=== PATIENT | male | born 1950 | race Caucasian/White ===

== ENCOUNTER → 2017-05-10 | Outpatient (CLI) | payer MEDICARE, SELFPAY | PROVIDERS: Visit Provider Internal Medicine Adolescent Medicine | DX: E11.9 Type 2 diabetes mellitus without complications (principal) | CPT/HCPCS: 36415; 83036 ==

== ENCOUNTER → 2017-08-14 12:18 | Outpatient (CLI) | payer MEDICARE, SELFPAY | PROVIDERS: Visit Provider Internal Medicine Adolescent Medicine ==

== ENCOUNTER → 2018-01-17 09:49 | Outpatient (CLI) | payer MEDICARE, SELFPAY ==
--- NOTE | 2018-01-17 09:56 | NVE_ITS ---
Venous Exam Indications: 782.3 Edema. Half of right foot amputated in 2010. Pt has 2 stents in right leg and is on Plavix bower. IMPRESSIONS 1. There is no evidence of significant Reflux. 2. No evidence of deep or superficial vein thrombosis involving the right lower extremity Right lower extremity venous duplex evaluation. Doppler flow study including spectral analysis, color and palacios scale imaging. Location: Vascular laboratory. Patient status: Outpatient. Tables: Venous flow and imaging: + + + + + Location Overall Flow properties Comments + + + + + Right common femoral Patent Normal phasicity; spontaneous; normal augmentation; compressible + + + + + Right saphenofemoral Patent Compressible junction + + + + + Right profunda Patent Compressible femoral + + + + + Right femoral Patent Normal phasicity; spontaneous; normal augmentation; compressible + + + + + Right greater Likely absent Pt states was saphenous harvested for grafting. + + + + + Right popliteal Patent Normal phasicity; spontaneous ; normal augmentation; compressible + + + + + Right posterior Difficult Compressible Difficult to tibial study visualize. + + + + + Right peroneal Difficult Compressible Difficult to study visualize + + + + + Right gastrocnemius Patent Compressible + + + + + Right soleal Patent Compressible + + + + + Right lesser Patent Compressible saphenous
== END ==
PROVIDERS: Family Provider Internal Medicine Adolescent Medicine; PCP Internal Medicine Adolescent Medicine; Visit Provider Podiatrist
DX: I82.411 Acute embolism and thrombosis of right femoral vein (principal)
CPT/HCPCS: 93971

== ENCOUNTER → 2018-06-08 11:18 | Outpatient (CLI) | payer MEDICARE, SELFPAY ==
[2018-06-08 13:55] LABS: Hemoglobin A1C 9.1 % (0.0-7.0)
[2018-06-08 14:26] LABS: Alanine Aminotransferase 28 U/L (12-78); Albumin Level 3.8 gm/dL (3.4-5.0); Alkaline Phosphatase 71 U/L (46-116); Anion Gap 13.7 mEq/L (5-15); Aspartate Amino Transferase 13 U/L (15-37); Bilirubin,Total 0.3 mg/dL (0.2-1.0); Blood Urea Nitrogen 14 mg/dL (7-18); Calcium 9.1 mg/dL (8.5-10.1); Carbon Dioxide 30 mmol/L (21.0-32.0); Chloride 99 mmol/L (98-107); Chol/HDL Ratio 3.6 (1-3.5); Cholesterol 98 mg/dL (140-200); Creatinine,Serum 1.15 mg/dL (0.70-1.30); Estimated Glomerular Filt Rate 64 ml/min (>60); GFR (African American) 77 ML/MIN (>60); Globulin 3.7 gm/dl (1.3-3.2); Glucose 214 mg/dL (74-106); HDL Cholesterol 27 mg/dL (27-67); LDL Cholesterol 23 mg/dL (0-130); Potassium 4.7 mmoL/L (3.5-5.1); Sodium 138 mmol/L (136-145); Total Protein,Serum 7.5 gm/dL (6.4-8.2); Triglycerides 239 mg/dL (30-200); VLDL Cholesterol 48 mg/dL (0-40)
== END ==
PROVIDERS: Visit Provider Internal Medicine Adolescent Medicine
DX: E11.9 Type 2 diabetes mellitus without complications (principal)
CPT/HCPCS: 36415; 80053; 80061; 83036

== ENCOUNTER → 2018-10-08 12:26 | Outpatient (CLI) | payer MEDICARE, SELFPAY ==
[2018-10-08 12:52] LABS: Basophils # 0.1 K/mm3 (0-0.2); Basophils % 0.7 % (0.1-2.0); Eosinophils # 0.2 K/mm3 (0.0-0.4); Eosinophils % 2.5 % (0.1-12.0); Hematocrit 40.1 % (42.0-52.0); Hemoglobin 13.4 g/dL (14.1-18.0); Lymphocytes # 2.3 K/mm3 (0.7-4.5); Lymphocytes % 34.6 % (10-50); Mean Corpuscular HGB Conc 33.5 g/dL (31.8-35.4); Mean Corpuscular Hemoglobin 27.9 pg (27.0-31.2); Mean Corpuscular Volume 83.4 fl (80-94); Mean Platelet Volume 7.2 fl (7.4-10.4); Monocytes # 0.4 K/mm3 (0.1-1.0); Monocytes % 5.6 % (1.7-9.3); Neutrophils # 3.8 K/mm3 (1.8-7.8); Neutrophils % 56.7 % (37.0-80.0); Platelet Count 220 K/mm3 (142-424); Red Blood Count 4.81 M/mm3 (4.60-6.20); Red Cell Distribution Width 13.6 % (11.5-17.5); White Blood Count 6.8 K/mm3 (4.8-10.8)
[2018-10-08 13:34] LABS: Hemoglobin A1C 7.6 % (0.0-7.0)
[2018-10-08 13:42] LABS: Alanine Aminotransferase 23 U/L (12-78); Albumin Level 3.6 gm/dL (3.4-5.0); Alkaline Phosphatase 65 U/L (46-116); Anion Gap 13.2 mEq/L (5-15); Aspartate Amino Transferase 7 U/L (15-37); Bilirubin,Total 0.3 mg/dL (0.2-1.0); Blood Urea Nitrogen 14 mg/dL (7-18); Calcium 8.8 mg/dL (8.5-10.1); Carbon Dioxide 28 mmol/L (21.0-32.0); Chloride 100 mmol/L (98-107); Chol/HDL Ratio 3.4 (1-3.5); Cholesterol 82 mg/dL (140-200); Creatinine,Serum 1.16 mg/dL (0.70-1.30); Estimated Glomerular Filt Rate 63 ml/min (>60); GFR (African American) 76 ML/MIN (>60); Globulin 3.5 gm/dl (1.3-3.2); Glucose 118 mg/dL (74-106); HDL Cholesterol 24 mg/dL (27-67); LDL Cholesterol 12 mg/dL (0-130); Potassium 4.2 mmoL/L (3.5-5.1); Sodium 137 mmol/L (136-145); Total Protein,Serum 7.1 gm/dL (6.4-8.2); Triglycerides 230 mg/dL (30-200); VLDL Cholesterol 46 mg/dL (0-40)
== END ==
PROVIDERS: Visit Provider Internal Medicine Adolescent Medicine
DX: E11.9 Type 2 diabetes mellitus without complications (principal)
CPT/HCPCS: 36415; 80053; 80061; 83036; 85025

== ENCOUNTER → 2019-01-28 14:37 | Outpatient (CLI) | payer MEDICARE, SELFPAY ==
--- NOTE | 2019-01-28 14:39 | CT_ITS ---
PROCEDURE: CT LUNG SCREENING CLINICAL INDICATION: CURRENT TOBACCO USE Sixty pack-year smoking history, asymptomatic for lung cancer COMPARISON: LDCTLCAS LDCT FOR LUNG CA SCREEN from 11/09/2016 TECHNIQUE: The exam was performed on a GE [employer] Speed [address] scanner using 2.90 mGy CTDI. A low dose helical CT CHEST was performed on a multi-detector scanner. All CT scans at the facility use one or more dose reduction, viz: automated exposure control, ma/kV adjustment per patient size (including targeted exams where dose is matched to indication, i.e. head), or iterative reconstruction technique. The LDCT was performed in a facility that meets the criteria for the screening program. Data regarding this exam was submitted to ACR which is an approved registry. The order for this exam indicates that it came as a result of a lung cancer screening counseling shard decision-making visit that included all the elements required of such a visit including smoking cessation. The radiologist interpreting this exam meets the CMS criteria for the LDCT lung cancer screening program. The exam is reported using the Lung-RADS classification scale and reported to the ACR registry. NOTE: This study was performed for the specific purposes of lung cancer screening and is not an alternative to diagnostic chest CT. RADIATION DOSE: CTDI vol(CT dose Index-volume) = 2.90mG DLP (Dose Length Product) = 101.72 mGcm FINDINGS: COPD. Scattered areas of scarring. Old granulomatous disease. Coronary artery and aortic valve calcification. Gynecomastia. No suspicious pulmonary nodules. Calcified granuloma right apex OTHER FINDINGS: Degenerative changes thoracic spine IMPRESSION: Lung rads category 2 benign Coronary artery and aortic valve calcification with COPD Recommend 12 month LDCT follow-up Dictated by: Christiano Sheriff MD 02/03/2019 07:33 Electronically signed by Christiano Sheriff MD in [place] 02/03/2019 07:33
== END ==
PROVIDERS: PCP Internal Medicine Adolescent Medicine; Visit Provider Internal Medicine Adolescent Medicine
DX: Z12.2 Encounter for screening for malignant neoplasm of respiratory organs (principal); Z87.891 Personal history of nicotine dependence

== ENCOUNTER → 2021-03-17 12:34 | Outpatient (CLI) | payer MEDICARE, SELFPAY ==
[2021-03-17 12:53] LABS: Basophils # 0.1 K/mm3 (0-0.2); Basophils % 0.6 % (0.1-2.0); Eosinophils # 0.2 K/mm3 (0.0-0.4); Eosinophils % 2.3 % (0.1-12.0); Hematocrit 44.2 % (42.0-52.0); Hemoglobin 14.4 g/dL (14.1-18.0); Lymphocytes # 2.3 K/mm3 (0.7-4.5); Lymphocytes % 22.6 % (10-50); Mean Corpuscular HGB Conc 32.6 g/dL (31.8-35.4); Mean Corpuscular Hemoglobin 28.9 pg (27.0-31.2); Mean Corpuscular Volume 88.6 fl (80-94); Mean Platelet Volume 6.8 fl (7.4-10.4); Monocytes # 0.5 K/mm3 (0.1-1.0); Monocytes % 5.3 % (1.7-9.3); Neutrophils # 6.9 K/mm3 (1.8-7.8); Neutrophils % 69.2 % (37.0-80.0); Platelet Count 235 K/mm3 (142-424); Red Blood Count 4.98 M/mm3 (4.60-6.20); Red Cell Distribution Width 13.6 % (11.5-17.5)
[2021-03-17 13:30] LABS: Alanine Aminotransferase 23 U/L (12-78); Albumin Level 4.3 g/dl (3.5-5.0); Albumin/Globulin Ratio 1.3 (1.1-1.8); Alkaline Phosphatase 63 U/L (38-126); Anion Gap 14.1 mEq/L (5-15); Aspartate Amino Transferase 22 U/L (17-59); Bilirubin,Total 0.6 mg/dl (0.2-1.3); Blood Urea Nitrogen 15 mg/dl (9-20); Calcium 9.5 mg/dl (8.4-10.2); Carbon Dioxide 28 mmol/L (22.0-30.0); Chloride 103 mmol/L (98-107); Chol/HDL Ratio 4.3 (1-3.5); Cholesterol 152 mg/dl (140-200); Estimated Glomerular Filt Rate 74 ml/min (>60); GFR (African American) 90 ML/MIN (>60); Globulin 3.2 g/dL (1.3-3.2); Glucose 132 mg/dl (74-100); HDL Cholesterol 35 mg/dl (40-60); Potassium 5.1 mmoL/L (3.5-5.1); Sodium 140 mmol/L (136-145); Total Protein,Serum 7.5 g/dl (6.3-8.2); Triglycerides 251 mg/dl (30-150); VLDL Cholesterol 50 mg/dL (0-40)
[2021-03-17 13:42] LABS: Direct LDL Cholesterol < 30.00 mg/dL (100-129)
[2021-03-17 14:57] LABS: Hemoglobin A1C 7.9 % (4.0-6.0)
== END ==
PROVIDERS: Visit Provider Internal Medicine Adolescent Medicine
DX: E11.9 Type 2 diabetes mellitus without complications (principal)
CPT/HCPCS: 36415; 80053; 80061; 83036; 85025

== ENCOUNTER → 2021-06-22 08:36 | Outpatient (CLI) | payer MEDICARE, SELFPAY ==
--- NOTE | 2021-06-22 08:42 | CT_ITS ---
FINAL REPORT CLINICAL HISTORY: H/O NICOTINE DEPENDENCE smoker- 1.5 ppd x 60 years copd, emphysema family hx of cancer COMPARISON: January 28, 2019 and November 09, 2016 FINDINGS: Low-Dose Chest CT CTDI vol (mGy): 2.90 DLP (mGy-cm): 99.25 Axial images were obtained from the lung apex to the mid abdomen by computed tomography. Low-dose protocol was utilized. FINDINGS: CHEST: There is no axillary adenopathy. There is no hilar or mediastinal adenopathy. The heart is proper size. Coronary artery calcification are again noted. There is no pericardial or pleural effusion. There is mild gynecomastia. Limited images of the upper abdomen are unremarkable. Lung window images demonstrate mild emphysema. There is mild scarring. There is a calcified granuloma in the right upper lobe. There is a 4 mm nodule in the right upper lobe on image 31, stable. There is a 3 mm nodule in the right middle lobe on image 49 which is stable. There are new, small, bilateral ground-glass opacities. IMPRESSION: Lung RADS category 2. Recommend 12 month follow-up low-dose chest CT. Reviewed, Interpreted and Dictated by Marin Pelaez III, MD Transcribed by Etelvina Hong Authenticated by Marin Pelaez III, MD on 06/22/2021 11:40:42 AM [facility]
--- NOTE | 2021-06-22 08:43 | US_ITS ---
FINAL REPORT CLINICAL HISTORY: H/O NICOTINE DEPENDENCE--aaa screening FINDINGS: Sonographic images of the abdominal aorta were obtained. There is no evidence of abdominal aortic aneurysm. The abdominal aorta measures up to 2.7 cm with moderate plaque versus mural thrombus. The iliac arteries are normal measuring less than 1 cm. IMPRESSION: No evidence of abdominal aortic aneurysm. Reviewed, Interpreted and Dictated by Marin Pelaez III, MD Transcribed by Herlinda Scherer Authenticated by Marin Pelaez III, MD on 06/22/2021 10:18:[address] [facility]
== END ==
PROVIDERS: PCP Internal Medicine Adolescent Medicine; Visit Provider Internal Medicine Adolescent Medicine
DX: Z87.891 Personal history of nicotine dependence (principal); Z12.2 Encounter for screening for malignant neoplasm of respiratory organs; Z13.6 Encounter for screening for cardiovascular disorders
CPT/HCPCS: 71271; 76705

== ENCOUNTER 2022-03-07 21:56 | Emergency (ER) | payer MEDICARE, SELFPAY ==
[2022-03-07 22:07] VITALS: BP 159/63; PULSE 76; RESP 18; TEMP 36.7; O2SAT 99; BMI 30.3
--- NOTE | 2022-03-07 22:11 | XR_ITS ---
PROCEDURE INFORMATION: Exam: XR Right Knee Exam date and time: 03/07/2022 10:16 PM Age: 71 years old Clinical indication: Injury or trauma; Blunt trauma; Right; Patient HX: Fall to knees after tripping TECHNIQUE: Imaging protocol: Radiologic exam of the Right knee. Views: 3 views. COMPARISON: No relevant prior studies available. FINDINGS: Bones/joints: Nondisplaced fracture proximal tibial metaphysis. No dislocation. No significant joint effusion. Soft tissues: Mild soft tissue swelling. Vascular calcifications. Vasculature: Vascular stent. Surgical clips. IMPRESSION: RIGHT proximal tibial fracture.
--- NOTE | 2022-03-07 22:11 | XR_ITS ---
PROCEDURE INFORMATION: Exam: XR Right Tibia and Fibula Exam date and time: 03/07/2022 10:17 PM Age: 71 years old Clinical indication: Injury or trauma; Blunt trauma; Lower leg; Right; Patient HX: Fall to knees after tripping; Additional info: Fall w/ swelling and pain TECHNIQUE: Imaging protocol: Radiologic exam of the Right tibia and fibula. Views: 2 views. COMPARISON: CR XR KNEE RT 3V 03/07/2022 10:16 PM FINDINGS: Bones/joints: Nondisplaced fracture proximal tibial metaphysis. No dislocation. Plantar calcaneal enthesophyte. Soft tissues: Mild soft tissue swelling. Vascular calcifications. Vasculature: Vascular stent. Surgical clip. IMPRESSION: RIGHT proximal tibial fracture.
--- NOTE | 2022-03-07 22:11 | XR_ITS ---
PROCEDURE INFORMATION: Exam: XR Pelvis Exam date and time: 03/07/2022 10:13 PM Age: 71 years old Clinical indication: Injury or trauma; Fall; Blunt trauma (contusions or hematomas); Does not apply; Pelvic region TECHNIQUE: Imaging protocol: Radiologic exam of the pelvis. Views: 1 or 2 view. COMPARISON: No relevant prior studies available. FINDINGS: Tubes, catheters and devices: Surgical clips. Bones/joints: No acute fracture. No dislocation. Soft tissues: Vascular calcifications. IMPRESSION: No fracture. If pain persists, consider MRI to exclude occult fracture/internal derangement.
--- NOTE | 2022-03-07 22:11 | XR_ITS ---
PROCEDURE INFORMATION: Exam: XR Left Knee Exam date and time: 03/07/2022 10:21 PM Age: 71 years old Clinical indication: Injury or trauma; Blunt trauma; Left; Patient HX: Fall to knees after tripping TECHNIQUE: Imaging protocol: Radiologic exam of the Left knee. Views: 3 views. COMPARISON: No relevant prior studies available. FINDINGS: Bones/joints: No acute fracture. No dislocation. No significant joint effusion. Soft tissues: Vascular calcifications. IMPRESSION: No fracture. If pain persists, suggest MRI to evaluate for occult fracture/internal derangement.
--- NOTE | 2022-03-07 22:41 | HMH.EDFALL ---
Discharge Plan Disposition Patient Disposition: Home, Self-Care Referrals Follow up/Referrals: Jame Vallecillo DO [Staff Physician] - See instructions Daniel Marte MD [Primary Care Provider] - See instructions Activity Restrictions/Add. Instructions Additional Instructions/Restrictions: no wt bearing and see ortho next week Clinical Impressions Clinical Impression: Closed tibia fracture Instructions Patient Instructions: DI for Tibial Plateau Fracture Discharge ED Provider: Marco A Walsh Fall HPI General Chief Complaint: Fall Stated Complaint: AO 03/07/22 2100 fell injured both legs Time Seen by Provider: 03/07/22 22:00 Mode of Arrival: Wheelchair Source of Information: Patient and Medical Record Limitations: No Limitations Description of Symptoms (Recalled from ER Triage Doc. by RN): Pt reports mechanical call. Pt triped over a dog bowel when trying to turning sander tender the lights causing him to fall to his knees. History of Present Illness HPI Narrative: trip injury with pain to rt lower leg and dec wt bearing complaint: fall Onset (ago): hour(s) Fall from: standing Fall witnessed: yes, by family Place fall occurred: home Loss of consciousness: none Prolonged down time: no Symptoms prior to fall: none Context: tripped/slipped Location of injury - extremities: Right: lower leg and Bilateral: knee Severity: moderate Associated symptoms (after fall): denies Related Data Allergies Allergy/AdvReac Type Severity Reaction Status Date / Time erythromycin base Allergy Severe S-SWELLS-OR Unverified 05/09/17 14:36 AL/THROAT PFSH PFSH Social History Smoking Status: Current every day smoker alcohol intake: never current occupational status: retired Travel in the last 8 weeks: None ROS Obtained: Yes All systems reviewed & no additional complaints except as documented Physical Exam General General appearance: alert Head Head exam: normocephalic Eye Eye exam: Present PERRL and EOMI ENT ENT exam: Present mucous membranes moist Neck Neck exam: Present trachea midline Respiratory Respiratory exam: Absent respiratory distress Cardiovascular Cardiovascular exam: Present regular rate Abdominal Exam Abdominal exam: Present soft Expanded Lower Extremity Exam Right: Hip/Pelvis exam: Absent pain on hip/pelvis palpation Knee exam: Present tenderness, swelling and knee extension intact; Absent full ROM or effusion Neurovascular/Tendon exam: Absent sensory deficit or foot drop Comment: no evid of compartment syndrome Neurological Exam Neurological exam: Present alert and CN II-XII intact Skin Skin exam: Absent rash Medical Decision Making Medical Records Medical records reviewed: Yes I reviewed the patient's medical records. Prabhakar Inquiry Pt receiving controlled substance: No Vital Signs: 03/07/22 22:07 Temperature 98.1 F Temperature Source Oral Pulse Rate [Right Radial] 76 Respiratory Rate 18 Blood Pressure [Right Arm] 159/63 H Blood Pressure Mean [Right Arm] 95 Blood Pressure Source [Right Arm] Automatic Cuff Blood Pressure Position [Right Arm] Sitting 02 Sat by Pulse Oximetry 99 Oxygen Delivery Method Room Air Lab Data Lab results reviewed: Yes I reviewed the patient's lab results. Orders (Tests/Meds): ORDERS Category Date Time Status Knee XR right 3 views [XR knee RT 3V] Stat Exams 03/07/22 22:11 Completed XR knee LT 3V Stat Exams 03/07/22 22:11 Completed XR pelvis 1-2V Stat Exams 03/07/22 22:11 Completed XR tibia fibula RT 2V Stat Exams 03/07/22 22:11 Completed Radiology Data #1: Image(s): Pelvis, Knee and Tib/Fib Image Reviewed: Yes I have reviewed radiologist's interpretation Preliminary Findings: Abnormal fx seen Physician Consults Physician Consulted: elisha Reason -: Pt condition Medical Decision Narrative: pt with acute fx rt prox tibia and will need to see dr vallecillo and nonwt bearing Cri
[2022-03-07 23:00] VITALS: BP 126/72; PULSE 79; O2SAT 96
--- NOTE | 2022-03-07 23:09 | PC.NURSE ---
DR RAYA FONTENOT
[2022-03-07 23:45] VITALS: BP 148/81; PULSE 81; RESP 16; TEMP 36.6; O2SAT 97
== END 2022-03-08 00:01 | disposition home or self-care (01) ==
PROVIDERS: Emergency Provider Emergency Medicine; PCP Internal Medicine Adolescent Medicine
DX: W01.0XXA Fall on same level from slipping, tripping and stumbling without subsequent striking against object, initial encounter (principal); Y92.009 Unspecified place in unspecified non-institutional (private) residence as the place of occurrence of the external cause; Z88.1 Allergy status to other antibiotic agents; S82.191A Other fracture of upper end of right tibia, initial encounter for closed fracture
CPT/HCPCS: 72170; 73562; 73590; 99284

== ENCOUNTER → 2022-03-11 11:36 | Outpatient (CLI) | payer MEDICARE, SELFPAY ==
--- NOTE | 2022-03-11 11:54 | XR_ITS ---
FINAL REPORT CLINICAL HISTORY: fracture COMPARISON: 03/07/2022 FINDINGS: Two views of the right knee were obtained. Again seen is a fracture of the proximal tibia extending to the lateral tibial metaphysis and tibial spines with up to 8 mm of distraction. There is stable bony alignment. A small joint effusion is seen. There are mild vascular calcifications. IMPRESSION: Stable fracture as above. Reviewed, Interpreted and Dictated by Marin Pelaez III, MD Transcribed by Em Dove Authenticated and [facility]
== END ==
PROVIDERS: PCP Internal Medicine Adolescent Medicine; Visit Provider Orthopaedic Surgery
DX: S82.201A Unspecified fracture of shaft of right tibia, initial encounter for closed fracture (principal)
CPT/HCPCS: 73560

== ENCOUNTER → 2022-03-23 09:48 | Outpatient (CLI) | payer MEDICARE, SELFPAY ==
--- NOTE | 2022-03-23 09:53 | XR_ITS ---
FINAL REPORT CLINICAL HISTORY: rt knee pain, broke leg on Mar 07 COMPARISON: 03/11/2022 FINDINGS: RIGHT KNEE 3 views of the right knee were obtained. Again noted is a fracture of the proximal tibial metaphysis anteriorly. The fracture line extends to the tibial tubercle. Bony alignment is stable. There is a small joint effusion. There are postoperative changes and vascular calcifications posteriorly. IMPRESSION: No significant change. Reviewed, Interpreted and Dictated by Marin Pelaez III, MD Transcribed by Etelvina Hong Authenticated and [facility]
== END ==
PROVIDERS: PCP Internal Medicine Adolescent Medicine; Visit Provider Orthopaedic Surgery
DX: S82.121A Displaced fracture of lateral condyle of right tibia, initial encounter for closed fracture (principal)
CPT/HCPCS: 73562

== ENCOUNTER → 2022-04-08 13:05 | Outpatient (CLI) | payer MEDICARE, SELFPAY ==
--- NOTE | 2022-04-08 13:08 | XR_ITS ---
FINAL REPORT CLINICAL HISTORY: knee pain COMPARISON: March 23, 2022 FINDINGS: 3 views of the right knee were obtained. Again seen is a fracture of the tibial tubercle, similar to prior. The joint spaces are intact. There is no soft tissue abnormality. IMPRESSION: Fracture of the tibial tubercle, stable bony alignment. Reviewed, Interpreted and Dictated by Blayne Delgadillo MD Transcribed by Ernesto Cutler Authenticated and [facility]
== END ==
PROVIDERS: PCP Internal Medicine Adolescent Medicine; Visit Provider Orthopaedic Surgery
DX: M25.561 Pain in right knee (principal)
CPT/HCPCS: 73562

== ENCOUNTER → 2023-04-25 07:09 | Outpatient (CLI) | payer MEDICARE, SELFPAY ==
[2023-04-25 16:46] LABS: Basophils # 0.1 K/mm3 (0-0.2); Basophils % 0.6 % (0.1-2.0); Eosinophils # 0.3 K/mm3 (0.0-0.4); Hematocrit 44.2 % (42.0-52.0); Hemoglobin 14.8 g/dL (14.1-18.0); Lymphocytes # 2.7 K/mm3 (0.7-4.5); Lymphocytes % 30.6 % (10-50); Mean Corpuscular HGB Conc 33.5 g/dL (31.8-35.4); Mean Corpuscular Hemoglobin 28.5 pg (27.0-31.2); Mean Corpuscular Volume 85.2 fl (80-94); Mean Platelet Volume 7.6 fl (7.4-10.4); Monocytes # 0.5 K/mm3 (0.1-1.0); Monocytes % 5.5 % (1.7-9.3); Neutrophils # 5.3 K/mm3 (1.8-7.8); Neutrophils % 60.3 % (37.0-80.0); Platelet Count 236 K/mm3 (142-424); Red Blood Count 5.18 M/mm3 (4.60-6.20); Red Cell Distribution Width 14.1 % (11.5-17.5); White Blood Count 8.7 K/mm3 (4.8-10.8)
[2023-04-25 18:07] LABS: Alanine Aminotransferase 21 U/L (12-78); Albumin Level 4.2 g/dl (3.5-5.0); Albumin/Globulin Ratio 1.4 (1.1-1.8); Alkaline Phosphatase 78 U/L (38-126); Anion Gap 13.2 mEq/L (5-15); Aspartate Amino Transferase 23 U/L (17-59); Bilirubin,Total 0.5 mg/dl (0.2-1.3); Blood Urea Nitrogen 23 mg/dl (9-20); Calcium 8.9 mg/dl (8.4-10.2); Carbon Dioxide 27 mmol/L (22.0-30.0); Chloride 95 mmol/L (98-107); Chol/HDL Ratio 5.4 (1-3.5); Cholesterol 113 mg/dl (140-200); Estimated Glomerular Filt Rate 54 ml/min (>60); GFR (African American) 66 ML/MIN (>60); Globulin 2.9 g/dL (1.3-3.2); HDL Cholesterol 21 mg/dl (40-60); Potassium 5.2 mmoL/L (3.5-5.1); Sodium 130 mmol/L (136-145); Total Protein,Serum 7.1 g/dl (6.3-8.2)
[2023-04-25 18:14] LABS: Hemoglobin A1C 11.3 % (4.0-6.0)
[2023-04-25 18:18] LABS: Direct LDL Cholesterol 33.26 mg/dL (100-129)
[2023-04-25 18:32] LABS: Triglycerides 410 mg/dl (30-150)
[2023-04-25 18:33] LABS: Glucose 404 mg/dl (74-100)
[2023-04-25 18:37] LABS: Prostate Specific Ag Screen 1.6 ng/ml (0.0-4.0)
== END ==
PROVIDERS: PCP Nurse Practitioner Family; Visit Provider Nurse Practitioner Family
DX: Z12.5 Encounter for screening for malignant neoplasm of prostate (principal); E11.9 Type 2 diabetes mellitus without complications; E78.5 Hyperlipidemia, unspecified; H54.8 Legal blindness, as defined in USA; I10 Essential (primary) hypertension; I73.9 Peripheral vascular disease, unspecified; L98.9 Disorder of the skin and subcutaneous tissue, unspecified; Z79.4 Long term (current) use of insulin
CPT/HCPCS: 80053; 80061; 83036; 85025; G0103

== ENCOUNTER 2023-06-20 15:24 | Outpatient (POV) | payer MEDICARE, SELFPAY | END 2023-06-20 23:59 | disposition home or self-care (01) | LOC: SC 15:24 | PROVIDERS: PCP Nurse Practitioner Family; Visit Provider Dermatology | DX: Z00.00 Encounter for general adult medical examination without abnormal findings (principal) ==

== ENCOUNTER 2023-08-15 16:49 | Outpatient (POV) | payer MEDICARE, SELFPAY | END 2023-08-15 23:59 | disposition home or self-care (01) | LOC: SC 16:49 | PROVIDERS: PCP Nurse Practitioner Family; Visit Provider Dermatology | DX: Z00.00 Encounter for general adult medical examination without abnormal findings (principal) ==

== ENCOUNTER 2023-09-06 11:06 | Outpatient (CLI) | payer MEDICARE, SELFPAY ==
[2023-09-06 12:16] LABS: Creatinine,Urine Random 76 mg/dL (Not Estab.)
[2023-09-06 12:17] LABS: Microalbumin < 6.000 mg/L (0-16.7)
== END 2023-09-06 23:59 ==
LOC: LAB.DROPOF 11:07
PROVIDERS: PCP Nurse Practitioner Family; Visit Provider Nurse Practitioner Family
DX: E11.9 Type 2 diabetes mellitus without complications (principal); I10 Essential (primary) hypertension; Z79.4 Long term (current) use of insulin
CPT/HCPCS: 82043; 82570

== ENCOUNTER 2023-09-20 13:30 | Outpatient (CLI) | payer MEDICARE, SELFPAY ==
--- NOTE | 2023-09-20 13:33 | CT_ITS ---
FINAL REPORT CLINICAL HISTORY: lung cancer screening COMPARISON: 06/22/2021 FINDINGS: CT CHEST LOW DOSE SCREENING HISTORY: Screening exam for lung cancer. Current smoker, 60 pack year smoking history DOSE: CTDIvol: 2.9 mGy, DLP: 107.07 mGy*cm COMPARISON: 06/22/2021. TECHNIQUE: Axial CT without IV contrast administration using low dose protocol FINDINGS: No acute lung disease is present . The ground glass infiltrates noted in the right lower lobe on the prior exam of 2021 have resolved. There is a stable subpleural nodule in the right middle lobe best seen on image #60. 4 mm nodule in the right upper lobe now measures 3 mm in size. No pleural or pericardial effusion is seen . No adenopathy or mass lesion is present . Moderate coronary artery calcifications remain present. IMPRESSION: Resolved right lower lobe opacity since prior exam consistent with resolved pneumonia. Stable subpleural nodule right middle lobe, slightly smaller right upper lobe nodule when compared to the prior exam. LUNG RADS CATEGORY 2 RECOMMENDATION: 12 month LDCT follow up Reviewed, Interpreted and Dictated by Layla Hearn MD Transcribed by Radha Saba Authenticated and [facility]
== END 2023-09-20 23:59 | disposition home or self-care (01) ==
LOC: RAD 13:31
PROVIDERS: PCP Nurse Practitioner Family; Visit Provider Nurse Practitioner Family
DX: Z87.891 Personal history of nicotine dependence (principal); Z12.2 Encounter for screening for malignant neoplasm of respiratory organs
CPT/HCPCS: 71271

== ENCOUNTER 2023-09-27 15:29 | Outpatient (CLI) | payer MEDICARE, SELFPAY ==
[2023-09-27 16:34] LABS: Alanine Aminotransferase 21 U/L (12-78); Albumin Level 4.1 g/dl (3.5-5.0); Albumin/Globulin Ratio 1.5 (1.1-1.8); Alkaline Phosphatase 73 U/L (38-126); Aspartate Amino Transferase 19 U/L (17-59); Bilirubin,Total 0.7 mg/dl (0.2-1.3); Blood Urea Nitrogen 21 mg/dl (9-20); Calcium 9.4 mg/dl (8.4-10.2); Carbon Dioxide 25 mmol/L (22.0-30.0); Chloride 96 mmol/L (98-107); Chol/HDL Ratio 3.5 (1-3.5); Cholesterol 87 mg/dl (140-200); Estimated Glomerular Filt Rate 60 ml/min (>60); GFR (African American) 72 ML/MIN (>60); Globulin 2.7 g/dL (1.3-3.2); Glucose 320 mg/dl (74-100); HDL Cholesterol 25 mg/dl (40-60); Sodium 133 mmol/L (136-145); Total Protein,Serum 6.8 g/dl (6.3-8.2); Triglycerides 233 mg/dl (30-150); VLDL Cholesterol 47 mg/dL (0-40)
[2023-09-27 16:43] LABS: Microalbumin < 6.000 mg/L (0-16.7)
[2023-09-27 16:49] LABS: Direct LDL Cholesterol < 30.00 mg/dL (100-129)
== END 2023-09-27 23:59 | disposition home or self-care (01) ==
LOC: LAB.DROPOF 15:29
PROVIDERS: PCP Nurse Practitioner Family; Visit Provider Nurse Practitioner Family
DX: E11.9 Type 2 diabetes mellitus without complications (principal); Z79.4 Long term (current) use of insulin; Z79.84 Long term (current) use of oral hypoglycemic drugs
CPT/HCPCS: 80053; 80061; 82043; 83036

== ENCOUNTER 2023-11-06 15:01 | Outpatient (CLI) | payer MEDICARE, SELFPAY ==
[2023-11-06 15:07] LABS: Alanine Aminotransferase 13 U/L (12-78); Albumin Level 3.9 g/dl (3.5-5.0); Albumin/Globulin Ratio 1.3 (1.1-1.8); Alkaline Phosphatase 84 U/L (38-126); Anion Gap 13.3 mEq/L (5-15); Aspartate Amino Transferase 18 U/L (17-59); Bilirubin,Total 0.5 mg/dl (0.2-1.3); Blood Urea Nitrogen 21 mg/dl (9-20); Calcium 9.1 mg/dl (8.4-10.2); Carbon Dioxide 30 mmol/L (22.0-30.0); Chloride 94 mmol/L (98-107); Estimated Glomerular Filt Rate 66 ml/min (>60); GFR (African American) 80 ML/MIN (>60); Globulin 2.9 g/dL (1.3-3.2); Glucose 382 mg/dl (74-100); Potassium 5.3 mmoL/L (3.5-5.1); Sodium 132 mmol/L (136-145); Total Protein,Serum 6.8 g/dl (6.3-8.2)
== END 2023-11-06 23:59 | disposition home or self-care (01) ==
LOC: LAB.DROPOF 15:02
PROVIDERS: PCP Nurse Practitioner Family; Visit Provider Nurse Practitioner Family
DX: E11.9 Type 2 diabetes mellitus without complications (principal); Z79.4 Long term (current) use of insulin; Z79.84 Long term (current) use of oral hypoglycemic drugs
CPT/HCPCS: 80053

== ENCOUNTER 2023-11-24 02:16 | Inpatient (IN) | payer MEDICARE, SELFPAY ==
[2023-11-24] VITALS (16 sets, daily range): BP systolic 102–153; BP diastolic 50–91; PULSE 55–113; RESP 13–24; TEMP 36.7–40.2; O2SAT 93–100; BMI 30.3; BMI 29.9; BMI 29.7
--- NOTE | 2023-11-24 02:20 | ED_ITS ---
Discharge Plan Disposition Chief Complaint: Abdominal Pain Prescriptions Prescriptions: No Action albuterol sulfate 90 mcg/actuation HFA aerosol inhaler 2 puff inhalation Q4-6H PRN (Reason: shortness of breath or wheezing) Qty: 3 1RF carvedilol 25 mg tablet 25 mg PO BID 90 Days Qty: 180 1RF clopidogrel 75 mg tablet 75 mg PO DAILY 90 Days Qty: 90 1RF lisinopril 20 mg tablet 20 mg PO DAILY 90 Days Qty: 90 1RF trazodone 50 mg tablet 50 mg PO DAILY Qty: 90 2RF Trelegy Ellipta 200-62.5-25 mcg blister with device 1 inh inhalation DAILY 90 Days Qty: 3 2RF atorvastatin 20 mg tablet 20 mg PO DAILY 90 Days Qty: 90 1RF insulin degludec [Tresiba FlexTouch U-100] 100 unit/mL (3 mL) insulin pen 37 unit SQ DAILY Qty: 15 4RF dapagliflozin propanediol [Farxiga] 10 mg tablet 10 mg PO DAILY Qty: 30 2RF Discharge ED Provider: Evens Marquez General Adult HPI General Chief complaint: Abdominal Pain Stated complaint: fever, redness R foot Time Seen by Provider: 11/24/23 02:20 History of Present Illness HPI narrative: 73-year-old male with history of COPD, insulin-dependent diabetes, status post partial amputation of the right foot presents for multiple complaints. He has had abdominal pain and vomiting/diarrhea and feeling ill for the last 2 days. Tonight he lost his balance and had a fall, striking his head in the bathroom. He denies loss of consciousness. He reports no pain as result of the fall. When his family came into the bathroom, they noticed that his right leg was red extending up to the mid calf and he has a wound on the plantar surface of the partially amputated right foot. Patient is uncomfortable appearing. History largely obtained from family at bedside. Related Data Previous Rx's Medication Instructions Recorded albuterol sulfate 90 mcg/actuation 2 puff inhalation Q4-6H PRN 04/25/23 aerosol inhaler shortness of breath or wheezing #3 ea carvedilol 25 mg tablet 25 mg PO BID 90 days #180 tabs 04/25/23 clopidogrel 75 mg tablet 75 mg PO DAILY 90 days #90 tabs 12/05/23 lisinopril 20 mg tablet 20 mg PO DAILY 90 days #90 tabs 04/25/23 atorvastatin 20 mg tablet 20 mg PO DAILY 90 days #90 tabs 09/29/23 fluticasone fur. 200 mcg-umeclid 1 inh inhalation DAILY 90 days #3 11/06/23 62.5 mcg-vilant 25 mcg ea inhalat.powder (Trelegy Ellipta) trazodone 50 mg tablet 50 mg PO DAILY #90 tabs 11/06/23 dapagliflozin propanediol 10 mg 10 mg PO DAILY #30 tabs 11/08/23 tablet (Farxiga) insulin degludec 100 unit/mL (3 37 unit (0.37 mL) SQ DAILY #15 mL 11/08/23 mL) subcutaneous pen (Tresiba FlexTouch U-100 insulin) Allergies Allergy/AdvReac Type Severity Reaction Status Date / Time anamycin Allergy Intermediate Swelling Uncoded 11/06/23 10:31 of Lip/Tongue/Throat [facility] Disclaimer: The information contained in this section may have been updated after the patient was seen, as this information can be updated by other users. 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 Skin cancer Surgical History Hx of toe surgery toes removed from right foot H/O repair of right rotator cuff Social History Smoking Status: Current every day smoker alcohol intake: never current occupational status: retired Travel in the last 8 weeks: None ROS Obtained: Yes All systems reviewed & no additional complaints except as documented Physical Exam General General appearance: alert Comment: Ill-appearing Head Head exam: atraumatic and normocephalic Eye Eye exam: Present normal appearance, PERRL and EOMI ENT ENT exam: Present normal oropharynx and normal external ear exam Neck Neck exam: Present normal inspection and full ROM Chest Chest inspection: Present normal inspection and symmetric chest wall rise; Absent tenderness Respiratory Respiratory exam: Present normal lung sounds bilaterally; Absent respiratory distress Cardiovascular Cardiovascular exam: Present normal rhythm and tachycardia Abdominal Exam Abdominal exam: Present soft and tenderness (Diffusely tender); Absent distention or guarding Extremities Exam Extremities exam: Present other (No deformity or musculoskeletal tenderness secondary to trauma. Right lower extremity: Transmetatarsal amputation noted, wound on the lateral dorsal surface, erythema and warmth extending to the proximal calf.) Back Exam Back exam: Present normal inspection; Absent tenderness Neurological Exam Neurological exam: Present alert and other (Somewhat slow to answer questions) Psychiatric Psychiatric exam: Present normal mood Skin Skin exam: Present diaphoresis Lymphatic Lymphatic Findings: no adenopathy Medical Decision Making Medical Records Medical records reviewed: Yes I reviewed the patient's medical records. Prabhakar Inquiry Pt receiving controlled substance: No Prabhakar was queried for this patient: No Vital Signs: 11/24/23 02:19 11/24/23 02:30 11/24/23 03:40 Temperature 98.6 F 104.4 F H 102.8 F H Temperature Source Oral Rectal Rectal Pulse Rate 96 H Pulse Rate [Right Radial] 113 H Respiratory Rate 20 20 Blood Pressure 108/60 L Blood Pressure [Right Arm] 141/71 H Blood Pressure Mean [Right Arm] 94 Blood Pressure Source Automatic Cuff Blood Pressure Source [Right Arm] Automatic Cuff Blood Pressure Position Supine Blood Pressure Position [Right Arm] Supine 02 Sat by Pulse Oximetry 98 96 Oxygen Delivery Method Room Air Room Air Lab Data Lab results reviewed: Yes I reviewed the patient's lab results. Lab Results 11/24/23 02:30: WBC 13.0 H, RBC 5.54, Hgb 15.2, Hct 45.2, MCV 81.6, MCH 27.4, MCHC 33.5, RDW 14.7, Plt Count 225, MPV 7.6, Neut % (Auto) 91.4 H, Lymph % (Auto) 2.6 L, [place] % (Auto) 5.5, Eos % (Auto) 0.2, Baso % (Auto) 0.2, Neut # (Auto) 11.9 H, Lymph # (Auto) 0.4 L, [place] # (Auto) 0.7, Eos # (Auto) 0.0, Baso # (Auto) 0.0, Total Counted 100, Neutrophils % (Manual) 89 H, Lymphocytes % (Manual) 4 L, Monocytes % (Manual) 7, Platelet Estimate Normal, RBC Morphology Normal, Sodium 125 L, Potassium 4.3, Chloride 93 L, Carbon Dioxide 22, Anion Gap 14.3, BUN 26 H, Creatinine 1.40 H, Estimated Creat Clear 70, Estimated GFR 50 L, Est GFR ( Amer) 60, Glucose 202 H, Calcium 8.9, Magnesium 1.6, Total Bilirubin 1.3, AST 31, ALT 24, Alkaline Phosphatase 93, Total Protein 8.2, Albumin 4.2, Globulin 4.0 H, Albumin/Globulin Ratio 1.1, Lipase 46, Acetone Level None detected 11/24/23 02:34: VBG pH 7.41, VBG pCO2 35.4, VBG pO2 32.7, VBG HCO3 21.9 L, VBG Total CO2 23.0, VBG O2 Saturation 67.8, VBG Base Excess -2.7 L, VBG Lactic Acid 2.4 H 11/24/23 02:51: Urine Color Yellow, Urine Appearance Clear, Urine pH 6.0, Ur Specific [place] 1.015, Urine Protein Trace, Urine Glucose (UA) 3+, Urine Ketones 1+, Urine Blood 1+, Urine Nitrate Negative, Urine Bilirubin Negative, Urine Urobilinogen 0.2, Ur Leukocyte Esterase Negative, Urine RBC 3-5, Urine WBC None, Ur Squamous Epith Cells Occasional, Urine Bacteria None, Urine Mucus Trace 11/24/23 02:30 11/24/23 02:30 Orders (Tests/Meds): ED MEDICATIONS Generic Name Dose Route Start Last Admin Trade Name Freq PRN Reason Stop Dose Admin Lactated Ringer's 1,000 mls @ 999 mls/hr 11/24/23 02:30 11/24/23 02:43 Lactated Ringer's 1000 Ml Bag IV 11/24/23 04:30 999 mls/hr .Q1H1M WILL Administration Vancomycin HCl 2,000 mg/ 250 mls @ 125 mls/hr 11/24/23 02:45 11/24/23 02:48 Sodium Chloride IV 11/24/23 04:44 125 mls/hr ONCE ONE Administration Miscellaneous 1 each 11/24/23 02:45 11/24/23 02:36 Vancomycin Consult Request NOTAPPLIC 12/24/23 02:44 1 each CONSULT [facility] Administration Discontinued Medications Generic Name Dose Route Start Last Admin Trade Name Freq PRN Reason Stop Dose Admin Acetaminophen 1,000 mg 11/24/23 02:50 11/24/23 02:53 Acetaminophen 1,000mg/100ml Vial IV 11/24/23 02:51 1,000 mg ONCE ONE Administration Piperacillin Sod/Tazobactam 100 mls @ 200 mls/hr 11/24/23 02:31 11/24/23 02:47 Sod 4.5 gm/ Sodium Chloride IV 11/24/23 03:00 Not Given ONCE ONE Piperacillin Sod/Tazobactam 100 mls @ 200 mls/hr 11/24/23 02:45 11/24/23 02:47 Sod 4.5 gm/ Sodium Chloride IV 11/24/23 03:14 200 mls/hr ONCE ONE Administration Iopamidol 70 ml 11/24/23 03:35 11/24/23 03:36 Iopamidol-370 (76%);100ml Bottle IV 11/24/23 03:36 70 ml ONCE ONE Administration Ondansetron HCl 4 mg 11/24/23 02:43 11/24/23 02:49 Ondansetron 4mg/2ml Vial IV 11/24/23 02:44 4 mg ONCE ONE Administration Sodium Chloride 10 ml 11/24/23 03:35 11/24/23 03:36 Sodium Chloride 0.9% 10ml Syr (Rad Only) IV 11/24/23 03:36 10 ml ONCE ONE Administration Sodium Chloride 50 ml 11/24/23 03:35 11/24/23 03:36 0.9 % Sodium Chloride 50 Ml Vial IV 11/24/23 03:36 50 ml ONCE ONE Administration ORDERS Category Date Time Status CT abdomen pelvis w con Stat Cat Scan 11/24/23 02:[address] angio chest PE protocol Stat Cat Scan 11/24/23 02:[address] cervical spine wo con Stat Cat Scan 11/24/23 02:[address] head/brain wo con Stat Cat Scan 11/24/23 02:[address] lumbar spine wo con Stat Cat Scan 11/24/23 02:[address] thoracic spine wo con Stat Cat Scan 11/24/23 02:27 Completed Foot XR right minimum 3 views [XR foot RT min 3V] Stat Exams 11/24/23 02:50 Taken Acetone, Serum (Rapid) Stat Lab 11/24/23 02:30 Completed CBC w/Auto Diff [Complete Blood Count Auto Diff] Stat Lab 11/24/23 02:30 Completed CMP [Comprehensive Metabolic Panel] Stat Lab 11/24/23 02:30 Completed Lactate Venous Stat Lab 11/24/23 02:31 Ordered Lipase Stat Lab 11/24/23 02:30 Completed Magnesium Stat Lab 11/24/23 02:30 Completed UA [Urinalysis and Microscopic] Stat Lab 11/24/23 02:51 Completed Blood Culture Stat Micro 11/24/23 02:40 Received VBG [Venous Blood Gas] Stat RT 11/24/23 02:34 Completed Tissue Perfus/Sepsis Re-Eval Sepsis Re-Evaluation Performed: Yes Date Performed: 11/24/23 Time Performed: 04:30 Medical Decision Narrative: 73-year-old male with history of COPD, insulin-dependent diabetes, prior transmetatarsal amputation of the right foot presents for several days of abdominal pain nausea vomiting and diarrhea, fall tonight, struck his head, then noted to have right foot wound with erythema extending up to the mid calf. History was obtained via interactive discussion with patient, family at bedside, chart review. On arrival, patient is febrile to 104, tachycardic to 113, satting appropriately on room air, moving all extremities spontaneously. Full physical exam performed and significant for mildly ill-appearing male without focal traumatic findings from the fall, right lower extremity exam is consistent with diabetic foot wound and cellulitis tracking up the calf, mildly altered. Differential includes but is not limited to intracranial trauma intrathoracic trauma intra-abdominal trauma spine trauma extremity trauma gastroenteritis, cholecystitis, pancreatitis, diabetic foot wound, abscess, cellulitis, bacteremia. Patient was given 2 L IV fluid bolus (patient was not given full 30 ml per kilo bolus as I was concerned for possible volume overload), 4.5 g Zosyn, vancomycin, Zofran, Tylenol for symptomatic management and correction of underlying abnormalities. Workup initiated including CBC CMP VBG mag lipase blood cultures x 2 urinalysis, full trauma scans, radiographs of the right foot On re-evaluation, patient remains febrile, heart rate normalized after fluid bolus. Laboratory workup independently interpreted by me and significant for leukocytosis with white count 13, mildly elevated lactate at 2.4, hyponatremia noted at 125, mildly elevated creatinine 1.4. No evidence of DKA. Imaging independently interpreted by me and significant for no evidence of intracranial bleeding, spinal fracture, intrathoracic or intra-abdominal trauma. No evidence of acute abdominal pathology as underlying cause of nausea vomiting diarrhea. See radiology read for full review of final results. Given patient history, exam and workup, patient's presentation most likely represents severe sepsis secondary to diabetic foot wound and cellulitis. Given this, patient requires admission, interactive discussion was had with hospitalist on-call who accepted the patient. Procedures Risk/Benefits of Procedure(s) Were Explained: Yes Critical Care Critical Care Time Critical Care Time: Yes Attestation: On 11/24/23, the high probability of a clinically significant, sudden or life threatening deterioration of the following system(s) required my full and direct attention, intervention and personal management. The time I documented below is in addition to time spent performing reported procedures but includes the following listed in this critical care notation. Total Time Total Critical Care Time: 40
--- NOTE | 2023-11-24 02:27 | CT_ITS ---
PROCEDURE INFORMATION: Exam: CT Thoracic Spine Without Contrast Exam date and time: 11/24/2023 3:11 AM Age: 73 years old Clinical indication: Injury or trauma; Additional info: Fall TECHNIQUE: Imaging protocol: Computed tomography of the thoracic spine without contrast. Radiation optimization: All CT scans at this facility use at least one of these dose optimization techniques: automated exposure control; mA and/or kV adjustment per patient size (includes targeted exams where dose is matched to clinical indication); or iterative reconstruction. COMPARISON: CT CERVICAL SPINE WO CON 09/26/2023 03:08 FINDINGS: Bones/joints: No acute fracture. Normal alignment. No significant disc bulge or herniation. No severe spinal canal stenosis. No significant neural foraminal narrowing. Soft tissues: Unremarkable. Other findings: Please see separate report for CT chest. IMPRESSION: No acute fracture or malalignment of the thoracic spine.
--- NOTE | 2023-11-24 02:27 | CT_ITS ---
PROCEDURE INFORMATION: Exam: CT Abdomen And Pelvis With Contrast Exam date and time: 11/24/2023 3:16 AM Age: 73 years old Clinical indication: Injury or trauma; Fall; Additional info: 3 days abd pain, vomiting, fall today TECHNIQUE: Imaging protocol: Computed tomography of the abdomen and pelvis with contrast. Radiation optimization: All CT scans at this facility use at least one of these dose optimization techniques: automated exposure control; mA and/or kV adjustment per patient size (includes targeted exams where dose is matched to clinical indication); or iterative reconstruction. Contrast material: ISOVUE; Contrast volume: 70 ml; Contrast route: IV; COMPARISON: CR XR PELVIS 1-2V 07/03/2022 22:13 FINDINGS: Liver: Normal. No mass. Gallbladder and biliary ducts: Normal. No calcified stones. No ductal dilation. Pancreas: Normal. No ductal dilation. Spleen: Normal. No splenomegaly. Adrenal glands: Normal. No mass. Kidneys and ureters: Low attenuation renal lesions measuring up to 6.4 cm in diameter are incompletely characterized, but are likely cysts. No followup imaging is warranted. Stomach and bowel: Unremarkable. No obstruction. No mucosal thickening. Appendix: Unremarkable appendix. Intraperitoneal space: Unremarkable. No free air. No significant fluid collection. Vasculature: The arteries demonstrate severe atherosclerotic disease. Lymph nodes: Unremarkable. No enlarged lymph nodes. Urinary bladder: Urinary bladder diverticulum. Reproductive: Unremarkable as visualized. Bones/joints: Unremarkable. No acute fracture. Soft tissues: Unremarkable. Other findings: Please see separate report for CT chest. Stigmata of old granulomatous disease. IMPRESSION: No acute intra-abdominal or intrapelvic organ injury. COMMENTS: Consistent with the [employer]'s Incidental Findings Committee white paper (J Am Jose Luis Radiol 2018): Any incidental renal lesion less than 1 cm or classified as too small to characterize, or any incidental cystic renal lesion characterized as simple-appearing, is likely benign. No follow-up imaging is recommended for these lesions per consensus recommendations based on imaging criteria.
--- NOTE | 2023-11-24 02:27 | CT_ITS ---
PROCEDURE INFORMATION: Exam: CTA Chest With Contrast Exam date and time: 11/24/2023 3:16 AM Age: 73 years old Clinical indication: Injury or trauma; Additional info: Fall, tachy, leg swelling TECHNIQUE: Imaging protocol: Computed tomographic angiography of the chest with contrast. Exam focused on the arteries. 3D rendering (Not supervised by radiologist): MIP and/or 3D reconstructed images were created by the technologist. Radiation optimization: All CT scans at this facility use at least one of these dose optimization techniques: automated exposure control; mA and/or kV adjustment per patient size (includes targeted exams where dose is matched to clinical indication); or iterative reconstruction. Contrast material: ISOVUE 370; Contrast volume: 70 ml; Contrast route: INTRAVENOUS (IV); COMPARISON: CT LUNG SCREENING 05/26/2023 13:42 FINDINGS: Pulmonary arteries: Normal. No pulmonary emboli. Aorta: The aorta demonstrates moderate atherosclerotic disease. Lungs: Bilateral apical scarring. Mild paraseptal emphysema. Mild scarring and atelectasis in the lower lungs. Pleural spaces: Unremarkable. No pneumothorax. No pleural effusion. Heart: Mitral and aortic valve calcifications. Coronary arteries: Coronary artery calcifications. Lymph nodes: Unremarkable. No enlarged lymph nodes. Bones/joints: Unremarkable. No acute fracture. Soft tissues: Unremarkable. Other findings: Please see separate report for abdomen/pelvis. IMPRESSION: No acute intrathoracic organ injury. COMMENTS: The presence of pulmonary emphysema on CT is an independent risk factor for lung cancer. In the absence of a history or active diagnosis of lung cancer, it is recommended that this patient with emphysema be evaluated for enrollment in a low dose CT lung cancer screening program.
--- NOTE | 2023-11-24 02:27 | CT_ITS ---
PROCEDURE INFORMATION: Exam: CT Lumbar Spine Without Contrast Exam date and time: 11/24/2023 3:14 AM Age: 73 years old Clinical indication: Injury or trauma; Additional info: Fall TECHNIQUE: Imaging protocol: Computed tomography of the lumbar spine without contrast. Radiation optimization: All CT scans at this facility use at least one of these dose optimization techniques: automated exposure control; mA and/or kV adjustment per patient size (includes targeted exams where dose is matched to clinical indication); or iterative reconstruction. COMPARISON: CT THORACIC SPINE WO CON 09/26/2023 03:11 FINDINGS: Bones/joints: Degenerative changes from L2-L4 produce moderate spinal stenosis. Soft tissues: Unremarkable. Other findings: Please see separate report for abdomen/pelvis. IMPRESSION: No acute fracture or malalignment of the lumbar spine.
--- NOTE | 2023-11-24 02:29 | CT_ITS ---
PROCEDURE INFORMATION: Exam: CT Head Without Contrast Exam date and time: 11/24/2023 3:06 AM Age: 73 years old Clinical indication: Injury or trauma; Additional info: Fall TECHNIQUE: Imaging protocol: Computed tomography of the head without contrast. Total images: 213 Radiation optimization: All CT scans at this facility use at least one of these dose optimization techniques: automated exposure control; mA and/or kV adjustment per patient size (includes targeted exams where dose is matched to clinical indication); or iterative reconstruction. COMPARISON: No relevant prior studies available. FINDINGS: Brain: No acute intracranial hemorrhage, midline shift, or mass. Mild cortical and cerebellar atrophy. Mild white matter heterogeneity compatible with remote small vessel ischemic change. Remote lacunar infarct left caudate body. Punctate remote lacunar infarct left thalamus. Attenuation artifact versus remote white matter ischemic change in the central kimberli. Nugent-white interface and basilar cisterns are preserved. Cerebral ventricles: Mild ventricular prominence compatible degree of central involution. Paranasal sinuses: Mild mucosal thickening base of the bilateral maxillary sinuses. Mastoid air cells: Visualized mastoid air cells are well aerated. Bones: Unremarkable. No acute fracture. Soft tissues: Unremarkable. Vasculature: Severe calcifications bilateral intracranial internal carotid arteries. IMPRESSION: 1. No acute intracranial process. 2. Chronic findings as described.
--- NOTE | 2023-11-24 02:29 | CT_ITS ---
PROCEDURE INFORMATION: Exam: CT Cervical Spine Without Contrast Exam date and time: 11/24/2023 3:08 AM Age: 73 years old Clinical indication: Injury or trauma; Additional info: Fall TECHNIQUE: Imaging protocol: Computed tomography of the cervical spine without contrast. Total images: 247 Radiation optimization: All CT scans at this facility use at least one of these dose optimization techniques: automated exposure control; mA and/or kV adjustment per patient size (includes targeted exams where dose is matched to clinical indication); or iterative reconstruction. COMPARISON: CT HEAD/BRAIN WO CON 11/24/2023 3:06 AM FINDINGS: Bones: Cervical vertebral body height and alignment is maintained. The base of the dens and the C1 and C2 articulations are preserved with mild degenerative arthropathy. The cervicooccipital junction is intact. The facet joints are appropriately aligned with moderate degenerative spondylosis bilaterally at C2 through C5. Posterior elements are intact. Generalized mild degenerative disc disease throughout the cervical spine. No large disc herniation or critical spinal canal stenosis. No concerning bone lesions. Mastoid air cells: Partially opacified inferior right mastoid air cells. Prevertebral and retropharyngeal spaces: No prevertebral soft tissue swelling. Lungs: Biapical fibrosis. Calcified right apical granuloma. Pleural spaces: Biapical pleural thickening. Vasculature: Mild calcifications bilateral carotid artery bifurcations. Soft tissues: Unremarkable soft tissues of the neck. IMPRESSION: 1. No acute cervical fracture or traumatic subluxation. 2. Mild multilevel degenerative disc disease. 3. Moderate degenerate facet joint spondylosis. 4. Additional chronic findings.
[2023-11-24] MEDS: VANCOMYCIN CONSULT REQUEST 1 EACH NOTAPPLIC (02:36)
--- NOTE | 2023-11-24 02:37 | PC.NURSE ---
Per sepsis bolus of 2L of LR instead of 3Ls
[2023-11-24 02:40] LABS: VBG Base Excess -2.7 mmol/L (-2.4-2.3); VBG HCO3 21.9 mmol/L (23-30); VBG Oxygen Saturation 67.8 % (50-70); VBG PCO2 35.4 mmol/L (35-51); VBG PH 7.41 mmol/L (7.31-7.41); VBG PO2 32.7 mmol/L (28-40)
[2023-11-24 02:41] LABS: Lactate Venous 2.4 mmol/L (0.4-2.0)
[2023-11-24] MEDS: LACTATED RINGERS 1000ML 1,000 ML 999 ML IV (02:43)
[2023-11-24 02:46] LABS: Acetone, Serum (Rapid) None Detected (None Detect)
[2023-11-24] MEDS: PIPERACILLIN/TAZO 4.5 GM in 0.9 % SODIUM CHLORIDE 100 ML IV ×3 (02:47→18:14)
[2023-11-24 02:48] LABS: Basophils % 0.2 % (0.1-2.0); Eosinophils % 0.2 % (0.1-12.0); Hematocrit 45.2 % (42.0-52.0); Hemoglobin 15.2 g/dL (14.1-18.0); Lymphocytes # 0.4 K/mm3 (0.7-4.5); Lymphocytes % 2.6 % (10-50); Mean Corpuscular HGB Conc 33.5 g/dL (31.8-35.4); Mean Corpuscular Hemoglobin 27.4 pg (27.0-31.2); Mean Corpuscular Volume 81.6 fl (80-94); Mean Platelet Volume 7.6 fl (7.4-10.4); Monocytes # 0.7 K/mm3 (0.1-1.0); Monocytes % 5.5 % (1.7-9.3); Neutrophils # 11.9 K/mm3 (1.8-7.8); Neutrophils % 91.4 % (37.0-80.0); Platelet Count 225 K/mm3 (142-424); Red Blood Count 5.54 M/mm3 (4.60-6.20); Red Cell Distribution Width 14.7 % (11.5-17.5)
[2023-11-24] MEDS: VANCOMYCIN HCL 2,000 MG in 0.9 % SODIUM CHLORIDE 250 ML 125 MG IV (02:48)
[2023-11-24] MEDS: ONDANSETRON 4MG/2ML VIAL 4 MG IV (02:49)
[2023-11-24 02:50] LABS: MANUAL DIFFERENTIAL MANUAL DIFFERENTIAL (MANUAL DIFF)
--- NOTE | 2023-11-24 02:50 | XR_ITS ---
PROCEDURE INFORMATION: Exam: XR Right Foot Exam date and time: 11/24/2023 3:36 AM Age: 73 years old Clinical indication: Other: Infected wound TECHNIQUE: Imaging protocol: Radiologic exam of the right foot. Views: 3 or more views. COMPARISON: CR XR TIBIA FIBULA RT 2V 03/07/2022 10:17 PM FINDINGS: Bones/joints: Prior amputation at the base of the metatarsals. The patient is mildly osteopenic. Soft tissues: No air is seen in the soft tissues. IMPRESSION: Prior amputation at the base of the metatarsals. No air is seen in the soft tissues. The patient is mildly osteopenic.
[2023-11-24 02:51] LABS: Alanine Aminotransferase 24 U/L (12-78); Albumin Level 4.2 g/dl (3.5-5.0); Albumin/Globulin Ratio 1.1 (1.1-1.8); Alkaline Phosphatase 93 U/L (38-126); Anion Gap 14.3 mEq/L (5-15); Aspartate Amino Transferase 31 U/L (17-59); Bilirubin,Total 1.3 mg/dl (0.2-1.3); Blood Urea Nitrogen 26 mg/dl (9-20); Calcium 8.9 mg/dl (8.4-10.2); Carbon Dioxide 22 mmol/L (22.0-30.0); Chloride 93 mmol/L (98-107); Creatinine Clearance Estimated 70 mL/min (50-200); Estimated Glomerular Filt Rate 50 ml/min (>60); GFR (African American) 60 ML/MIN (>60); Glucose 202 mg/dl (74-100); Lipase 46 U/L (23-300); Magnesium 1.6 mg/dl (1.6-2.3); Potassium 4.3 mmoL/L (3.5-5.1); Sodium 125 mmol/L (136-145); Total Protein,Serum 8.2 g/dl (6.3-8.2)
[2023-11-24] MEDS: ACETAMINOPHEN 1,000MG/100ML VIAL 1000 MG IV (02:53)
[2023-11-24 02:54] LABS: Microscopic, Urine URINE MICROSCOPIC (MICROSCOPIC)
[2023-11-24 02:55] LABS: Appearance,Urine CLEAR (Clear); Bilirubin,Urine Negative (Negative); Blood, Urine 1+ (Negative); Color,Urine YELLOW (Yellow); Glucose,Urine (UA) 3+ (Negative); Ketones,Urine 1+ (Negative); Leukocyte Esterase,Urine Negative (Negative); Nitrate,Urine Negative (Negative); Protein,Urine TRACE (Negative); Specific Gravity, Urine 1.015 (1.005-1.030); Urobilinogen,Urine 0.2 EU/dl (0.2)
[2023-11-24 03:04] LABS: Lymphocytes % 4 % (10-50); Monocytes % 7 % (2-9); Neutrophils % 89 % (42-76); Platelet Estimate Normal; RBC Morphology Normal; Total Cells Counted 100
[2023-11-24 03:06] LABS: Squamous Epithelial Cell,Urine Occasional #/hpf (0-5)
[2023-11-24 03:07] LABS: Mucus,Urine Trace /lpf
[2023-11-24] MEDS: 0.9 % SODIUM CHLORIDE 50 ML VIAL IV (03:36)
[2023-11-24] MEDS: IOPAMIDOL-370 (76%);100ML BOTTLE 70 ML IV (03:36)
[2023-11-24] MEDS: SODIUM CHLORIDE 0.9% 10ML SYR (RAD ONLY) 10 ML IV (03:36)
--- NOTE | 2023-11-24 04:19 | PC.NURSE ---
on phone with hospitalist
--- NOTE | 2023-11-24 04:23 | PC.NURSE ---
notified medical housekeeper of admission
--- NOTE | 2023-11-24 04:44 | PC.NURSE ---
Report called to Derek MCGHEE on the floor. Pt. to be admitted to room 205.
[2023-11-24] MEDS: TET/DIPHTH/PERT-ADULT 0.5ML SYRINGE 0.5 ML IM (04:57)
--- NOTE | 2023-11-24 05:07 | PC.NURSE ---
Patient arrived to floor via stretcher from ED at 5:05.
--- NOTE | 2023-11-24 05:19 | EXP.HP ---
History of Present Illness *Admission Date: 11/24/23 *Reason for visit:: fever *History of present illness: This is a 73-year-old male with history of COPD, insulin-dependent diabetes, status post partial amputation of the right foot presented to ED c/o fever, abdominal pain and vomiting/diarrhea and feeling ill for the last 2 days. Tonight he lost his balance and had a fall, striking his head in the bathroom. He denies loss of consciousness. He reports no pain as result of the fall. When his family came into the bathroom, they noticed that his right leg was red extending up to the mid calf and he has a wound on the plantar surface of the partially amputated right foot. patient alert and oriented but is uncomfortable appearing. poor historian unable to cooperate more with interview. History largely obtained from family at bedside. Admitted for management [facility] Disclaimer: The information contained in this section may have been updated after the patient was seen, as this information can be updated by other users. 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 Skin cancer Surgical History (Updated 11/24/23 @ 06:27 by Joe Mejia APRN) Hx of toe surgery H/O repair of right rotator cuff Social History (Updated 11/24/23 @ 05:36 by Araceli Vergara RN) Smoking Status: Current every day smoker alcohol intake: never current occupational status: retired Travel in the last 8 weeks: None Review of Systems Review of Systems Review of systems:: unable to obtain Meds Home Medications and Allergies Home Medications Medication Instructions Recorded Confirmed Type albuterol sulfate 90 mcg/actuation 2 puff inhalation Q4-6H PRN 04/25/23 11/24/23 Rx aerosol inhaler shortness of breath or wheezing #3 ea carvedilol 25 mg tablet 25 mg PO BID 90 days #180 tabs 04/25/23 11/24/23 Rx atorvastatin 20 mg tablet 20 mg PO DAILY 90 days #90 tabs 09/29/23 11/24/23 Rx fluticasone fur. 200 mcg-umeclid 1 inh inhalation DAILY 90 days #3 11/06/23 11/24/23 Rx 62.5 mcg-vilant 25 mcg ea inhalat.powder (Trelegy Ellipta) insulin degludec 100 unit/mL (3 37 unit (0.37 mL) SQ DAILY #15 mL 11/08/23 11/24/23 Rx mL) subcutaneous pen (Tresiba FlexTouch U-100 insulin) clopidogrel 75 mg tablet 75 mg PO DAILY Heart Disease 11/24/23 11/24/23 History lisinopril 20 mg tablet 20 mg PO DAILY BP 11/24/23 11/24/23 History sitagliptin phosphate 100 mg 100 mg PO DAILY 11/24/23 11/24/23 History tablet (Januvia) trazodone 50 mg tablet 50 mg PO HS 11/24/23 11/24/23 History New Prescriptions to Start Prescriptions: Allergies Allergy/AdvReac Type Severity Reaction Status Date / Time Aminoglycosides Allergy Severe Swelling Verified 11/24/23 07:58 of Lip/Tongue/Throat Exam Data for Last 24 hours Vital signs and Labs for Last 24 Hours: Temp Pulse Resp BP Pulse Ox O2 Del Method 101.5 F H 98 H 20 122/61 98 Room Air 11/24/23 05:04 11/24/23 05:04 11/24/23 05:04 11/24/23 05:04 11/24/23 04:32 11/24/23 05:04 Laboratory Results - last 24 hr 11/24/23 02:30: WBC 13.0 H, RBC 5.54, Hgb 15.2, Hct 45.2, MCV 81.6, MCH 27.4, MCHC 33.5, RDW 14.7, Plt Count 225, MPV 7.6, Neut % (Auto) 91.4 H, Lymph % (Auto) 2.6 L, [place] % (Auto) 5.5, Eos % (Auto) 0.2, Baso % (Auto) 0.2, Neut # (Auto) 11.9 H, Lymph # (Auto) 0.4 L, [place] # (Auto) 0.7, Eos # (Auto) 0.0, Baso # (Auto) 0.0, Total Counted 100, Neutrophils % (Manual) 89 H, Lymphocytes % (Manual) 4 L, Monocytes % (Manual) 7, Platelet Estimate Normal, RBC Morphology Normal, Sodium 125 L, Potassium 4.3, Chloride 93 L, Carbon Dioxide 22, Anion Gap 14.3, BUN 26 H, Creatinine 1.40 H, Estimated Creat Clear 70, Estimated GFR 50 L, Est GFR ( Amer) 60, Glucose 202 H, Calcium 8.9, Magnesium 1.6, Total Bilirubin 1.3, AST 31, ALT 24, Alkaline Phosphatase 93, Total Protein 8.2, Albumin 4.2, Globulin 4.0 H, Albumin/Globulin Ratio 1.1, Lipase 46, Acetone Level None detected 11/24/23 02:34: VBG pH 7.41, VBG pCO2 35.4, VBG pO2 32.7, VBG HCO3 21.9 L, VBG Total CO2 23.0, VBG O2 Saturation 67.8, VBG Base Excess -2.7 L, VBG Lactic Acid 2.4 H 11/24/23 02:51: Urine Color Yellow, Urine Appearance Clear, Urine pH 6.0, Ur Specific [place] 1.015, Urine Protein Trace, Urine Glucose (UA) 3+, Urine Ketones 1+, Urine Blood 1+, Urine Nitrate Negative, Urine Bilirubin Negative, Urine Urobilinogen 0.2, Ur Leukocyte Esterase Negative, Urine RBC 3-5, Urine WBC None, Ur Squamous Epith Cells Occasional, Urine Bacteria None, Urine Mucus Trace I & O for Last 24 hours: Intake & Output 11/21/23 11/22/23 11/23/23 11/24/23 23:59 23:59 23:59 23:59 Weight 104.326 kg Constitutional Constitutional: obtunded *Routine HEENT Exam Head: Present normocephalic and atraumatic Eye: Present EOMI and PERRL ENT: Present mucous membranes moist *Routine Neck Exam Neck: Present supple; Absent lymphadenopathy *Routine Respiratory Exam Respiratory: Present CTA bilaterally, respiratory distress, diminished air movement, normal respiratory effort and symmetric chest movement *Routine Cardiovascular Exam Cardiovascular: Present RRR, Normal S1, Normal S2 and tachycardia *Routine Abdominal Exam Abdominal: Present soft and normoactive bowel sounds; Absent tenderness *Routine Rectal Exam Rectal:: deferred *Routine Genitalia Exam Genitalia:: deferred *Routine Extremities Exam Extremities: Absent cyanosis, clubbing or edema Comments: wound to lateral aspect of right foot. s/p transmetatarsal amputation *Routine Skin Exam Skin: Present erythema, warm, wounds and rash *Routine Neurological Exam Neurological: Present alert, oriented X3, normal reflexes and moving all extremities Routine Psychiatric Exam Psychiatric: Present unable to assess H&P: Result Imaging and Cardiology EKG: Status: Preliminary report and final report FOOT Xray: Status: image reviewed by me, Preliminary report and final report Assessment and Plan *Assessment and plan (1) Severe sepsis: Status: Acute Category: Medical Code(s): A41.9 - Sepsis, unspecified organism; R65.20 - Severe sepsis without septic shock (2) Gram-positive bacteremia: Status: Acute Category: Medical Code(s): R78.81 - Bacteremia (3) Cellulitis of leg, right: Status: Acute Category: Medical Code(s): L03.115 - Cellulitis of right lower limb (4) Hx of toe surgery: Problem Comment: toes removed from right foot Status: Acute Category: Surgical Code(s): Z98.890 - Other specified postprocedural states (5) DM type 2 (diabetes mellitus, type 2): Status: Acute Qualifiers: Diabetes mellitus complication status: with other specified complication 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 use Qualified Code(s): E11.69 - Type 2 diabetes mellitus with other specified complication; Z79.4 - MCFP (current) use of insulin Category: Medical Code(s): E11.9 - Type 2 diabetes mellitus without complications (6) Hypertension: Status: Acute Qualifiers: Hypertension type: unspecified Qualified Code(s): I10 - Essential (primary) hypertension Category: Medical Code(s): I10 - Essential (primary) hypertension (7) Hyperlipidemia: Status: Acute Qualifiers: Hyperlipidemia type: unspecified Qualified Code(s): E78.5 - Hyperlipidemia, unspecified Category: Medical Code(s): E78.5 - Hyperlipidemia, unspecified (8) PAD (peripheral artery disease): Status: Acute Category: Medical Code(s): I73.9 - Peripheral vascular disease, unspecified (9) Legally blind: Status: Acute Category: Medical Code(s): H54.8 - Legal blindness, as defined in [place] Plan 73-year-old male with history of COPD, insulin-dependent diabetes, status post partial amputation of the right foot presented to ED c/o fever, abdominal pain and vomiting/diarrhea and feeling ill for the last 2 days. Patient on arrival had fever. Meet sepsis criteria. Started on sepsis protocol. Initial interventions include crystalloid boluses vancomycin and Zosyn. Blood culture pending. ED requested admission. Findings discussed. Patient hemodynamically stable normotensive after IV resuscitation. Continue febrile. Agreed for admission. Plan -Severe sepsis without organ dysfunction secondary to cellulitis of the right foot Hx transmetatarsal amputation of the right toes Admit patient for continuous monitoring. Dispo MedSurg Continue IV resuscitation. Started on vancomycin and Zosyn. Pharmacy to dose Blood culture pending Wound culture Podiatric consult Pain management Tylenol for fever greater than 101F X-ray reviewed. No signs of osteomyelitis -Insulin-dependent diabetes: Suspect uncontrolled. Last A1c 10.0 Patient on home insulin regimen Reconcile and resume Hypertension: On lisinopril hold if becomes hypotensive History of hyperlipidemia and PAD. Condition review complicated care. Resume statin and Plavix Legally blind: Supportive care Fall precaution protocol in place On Plavix Protonix IV Advance diet as tolerated. Rounded on patient after nurse practitioner. Personally examined and interviewed patient. Agree with exam findings and care plan as documented. Patient's blood cultures returned positive for gram-positive cocci. Has severe sepsis. Escalated care to stepdown level. Close monitoring given his persistent fevers and bacteremia. Continuing broad-spectrum antibiotics. Repeat labs with CBC, CMP, magnesium ordered for the morning. Will repeat blood cultures in 24 to 48 hours.
[2023-11-24 06:22] LABS: Eosinophils % 0.1 % (0.1-12.0); Hematocrit 37.8 % (42.0-52.0); Lymphocytes # 0.3 K/mm3 (0.7-4.5); Lymphocytes % 2.5 % (10-50); Mean Corpuscular HGB Conc 33.3 g/dL (31.8-35.4); Mean Corpuscular Hemoglobin 27.6 pg (27.0-31.2); Mean Corpuscular Volume 82.7 fl (80-94); Mean Platelet Volume 7.3 fl (7.4-10.4); Monocytes # 0.6 K/mm3 (0.1-1.0); Monocytes % 4.2 % (1.7-9.3); Neutrophils # 12.4 K/mm3 (1.8-7.8); Neutrophils % 93.1 % (37.0-80.0); Platelet Count 196 K/mm3 (142-424); Red Blood Count 4.57 M/mm3 (4.60-6.20); Red Cell Distribution Width 14.5 % (11.5-17.5); White Blood Count 13.3 K/mm3 (4.8-10.8)
[2023-11-24 06:27] LABS: Chloride 97 mmol/L (98-107)
[2023-11-24 06:28] LABS: Sodium 125 mmol/L (136-145)
[2023-11-24 06:30] LABS: Alanine Aminotransferase 16 U/L (12-78); Alkaline Phosphatase 77 U/L (38-126); Aspartate Amino Transferase 25 U/L (17-59); Bilirubin,Total 1.2 mg/dl (0.2-1.3); Blood Urea Nitrogen 23 mg/dl (9-20); Carbon Dioxide 22 mmol/L (22.0-30.0); Creatinine Clearance Estimated 64 mL/min (50-200); Estimated Glomerular Filt Rate 46 ml/min (>60); GFR (African American) 56 ML/MIN (>60); Hemoglobin 12.6 g/dL (14.1-18.0)
[2023-11-24 06:31] LABS: Albumin Level 3.1 g/dl (3.5-5.0); Calcium 7.9 mg/dl (8.4-10.2); Globulin 3.2 g/dL (1.3-3.2); Glucose 176 mg/dl (74-100); Magnesium 1.5 mg/dl (1.6-2.3); Total Protein,Serum 6.3 g/dl (6.3-8.2)
[2023-11-24 06:32] LABS: POC Glucose,Bedside 172 (70-110)
[2023-11-24] MEDS: 0.9 % SODIUM CHLORIDE 1000ML 1,000 ML 100 ML IV ×2 (06:41→17:49)
[2023-11-24 06:42] LABS: Reflex Lactic Add Lactic Reflex
[2023-11-24 07:12] LABS: Lactic Acid Follow Up (RFLX 1) 1.5 mmol/L (0.7-2.1)
--- OUTSIDE RECORDS SUMMARY | 2023-11-24 07:43 | XMS_ITS ---
Author Name Carlos Eduardo Moreno Address [address] [place] [address] Organization Unknown Address [address] [place] [address] ALLERGIES AND ADVERSE REACTIONS No information ASSESSMENT No information CHIEF COMPLAINT No information MEDICATIONS No information OBJECTIVE DATA No information PHYSICAL EXAMINATION No information TREATMENT PLAN Planned Care Start Date Provider Encounter for Check-up [id number] [facility] PROBLEMS No information RESULTS No information REVIEW OF SYSTEMS No information SUBJECTIVE DATA No information VITAL SIGNS No information
--- OUTSIDE RECORDS SUMMARY | 2023-11-24 07:43 | XMS_ITS | Clinical Summary ---
Author Name Unknown Address [address] [place] [address] Phone Organization [facility] Address [address] [place] [address] Phone Care Team Providers Care Family [employer] Teacher Name Role Phone Catrachito MASON, Marco A Trivedi [ ] Conditions or Problems Problem Name Problem Code Onset Date Status Entry Date Provider Comment Standard Description Annotate Infection of amputation stump, RLE 308722884 (SNOMED CT) 09/22 Active 09/22 Elvia Oreilly Infection of amputation stump Cellulitis of RLE 742272562 (SNOMED CT) 09/22 Active 09/22 Elvia Oreilly Cellulitis of lower limb Gram-neg kris infection B96.89 (ICD-10-CM ) 09/22 Active 09/22 Elvia Oreilly Other specified bacterial agents as the cause of diseases classified elsewhere MSSA infection 208985602 (SNOMED CT) 09/22 Active 09/22 Elvia Oreilly Infection by methicillin sensitive Staphylococcus aureus COPD 18689222 (SNOMED CT) 09/22 Active 09/22 Elvia Oreilly Chronic obstructive pulmonary disease DM II with diabetic peripheral neuropathy 59492945 (SNOMED CT) 09/22 Active 09/22 Elvia Oreilly Type 2 diabetes mellitus Gangrene with DM II PVD 27246641 (SNOMED CT) 06/06 Resolved 06/06 Elvia Oreilly Type 2 diabetes mellitus Necrosis of amputation stump, right lower extremity/TMA site 088282140 (SNOMED CT) 06/06 Resolved 06/06 Elvia Oreilly Necrosis of amputation stump Cellulitis, foot, right 552973464 (SNOMED CT) 06/06 Resolved 06/06 Elvia Oreilly Cellulitis of foot Acquired absence of right great toe Z89.411 (ICD-10-CM ) 06/06 Active 06/06 Elvia Oreilly Acquired absence of right great toe Acquired absence of right lesser toe(s) Z89.421 (ICD-10-CM ) 06/06 Active 06/06 Elvia Oreilly Acquired absence of other right toe(s) Cellulitis, foot, right 671961102 (SNOMED CT) 06/06 Removed 06/06 Elvia Oreilly Cellulitis of foot Necrosis of amputation stump, right lower extremity/TMA site 118809039 (SNOMED CT) 06/06 Removed 06/06 Elvia Oreilly Necrosis of amputation stump Gangrene with DM II PVD 17280305 (SNOMED CT) 06/06 Removed 06/06 Elvia Oreilly Type 2 diabetes mellitus Nicotine dependence, cigarettes 355625119 (SNOMED CT) 06/06 Active 06/06 Elvia Oreilly Tobacco user DM II with diabetic PVD 868901154 (SNOMED CT) 06/06 Active 06/06 Elvia Oreilly Peripheral vascular disease Benign Essential Hypertension 7775535 (SNOMED CT) 06/06 Active 06/06 Elvia Oreilly Benign essential hypertension Medications Medication Instructions Start Date Stop Date Generic Name [facility] Provider CEFTRIAXONE SODIUM SOLR 2G IV Q 24 Biosmichela /Gal CEFTRIAXONE SODIUM SOLR 88087844836 Maryanne Isaac RN FLAGYL 500 MG ORAL TABLET Take one (1) tablet by mouth three times a day METRONIDAZOLE 36894915030 Marco A Winston MD CEFDINIR 300 MG CAPS 1 by mouth every 12 hours CEFDINIR 81220991718 Marco A Winston MD OXYCODONE HCL 5 MG CAPS 1 tab po every 4 to 6 hours prn for pain OXYCODONE HCL 74435974111 Evelyne Florance FAMOTIDINE TABS 1 tab po q12hrs FAMOTIDINE TABS 36507671561 Evelyne Florance ENOXAPARIN SODIUM 40 MG/0.4ML SUBCUTANEOUS SOLUTION 40 mgs subcutaneous every day ENOXAPARIN SODIUM 79720251240 Evelyne Florance COLACE CAPS 1 cap 2 times daily DOCUSATE SODIUM CAPS 40281986175 Evelyne Florance IPRATROPIUM-ALBU TEROL 0.5-2.5 (3) MG/3ML SOLN Take one tablet by mouth every 6 hours as needed IPRATROPIUM-ALBU TEROL 44512838899 Evelyne Florance COLACE 100 MG CAPS DOCUSATE SODIUM 47771962964 Evelyne Florance CEFTRIAXONE SODIUM SOLR 2G IV Q 24 [facility] [facility] CEFTRIAXONE SODIUM SOLR 05307893170 Madeleine Hassan PLAVIX 75 MG TABS CLOPIDOGREL BISULFATE 95194007144 Leo Ben Wheeler [facility] NICOTINE 21 MG/24HR PT24 NICOTINE 30156929962 Leo Ben Wheeler LISINOPRIL 20 MG TABS LISINOPRIL 69836566960 Leo Ben Wheeler HUMALOG 100 UNIT/ML SUBCUTANEOUS SOLUTION INSULIN LISPRO 15837731631 Leo Ben Wheeler COREG 25 MG TABS CARVEDILOL 03983985446 Leo Ben Wheeler ATORVASTATIN CALCIUM 40 MG TABS ATORVASTATIN CALCIUM 43477008807 Leo Ben Wheeler Medications Administered No information available. Allergies, Adverse Reactions, Alerts Allergy Name Reaction Description Start Date Severity Statu s Provider AMPICILLIN Moderate Active Leo Do bson Results Date Name Value Unit Range Flag Description Chart Maintenance: CBC w/dif f, CMP, ESR, CRP, Vanc Trough VANCOMY CHAL 20.2 ug/mL vancomyc in level, serum, trough Chart Maintenance CRP <0.2 mg/dL C reactive pr otein [Mass/volume] in Serum or Plasma ESR 25 mm/h Erythrocyte sedimentation rate by Westergren method Chart Maintenance: lab BASOPHIL % 0 % Basophils/ 100 leukocytes in Blood by Manual count % EOS AUTO 3 % Eosinophil s/100 leukocytes in Blood by Automated count MONOCYTE BF 8 % monocytes as percent of body fluid leukocytes LYMPHS % 25 % Lymphocytes/ 100 leukocytes in Blood by Automated count NEUTROP BF 64 % Neutrophil s/100 leukocytes in Body fluid PLATELETS 193 10*3/mm3 Platelets [#/volume] in Blood by Automated count HCT 38.4 % Hematocrit [V olume Fraction] of Blood by Automated count HGB 12.5 g/dL Hemoglobin [Mass/volume] in Blood RBC 4.57 10*6/mm3 Erythrocytes [#/volume] in Blood by Automated count WBC 6.7 10*3/mm3 Leukocytes [ #/volume] in Blood by Automated count BILI TOTAL 0.4 mg/dL Bilirubin. total [Mass/volume] in Serum or Plasma SGOT (AST) 20 U/L Aspartate aminotransferase [Enzymatic activity/volume] in Serum or Plasma SGPT (ALT) 31 U/L Alanine aminotransferase [Enzymatic activity/volume] in Serum or Plasma ALK PHOS 60 U/L Alkaline tomy sphatase [Enzymatic activity/volume] in Blood CREATININE 1.03 mg/dL Creatinine [Mass/volume] in Serum or Plasma BUN 14 mg/dL Urea nitrogen [Mass/volume] in Serum or Plasma CALCIUM 8.4 mg/dL Calcium [Moles/volume] in Serum or Plasma POTASSIUM 4.6 mmol/L Potassium [Moles/volume] in Serum or Plasma SODIUM 141 mmol/L Sodium [Moles /volume] in Serum or Plasma GLUCOSE SER 163 mg/dL Glucose [ Mass/volume] in Serum or Plasma Office Visit: room 13 MEDS REVIEW Done Documenta tion of current medications (procedure) 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 Yes - Overweight Dietary manageme nt education, guidance, and counseling (procedure) SMOK STATUS Current every day smoker Tobacco smoking status Plan of Care Type Date Detail Pending order Continue oral an tibiotics Pending order New Oral Antibio tic Pending order Discontinue IV a ntibiotics Pending order PICC Removal Pending order Continue IV anti biotics Pending order Continue oral an tibiotics Pending order Weekly PICC Line Care Pending order Weekly Labs (Con tinue) Pending order Continue IV anti biotics Pending order Weekly Labs (Con tinue) Pending order Weekly PICC Line Care Pending order Continue IV anti biotics Pending order Weekly Labs (Con tinue) Pending order Weekly PICC Line Care Pending order Continue IV anti biotics Pending order Weekly Labs (Con tinue) Pending order Weekly PICC Line Care Pending order Continue IV anti biotics Pending order Weekly PICC Line Care Pending order Weekly Labs (Con tinue) Patient education Medications Patient education HOW%20TO%20STO P%20SMOKING Procedures Code Procedure Name Date Entry Date CPT-ca Continue IV antibiotics 2020 CPT-Cooral Continue oral antibiotics 09/10/24 CPT-wpc Weekly PICC Line Care 10/13 CPT-cwl Weekly Labs (Continue) 10/13 CPT-ca Continue IV antibiotics 2020 CPT-cwl Weekly Labs (Continue) 10/06 CPT-wpc Weekly PICC Line Care 10/06 CPT-ca Continue IV antibiotics 2020 CPT-cwl Weekly Labs (Continue) 10/01 CPT-wpc Weekly PICC Line Care 10/01 CPT-ca Continue IV antibiotics 2020 CPT-cwl Weekly Labs (Continue) 09/23 CPT-wpc Weekly PICC Line Care 09/23 CPT-ca Continue IV antibiotics 2019 CPT-wpc Weekly PICC Line Care 06/10 CPT-cwl Weekly Labs (Continue) 06/10 Vital Signs Date Name Value Unit Description BMI (Body Mass Index) 30.85 kg/m2 Bod y Mass Index (Ratio) Body Temperature 96.0 [degF] temperat ure E&M BP Diastolic 60 mm[Hg] blood pressu re, diastolic BP Systolic 130 mm[Hg] blood pressur e, systolic Heart Rate 64 /min pulse rate Respiratory Rate 16 /min respirat ory rate E&M Weight Measured 215 [lb_av] weight E& M Height 70 [in_us] height E&M Immunizations No information available. Advance Directives Directive Description Start Date NO ADVANCED DIRECTIVES ESTABLISHED AT IS TIME
[2023-11-24] MEDS: MAGNESIUM SULFATE IN WATER 2 GM/50 ML PIGGYBACK IV (08:43)
--- NOTE | 2023-11-24 11:04 | P.CONPHA_ITS ---
Pharmacy Consult Date: 11/24/23 Time: 11:04 Referring provider: DR. CLEMENTE Reason for Consult:: VANCOMYCIN DOSING Allergies Allergy/AdvReac Type Severity Reaction Status Date / Time Aminoglycosides Allergy Severe Swelling Verified 11/24/23 07:58 of Lip/Tongue/Throat Home Medications Medication Instructions Recorded Confirmed Type albuterol sulfate 90 mcg/actuation 2 puff inhalation Q4-6H PRN 04/25/23 11/24/23 Rx aerosol inhaler shortness of breath or wheezing #3 ea carvedilol 25 mg tablet 25 mg PO BID 90 days #180 tabs 04/25/23 11/06/23 Rx clopidogrel 75 mg tablet 75 mg PO DAILY 90 days #90 tabs 04/25/23 11/06/23 Rx lisinopril 20 mg tablet 20 mg PO DAILY 90 days #90 tabs 04/25/23 11/06/23 Rx atorvastatin 20 mg tablet 20 mg PO DAILY 90 days #90 tabs 09/29/23 11/24/23 Rx fluticasone fur. 200 mcg-umeclid 1 inh inhalation DAILY 90 days #3 11/06/23 11/24/23 Rx 62.5 mcg-vilant 25 mcg ea inhalat.powder (Trelegy Ellipta) insulin degludec 100 unit/mL (3 37 unit (0.37 mL) SQ DAILY #15 mL 11/08/23 Rx mL) subcutaneous pen (Tresiba FlexTouch U-100 insulin) sitagliptin phosphate 100 mg 100 mg PO DAILY 11/24/23 11/24/23 History tablet (Januvia) trazodone 50 mg tablet 50 mg PO HS 11/24/23 11/24/23 History New Prescriptions to Start Prescriptions: Height: 1.85 m Weight: 102.33 kg Laboratory Results:: Laboratory Results - last 24 hr 11/24/23 02:30: WBC 13.0 H, RBC 5.54, Hgb 15.2, Hct 45.2, MCV 81.6, MCH 27.4, MCHC 33.5, RDW 14.7, Plt Count 225, MPV 7.6, Neut % (Auto) 91.4 H, Lymph % (Auto) 2.6 L, [place] % (Auto) 5.5, Eos % (Auto) 0.2, Baso % (Auto) 0.2, Neut # (Auto) 11.9 H, Lymph # (Auto) 0.4 L, [place] # (Auto) 0.7, Eos # (Auto) 0.0, Baso # (Auto) 0.0, Total Counted 100, Neutrophils % (Manual) 89 H, Lymphocytes % (Manual) 4 L, Monocytes % (Manual) 7, Platelet Estimate Normal, RBC Morphology Normal, Sodium 125 L, Potassium 4.3, Chloride 93 L, Carbon Dioxide 22, Anion Gap 14.3, BUN 26 H, Creatinine 1.40 H, Estimated Creat Clear 70, Estimated GFR 50 L, Est GFR ( Amer) 60, Glucose 202 H, Calcium 8.9, Magnesium 1.6, Total Bilirubin 1.3, AST 31, ALT 24, Alkaline Phosphatase 93, Total Protein 8.2, Albumin 4.2, Globulin 4.0 H, Albumin/Globulin Ratio 1.1, Lipase 46, Acetone Level None detected 11/24/23 02:34: VBG pH 7.41, VBG pCO2 35.4, VBG pO2 32.7, VBG HCO3 21.9 L, VBG Total CO2 23.0, VBG O2 Saturation 67.8, VBG Base Excess -2.7 L, VBG Lactic Acid 2.4 H 11/24/23 02:51: Urine Color Yellow, Urine Appearance Clear, Urine pH 6.0, Ur Specific [place] 1.015, Urine Protein Trace, Urine Glucose (UA) 3+, Urine Ketones 1+, Urine Blood 1+, Urine Nitrate Negative, Urine Bilirubin Negative, Urine Urobilinogen 0.2, Ur Leukocyte Esterase Negative, Urine RBC 3-5, Urine WBC None, Ur Squamous Epith Cells Occasional, Urine Bacteria None, Urine Mucus Trace, Urine Sodium 39.0 11/24/23 05:55: WBC 13.3 H, RBC 4.57 L, Hgb 12.6 L D, Hct 37.8 L, MCV 82.7, MCH 27.6, MCHC 33.3, RDW 14.5, Plt Count 196, MPV 7.3 L, Neut % (Auto) 93.1 H, Lymph % (Auto) 2.5 L, [place] % (Auto) 4.2, Eos % (Auto) 0.1, Baso % (Auto) 0.0 L, Neut # (Auto) 12.4 H, Lymph # (Auto) 0.3 L, [place] # (Auto) 0.6, Eos # (Auto) 0.0, Baso # (Auto) 0.0, Sodium 125 L, Potassium 4.0, Chloride 97 L, Carbon Dioxide 22, Anion Gap 10.0, BUN 23 H, Creatinine 1.50 H, Estimated Creat Clear 64, Estimated GFR 46 L, Est GFR ( Amer) 56 L, Glucose 176 H, Calcium 7.9 L, Magnesium 1.5 L , Total Bilirubin 1.2, AST 25, ALT 16 D, Alkaline Phosphatase 77, Total Protein 6.3, Albumin 3.1 L D, Globulin 3.2, Albumin/Globulin Ratio 1.0 L 11/24/23 06:25: POC Glucose 172 H 11/24/23 06:50: Lactate 1.5 Medical History: Medical History (Updated 11/24/23 @ 06:27 by Joe Mejia APRN) 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 Drug selected: Vancomycin Loading dose (mg): Vd (liters): 81.8 (factor used: 0.8 L/kg) [place] (hr-1): 0.046 Half life (hrs): 15.07 CLvanco=?? 3.763 L/hr Recommended dose: 2000 mg Interval: 24 hrs Infusion time (hrs): 2.0 Predicted peak (mcg/mL): 34.9 Predicted trough (mcg/mL): 12.69 Total body weight is being used for vancomycin dosing. Recommendations: Give Vancomycin 2000 mg q 24 hrs with an expected Cpeak of 34.9 mcg/ml and an expected Ctrough of 12.69 mcg/ml AUC 0-24 /MAHOGANY Data: MAHOGANY 0.5 mcg/mL:?? AUC/MAHOGANY:? 1063.0 MAHOGANY 1.0 mcg/mL:?? AUC/MAHOGANY:? 531.5 --------- MAHOGANY 1.5 mcg/mL:?? AUC/MAHOGANY:? 354.3 MAHOGANY 2.0 mcg/mL:?? AUC/MAHOGANY:? 265.7 Thank you for the consult, will continue to follow. -OMEGA CURRY, KELLED
--- NOTE | 2023-11-24 11:19 | PC.NURSE ---
notified nurse about fever
[2023-11-24] MEDS: ACETAMINOPHEN 325MG TAB 650 MG PO (11:29)
[2023-11-24 11:39] LABS: POC Glucose,Bedside 220 (70-110)
[2023-11-24] MEDS: humaLOG 100 UNITS/ML 10ML VIAL (SSI) SQ (11:48)
--- NOTE | 2023-11-24 11:57 | HMH.PTWOUND ---
Rehab Inpt Wound Evaluation Rehab IP Wound Evaluation Start: 11/24/23 06:52 Freq: ONCE Status: Active Protocol: Document 11/24/23 11:46 JANIYASURYA (Rec: 11/24/23 11:57 PHOMAGDA [id number]) Rehab PT Wound Assessment Subjective Subjective 73 yoam adm to [facility] with sepsis and R LE cellulitis. PMH: COPD, insulin-dependent diabetes, status post partial amputation of the right foot in the past. He presents with R lateral foot wound upon admission. He does report, I need a drink, I feel really dry. Wound Right Lateral Foot Wound Type Diabetic Foot Ulcer Is This a Chronic Wound Yes Wound Length (cm) 4.2 Wound Width (cm) 5.1 Wound Depth (cm) 0.1 Wound Bed Appearance Beefy Red,Eschar Percentage Granulated (%) 50 Percentage of Eschar (Brown) (%) 50 Wound Margins Description Well Defined Surrounding Tissue Appearance Bright Red Edema Type Pitting Edema Degree 2+ Query Text:1+ Trace, Barely Detectable, Rebound 15-30 seconds 2+ Moderate, Slight Indentation, Rebound 10-20 seconds 3+ Deep, Deeper Indentation, Rebound > 30 seconds 4+ Very Deep, Rebound > 60 seconds Surrounding Tissue Temperature Warm Drainage Amount None Primary Dressing Composite Wound Secondary Dressing Type Gauze Roll/Wrap Wound Debridement Method Sharps,Gauze,Mechanical Wound Debridement Amount of Tissue Minimal Removed Dressing Change Patient Tolerance Tolerated Well Plan/Recommendation Comment Pt wound may require further debridement as he heals. Currently Dressing can remain in place for 1-2 days depending on amount of drainage. Will follow and continue wound care as needed. Nsg can change bordered foam dressing as needed also. Eval Complexity Eval Charge Codes 53803 - High Complexity PHYSICIAN CERTIFICATION: I certify the specified therapy services for Francois Blair are required, authorized, and reviewed every 30 days.
--- NOTE | 2023-11-24 12:34 | PC.NURSE ---
tech notified RN of fever of 102.2 discovered during vital check at 11:15. Pt administered tylenol per JUL AT 11:29. temp checked at 12:30 and it had dropped to 99.5.
[2023-11-24 12:57] LABS: Hemoglobin A1C 12.4 % (4.0-6.0)
[2023-11-24] MEDS: FLUTICASONE/UMECLIDIN/VILANTER 200/62.5/25MCG INHALER 1 PUFF IH (12:59)
[2023-11-24] MEDS: IPRATROPIUM/ALBUTEROL 3 ML NEB IH ×3 (12:59→23:09)
[2023-11-24 17:13] LABS: POC Glucose,Bedside 115 (70-110)
--- NOTE | 2023-11-24 18:47 | PC.NURSE ---
THIS AFTERNOON LAB CALL WITH POSITIVE BLOOD CULTURE RESULTS. PT WAS NOTED TO BE MORE LETHARGIC. NOTIFIED AND HE ORDERED PT TO BE MOVED TO STEP DOWN FOR CLOSER MONITORING. VISITORS ARRIVED TO THE ROOM AND PT BECAME MORE AWAKE AND VERBALIZED THAT HE WANTED TO BE A DNR AND IF HE WAS UNABLE TO MAKE MEDICAL DECISIONS HE HAS CHOSEN MAME DURAN TO MAKE THOSE DECISIONS FOR HIM. PT ALSO VOICED THAT HE DOES NOT WANT ANYMORE OF HIS FOOT AMPUTATED. PT STATED HE WAS OKAY WITH HIS DAUGHTER PIO POPE CALLING FOR UPDATES. PT HAS BEEN VOIDING PER URINAL. DRESSING TO RLE C/D/I. REDNESS/SWELLING NOTED TO RLE. WILL CONTINUE TO MONITOR.
[2023-11-24 20:45] LABS: POC Glucose,Bedside 103 (70-110)
[2023-11-24] MEDS: PANTOPRAZOLE 40MG VIAL 40 MG IV (21:19)
[2023-11-24] MEDS: TRAZODONE 50MG TABLET 50 MG PO (21:19)
[2023-11-24] MEDS: INSULIN GLARGINE 100 UNITS/ML 3ML FLEXPEN 20 UNIT SQ (21:19)
[2023-11-25] VITALS (14 sets, daily range): BP systolic 108–144; BP diastolic 56–70; PULSE 70–95; RESP 12–24; TEMP 36.5–37.1; O2SAT 95–98; BMI 30.7
[2023-11-25] MEDS: PIPERACILLIN/TAZO 4.5 GM in 0.9 % SODIUM CHLORIDE 100 ML IV ×3 (01:54→17:46)
[2023-11-25] MEDS: VANCOMYCIN HCL 2,000 MG in 0.9 % SODIUM CHLORIDE 250 ML 125 MG IV (02:30)
[2023-11-25] MEDS: 0.9 % SODIUM CHLORIDE 1000ML 1,000 ML 100 ML IV (06:11)
[2023-11-25] MEDS: FLUTICASONE/UMECLIDIN/VILANTER 200/62.5/25MCG INHALER 1 PUFF IH (06:29)
[2023-11-25] MEDS: IPRATROPIUM/ALBUTEROL 3 ML NEB IH ×4 (06:29→22:53)
[2023-11-25 06:35] LABS: POC Glucose,Bedside 84 (70-110)
[2023-11-25 07:22] LABS: Basophils % 0.2 % (0.1-2.0); Eosinophils % 0.4 % (0.1-12.0); Hematocrit 34.8 % (42.0-52.0); Hemoglobin 11.7 g/dL (14.1-18.0); Lymphocytes # 0.6 K/mm3 (0.7-4.5); Mean Corpuscular HGB Conc 33.5 g/dL (31.8-35.4); Mean Corpuscular Hemoglobin 27.9 pg (27.0-31.2); Mean Corpuscular Volume 83.1 fl (80-94); Mean Platelet Volume 7.9 fl (7.4-10.4); Monocytes # 0.4 K/mm3 (0.1-1.0); Monocytes % 6.4 % (1.7-9.3); Neutrophils # 4.9 K/mm3 (1.8-7.8); Neutrophils % 83.1 % (37.0-80.0); Platelet Count 166 K/mm3 (142-424); Red Blood Count 4.18 M/mm3 (4.60-6.20); Red Cell Distribution Width 14.4 % (11.5-17.5); White Blood Count 5.9 K/mm3 (4.8-10.8)
[2023-11-25 07:32] LABS: Alanine Aminotransferase 21 U/L (12-78); Albumin Level 2.8 g/dl (3.5-5.0); Albumin/Globulin Ratio 0.9 (1.1-1.8); Alkaline Phosphatase 69 U/L (38-126); Anion Gap 6.6 mEq/L (5-15); Aspartate Amino Transferase 44 U/L (17-59); Bilirubin,Total 0.8 mg/dl (0.2-1.3); Blood Urea Nitrogen 23 mg/dl (9-20); Calcium 7.9 mg/dl (8.4-10.2); Carbon Dioxide 22 mmol/L (22.0-30.0); Chloride 103 mmol/L (98-107); Creatinine Clearance Estimated 83 mL/min (50-200); Estimated Glomerular Filt Rate 60 ml/min (>60); GFR (African American) 72 ML/MIN (>60); Globulin 3.1 g/dL (1.3-3.2); Glucose 84 mg/dl (74-100); Magnesium 2.2 mg/dl (1.6-2.3); Potassium 3.6 mmoL/L (3.5-5.1); Sodium 128 mmol/L (136-145); Total Protein,Serum 5.9 g/dl (6.3-8.2)
--- NOTE | 2023-11-25 08:08 | EXP.ACUTE.PN ---
Subjective *Date: 11/25/23 *Time: 15:53 Interval history: Patient appears more comfortable this morning. States he is feeling little better. Denies any chest pain or shortness of breath. No nausea or vomiting. Has not pooped since admission. Afebrile overnight. Vital showing improvement. Medical Exam Vital signs and Labs for Last 24 Hours: Vital Signs Temp Pulse Pulse Resp BP Pulse Ox O2 Del Method 11/25/23 06:30 79 11/25/23 06:30 75 11/25/23 06:00 79 14 117/61 96 Room Air 11/25/23 04:00 96 Room Air 11/25/23 04:00 80 11/25/23 04:00 78 14 126/65 96 Room Air 11/25/23 02:00 76 12 114/65 96 Room Air 11/25/23 00:00 90 11/25/23 00:00 80 12 122/60 96 Room Air 11/24/23 23:09 84 11/24/23 23:09 87 11/24/23 22:00 83 14 121/58 L 98 Room Air 11/24/23 20:00 80 11/24/23 20:00 99 Room Air 11/24/23 20:00 83 13 128/69 100 Room Air 11/24/23 18:50 73 11/24/23 18:50 77 11/24/23 18:41 Room Air 11/24/23 18:32 Room Air 11/24/23 18:00 75 20 102/50 L 100 Room Air 11/24/23 17:00 Room Air 11/24/23 16:00 75 11/24/23 16:00 98.0 F 74 20 110/67 99 Room Air 11/24/23 15:00 Room Air 11/24/23 12:36 Room Air 11/24/23 11:15 102.2 F H 55 L 21 109/74 L 93 L Room Air 11/24/23 11:00 Room Air Intake and Output 11/24/23 11/25/23 11/25/23 23:59 07:59 15:59 Intake Total 1052 / 1052 Output Total 550 / 1700 200 / 200 Balance 502 / -648 -200 / -200 Intake: Intake, Total IV Amount 1052 / 1052 0.9 % Sodium Chloride 1000ML 1, 1052 / 1052 000 ml @ 100 mls/hr IV .Q10H [facility] Rx#:[id number] Output: Output, Urine Amount 550 / 1700 200 / 200 Other: Number of Unmeasured Voids 0 Weight 105.279 kg Patient Weight 11/25/23 23:59 Weight 105.279 kg Laboratory Results - last 24 hr 11/24/23 05:55: Hemoglobin A1c 12.4 H D 11/24/23 11:28: POC Glucose 220 H 11/24/23 17:05: POC Glucose 115 H 11/24/23 20:32: POC Glucose 103 11/25/23 06:18: POC Glucose 84 11/25/23 06:30: WBC 5.9 D, RBC 4.18 L, Hgb 11.7 L, Hct 34.8 L, MCV 83.1, MCH 27.9, MCHC 33.5, RDW 14.4, Plt Count 166, MPV 7.9, Neut % (Auto) 83.1 H, Lymph % (Auto) 10.0, [place]linger % (Auto) 6.4, Eos % (Auto) 0.4, Baso % (Auto) 0.2, Neut # (Auto) 4.9, Lymph # (Auto) 0.6 L, [place]linger # (Auto) 0.4, Eos # (Auto) 0.0, Baso # (Auto) 0.0, Sodium 128 L, Potassium 3.6, Chloride 103, Carbon Dioxide 22, Anion Gap 6.6, BUN 23 H, Creatinine 1.20, Estimated Creat Clear 83, Estimated GFR 60, Est GFR ( Amer) 72 D, Glucose 84, Calcium 7.9 L, Magnesium 2.2 D, Total Bilirubin 0.8, AST 44 D, ALT 21 D, Alkaline Phosphatase 69, Total Protein 5.9 L, Albumin 2.8 L, Globulin 3.1, Albumin/Globulin Ratio 0.9 L I & O for Labs for Last 24 Hours: Intake & Output 11/22/23 11/23/23 11/24/23 11/25/23 23:59 23:59 23:59 23:59 Intake Total 1052 / 1052 Output Total 1700 / 1700 200 / 200 Balance -648 / -648 -200 / -200 Weight 102 kg 105.279 kg Microbiology Reports for the Last 24 Hours: Microbiology 07/05/24 02:40 Blood Blood Culture - Preliminary 11/24/23 02:30 Blood Blood Culture - Preliminary 11/24/23 06:50 Foot,Right Gram Stain - Final Constitutional: Present no acute distress, obese, chronically ill appearing, disheveled and cooperative Head: Present atraumatic and normocephalic ENT: Present normal exam Neck: Present normal inspection Respiratory: Present normal respiratory effort; Absent rhonchi, wheezes or crackles Cardiac: Present Reg Rate and Rhythm GI: Present soft and normal bowel sounds; Absent distention or tenderness Extremities: Present normal inspection and full ROM Comment:: Right lower extremity warm, right distal foot status post amputation. Bandage on right foot. Skin: Present intact and erythema (Over distal right leg) Neuro: Present Grossly Intact, alert, awake, oriented x 3 and moves all extremities; Absent Sensory Function Intact Comment:: Decree sensation in feet Assessment and Plan *Assessment and plan (1) Severe sepsis: Status: Acute Category: Medical Code(s): A41.9 - Sepsis, unspecified organism; R65.20 - Severe sepsis without septic shock (2) Gram-positive bacteremia: Status: Acute Category: Medical Code(s): R78.81 - Bacteremia (3) Cellulitis of leg, right: Status: Acute Category: Medical Code(s): L03.115 - Cellulitis of right lower limb (4) Hx of toe surgery: Problem Comment: toes removed from right foot Status: Acute Category: Surgical Code(s): Z98.890 - Other specified postprocedural states (5) DM type 2 (diabetes mellitus, type 2): Status: Acute Qualifiers: Diabetes mellitus complication status: with other specified complication 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 use Qualified Code(s): E11.69 - Type 2 diabetes mellitus with other specified complication; Z79.4 - retirement (current) use of insulin Category: Medical Code(s): E11.9 - Type 2 diabetes mellitus without complications (6) Hypertension: Status: Acute Qualifiers: Hypertension type: unspecified Qualified Code(s): I10 - Essential (primary) hypertension Category: Medical Code(s): I10 - Essential (primary) hypertension (7) Hyperlipidemia: Status: Acute Qualifiers: Hyperlipidemia type: unspecified Qualified Code(s): E78.5 - Hyperlipidemia, unspecified Category: Medical Code(s): E78.5 - Hyperlipidemia, unspecified (8) PAD (peripheral artery disease): Status: Acute Category: Medical Code(s): I73.9 - Peripheral vascular disease, unspecified (9) Legally blind: Status: Acute Category: Medical Code(s): H54.8 - Legal blindness, as defined in [place] Plan 73-year-old male with history of COPD, insulin-dependent diabetes, status post partial amputation of the right foot presented to ED c/o fever, abdominal pain and vomiting/diarrhea and feeling ill for the last 2 days. Patient on arrival had fever. Meet sepsis criteria. Started on sepsis protocol. Initial interventions include crystalloid boluses vancomycin and Zosyn. Blood culture pending. ED requested admission. Findings discussed. Patient hemodynamically stable normotensive after IV resuscitation. Medicine agreed to admit for further management. Wound care assisting with dressing right foot. Podiatry to see patient Monday. Continuing IV antibiotics. Showing some defervescent's and symptoms. Continues to necessitate inpatient management. Problems addressed as follows Severe sepsis without organ dysfunction secondary to cellulitis of the right foot Gram-positive cocci bacteremia Hx transmetatarsal amputation of the right toes Continuing IV antibiotics with vancomycin and Zosyn 4.5 g IV every 8 hours. Monitor renal function for toxicity Initial blood cultures positive for gram-positive cocci in all 4 bottles. Repeat cultures obtained today. Wound care team assisting with management of foot. Podiatry to see patient Monday. tylenol for fever greater than 101F X-ray reviewed. No signs of osteomyelitis Continue morphine 2 mg IV every 4 hours as needed for pain. Tylenol 650 every 4 hours as needed for pain and fever. White cell count improved from 13-5.9. Kidney function normal with BUN 23, creatinine 1.2. Hyponatremia: Sodium 128. Chloride 103. Replacing with diet. Holding on IV fluids. Repeat labs in the morning. Does not appear symptomatic at this time from hyponatremia -Insulin-dependent diabetes: A1c 12. Continue basal insulin with Lantus 20 units nightly. Continue sliding scale insulin with fingersticks ACHS. Continue Lipitor 20 mg daily for hyperlipidemia Continue Trelegy 100 inhaler daily Holding lisinopril given soft blood pressures. Continue Sitagliptin 100 mg daily for diabetes Continue trazodone 50 mg nightly for sleep disorder Legally blind: Supportive care Fall precaution protocol in place On Plavix Protonix IV Diabetic diet
[2023-11-25 09:24] LABS: Barbiturates Screen,Urine Negative ng/ml (<200)
[2023-11-25 09:25] LABS: Amphetamine/Metha Screen,Urine Negative ng/ml (<1000); Benzodiazepines Screen,Urine Negative ng/ml (<200)
[2023-11-25 09:26] LABS: Cannabinoid Screen,Urine Negative ng/ml (<50); Cocaine Screen,Urine Negative ng/ml (<300)
[2023-11-25 09:27] LABS: Methadone Screen,Urine Negative ng/ml (<300)
[2023-11-25 09:28] LABS: Opiate Screen,Urine Negative ng/ml (<300); Phencyclidine Screen,Urine Negative ng/ml (<25)
[2023-11-25] MEDS: ATORVASTATIN 20MG TABLET 20 MG PO (09:46)
[2023-11-25 11:54] LABS: POC Glucose,Bedside 103 (70-110)
--- NOTE | 2023-11-25 16:34 | PC.NURSE ---
pt has been up to chair since 1144. pt was able to ambulate with walker, is non weight bearing on r leg r/t wound on foot. pt had pt/ot consult this afternoon as well. pt lung sounds are clear with diminished bases. bowel sounds are active in all quads. nad noted. pt states that he has not had a bm since approx . pt was offered medication to help with constipation during md rounds, pt refused. pt was again offered to get meds ordered or attempt to provide other solutions to constipation. pt again refused, stating that it will come when it comes . pt is a/o x 4.
[2023-11-25 16:38] LABS: POC Glucose,Bedside 132 (70-110)
--- NOTE | 2023-11-25 16:41 | HMH.PTEV ---
Physical Therapy Evaluation Rehab PT IP Evaluation Start: 11/25/23 08:08 Freq: ONCE Status: Active Protocol: Document 11/25/23 16:22 HWBELIA (Rec: 11/25/23 16:41 HWADE [id number]) Subjective/History History History Pt is a 73 year old male that presented to [facility] ED on 11/24/23 with reports of fever, abdominal pain, vomiting/ diarrhea and feeling ill for ~ 2 days. Prior to admission, pt had a fall at home and hit his head in the bathroom. Of note, pt has a transmetatarsal amputation on the RLE and a wound on the plantar surface of that foot. Pt was started on sepsis protocol and admitted for further IP management. PMH significant for COPD, insulin-dependent diabetes, amputation of R foot . Subjective Subjective Pt presents seated in bedside chair upon arrival, pt pleasant and agreeable to PT evaluation. Pt denies reports of pain at rest, AOx4. Pt reports at baseline, he lives at home with a friend in a H with 0 BETH. Pt reports he is normally (I) with all activities including ambulation without AD. Pt reports he sometimes uses a SPC for outdoor ambulation. Pt reports he also has a w/c, RW , BSC, showerchair at home if needed. Pt reports he has no sensation throughout his feet and is unable to feel any wounds. During evaluation, pt was kept NWB on RLE pending podiatry consult and further mobility recommendations for RLE. Pt performed STS transfer with min A and use of a RW, pt was able to maintain NWB on RLE during transfer with minimal cueing. Pt demonstrated grossly 4/5 BLE MMT during assessment. New diagnosis of cancer in past 12 No months? Rehab PT IP Eval Objective Appearance Patient Behavior Appropriate,Cooperative Patient Orientation Person,Place,Time,Situation Difficulty following instructions none Speech Pattern Clear,Appropriate Ambulation Patient Able to Ambulate No Balance Ability to Arise Able, uses arms to help Sitting Balance Steady, safe Standing Balance Unsteady Dynamic Sitting Balance Ability Good Dynamic Standing Balance Ability Fair Transfers Sit to Stand Bed Transfer Ability Minimal x 1 (25% assist) ROM RLE PT ROM Status WFL LLE PT ROM Status WFL MMT RLE PT MMT ABN Abnormal MMT Grade Grossly 4/5 LLE PT MMT ABN Abnormal MMT Grade Grossly 4/5 Rehab PT IP prob,goals,plan Problems Date of Evaluation: 11/25/23 PT IP Problems Bed Mobility,Transfers,Gait, Balance,Self care,Safety Rehab Potential Rehab Potential Good Plan PT Intervention Plan Bed Mobility,Transfers,Gait, Balance,Self care,Safety, Therapeutic Exercise PT Plan Frequency Daily Duration LOS Discharge Goals Bed Transfer Ability Independent Sit to Stand Chair Transfer Ability Supervision/Stand by Discharge Plan PT Discharge Plan Pt participated in PT initial evaluation this date. Recommend skilled PT intervention during IP admission to address the identified impairments, reduce risk of falls and prevent functional decline. Once medically stable, recommend pt to d/c home with HHPT versus STR pending clarification of RLE WBing status and progress with PT during IP admission. Eval Complexity Eval Charge Codes 56843 - Moderate Complexity PHYSICIAN CERTIFICATION: I certify the specified therapy services for Francois Blair are required, authorized, and reviewed every 30 days.
[2023-11-25] MEDS: humaLOG 100 UNITS/ML 10ML VIAL (SSI) SQ (21:19)
[2023-11-25] MEDS: INSULIN GLARGINE 100 UNITS/ML 3ML FLEXPEN 20 UNIT SQ (21:31)
[2023-11-25] MEDS: PANTOPRAZOLE 40MG VIAL 40 MG IV (21:31)
[2023-11-25] MEDS: TRAZODONE 50MG TABLET 50 MG PO (21:32)
[2023-11-25 21:34] LABS: POC Glucose,Bedside 175 (70-110)
[2023-11-26] VITALS (11 sets, daily range): BP systolic 108–128; BP diastolic 57–65; PULSE 68–82; RESP 16–18; TEMP 36.4–36.8; O2SAT 94–98; BMI 30.7
[2023-11-26] MEDS: MELATONIN 5MG TABLET 5 MG PO (00:24)
[2023-11-26] MEDS: PIPERACILLIN/TAZO 4.5 GM in 0.9 % SODIUM CHLORIDE 100 ML IV ×3 (02:41→18:07)
[2023-11-26] MEDS: VANCOMYCIN HCL 2,000 MG in 0.9 % SODIUM CHLORIDE 250 ML 125 MG IV (03:07)
--- NOTE | 2023-11-26 05:24 | PC.NURSE ---
FSBS at 9pm 175 requiring 2 units insulin per sliding scale. Pt had some difficulty sleeping despite Trazadone. He states I can't stop worrying about my leg . Order for Melatonin 5 mg. After administering, pt slept well. No complaints of pain or discomfort this shift
[2023-11-26] MEDS: SITAGLIPTIN 50MG TABLET 100 MG PO (06:35)
[2023-11-26 06:40] LABS: Basophils % 0.2 % (0.1-2.0); Eosinophils # 0.1 K/mm3 (0.0-0.4); Eosinophils % 0.9 % (0.1-12.0); Hematocrit 33.9 % (42.0-52.0); Hemoglobin 11.4 g/dL (14.1-18.0); Lymphocytes # 0.7 K/mm3 (0.7-4.5); Mean Corpuscular HGB Conc 33.6 g/dL (31.8-35.4); Mean Corpuscular Hemoglobin 27.6 pg (27.0-31.2); Mean Corpuscular Volume 82.1 fl (80-94); Mean Platelet Volume 8.1 fl (7.4-10.4); Monocytes # 0.3 K/mm3 (0.1-1.0); Monocytes % 6.7 % (1.7-9.3); Neutrophils % 79.1 % (37.0-80.0); Platelet Count 136 K/mm3 (142-424); Red Blood Count 4.13 M/mm3 (4.60-6.20); Red Cell Distribution Width 14.7 % (11.5-17.5); White Blood Count 5.1 K/mm3 (4.8-10.8)
[2023-11-26] MEDS: FLUTICASONE/UMECLIDIN/VILANTER 200/62.5/25MCG INHALER 1 PUFF IH (06:44)
[2023-11-26] MEDS: IPRATROPIUM/ALBUTEROL 3 ML NEB IH ×3 (06:44→18:17)
[2023-11-26 06:48] LABS: POC Glucose,Bedside 112 (70-110)
[2023-11-26 06:52] LABS: Alanine Aminotransferase 36 U/L (12-78); Albumin Level 2.8 g/dl (3.5-5.0); Albumin/Globulin Ratio 0.9 (1.1-1.8); Alkaline Phosphatase 133 U/L (38-126); Anion Gap 5.6 mEq/L (5-15); Aspartate Amino Transferase 67 U/L (17-59); Bilirubin,Total 0.6 mg/dl (0.2-1.3); Blood Urea Nitrogen 20 mg/dl (9-20); Carbon Dioxide 23 mmol/L (22.0-30.0); Chloride 105 mmol/L (98-107); Creatinine Clearance Estimated 99 mL/min (50-200); Estimated Glomerular Filt Rate 73 ml/min (>60); GFR (African American) 89 ML/MIN (>60); Globulin 3.2 g/dL (1.3-3.2); Glucose 118 mg/dl (74-100); Potassium 3.6 mmoL/L (3.5-5.1); Sodium 130 mmol/L (136-145)
[2023-11-26] MEDS: ATORVASTATIN 20MG TABLET 20 MG PO (08:58)
[2023-11-26] MEDS: humaLOG 100 UNITS/ML 10ML VIAL (SSI) SQ ×3 (11:03→20:16)
[2023-11-26 11:06] LABS: POC Glucose,Bedside 154 (70-110)
--- NOTE | 2023-11-26 14:45 | PC.NURSE ---
Addendum entered by Lexa Bauman RN 11/26/23 14:52: pt family was notified of room change. Original Note: pt moved out of 219 and into 209, resting comfortably in new room.
--- NOTE | 2023-11-26 14:53 | PC.NURSE ---
Pt has been resting for the majority of the day, he sat up on the side of the bed for breakfast and lunch and is eating 80-100% of his meals. Family was updated per patient request. He has been using a urinal independently, pt is A&Ox4, VSS. No c/o pain, shortness of breath, or chest pain. Bed is in the lowest position and call light is within reach.
--- NOTE | 2023-11-26 15:56 | P.PN_ITS ---
Subjective *Date: 11/26/23 *Time: 15:56 Interval history: The patient is seen and evaluated at bedside today. I am accompanied by his nurse Lexa. Nursing staff report that he remains afebrile with stable vital signs and saturating appropriately on room air. He is tolerating his antibiotic therapy with no adverse events. His morning CBC identifies a normal white blood cell count 5.1 with hemoglobin 11.4 and platelet count 136. His potassium is normal. BUN is 20 and creatinine is 1.0. His repeat blood cultures are no growth to date. The patient reports adequate pain control. Exam Data for Last 24 hours Vital signs and Labs for Last 24 Hours: Temp Pulse Resp BP Pulse Ox O2 Del Method 98 F 80 18 128/58 L 97 Room Air 11/26/23 11:46 11/26/23 12:00 11/26/23 11:46 11/26/23 11:46 11/26/23 11:46 11/26/23 15:00 Laboratory Results - last 24 hr 11/25/23 16:31: POC Glucose 132 H 11/25/23 21:17: POC Glucose 175 H 11/26/23 06:09: WBC 5.1, RBC 4.13 L, Hgb 11.4 L, Hct 33.9 L, MCV 82.1, MCH 27.6, MCHC 33.6, RDW 14.7, Plt Count 136 L, MPV 8.1, Neut % (Auto) 79.1, Lymph % (Auto) 13.0, [place]isco[place] % (Auto) 6.7, Eos % (Auto) 0.9, Baso % (Auto) 0.2, Neut # (Auto) 4.0, Lymph # (Auto) 0.7, [place] # (Auto) 0.3, Eos # (Auto) 0.1, Baso # (Auto) 0.0, Sodium 130 L, Potassium 3.6, Chloride 105, Carbon Dioxide 23, Anion Gap 5.6, BUN 20, Creatinine 1.00, Estimated Creat Clear 99, Estimated GFR 73, Est GFR ( Amer) 89 D, Glucose 118 H D, Calcium 8.0 L, Magnesium 2.0, Total Bilirubin 0.6, AST 67 H D, ALT 36 D, Alkaline Phosphatase 133 H, Total Protein 6.0 L, Albumin 2.8 L, Globulin 3.2, Albumin/Globulin Ratio 0.9 L 11/26/23 06:39: POC Glucose 112 H 11/26/23 10:57: POC Glucose 154 H I & O for Last 24 hours: Intake & Output 11/23/23 11/24/23 11/25/23 11/26/23 23:59 23:59 23:59 23:59 Intake Total 1052 / 1052 2506 / 2606 980 / 980 Output Total 1700 / 1700 1100 / 1600 1969 / 1969 Balance -648 / -648 1406 / 1006 -990 / -990 Weight 102 kg 105.279 kg 105.279 kg Microbiology Reports for the Last 24 Hours: Microbiology 11/24/23 02:30 Blood Blood Culture - Final Staphylococcus aureus 11/24/23 02:40 Blood Blood Culture - Final Staphylococcus aureus 11/24/23 06:50 Foot,Right Gram Stain - Final 11/24/23 06:50 Foot,Right Wound Culture - Final Staphylococcus aureus 11/25/23 08:45 Blood Blood Culture - Preliminary NO GROWTH AFTER 24 HOURS 11/25/23 08:35 Blood Blood Culture - Preliminary NO GROWTH AFTER 24 HOURS Constitutional Constitutional: no acute distress, obese, chronically ill appearing and cooperative *Routine HEENT Exam Head: Present normocephalic ENT: Present mucous membranes moist *Routine Neck Exam Neck: Present supple; Absent lymphadenopathy *Routine Respiratory Exam Respiratory: Present rhonchi, normal respiratory effort and symmetric chest movement *Routine Cardiovascular Exam Cardiovascular: Present RRR *Routine Abdominal Exam Abdominal: Present soft; Absent tenderness *Routine Extremities Exam Extremities: Present amputation; Absent edema *Routine Skin Exam Skin: Present warm and wounds; Absent rash *Routine Neurological Exam Neurological: Present alert and moving all extremities Routine Psychiatric Exam Psychiatric: Present cooperative Assessment and Plan *Assessment and plan (1) Severe sepsis: Status: Acute Category: Medical Code(s): A41.9 - Sepsis, unspecified organism; R65.20 - Severe sepsis without septic shock (2) Gram-positive bacteremia: Status: Acute Category: Medical Code(s): R78.81 - Bacteremia (3) Cellulitis of leg, right: Status: Acute Category: Medical Code(s): L03.115 - Cellulitis of right lower limb (4) PAD (peripheral artery disease): Status: Acute Category: Medical Code(s): I73.9 - Peripheral vascular disease, unspecified (5) Hx of toe surgery: Problem Comment: toes removed from right foot Status: Acute Category: Surgical Code(s): Z98.890 - Other specified postprocedural states (6) DM type 2 (diabetes mellitus, type 2): Status: Acute Qualifiers: Diabetes mellitus senior living 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 Diabetes mellitus complication status: with other specified complication Qualified Code(s): E11.69 - Type 2 diabetes mellitus with other specified complication; Z79.4 - skilled nursing (current) use of insulin Category: Medical Code(s): E11.9 - Type 2 diabetes mellitus without complications (7) Hypertension: Status: Acute Qualifiers: Hypertension type: unspecified Qualified Code(s): I10 - Essential (primary) hypertension Category: Medical Code(s): I10 - Essential (primary) hypertension (8) Hyperlipidemia: Status: Acute Qualifiers: Hyperlipidemia type: unspecified Qualified Code(s): E78.5 - Hyperlipidemia, unspecified Category: Medical Code(s): E78.5 - Hyperlipidemia, unspecified (9) Legally blind: Status: Acute Category: Medical Code(s): H54.8 - Legal blindness, as defined in [place] Plan 73-year-old male with history of COPD, uncontrolled insulin-dependent diabetes, status post partial amputation of the right foot presented to ED c/o fever, abdominal pain and vomiting/diarrhea and feeling ill for the last 2 days. Patient on arrival had fever. Meet sepsis criteria. Started on sepsis protocol. Initial interventions include crystalloid boluses vancomycin and Zosyn. Wound care assisting with dressing right foot. Podiatry to see patient Monday. Continuing IV antibiotics. Problems addressed as follows: Severe sepsis without organ dysfunction secondary to cellulitis of the right foot MSSA Bacteremia Hx transmetatarsal amputation of the right toes Completed IV fluid resuscitation Trending labs and inflammatory markers Repeat blood cultures no growth to date Right foot x-rays with osteopenia no evidence of bony cortex disruption Continuing IV antibiotics with vancomycin and Zosyn 4.5 g IV every 8 hours Drug therapy requiring intensive monitoring for toxicity Routine peak and trough Monitor renal function for toxicity Wound care team assisting with management of foot. Podiatry to see patient Monday. Antipyretic therapy Pain control Fall precautions PT OT evaluations Case management consult for next site of care Uncontrolled diabetes Routine blood sugar monitoring Hemoglobin A1c 12.4% Basal insulin therapy Sliding scale insulin therapy Carbohydrate controlled diet Peripheral vascular disease Previous CVA Carotid artery calcifications (bilateral ICA) CT brain with no acute disease and chronic findings Antiplatelet therapy P2Y12 inhibitor therapy Statin therapy Tobacco cessation education COPD not in exacerbation Tobacco dependence Pulse oximetry monitoring Oxygen therapy to maintain appropriate oxygen saturations Currently oxygenating appropriately on room air CTA chest with paraseptal emphysema and no acute infiltrates Tobacco cessation education Nicotine replacement therapy as needed Legally blind Improve glycemic control Supportive care Routine outpatient ophthalmology evaluations Fall precaution protocol in place VTE prophylaxis: Heparin CODE STATUS: DNR POA: Myrtle Toussaint-daughter The patient is hospitalized day 2 with above diagnoses. We appreciate outside solar sales consultant evaluation and recommendations. Case management is assisting with discharge planning. Barriers to discharge currently include outside solar sales consultant recommendations, IV antibiotic therapy and ongoing wound care evaluations. Expect the day of discharge over the next day or 2.
--- NOTE | 2023-11-26 16:42 | PC.NURSE ---
per Dr. Lim, ok to leave patient off telemetry monitoring
[2023-11-26 16:52] LABS: POC Glucose,Bedside 172 (70-110)
[2023-11-26 20:15] LABS: POC Glucose,Bedside 165 (70-110)
[2023-11-26] MEDS: INSULIN GLARGINE 100 UNITS/ML 3ML FLEXPEN 20 UNIT SQ (20:16)
[2023-11-26] MEDS: HEPARIN SODIUM 5,000 UNIT/ML VIAL 5000 UNIT SQ (20:16)
[2023-11-26] MEDS: PANTOPRAZOLE 40MG TABLET 40 MG PO (20:17)
[2023-11-26] MEDS: TRAZODONE 50MG TABLET 50 MG PO (20:17)
[2023-11-27] VITALS (11 sets, daily range): BP systolic 106–146; BP diastolic 53–77; PULSE 64–75; RESP 16–18; TEMP 36.4–36.9; O2SAT 96–99; BMI 30.7
[2023-11-27 02:19] LABS: Vancomycin,Trough 9.2 ug/mL (5.0-10.0)
[2023-11-27] MEDS: PIPERACILLIN/TAZO 4.5 GM in 0.9 % SODIUM CHLORIDE 100 ML IV ×3 (02:27→20:35)
[2023-11-27] MEDS: VANCOMYCIN HCL 2,000 MG in 0.9 % SODIUM CHLORIDE 250 ML 125 MG IV (03:01)
--- NOTE | 2023-11-27 05:30 | PC.NURSE ---
Patient alert and oriented x4 throughout shift. Tolerating room air well. Patient has rested most of shift. No complaints or needs expressed. Bowel sounds active. Using urinal independently. No acute changes overnight. Call light within reach.
[2023-11-27] MEDS: humaLOG 100 UNITS/ML 10ML VIAL (SSI) SQ ×2 (05:57→17:15)
[2023-11-27] MEDS: SITAGLIPTIN 50MG TABLET 100 MG PO (05:59)
[2023-11-27 06:01] LABS: POC Glucose,Bedside 154 (70-110)
--- NOTE | 2023-11-27 06:50 | P.CONS_ITS ---
History of Present Illness *Admission Date: 11/24/23 *History of present illness: This is a 73-year-old male with history of COPD, insulin-dependent diabetes, status post partial amputation of the right foot presented to ED c/o fever, abdominal pain and vomiting/diarrhea and feeling ill for the last 2 days. Tonight he lost his balance and had a fall, striking his head in the bathroom. He denies loss of consciousness. He reports no pain as result of the fall. When his family came into the bathroom, they noticed that his right leg was red extending up to the mid calf and he has a wound on the plantar surface of the partially amputated right foot. patient alert and oriented but is uncomfortable appearing. poor historian unable to cooperate more with interview. History largely obtained from family at bedside. Admitted for management 11/27/23 Podiatry consulted, patient resting in bed upon entering the room this morning. He denies any acute pain with his Right TMA site, cellulitis is improving. [facility] Disclaimer: The information contained in this section may have been updated after the patient was seen, as this information can be updated by other users. 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 Skin cancer Surgical History (Updated 11/24/23 @ 06:27 by Joe Mejia APRN) Hx of toe surgery H/O repair of right rotator cuff Social History (Updated 11/24/23 @ 05:36 by Araceli Vergara RN) Smoking Status: Current every day smoker alcohol intake: never current occupational status: retired Travel in the last 8 weeks: None Meds Home Medications and Allergies Home Medications Medication Instructions Recorded Confirmed Type albuterol sulfate 90 mcg/actuation 2 puff inhalation Q4-6H PRN 04/25/23 11/24/23 Rx aerosol inhaler shortness of breath or wheezing #3 ea carvedilol 25 mg tablet 25 mg PO BID 90 days #180 tabs 04/25/23 11/24/23 Rx atorvastatin 20 mg tablet 20 mg PO DAILY 90 days #90 tabs 09/29/23 11/24/23 Rx fluticasone fur. 200 mcg-umeclid 1 inh inhalation DAILY 90 days #3 11/06/23 11/24/23 Rx 62.5 mcg-vilant 25 mcg ea inhalat.powder (Trelegy Ellipta) insulin degludec 100 unit/mL (3 37 unit (0.37 mL) SQ DAILY #15 mL 11/08/23 11/24/23 Rx mL) subcutaneous pen (Tresiba FlexTouch U-100 insulin) clopidogrel 75 mg tablet 75 mg PO DAILY 11/24/23 11/24/23 History lisinopril 20 mg tablet 20 mg PO DAILY 11/24/23 11/24/23 History sitagliptin phosphate 100 mg 100 mg PO DAILY 11/24/23 11/24/23 History tablet (Januvia) trazodone 50 mg tablet 50 mg PO HS 11/24/23 11/24/23 History New Prescriptions to Start Prescriptions: Allergies Allergy/AdvReac Type Severity Reaction Status Date / Time Aminoglycosides Allergy Severe Swelling Verified 11/24/23 07:58 of Lip/Tongue/Throat Exam (Inpt) Vital signs and Labs for Last 24 Hours: Temp Pulse Resp BP Pulse Ox O2 Del Method 98.2 F 71 16 137/61 97 Room Air 11/27/23 04:00 11/27/23 04:00 11/27/23 04:00 11/27/23 04:00 11/27/23 04:00 11/27/23 05:00 Laboratory Results - last 24 hr 11/26/23 06:09: WBC 5.1, RBC 4.13 L, Hgb 11.4 L, Hct 33.9 L, MCV 82.1, MCH 27.6, MCHC 33.6, RDW 14.7, Plt Count 136 L, MPV 8.1, Neut % (Auto) 79.1, Lymph % (Auto) 13.0, Mccreary % (Auto) 6.7, Eos % (Auto) 0.9, Baso % (Auto) 0.2, Neut # (Auto) 4.0, Lymph # (Auto) 0.7, Mccreary # (Auto) 0.3, Eos # (Auto) 0.1, Baso # (Auto) 0.0, Sodium 130 L, Potassium 3.6, Chloride 105, Carbon Dioxide 23, Anion Gap 5.6, BUN 20, Creatinine 1.00, Estimated Creat Clear 99, Estimated GFR 73, E st GFR ( Amer) 89 D, Glucose 118 H D, Calcium 8.0 L, Magnesium 2.0, Total Bilirubin 0.6, AST 67 H D, ALT 36 D, Alkaline Phosphatase 133 H, Total Protein 6.0 L, Albumin 2.8 L, Globulin 3.2, Albumin/Globulin Ratio 0.9 L 11/26/23 10:57: POC Glucose 154 H 11/26/23 16:43: POC Glucose 172 H 11/26/23 20:09: POC Glucose 165 H 11/27/23 01:45: Vancomycin Trough 9.2 11/27/23 05:52: POC Glucose 154 H I & O for Labs for Last 24 Hours: Intake & Output 11/24/23 11/25/23 11/26/23 11/27/23 23:59 23:59 23:59 23:59 Intake Total 1052 / 1052 2506 / 2506 1700 / 1700 100 / 100 Output Total 1700 / 1700 1100 / 1100 2620 / 2620 450 / 450 Balance -648 / -648 1406 / 1406 -920 / -920 -350 / -350 Weight 224 lb 13.944 oz 232 lb 1.6 oz 232 lb 1.607 oz 232 lb 1.607 oz Microbiology Reports for the Last 24 Hours: Microbiology 11/24/23 02:30 Blood Blood Culture - Final Staphylococcus aureus 11/24/23 02:40 Blood Blood Culture - Final Staphylococcus aureus 11/24/23 06:50 Foot,Right Gram Stain - Final 11/24/23 06:50 Foot,Right Wound Culture - Final Staphylococcus aureus 11/25/23 08:45 Blood Blood Culture - Preliminary NO GROWTH AFTER 24 HOURS 11/25/23 08:35 Blood Blood Culture - Preliminary NO GROWTH AFTER 24 HOURS Constitutional: Present no acute distress and cooperative Head: Present normocephalic Eye: Present as per HPI Neck: Present trachea midline Respiratory: Present normal respiratory effort and able to speak in complete sentences Cardiac: Present posterior tibial pulses present and pedal pulses present Comments:: deferred Rectal (male): Present deferred (male): Present deferred Extremities: Present edema (trace edema to his right foot and lower leg ); Absent calf tenderness Comment:: cellulitis to his right foot TMA site. Skin: Present erythema and wounds (Right plantar to lateral foot DFU 5.0x 3.5 0.1 cm, no drainage, dark eschar centrally, yellow to pink fibrotic wound bed.) Neuro: Present awake, oriented x 3, tone normal and moves all extremities; Absent Sensory Function Intact (Neuropathy, denies sensation to foot and lower legs ) Ankle: bilateral: normal inspection Feet/Toes: right: erythema, right: swelling and right: wound (Right TMA site done in 2020 and DFU to plantar and lateral foot ) Feet Bottom: 2 1. Right TMA 5.0 x 3.5 x 0.1 cm Inspection: Present foot deformity deformity: Present other (Right TMA with DFU and cellulitis ), infection and ulceration (R DFU ) Pulses: L dorsalis pedis pulse: normal, R dorsalis pedis pulse: normal, L posterior tibial pulse: diminished and R posterior tibial pulse: diminished CFT: normal: CFT Results Labs 11/26/23 06:09 11/27/23 06:06 Labs: Abnormal lab results 11/26/23 11/26/23 11/26/23 Range/Units 06:09 10:57 16:43 RBC 4.13 L (4.60-6.20) M/mm3 Hgb 11.4 L (14.1-18.0) g/dL Hct 33.9 L (42.0-52.0) % Plt Count 136 L (142-424) K/mm3 Sodium 130 L (136-145) mmol/L Glucose 118 H D (74-100) mg/dl POC Glucose 154 H 172 H (70-110) Calcium 8.0 L (8.4-10.2) mg/dl AST 67 H D (17-59) U/L Alkaline Phosphatase 133 H (38-126) U/L Total Protein 6.0 L (6.3-8.2) g/dl Albumin 2.8 L (3.5-5.0) g/dl Albumin/Globulin Ratio 0.9 L (1.1-1.8) 11/26/23 11/27/23 Range/Units 20:09 05:52 RBC (4.60-6.20) M/mm3 Hgb (14.1-18.0) g/dL Hct (42.0-52.0) % Plt Count (142-424) K/mm3 Sodium (136-145) mmol/L Glucose (74-100) mg/dl POC Glucose 165 H 154 H (70-110) Calcium (8.4-10.2) mg/dl AST (17-59) U/L Alkaline Phosphatase (38-126) U/L Total Protein (6.3-8.2) g/dl Albumin (3.5-5.0) g/dl Albumin/Globulin Ratio (1.1-1.8) H & H 11/24/23 11/24/23 11/25/23 Range/Units 02:30 05:55 06:30 Hgb 15.2 12.6 L D 11.7 L (14.1-18.0) g/dL Hct 45.2 37.8 L 34.8 L (42.0-52.0) % 11/26/23 Range/Units 06:09 Hgb 11.4 L (14.1-18.0) g/dL Hct 33.9 L (42.0-52.0) % All other labs normal. Assessment and Plan *Assessment and plan (1) Severe sepsis: Status: Acute Category: Medical Code(s): A41.9 - Sepsis, unspecified organism; R65.20 - Severe sepsis without septic shock (2) Gram-positive bacteremia: Status: Acute Category: Medical Code(s): R78.81 - Bacteremia (3) Cellulitis of leg, right: Status: Acute Category: Medical Code(s): L03.115 - Cellulitis of right lower limb (4) PAD (peripheral artery disease): Status: Acute Category: Medical Code(s): I73.9 - Peripheral vascular disease, unspecified (5) Hx of toe surgery: Problem Comment: toes removed from right foot Status: Acute Category: Surgical Code(s): Z98.890 - Other specified postprocedural states (6) DM type 2 (diabetes mellitus, type 2): Status: Acute Qualifiers: Diabetes mellitus complication status: with other specified complication Diabetes mellitus terminal makeup operator insulin use: with terminal makeup operator use Qualified Code(s): E11.69 - Type 2 diabetes mellitus with other specified complication; Z79.4 - termination clerk (current) use of insulin Category: Medical Code(s): E11.9 - Type 2 diabetes mellitus without complications (7) Hypertension: Status: Acute Qualifiers: Hypertension type: unspecified Qualified Code(s): I10 - Essential (primary) hypertension Category: Medical Code(s): I10 - Essential (primary) hypertension (8) Hyperlipidemia: Status: Acute Qualifiers: Hyperlipidemia type: unspecified Qualified Code(s): E78.5 - Hyperlipidemia, unspecified Category: Medical Code(s): E78.5 - Hyperlipidemia, unspecified (9) Legally blind: Status: Acute Category: Medical Code(s): H54.8 - Legal blindness, as defined in [facility] Plan Podiatry plan -see Dr. Vasquez's addendum
[2023-11-27] MEDS: IPRATROPIUM/ALBUTEROL 3 ML NEB IH ×4 (06:52→23:01)
[2023-11-27 07:03] LABS: Alanine Aminotransferase 53 U/L (12-78); Albumin Level 2.9 g/dl (3.5-5.0); Albumin/Globulin Ratio 0.9 (1.1-1.8); Alkaline Phosphatase 213 U/L (38-126); Anion Gap 7.3 mEq/L (5-15); Aspartate Amino Transferase 80 U/L (17-59); Bilirubin,Total 0.6 mg/dl (0.2-1.3); Blood Urea Nitrogen 14 mg/dl (9-20); Calcium 7.9 mg/dl (8.4-10.2); Carbon Dioxide 22 mmol/L (22.0-30.0); Chloride 105 mmol/L (98-107); Creatinine Clearance Estimated 99 mL/min (50-200); Estimated Glomerular Filt Rate 83 ml/min (>60); GFR (African American) 100 ML/MIN (>60); Globulin 3.1 g/dL (1.3-3.2); Glucose 147 mg/dl (74-100); Potassium 3.3 mmoL/L (3.5-5.1); Sodium 131 mmol/L (136-145)
[2023-11-27 07:37] LABS: Vancomycin,Peak 23.5 ug/ml (11-39)
--- NOTE | 2023-11-27 07:46 | CT_ITS ---
FINAL REPORT CLINICAL HISTORY: DFU, infection FINDINGS: CT RIGHT FOOT WITHOUT CONTRAST TECHNIQUE: Axial and reformatted sagittal and coronal images were obtained of the . This study was performed with techniques to keep radiation doses as low as reasonably achievable, (ALARA). Individualized dose reduction techniques using automated exposure control or adjustment of mA and/or kV according to the patient's size were employed. FINDINGS: There are postoperative changes from transmetatarsal amputation. No definite acute bony erosion is seen. There are mild degenerative changes. Osteopenia is noted. There is soft tissue edema or cellulitis involving the distal foot. IMPRESSION: Postoperative changes from transfer metatarsal amputation. No convincing osteomyelitis. Consider MRI as a more sensitive exam. Reviewed, Interpreted and Dictated by Marin Pelaez III, MD Transcribed by Linda Giron Authenticated and [facility]
--- NOTE | 2023-11-27 07:46 | EXP.PHA.PN ---
Subjective *Date: 11/27/23 *Time: 07:46 Medical Exam Vital signs and Labs for Last 24 Hours: Vital Signs Temp Pulse Pulse Resp BP Pulse Ox O2 Del Method 11/27/23 06:52 68 11/27/23 06:52 72 11/27/23 06:51 Room Air 11/27/23 05:00 Room Air 11/27/23 04:00 98.2 F 71 16 137/61 97 Room Air 11/27/23 03:00 Room Air 11/27/23 01:06 Room Air 11/27/23 00:00 98.3 F 72 16 106/53 L 97 Room Air 11/26/23 23:00 Room Air 11/26/23 21:00 Room Air 11/26/23 20:16 98 Room Air 11/26/23 20:00 98.0 F 74 16 116/59 L 98 Room Air 11/26/23 18:35 75 11/26/23 18:35 75 11/26/23 18:25 Room Air 11/26/23 16:57 Room Air 11/26/23 16:00 98 F 68 18 114/65 98 11/26/23 15:00 Room Air 11/26/23 13:00 Room Air 11/26/23 12:00 80 11/26/23 11:46 98 F 77 18 128/58 L 97 Room Air 11/26/23 11:16 73 11/26/23 11:16 77 11/26/23 11:00 Room Air 11/26/23 08:33 Room Air 11/26/23 08:00 80 11/26/23 08:00 98 F 78 18 108/60 L 94 L Room Air 11/26/23 08:00 Room Air Intake and Output 11/26/23 11/26/23 11/27/23 15:59 23:59 07:59 Intake Total 840 / 1700 360 / 1700 100 / 100 Output Total 270 / 2920 650 / 2920 450 / 450 Balance 570 / -1220 -290 / -1220 -350 / -350 Intake: Intake, Oral Amount 840 / 1400 360 / 1400 Intake, Total IV Amount 100 / 100 Piperacillin/Tazo 4.5 gm In 0.9 100 / 100 % Sodium Chloride 100 ml @ 200 mls/hr IV Q8H [facility] Rx#:[id number] Output: Output, Urine Amount 270 / 2920 650 / 2920 450 / 450 Other: Number of Unmeasured Voids 0 0 Number of Bowel Movements 1 Weight 105.279 kg Patient Weight 11/27/23 23:59 Weight 105.279 kg Laboratory Results - last 24 hr 11/26/23 10:57: POC Glucose 154 H 11/26/23 16:43: POC Glucose 172 H 11/26/23 20:09: POC Glucose 165 H 11/27/23 01:45: Vancomycin Trough 9.2 11/27/23 05:52: POC Glucose 154 H 11/27/23 06:06: Sodium 131 L, Potassium 3.3 L, Chloride 105, Carbon Dioxide 22, Anion Gap 7.3, BUN 14 D, Creatinine 0.90, Estimated Creat Clear 99, Estimated GFR 83, Est GFR ( Amer) 100, Glucose 147 H D, Calcium 7.9 L, Total Bilirubin 0.6, AST 80 H, ALT 53 D, Alkaline Phosphatase 213 H, Total Protein 6.0 L, Albumin 2.9 L, Globulin 3.1, Albumin/Globulin Ratio 0.9 L I & O for Labs for Last 24 Hours: Intake & Output 11/24/23 11/25/23 11/26/23 11/27/23 23:59 23:59 23:59 23:59 Intake Total 1052 / 1052 2506 / 2606 1700 / 1700 100 / 100 Output Total 1700 / 1700 1100 / 1600 2620 / 2920 450 / 450 Balance -648 / -648 1406 / 1006 -920 / -1220 -350 / -350 Weight 102 kg 105.279 kg 105.279 kg 105.279 kg Microbiology Reports for the Last 24 Hours: Microbiology 11/24/23 02:30 Blood Blood Culture - Final Staphylococcus aureus 11/24/23 02:40 Blood Blood Culture - Final Staphylococcus aureus 11/24/23 06:50 Foot,Right Gram Stain - Final 11/24/23 06:50 Foot,Right Wound Culture - Final Staphylococcus aureus 11/25/23 08:45 Blood Blood Culture - Preliminary NO GROWTH AFTER 24 HOURS 11/25/23 08:35 Blood Blood Culture - Preliminary NO GROWTH AFTER 24 HOURS The patient's infection will respond to the chosen ABx?: Yes Is the patient receiving the right drug, dose, and route?: Yes Could a more targeted ABx be ordered?: No (STAPH AUREUS GROWING IN BLOOD AND WOUND CX)
--- NOTE | 2023-11-27 08:05 | US_ITS ---
FINAL REPORT CLINICAL HISTORY: DM, PAD, hx LE stents, current smoker, HTN, hyperlipidemia, history of 5 digit amputation right foot, recent fall with trauma to rt foot, PVD, legally blind, sepsis. COMPARISON: None FINDINGS: ANKLE-BRACHIAL PRESSURE INDICES Pressure indices are as follows: RIGHT LOWER EXTREMITY: Ankle-brachial pressure index: 0.88 Comments: Mild peripheral vascular disease LEFT LOWER EXTREMITY: Ankle-brachial pressure index: 0.84 Comments: Mild peripheral vascular disease CONCLUSION: Findings consistent with bilateral mild peripheral vascular disease. Reviewed, Interpreted and Dictated by Marin Pelaez III, MD Transcribed by Radha Saba Authenticated and [facility]
--- NOTE | 2023-11-27 08:28 | P.PN_ITS ---
Subjective *Date: 11/27/23 *Time: 14:11 Interval history: The patient is seen and examined at bedside today. I am accompanied by his nurse Ashlee. The patient reports adequate pain control. He describes no acute events overnight. Nursing staff report that he remains afebrile with stab le vital signs and saturating appropriately on room air. He is tolerating his IV antibiotic therapy with no adverse events. Podiatry is due to evaluate the patient. Exam Data for Last 24 hours Vital signs and Labs for Last 24 Hours: Temp Pulse Resp BP Pulse Ox O2 Del Method 98.2 F 68 16 137/61 97 Room Air 11/27/23 04:00 11/27/23 06:52 11/27/23 04:00 11/27/23 04:00 11/27/23 04:00 11/27/23 06:51 Laboratory Results - last 24 hr 11/26/23 10:57: POC Glucose 154 H 11/26/23 16:43: POC Glucose 172 H 11/26/23 20:09: POC Glucose 165 H 11/27/23 01:45: Vancomycin Trough 9.2 11/27/23 05:52: POC Glucose 154 H 11/27/23 06:06: Sodium 131 L, Potassium 3.3 L, Chloride 105, Carbon Dioxide 22, Anion Gap 7.3, BUN 14 D, Creatinine 0.90, Estimated Creat Clear 99, Estimated GFR 83, Est GFR ( Amer) 100, Glucose 147 H D, Calcium 7.9 L, Total Bilirubin 0.6, AST 80 H, ALT 53 D, Alkaline Phosphatase 213 H, Total Protein 6.0 L, Albumin 2.9 L, Globulin 3.1, Albumin/Globulin Ratio 0.9 L 11/27/23 06:30: Vancomycin Peak 23.5 I & O for Last 24 hours: Intake & Output 11/24/23 11/25/23 11/26/23 11/27/23 23:59 23:59 23:59 23:59 Intake Total 1052 / 1052 2506 / 2606 1700 / 1700 100 / 100 Output Total 1700 / 1700 1100 / 1600 2620 / 2920 450 / 450 Balance -648 / -648 1406 / 1006 -920 / -1220 -350 / -350 Weight 102 kg 105.279 kg 105.279 kg 105.279 kg Microbiology Reports for the Last 24 Hours: Microbiology 11/24/23 02:30 Blood Blood Culture - Final Staphylococcus aureus 11/24/23 02:40 Blood Blood Culture - Final Staphylococcus aureus 11/24/23 06:50 Foot,Right Gram Stain - Final 11/24/23 06:50 Foot,Right Wound Culture - Final Staphylococcus aureus 11/25/23 08:45 Blood Blood Culture - Preliminary NO GROWTH AFTER 24 HOURS 11/25/23 08:35 Blood Blood Culture - Preliminary NO GROWTH AFTER 24 HOURS Constitutional Constitutional: no acute distress, obese, chronically ill appearing and cooperative *Routine HEENT Exam Head: Present normocephalic ENT: Present mucous membranes moist *Routine Neck Exam Neck: Present supple; Absent lymphadenopathy *Routine Respiratory Exam Respiratory: Present rhonchi, normal respiratory effort and symmetric chest movement *Routine Cardiovascular Exam Cardiovascular: Present RRR *Routine Abdominal Exam Abdominal: Present soft; Absent tenderness *Routine Extremities Exam Extremities: Present amputation; Absent edema *Routine Skin Exam Skin: Present warm and wounds; Absent rash *Routine Neurological Exam Neurological: Present alert and moving all extremities Routine Psychiatric Exam Psychiatric: Present cooperative Assessment and Plan *Assessment and plan (1) Severe sepsis: Status: Acute Category: Medical Code(s): A41.9 - Sepsis, unspecified organism; R65.20 - Severe sepsis without septic shock (2) Gram-positive bacteremia: Status: Acute Category: Medical Code(s): R78.81 - Bacteremia (3) Cellulitis of leg, right: Status: Acute Category: Medical Code(s): L03.115 - Cellulitis of right lower limb (4) PAD (peripheral artery disease): Status: Acute Category: Medical Code(s): I73.9 - Peripheral vascular disease, unspecified (5) Hx of toe surgery: Problem Comment: toes removed from right foot Status: Acute Category: Surgical Code(s): Z98.890 - Other specified postprocedural states (6) DM type 2 (diabetes mellitus, type 2): Status: Acute Qualifiers: Diabetes mellitus complication status: with other specified complication Diabetes mellitus halfway insulin use: with medical office assistant use Qualified Code(s): E11.69 - Type 2 diabetes mellitus with other specified complication; Z79.4 - bottle and glass inspector (current) use of insulin Category: Medical Code(s): E11.9 - Type 2 diabetes mellitus without complications (7) Hypertension: Status: Acute Qualifiers: Hypertension type: unspecified Qualified Code(s): I10 - Essential (primary) hypertension Category: Medical Code(s): I10 - Essential (primary) hypertension (8) Hyperlipidemia: Status: Acute Qualifiers: Hyperlipidemia type: unspecified Qualified Code(s): E78.5 - Hyperlipidemia, unspecified Category: Medical Code(s): E78.5 - Hyperlipidemia, unspecified (9) Legally blind: Status: Acute Category: Medical Code(s): H54.8 - Legal blindness, as defined in [place] Plan 73-year-old male with history of COPD, uncontrolled insulin-dependent diabetes, status post partial amputation of the right foot presented to ED c/o fever, abdominal pain and vomiting/diarrhea and feeling ill for the last 2 days. Patient on arrival had fever. Meet sepsis criteria. Started on sepsis prot ocol. Initial interventions include crystalloid boluses vancomycin and Zosyn. Wound care assisting with dressing right foot. Podiatry to see patient Monday. Continuing IV antibiotics. Problems addressed as follows: Severe sepsis without organ dysfunction secondary to cellulitis of the right foot MSSA Bacteremia Hx transmetatarsal amputation of the right toes Completed IV fluid resuscitation Trending labs and inflammatory markers Initial blood cultures MSSA (pansensitive) Repeat blood cultures no growth to date Right foot x-rays with osteopenia no evidence of bony cortex disruption CT scan right foot with no osteomyelitis Continuing IV antibiotics with vancomycin and Zosyn 4.5 g IV every 8 hours Drug therapy requiring intensive monitoring for toxicity Routine peak and trough Transition to Oral bioequivalent antibiotic on discharge for 10 to 14 days Wound care team assisting with management of foot. Podiatry evaluation noted ABIs with PVD identified Antipyretic therapy Pain control Fall precautions PT OT evaluations Case management consult for next site of care Uncontrolled diabetes Routine blood sugar monitoring Hemoglobin A1c 12.4% Basal insulin therapy Sliding scale insulin therapy Carbohydrate controlled diet Peripheral vascular disease Previous CVA Carotid artery calcifications (bilateral ICA) CT brain with no acute disease and chronic findings ABIs with mild PVD Antiplatelet therapy P2Y12 inhibitor therapy Statin therapy Tobacco cessation education COPD not in exacerbation Tobacco dependence Pulse oximetry monitoring Oxygen therapy to maintain appropriate oxygen saturations Currently oxygenating appropriately on room air CTA chest with paraseptal emphysema and no acute infiltrates Tobacco cessation education Nicotine replacement therapy as needed Legally blind Improve glycemic control Supportive care Routine outpatient ophthalmology evaluations Fall precaution protocol in place VTE prophylaxis: Heparin CODE STATUS: DNR POA: Myrtle Toussaint-daughter The patient is hospitalized day 3 with above diagnoses. We appreciate cost consultant evaluation and recommendations. Case management is assisting with discharge planning to [facility] nursing [facility] re[facility]. Barriers to discharge currently include insurance certification process. Expect the day of discharge November 28, 2023.
[2023-11-27 08:38] LABS: C-Reactive Protein 100.9 mg/L (0-4)
[2023-11-27 08:44] LABS: Erythrocyte Sedimentation Rate 118 mm/hr (0-20)
[2023-11-27] MEDS: ASPIRIN 81MG CHEWABLE TABLET 162 MG PO (09:12)
[2023-11-27] MEDS: CLOPIDOGREL 75MG TAB 75 MG PO (09:13)
[2023-11-27] MEDS: CALCIUM CARBONATE 500MG CHEWTAB 500 MG PO ×3 (09:14→20:50)
[2023-11-27] MEDS: POTASSIUM CHLORIDE 20MEQ TAB 40 MEQ PO (09:14)
[2023-11-27] MEDS: HEPARIN SODIUM 5,000 UNIT/ML VIAL 5000 UNIT SQ ×2 (09:15→20:50)
--- NOTE | 2023-11-27 10:11 | SW/DCPLANNER ---
Addendum entered by Suzie Shen 11/28/23 11:44: I have [facility] will discharge today SNF level of care. Addendum entered by Suzie Shen 11/27/23 12:37: Patient is approved SNF level of care for tomorrow per Jessica. I have updated Dr Lim. Addendum entered by Suzie Shen 11/27/23 12:02: Jessica w/ [employer] stated that auth will be started today. Original Note: I spoke w/ this patient regarding plans once medically stable for discharge. Patient currently lives at home w/ roommates. PT/OT evaluated patient and recommended SNF level of care. Patient stated that at this time he is agreeable to placement and is interested in [facility] [place] or [facility]. I will fax patient information to both facilities this AM. I will continue to follow up w/ MD, patient and facilities. Discharge date is unknown at this time.
--- NOTE | 2023-11-27 10:58 | HMH.OTEV ---
OT Inpatient Evaluation Rehab OT IP Evaluation Start: 11/25/23 08:08 Freq: ONCE Status: Active Protocol: Document 11/27/23 10:15 HUSAM (Rec: 11/27/23 10:58 HUSAM [id number]) Rehab OT IP Assessment Subjective History This is a 73-year-old male with history of COPD, insulin- dependent diabetes, status post partial amputation of the right foot presented to ED c/ o fever, abdominal pain and vomiting/diarrhea and feeling ill for the last 2 days. Tonight he lost his balance and had a fall, striking his head in the bathroom. He denies loss of consciousness. He reports no pain as result of the fall. When his family came into the bathroom, they noticed that his right leg was red extending up to the mid calf and he has a wound on the plantar surface of the partially amputated right foot . patient alert and oriented but is uncomfortable appearing . poor historian unable to cooperate more with interview. History largely obtained from family at bedside. Admitted for management. Patient stated to live in 1 story home with no BETH. Patient stated to ambulate independently and completed all ADLs independently prior to hospitalization. Subjective I can try to stand. Patient sitting upright in recliner at arrival of tx. Instructed Patient on proper hand and foot placement to complete sit->stand with usage of RW. Patient unable to complete standing positiong this date. Patient will required assistance of 2 to complete transfer. Patient stated, I'm not familiar with this place. That is why I can 't stand. Will attempt later this date with standing. NWB to R LE at this time. Objective Patient Orientation Person,Place,Name,Age,Birthday ,Year Right Upper Extremity Gross ROM WFL Left Upper Extremity Gross ROM WFL Transfer Training Sit/Stand Transfer Assist Level Total/Dependent (100%) Rehab OT IP prob,goals,plan Problems Date of Evaluation: 11/27/23 OT IP Problems Bed Mobility,Transfers,Balance ,Self care,Safety Rehab Potential Rehab Potential Good Equipment Needs Assistive Devices Rolling / Wheeled Walker Plan OT intervention Plan Bed Mobility,Transfers,Balance ,Self care,Safety,Therapeutic Exercise OT Plan Frequency Daily Duration LOS Discharge Goals Sit to Stand Chair Transfer Ability Maximum x 2 (75% assist) Discharge Plan OT Discharge Plan Recommend placement at this time. Patient has a hx of falling and NWB to R LE. Patient will require assistance of 2 for proper transfers and safety for ADLs. Will continue to see patient at [facility] while in IP setting. Eval Complexity Eval Charge Codes 76645 - Low Complexity PHYSICIAN CERTIFICATION: I certify the specified therapy services for Francois Blair are required, authorized, and reviewed every 30 days.
--- NOTE | 2023-11-27 11:34 | EXP.PHA.CONS ---
Pharmacy Consult Date: 11/27/23 Time: 11:34 Referring provider: DR. MEJÍA Reason for Consult:: VANCOMYCIN LEVELS AND DOSE CHANGE Allergies Allergy/AdvReac Type Severity Reaction Status Date / Time Aminoglycosides Allergy Severe Swelling Verified 11/24/23 07:58 of Lip/Tongue/Throat Home Medications Medication Instructions Recorded Confirmed Type albuterol sulfate 90 mcg/actuation 2 puff inhalation Q4-6H PRN 04/25/23 11/24/23 Rx aerosol inhaler shortness of breath or wheezing #3 ea carvedilol 25 mg tablet 25 mg PO BID 90 days #180 tabs 04/25/23 11/24/23 Rx atorvastatin 20 mg tablet 20 mg PO DAILY 90 days #90 tabs 09/29/23 11/24/23 Rx fluticasone fur. 200 mcg-umeclid 1 inh inhalation DAILY 90 days #3 11/06/23 11/24/23 Rx 62.5 mcg-vilant 25 mcg ea inhalat.powder (Trelegy Ellipta) insulin degludec 100 unit/mL (3 37 unit (0.37 mL) SQ DAILY #15 mL 11/08/23 11/24/23 Rx mL) subcutaneous pen (Tresiba FlexTouch U-100 insulin) clopidogrel 75 mg tablet 75 mg PO DAILY 11/24/23 11/24/23 History lisinopril 20 mg tablet 20 mg PO DAILY 11/24/23 11/24/23 History sitagliptin phosphate 100 mg 100 mg PO DAILY 11/24/23 11/24/23 History tablet (Januvia) trazodone 50 mg tablet 50 mg PO HS 11/24/23 11/24/23 History collagenase clostridium histo. 250 1 applic topical DAILY PRN wound 11/27/23 Rx unit/gram topical ointment (Santyl) care 30 days #90 grams New Prescriptions to Start Prescriptions: Height: 1.85 m Weight: 105.279 kg Laboratory Results:: Laboratory Results - last 24 hr 11/26/23 16:43: POC Glucose 172 H 11/26/23 20:09: POC Glucose 165 H 11/27/23 01:45: Vancomycin Trough 9.2 11/27/23 05:52: POC Glucose 154 H 11/27/23 06:06: ESR 118 H, Sodium 131 L, Potassium 3.3 L, Chloride 105, Carbon Dioxide 22, Anion Gap 7.3, BUN 14 D, Creatinine 0.90, Estimated Creat Clear 99, Estimated GFR 83, Est GFR ( Amer) 100, Glucose 147 H D, Calcium 7.9 L, Total Bilirubin 0.6, AST 80 H, ALT 53 D, Alkaline Phosphatase 213 H, C-Reactive Protein 100.9 H, Total Protein 6.0 L, Albumin 2.9 L, Globulin 3.1, Albumin/Globulin Ratio 0.9 L 11/27/23 06:30: Vancomycin Peak 23.5 Medical History: 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 PHARMACY WILL CONTINUE TO MONITOR AND WILL ADJUST DOSE APPROPRIATE. -OMEGA CURRY, KELLED
[2023-11-27 12:01] LABS: POC Glucose,Bedside 103 (70-110)
[2023-11-27] MEDS: VANCOMYCIN/WATER FOR INJ (PEG) 1.75 GM/350 ML PIGGYBACK IV (16:55)
[2023-11-27 17:18] LABS: POC Glucose,Bedside 174 (70-110)
[2023-11-27] MEDS: ACETAMINOPHEN 325MG TAB 650 MG PO (20:49)
[2023-11-27 20:50] LABS: POC Glucose,Bedside 137 (70-110)
[2023-11-27] MEDS: INSULIN GLARGINE 100 UNITS/ML 3ML FLEXPEN 20 UNIT SQ (20:50)
[2023-11-27] MEDS: ATORVASTATIN 20MG TABLET 40 MG PO (20:50)
[2023-11-27] MEDS: PANTOPRAZOLE 40MG TABLET 40 MG PO (20:51)
[2023-11-27] MEDS: TRAZODONE 50MG TABLET 50 MG PO (20:51)
[2023-11-28] VITALS: BP 141/72; PULSE 68; RESP 16; TEMP 36.7; O2SAT 96
[2023-11-28] MEDS: PIPERACILLIN/TAZO 4.5 GM in 0.9 % SODIUM CHLORIDE 100 ML IV ×2 (02:25→09:51)
[2023-11-28] MEDS: VANCOMYCIN/WATER FOR INJ (PEG) 1.75 GM/350 ML PIGGYBACK IV (02:57)
[2023-11-28 04:00] VITALS: BP 129/57; PULSE 65; RESP 18; TEMP 36.4; O2SAT 95; BMI 30.3
--- NOTE | 2023-11-28 04:14 | PC.NURSE ---
Patient alert and oriented x4 throughout shift. Tolerating room air well. Independently using urinal and is able to ambulate using walker to/from restroom. Upon arrival to shift this evening, IV antibiotics were being finished and patient was found to have infiltration from Vancomycin in LFA. IV stopped and removed in LFA. I inserted a new 20g IV to RAC. Cool compresses applied to left arm and acetaminophen administered per MAR. Tightness/swelling has decreased and patient states his hand and arm is feeling better. Patient remains afebrile. VSS. Call light within reach.
[2023-11-28 06:00] LABS: POC Glucose,Bedside 121 (70-110)
[2023-11-28 06:03] LABS: Basophils % 0.3 % (0.1-2.0); Eosinophils # 0.1 K/mm3 (0.0-0.4); Eosinophils % 1.2 % (0.1-12.0); Hematocrit 34.7 % (42.0-52.0); Hemoglobin 11.4 g/dL (14.1-18.0); Lymphocytes # 0.8 K/mm3 (0.7-4.5); Lymphocytes % 20.3 % (10-50); Mean Corpuscular HGB Conc 32.8 g/dL (31.8-35.4); Mean Corpuscular Hemoglobin 27.4 pg (27.0-31.2); Mean Corpuscular Volume 83.6 fl (80-94); Monocytes # 0.3 K/mm3 (0.1-1.0); Neutrophils # 2.6 K/mm3 (1.8-7.8); Neutrophils % 70.1 % (37.0-80.0); Platelet Count 156 K/mm3 (142-424); Red Blood Count 4.15 M/mm3 (4.60-6.20); White Blood Count 3.7 K/mm3 (4.8-10.8)
[2023-11-28 06:09] LABS: Anion Gap 9.6 mEq/L (5-15); Blood Urea Nitrogen 10 mg/dl (9-20); Calcium 8.3 mg/dl (8.4-10.2); Carbon Dioxide 22 mmol/L (22.0-30.0); Chloride 107 mmol/L (98-107); Creatinine Clearance Estimated 99 mL/min (50-200); Estimated Glomerular Filt Rate 95 ml/min (>60); GFR (African American) 115 ML/MIN (>60); Glucose 134 mg/dl (74-100); Potassium 3.6 mmoL/L (3.5-5.1); Sodium 135 mmol/L (136-145)
[2023-11-28 06:15] LABS: C-Reactive Protein 79.1 mg/L (0-4)
[2023-11-28] MEDS: SITAGLIPTIN 50MG TABLET 100 MG PO (06:16)
[2023-11-28] MEDS: IPRATROPIUM/ALBUTEROL 3 ML NEB IH ×2 (06:17→11:26)
[2023-11-28] MEDS: FLUTICASONE/UMECLIDIN/VILANTER 200/62.5/25MCG INHALER 1 PUFF IH (06:18)
[2023-11-28 06:19] VITALS: PULSE 64; PULSE 67
[2023-11-28 06:32] LABS: Procalcitonin 2.36 ng/mL (0.0-2.0)
--- NOTE | 2023-11-28 06:51 | EXP.POD.CONS ---
History of Present Illness *Admission Date: 11/24/23 *History of present illness: This is a 73-year-old male with history of COPD, insulin-dependent diabetes, status post partial amputation of the right foot presented to ED c/o fever, abdominal pain and vomiting/diarrhea and feeling ill for the last 2 days. Tonight he lost his balance and had a fall, striking his head in the bathroom. He denies loss of consciousness. He reports no pain as result of the fall. When his family came into the bathroom, they noticed that his right leg was red extending up to the mid calf and he has a wound on the plantar surface of the partially amputated right foot. patient alert and oriented but is uncomfortable appearing. poor historian unable to cooperate more with interview. History largely obtained from family at bedside. Admitted for management 11/28/23 Podiatry consulted, patient sleeping in bed upon entering the room this morning. He reports having a good night, and the nurse stated he was able to get out of bed and ambulate to bathroom. Right TMA site cellulitis and ulcer is improving. [facility] Disclaimer: The information contained in this section may have been updated after the patient was seen, as this information can be updated by other users. 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 Skin cancer Surgical History (Updated 11/24/23 @ 06:27 by Joe Mejia APRN) Hx of toe surgery H/O repair of right rotator cuff Social History (Updated 11/24/23 @ 05:36 by Araceli Vergara RN) Smoking Status: Current every day smoker alcohol intake: never current occupational status: retired Travel in the last 8 weeks: None Meds Home Medications and Allergies Home Medications Medication Instructions Recorded Confirmed Type albuterol sulfate 90 mcg/actuation 2 puff inhalation Q4-6H PRN 04/25/23 11/24/23 Rx aerosol inhaler shortness of breath or wheezing #3 ea carvedilol 25 mg tablet 25 mg PO BID 90 days #180 tabs 04/25/23 11/24/23 Rx atorvastatin 20 mg tablet 20 mg PO DAILY 90 days #90 tabs 09/29/23 11/24/23 Rx fluticasone fur. 200 mcg-umeclid 1 inh inhalation DAILY 90 days #3 11/06/23 11/24/23 Rx 62.5 mcg-vilant 25 mcg ea inhalat.powder (Trelegy Ellipta) insulin degludec 100 unit/mL (3 37 unit (0.37 mL) SQ DAILY #15 mL 11/08/23 11/24/23 Rx mL) subcutaneous pen (Tresiba FlexTouch U-100 insulin) clopidogrel 75 mg tablet 75 mg PO DAILY 11/24/23 11/24/23 History lisinopril 20 mg tablet 20 mg PO DAILY 11/24/23 11/24/23 History sitagliptin phosphate 100 mg 100 mg PO DAILY 11/24/23 11/24/23 History tablet (Januvia) trazodone 50 mg tablet 50 mg PO HS 11/24/23 11/24/23 History collagenase clostridium histo. 250 1 applic topical DAILY PRN wound 11/27/23 Rx unit/gram topical ointment (Santyl) care 30 days #90 grams New Prescriptions to Start Prescriptions: Allergies Allergy/AdvReac Type Severity Reaction Status Date / Time Aminoglycosides Allergy Severe Swelling Verified 11/24/23 07:58 of Lip/Tongue/Throat Exam (Inpt) Vital signs and Labs for Last 24 Hours: Temp Pulse Resp BP Pulse Ox O2 Del Method 97.6 F 64 18 129/57 L 95 Room Air 11/28/23 04:00 11/28/23 06:19 11/28/23 04:00 11/28/23 04:00 11/28/23 04:00 11/28/23 06:46 Laboratory Results - last 24 hr 11/27/23 06:06: ESR 118 H, Sodium 131 L, Potassium 3.3 L, Chloride 105, Carbon Dioxide 22, Anion Gap 7.3, BUN 14 D, Creatinine 0.90, Estimated Creat Clear 99, Estimated GFR 83, Est GFR ( Amer) 100, Glucose 147 H D, Calcium 7.9 L, Total Bilirubin 0.6, AST 80 H, ALT 53 D, Alkaline Phosphatase 213 H, C-Reactive Protein 100.9 H, Total Protein 6.0 L, Albumin 2.9 L, Globulin 3.1, Albumin/Globulin Ratio 0.9 L 11/27/23 06:30: Vancomycin Peak 23.5 11/27/23 11:49: POC Glucose 103 11/27/23 17:01: POC Glucose 174 H 11/27/23 20:44: POC Glucose 137 H 11/28/23 05:47: WBC 3.7 L D, RBC 4.15 L, Hgb 11.4 L, Hct 34.7 L, MCV 83.6, MCH 27.4, MCHC 32.8, RDW 15.0, Plt Count 156, MPV 8.0, Neut % (Auto) 70.1, Lymph % (Auto) 20.3, [place] % (Auto) 8.0, Eos % (Auto) 1.2, Baso % (Auto) 0.3, Neut # (Auto) 2.6, Lymph # (Auto) 0.8, [place] # (Auto) 0.3, Eos # (Auto) 0.1, Baso # (Auto) 0.0, Sodium 135 L, Potassium 3.6, Chloride 107, Carbon Dioxide 22, Anion Gap 9.6, BUN 10 D, Creatinine 0.80, Estimated Creat Clear 99, Estimated GFR 95, Est GFR ( Amer) 115, Glucose 134 H, Calcium 8.3 L, C-Reactive Protein 79.1 H 11/28/23 05:53: POC Glucose 121 H I & O for Labs for Last 24 Hours: Intake & Output 11/25/23 11/26/23 11/27/23 11/28/23 23:59 23:59 23:59 23:59 Intake Total 2506 / 2506 1700 / 1700 850 / 850 100 / 100 Output Total 1100 / 1100 2620 / 2620 800 / 800 250 / 250 Balance 1406 / 1406 -920 / -920 50 / 50 -150 / -150 Weight 232 lb 1.6 oz 232 lb 1.607 oz 232 lb 1.607 oz 228 lb 12.8 oz Microbiology Reports for the Last 24 Hours: Microbiology 11/25/23 08:35 Blood Blood Culture - Preliminary NO GROWTH AFTER 48 HOURS 11/25/23 08:45 Blood Blood Culture - Preliminary NO GROWTH AFTER 48 HOURS Constitutional: Present no acute distress and cooperative Head: Present normocephalic Eye: Present as per HPI Neck: Present trachea midline Respiratory: Present normal respiratory effort and able to speak in complete sentences Cardiac: Present posterior tibial pulses present and pedal pulses present Comments:: deferred Rectal (male): Present deferred (male): Present deferred Extremities: Present edema (trace edema to his right foot and lower leg ); Absent calf tenderness Comment:: cellulitis is improving it is more localized to the to his TMA site. Skin: Present erythema and wounds (Right plantar to lateral foot DFU 4.9x 3.3 0.1 cm, no drainage, dark eschar improving.) Neuro: Present awake, oriented x 3, tone normal and moves all extremities; Absent Sensory Function Intact (Neuropathy, denies sensation to foot and lower legs ) Ankle: bilateral: normal inspection Feet/Toes: right: erythema, right: swelling and right: wound (Right TMA site done in 2020 and DFU to plantar and lateral foot ) Feet Bottom: 1. Right TMA 4.9 x 3.3 x 0.1 cm Inspection: Present foot deformity deformity: Present other (Right TMA with DFU and cellulitis ), infection and ulceration (R DFU ) Pulses: L dorsalis pedis pulse: normal, R dorsalis pedis pulse: normal, L posterior tibial pulse: diminished and R posterior tibial pulse: diminished CFT: normal: CFT Results Labs 11/28/23 05:47 11/28/23 05:47 Labs: Abnormal lab results 11/27/23 11/27/23 11/27/23 Range/Units 06:06 17:01 20:44 WBC (4.8-10.8) K/mm3 RBC (4.60-6.20) M/mm3 Hgb (14.1-18.0) g/dL Hct (42.0-52.0) % ESR 118 H (0-20) mm/hr Sodium 131 L (136-145) mmol/L Potassium 3.3 L (3.5-5.1) mmoL/L Glucose 147 H D (74-100) mg/dl POC Glucose 174 H 137 H (70-110) Calcium 7.9 L (8.4-10.2) mg/dl AST 80 H (17-59) U/L Alkaline Phosphatase 213 H (38-126) U/L C-Reactive Protein 100.9 H (0-4) mg/L Total Protein 6.0 L (6.3-8.2) g/dl Albumin 2.9 L (3.5-5.0) g/dl Albumin/Globulin Ratio 0.9 L (1.1-1.8) 11/28/23 11/28/23 Range/Units 05:47 05:53 WBC 3.7 L D (4.8-10.8) K/mm3 RBC 4.15 L (4.60-6.20) M/mm3 Hgb 11.4 L (14.1-18.0) g/dL Hct 34.7 L (42.0-52.0) % ESR (0-20) mm/hr Sodium 135 L (136-145) mmol/L Potassium (3.5-5.1) mmoL/L Glucose 134 H (74-100) mg/dl POC Glucose 121 H (70-110) Calcium 8.3 L (8.4-10.2) mg/dl AST (17-59) U/L Alkaline Phosphatase (38-126) U/L C-Reactive Protein 79.1 H (0-4) mg/L Total Protein (6.3-8.2) g/dl Albumin (3.5-5.0) g/dl Albumin/Globulin Ratio (1.1-1.8) H & H 11/24/23 11/24/23 11/25/23 Range/Units 02:30 05:55 06:30 Hgb 15.2 12.6 L D 11.7 L (14.1-18.0) g/dL Hct 45.2 37.8 L 34.8 L (42.0-52.0) % 11/26/23 11/28/23 Range/Units 06:09 05:47 Hgb 11.4 L 11.4 L (14.1-18.0) g/dL Hct 33.9 L 34.7 L (42.0-52.0) % All other labs normal. Assessment and Plan *Assessment and plan (1) Severe sepsis: Status: Acute Category: Medical Code(s): A41.9 - Sepsis, unspecified organism; R65.20 - Severe sepsis without septic shock (2) Gram-positive bacteremia: Status: Acute Category: Medical Code(s): R78.81 - Bacteremia (3) Cellulitis of leg, right: Status: Acute Category: Medical Code(s): L03.115 - Cellulitis of right lower limb (4) PAD (peripheral artery disease): Status: Acute Category: Medical Code(s): I73.9 - Peripheral vascular disease, unspecified (5) Hx of toe surgery: Problem Comment: toes removed from right foot Status: Acute Category: Surgical Code(s): Z98.890 - Other specified postprocedural states (6) DM type 2 (diabetes mellitus, type 2): Status: Acute Qualifiers: Diabetes mellitus skilled nursing insulin use: with station manager use Diabetes mellitus complication status: with other specified complication Qualified Code(s): E11.69 - Type 2 diabetes mellitus with other specified complication; 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 Category: Medical Code(s): E11.9 - Type 2 diabetes mellitus without complications (7) Hypertension: Status: Acute Qualifiers: Hypertension type: unspecified Qualified Code(s): I10 - Essential (primary) hypertension Category: Medical Code(s): I10 - Essential (primary) hypertension (8) Hyperlipidemia: Status: Acute Qualifiers: Hyperlipidemia type: unspecified Qualified Code(s): E78.5 - Hyperlipidemia, unspecified Category: Medical Code(s): E78.5 - Hyperlipidemia, unspecified (9) Legally blind: Status: Acute Category: Medical Code(s): H54.8 - Legal blindness, as defined in [place] Plan 11/28/23: 11/27/23, CT right foot wo reviewed: no obvious signs of osteomyelitis or abscess. 11/27/23, ALFIE FINDINGS: ANKLE-BRACHIAL PRESSURE INDICES Pressure indices are as follows: RIGHT LOWER EXTREMITY: Ankle-brachial pressure index: 0.88.Comments: Mild peripheral vascular disease. LEFT LOWER EXTREMITY: Ankle-brachial pressure index: 0.84. Comments: Mild peripheral vascular disease. CONCLUSION: Findings consistent with bilateral mild peripheral vascular disease. *I reviewed the ABIs. R ALFIE 0.88: PT 0.88, DP 0.57, TBI n/a L ALFIE 0.84: PT 0.84, DP 0.75, TBI 0.39 Due to low DP b/l, low LLE TBIs, hx PAD, hx stents. Will refer to cardiology for further evaluation and testing. This can be done inpatient or outpatient. Infected right DFU -Hx multiple foot surgeries, TMA, debridement -Last surgery in 2020, Dr Stark? -Hx PAD with LE stents per patient 11/24/23, BCx x2: MSSA 11/24/23, WCx right foot: MSSA 11/24/23, labs: wbc 13.3, cr 1.5, gfr 46, glucose 176, Ha1c 12.4%, albumin 3.1, protein 6.0 11/27/23, labs: wbc 5.1, esr , crp , cr 0.9, gfr 83, glucose 147, albumin 2.9, protein 6.0 11/28/23, labs: wbc 3.7, esr, crp. 79.1 -No plans for Podiatry right foot surgery based on CT. -ESR, CRP are elevated. But could be from right foot infection, UTI or recent MSSA sepsis. Will monitor. -Recommend 10d of oral abx for MSSA (Clinda 300mg TID or Doxy 100mg BID). -WBaT in post op shoe or short fracture boot to RLE. -Will need DME, walker. -Today dressing was cleaned with betadine and debrided with curette, see skin section for measurements -I used Betadine soaked 4x4, dry 4x4, gauze roll, and aidan wrap due to him not having the Santyl available at the bedside. 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 -Plan for daily dressing changes: santyl to right foot wound, secure with gauze, aidan wrap -Patient will need to be also scheduled for outpatient [facility] for wound care/debridement/dressing changes. -Patient will need f/u outpatient with Podiatry in 1 week when discharged. Thank you for allowing us to participate in the care of this patient. A total of 30 minutes has been spent so far on new patient encounter including chart review, provider note review, x-ray review, lab review, wound culture review, bedside sharp excisional full-thickness wound debridement, discussion of plan of care with another provider, patient education/counseling and documentation.
[2023-11-28 08:00] VITALS: BP 123/50; PULSE 63; RESP 18; TEMP 36.5; O2SAT 98
[2023-11-28] MEDS: ASPIRIN 81MG CHEWABLE TABLET 162 MG PO (08:36)
[2023-11-28] MEDS: CLOPIDOGREL 75MG TAB 75 MG PO (08:36)
[2023-11-28] MEDS: CALCIUM CARBONATE 500MG CHEWTAB 500 MG PO (08:36)
[2023-11-28] MEDS: HEPARIN SODIUM 5,000 UNIT/ML VIAL 5000 UNIT SQ (08:39)
[2023-11-28 10:03] LABS: POC Glucose,Bedside 147 (70-110)
[2023-11-28 11:27] VITALS: PULSE 58
[2023-11-28 12:00] VITALS: BP 144/67; PULSE 67; RESP 19; TEMP 36.4; O2SAT 97
--- NOTE | 2023-11-28 12:11 | P.DS_ITS ---
General Admission date:: 11/24/23 Discharge date: 11/28/23 HPI HPI HPI: This is a 73-year-old male with history of COPD, insulin-dependent diabetes, status post partial amputation of the right foot presented to ED c/o fever, abdominal pain and vomiting/diarrhea and feeling ill for the last 2 days. Tonight he lost his balance and had a fall, striking his head in the bathroom. He denies loss of consciousness. He reports no pain as result of the fall. When his family came into the bathroom, they noticed that his right leg was red extending up to the mid calf and he has a wound on the plantar surface of the partially amputated right foot. patient alert and oriented but is uncomfortable appearing. poor historian unable to cooperate more with interview. History largely obtained from family at bedside. Admitted for management 11/28/23 Podiatry consulted, patient sleeping in bed upon entering the room this morning. He reports having a good night, and the nurse stated he was able to get out of bed and ambulate to bathroom. Right TMA site cellulitis and ulcer is improving. Hospital Course Hospital Course Hospital Course: Patient admitted to hospital for malaise, nausea, vomiting, and diagnosed with diabetic foot ulcer. Patient received broad-spectrum antibiotics, and podiatry evaluation during hospitalization. Patient's foot debrided during hospitalization. Patient has history of multiple MRSA infections, so podiatry recommended patient be discharged on 10 days clinda/doxycycline therapy. Patient also discharged to [facility] since patient deconditioned. Patient will follow-up with both primary care physician, podiatry in outpatient basis. Exam Data for Last 24 hours Vital signs and Labs for Last 24 Hours: Temp Pulse Resp BP Pulse Ox O2 Del Method 97.7 F 58 L 18 123/50 L 98 Room Air 11/28/23 08:00 11/28/23 11:27 11/28/23 08:00 11/28/23 08:00 11/28/23 08:00 11/28/23 09:45 Laboratory Results - last 24 hr 11/27/23 17:01: POC Glucose 174 H 11/27/23 20:44: POC Glucose 137 H 11/28/23 05:47: WBC 3.7 L D, RBC 4.15 L, Hgb 11.4 L, Hct 34.7 L, MCV 83.6, MCH 27.4, MCHC 32.8, RDW 15.0, Plt Count 156, MPV 8.0, Neut % (Auto) 70.1, Lymph % (Auto) 20.3, [place] % (Auto) 8.0, Eos % (Auto) 1.2, Baso % (Auto) 0.3, Neut # (Auto) 2.6, Lymph # (Auto) 0.8, [place] # (Auto) 0.3, Eos # (Auto) 0.1, Baso # (Auto) 0.0, Sodium 135 L, Potassium 3.6, Chloride 107, Carbon Dioxide 22, Anion Gap 9.6, BUN 10 D, Creatinine 0.80, Estimated Creat Clear 99, Estimated GFR 95, Est GFR ( Amer) 115, Glucose 134 H, Calcium 8.3 L, C-Reactive Protein 79.1 H, Procalcitonin 2.36 H 11/28/23 05:53: POC Glucose 121 H 11/28/23 09:50: POC Glucose 147 H I & O for Last 24 hours: Intake & Output 11/25/23 11/26/23 11/27/23 11/28/23 23:59 23:59 23:59 23:59 Intake Total 2506 / 2606 1700 / 1700 850 / 850 680 / 680 Output Total 1100 / 1600 2620 / 2920 800 / 800 600 / 600 Balance 1406 / 1006 -920 / -1220 50 / 50 80 / 80 Weight 105.279 kg 105.279 kg 105.279 kg 103.782 kg Microbiology Reports for the Last 24 Hours: Microbiology 11/25/23 08:35 Blood Blood Culture - Preliminary NO GROWTH AFTER 48 HOURS 11/25/23 08:45 Blood Blood Culture - Preliminary NO GROWTH AFTER 48 HOURS Constitutional Constitutional: no acute distress *Routine HEENT Exam Head: Present normocephalic Eye: Present EOMI ENT: Present mucous membranes moist *Routine Neck Exam Neck: Present supple and full ROM *Routine Respiratory Exam Respiratory: Present normal respiratory effort *Routine Cardiovascular Exam Cardiovascular: Present RRR, Normal S1 and Normal S2 *Routine Abdominal Exam Abdominal: Present soft and normoactive bowel sounds *Routine Skin Exam Skin: Present intact and warm Results Data Completed and Pending Labs on day of discharge: Labs from last 24 hours 11/28/23 11/28/2324 09:50 05:53 05:47 WBC 3.7 L D RBC 4.15 L Hgb 11.4 L Hct 34.7 L MCV 83.6 MCH 27.4 MCHC 32.8 RDW 15.0 Plt Count 156 MPV 8.0 Neut % (Auto) 70.1 Lymph % (Auto) 20.3 [place] % (Auto) 8.0 Eos % (Auto) 1.2 Baso % (Auto) 0.3 Neut # (Auto) 2.6 Lymph # (Auto) 0.8 [place] # (Auto) 0.3 Eos # (Auto) 0.1 Baso # (Auto) 0.0 Sodium 135 L Potassium 3.6 Chloride 107 Carbon Dioxide 22 Anion Gap 9.6 BUN 10 D Creatinine 0.80 Estimated Creat Clear 99 Estimated GFR 95 Est GFR ( Amer) 115 Glucose 134 H POC Glucose 147 H 121 H Calcium 8.3 L C-Reactive Protein 79.1 H Procalcitonin 2.36 H 11/27/23 11/27/23 20:44 17:01 WBC RBC Hgb Hct MCV MCH MCHC RDW Plt Count MPV Neut % (Auto) Lymph % (Auto) [place] % (Auto) Eos % (Auto) Baso % (Auto) Neut # (Auto) Lymph # (Auto) [place] # (Auto) Eos # (Auto) Baso # (Auto) Sodium Potassium Chloride Carbon Dioxide Anion Gap BUN Creatinine Estimated Creat Clear Estimated GFR Est GFR ( Amer) Glucose POC Glucose 137 H 174 H Calcium C-Reactive Protein Procalcitonin Preliminary micro results at discharge 11/25/23 08:35 Blood Culture - Preliminary Blood NO GROWTH AFTER 48 HOURS 11/25/23 08:45 Blood Culture - Preliminary Blood NO GROWTH AFTER 48 HOURS Imaging and Cardiology TESTING: Status: image reviewed by me Additional comments: 11/27/2023 arterial Doppler study CLINICAL HISTORY: DM, PAD, hx LE stents, current smoker, HTN, hyperlipidemia, history of 5 digit amputation right foot, recent fall with trauma to rt foot, PVD, legally blind, sepsis. COMPARISON: None FINDINGS: ANKLE-BRACHIAL PRESSURE INDICES Pressure indices are as follows: RIGHT LOWER EXTREMITY: Ankle-brachial pressure index: 0.88 Comments: Mild peripheral vascular disease LEFT LOWER EXTREMITY: Ankle-brachial pressure index: 0.84 Comments: Mild peripheral vascular disease CONCLUSION: Findings consistent with bilateral mild peripheral vascular disease. Ordering Physician: Diane Vasquez DPM Date of Service: 11/27/23 Procedure(s): CT foot RT wo con Accession Number(s): [id number] cc: Anna Morales APRN; Marin Pelaez MD; Diane Vasquez DPM~ FINAL REPORT CLINICAL HISTORY: DFU, infection FINDINGS: CT RIGHT FOOT WITHOUT CONTRAST TECHNIQUE: Axial and reformatted sagittal and coronal images were obtained of the . This study was performed with techniques to keep radiation doses as low as reasonably achievable, (ALARA). Individualized dose reduction techniques using automated exposure control or adjustment of mA and/or kV according to the patient's size were employed. FINDINGS: There are postoperative changes from transmetatarsal amputation. No definite acute bony erosion is seen. There are mild degenerative changes. Osteopenia is noted. There is soft tissue edema or cellulitis involving the distal foot. IMPRESSION: Postoperative changes from transfer metatarsal amputation. No convincing osteomyelitis. Consider MRI as a more sensitive exam. Reviewed, Interpreted and Dictated by Marin Pelaez III, MD Transcribed by Linda Giron Authenticated and O Ordering Physician: Evens Marquez MD Date of Service: 11/24/23 Procedure(s): XR foot RT min 3V Accession Number(s): [id number] cc: Babak Valadez MD; Anna Morales APRN~ PROCEDURE INFORMATION: Exam: XR Right Foot Exam date and time: 11/24/2023 3:36 AM Age: 73 years old Clinical indication: Other: Infected wound TECHNIQUE: Imaging protocol: Radiologic exam of the right foot. Views: 3 or more views. COMPARISON: CR XR TIBIA FIBULA RT 2V 03/07/2022 10:17 PM FINDINGS: Bones/joints: Prior amputation at the base of the metatarsals. The patient is mildly osteopenic. Soft tissues: No air is seen in the soft tissues. IMPRESSION: Prior amputation at the base of the metatarsals. No air is seen in the soft tissues. The patient is mildly osteopenic. Ordering Physician: Evens Marquez MD Date of Service: 11/24/23 Procedure(s): CT head/brain wo con Accession Number(s): [id number] cc: Evens Marquez MD; Anna Morales APRN; Fernando Medrano MD~ PROCEDURE INFORMATION: Exam: CT Head Without Contrast Exam date and time: 11/24/2023 3:06 AM Age: 73 years old Clinical indication: Injury or trauma; Additional info: Fall TECHNIQUE: Imaging protocol: Computed tomography of the head without contrast. Total images: 213 Radiation optimization: All CT scans at this facility use at least one of these dose optimization techniques: automated exposure control; mA and/or kV adjustment per patient size (includes targeted exams where dose is matched to clinical indication); or iterative reconstruction. COMPARISON: No relevant prior studies available. FINDINGS: Brain: No acute intracranial hemorrhage, midline shift, or mass. Mild cortical and cerebellar atrophy. Mild white matter heterogeneity compatible with remote small vessel ischemic change. Remote lacunar infarct left caudate body. Punctate remote lacunar infarct left thalamus. Attenuation artifact versus remote white matter ischemic change in the central kimberli. Nugent-white interface and basilar cisterns are preserved. Cerebral ventricles: Mild ventricular prominence compatible degree of central involution. Paranasal sinuses: Mild mucosal thickening base of the bilateral maxillary sinuses. Mastoid air cells: Visualized mastoid air cells are well aerated. Bones: Unremarkable. No acute fracture. Soft tissues: Unremarkable. Vasculature: Severe calcifications bilateral intracranial internal carotid arteries. IMPRESSION: 1. No acute intracranial process. 2. Chronic findings as described. Ordering Physician: Evens Marquez MD Date of Service: 11/24/23 Procedure(s): CT cervical spine con Accession Number(s): [id number] cc: Evens Marquez MD; Anna Morales APRN; Fernando Medrano MD~ PROCEDURE INFORMATION: Exam: CT Cervical Spine Without Contrast Exam date and time: 11/24/2023 3:08 AM Age: 73 years old Clinical indication: Injury or trauma; Additional info: Fall TECHNIQUE: Imaging protocol: Computed tomography of the cervical spine without contrast. Total images: 247 Radiation optimization: All CT scans at this facility use at least one of these dose optimization techniques: automated exposure control; mA and/or kV adjustment per patient size (includes targeted exams where dose is matched to clinical indication); or iterative reconstruction. COMPARISON: CT HEAD/BRAIN [facility] 11/24/2023 3:06 AM FINDINGS: Bones: Cervical vertebral body height and alignment is maintained. The base of the dens and the C1 and C2 articulations are preserved with mild degenerative arthropathy. The cervicooccipital junction is intact. The facet joints are appropriately aligned with moderate degenerative spondylosis bilaterally at C2 through C5. Posterior elements are intact. Generalized mild degenerative disc disease throughout the cervical spine. No large disc herniation or critical spinal canal stenosis. No concerning bone lesions. Mastoid air cells: Partially opacified inferior right mastoid air cells. Prevertebral and retropharyngeal spaces: No prevertebral soft tissue swelling. Lungs: Biapical fibrosis. Calcified right apical granuloma. Pleural spaces: Biapical pleural thickening. Vasculature: Mild calcifications bilateral carotid artery bifurcations. Soft tissues: Unremarkable soft tissues of the neck. IMPRESSION: 1. No acute cervical fracture or traumatic subluxation. 2. Mild multilevel degenerative disc disease. 3. Moderate degenerate facet joint spondylosis. 4. Additional chronic findings. Ordering Physician: Evens Marquez MD Date of Service: 11/24/23 Procedure(s): CT thoracic spine wo con Accession Number(s): [id number] cc: Evens Marquez MD; Anna Morales APRN; Garry Gee MD~ PROCEDURE INFORMATION: Exam: CT Thoracic Spine Without Contrast Exam date and time: 11/24/2023 3:11 AM Age: 73 years old Clinical indication: Injury or trauma; Additional info: Fall TECHNIQUE: Imaging protocol: Computed tomography of the thoracic spine without contrast. Radiation optimization: All CT scans at this facility use at least one of these dose optimization techniques: automated exposure control; mA and/or kV adjustment per patient size (includes targeted exams where dose is matched to clinical indication); or iterative reconstruction. COMPARISON: CT CERVICAL SPINE WO CON 09/26/2023 03:08 FINDINGS: Bones/joints: No acute fracture. Normal alignment. No significant disc bulge or herniation. No severe spinal canal stenosis. No significant neural foraminal narrowing. Soft tissues: Unremarkable. Other findings: Please see separate report for CT chest. IMPRESSION: No acute fracture or malalignment of the thoracic spine. Ordering Physician: Evens Marquez MD Date of Service: 11/24/23 Procedure(s): CT lumbar spine wo con Accession Number(s): [id number] cc: Evens Marquez MD; Anna Morales APRN; Garry Gee MD~ PROCEDURE INFORMATION: Exam: CT Lumbar Spine Without Contrast Exam date and time: 11/24/2023 3:14 AM Age: 73 years old Clinical indication: Injury or trauma; Additional info: Fall TECHNIQUE: Imaging protocol: Computed tomography of the lumbar spine without contrast. Radiation optimization: All CT scans at this facility use at least one of these dose optimization techniques: automated exposure control; mA and/or kV adjustment per patient size (includes targeted exams where dose is matched to clinical indication); or iterative reconstruction. COMPARISON: CT THORACIC SPINE WO CON 09/26/2023 03:11 FINDINGS: Bones/joints: Degenerative changes from L2-L4 produce moderate spinal stenosis. Soft tissues: Unremarkable. Other findings: Please see separate report for abdomen/pelvis. IMPRESSION: No acute fracture or malalignment of the lumbar spine. Ordering Physician: Evens Marquez MD Date of Service: 11/24/23 Procedure(s): CT angio chest PE protocol Accession Number(s): [id number] cc: Evens Marquez MD; Anna Morales APRN; Garry Gee MD~ PROCEDURE INFORMATION: Exam: CTA Chest With Contrast Exam date and time: 11/24/2023 3:16 AM Age: 73 years old Clinical indication: Injury or trauma; Additional info: Fall, tachy, leg swelling TECHNIQUE: Imaging protocol: Computed tomographic angiography of the chest with contrast. Exam focused on the arteries. 3D rendering (Not supervised by radiologist): MIP and/or 3D reconstructed images were created by the technologist. Radiation optimization: All CT scans at this facility use at least one of these dose optimization techniques: automated exposure control; mA and/or kV adjustment per patient size (includes targeted exams where dose is matched to clinical indication); or iterative reconstruction. Contrast material: ISOVUE 370; Contrast volume: 70 ml; Contrast route: INTRAVENOUS (IV); COMPARISON: CT LUNG SCREENING 05/26/2023 13:42 FINDINGS: Pulmonary arteries: Normal. No pulmonary emboli. Aorta: The aorta demonstrates moderate atherosclerotic disease. Lungs: Bilateral apical scarring. Mild paraseptal emphysema. Mild scarring and atelectasis in the lower lungs. Pleural spaces: Unremarkable. No pneumothorax. No pleural effusion. Heart: Mitral and aortic valve calcifications. Coronary arteries: Coronary artery calcifications. Lymph nodes: Unremarkable. No enlarged lymph nodes. Bones/joints: Unremarkable. No acute fracture. Soft tissues: Unremarkable. Other findings: Please see separate report for abdomen/pelvis. IMPRESSION: No acute intrathoracic organ injury. COMMENTS: The presence of pulmonary emphysema on CT is an independent risk factor for lung cancer. In the absence of a history or active diagnosis of lung cancer, it is recommended that this patient with emphysema be evaluated for enrollment in a low dose CT lung cancer screening program. Ordering Physician: Evens Marquez MD Date of Service: 11/24/23 Procedure(s): CT abdomen pelvis w con Accession Number(s): [id number] cc: Evens Marquez MD; Anna Morales APRN; Garry Gee MD~ PROCEDURE INFORMATION: Exam: CT Abdomen And Pelvis With Contrast Exam date and time: 11/24/2023 3:16 AM Age: 73 years old Clinical indication: Injury or trauma; Fall; Additional info: 3 days abd pain, vomiting, fall today TECHNIQUE: Imaging protocol: Computed tomography of the abdomen and pelvis with contrast. Radiation optimization: All CT scans at this facility use at least one of these dose optimization techniques: automated exposure control; mA and/or kV adjustment per patient size (includes targeted exams where dose is matched to clinical indication); or iterative reconstruction. Contrast material: ISOVUE; Contrast volume: 70 ml; Contrast route: IV; COMPARISON: CR XR PELVIS 1-2V 07/03/2022 22:13 FINDINGS: Liver: Normal. No mass. Gallbladder and biliary ducts: Normal. No calcified stones. No ductal dilation. Pancreas: Normal. No ductal dilation. Spleen: Normal. No splenomegaly. Adrenal glands: Normal. No mass. Kidneys and ureters: Low attenuation renal lesions measuring up to 6.4 cm in diameter are incompletely characterized, but are likely cysts. No followup imaging is warranted. Stomach and bowel: Unremarkable. No obstruction. No mucosal thickening. Appendix: Unremarkable appendix. Intraperitoneal space: Unremarkable. No free air. No significant fluid collection. Vasculature: The arteries demonstrate severe atherosclerotic disease. Lymph nodes: Unremarkable. No enlarged lymph nodes. Urinary bladder: Urinary bladder diverticulum. Reproductive: Unremarkable as visualized. Bones/joints: Unremarkable. No acute fracture. Soft tissues: Unremarkable. Other findings: Please see separate report for CT chest. Stigmata of old granulomatous disease. IMPRESSION: No acute intra-abdominal or intrapelvic organ injury. COMMENTS: Consistent with the [employer]'s Incidental Findings Committee white paper (J Am Jose Luis Radiol 2018): Any incidental renal lesion less than 1 cm or classified as too small to characterize, or any incidental cystic renal lesion characterized as simple-appearing, is likely benign. No follow-up imaging is recommended for these lesions per consensus recommendations based on imaging criteria. DS: Diagnosis Discharge Diagnosis (1) Severe sepsis: Status: Acute Code(s): A41.9 - Sepsis, unspecified organism; R65.20 - Severe sepsis without septic shock (2) Gram-positive bacteremia: Status: Acute Code(s): R78.81 - Bacteremia (3) Cellulitis of leg, right: Status: Acute Code(s): L03.115 - Cellulitis of right lower limb (4) PAD (peripheral artery disease): Status: Acute Code(s): I73.9 - Peripheral vascular disease, unspecified (5) Hx of toe surgery: Status: Acute Code(s): Z98.890 - Other specified postprocedural states Problem details: toes removed from right foot (6) DM type 2 (diabetes mellitus, type 2): Status: Acute Code(s): E11.9 - Type 2 diabetes mellitus without complications Qualifiers: Diabetes mellitus complication status: with other specified complication Diabetes mellitus nursing home insulin use: with meterman use Qualified Code(s): E11.69 - Type 2 diabetes mellitus with other specified complication; Z79.4 - alf (current) use of insulin (7) Hypertension: Status: Acute Code(s): I10 - Essential (primary) hypertension Qualifiers: Hypertension type: unspecified Qualified Code(s): I10 - Essential (primary) hypertension (8) Hyperlipidemia: Status: Acute Code(s): E78.5 - Hyperlipidemia, unspecified Qualifiers: Hyperlipidemia type: unspecified Qualified Code(s): E78.5 - Hyperlipidemia, unspecified (9) Legally blind: Status: Acute Code(s): H54.8 - Legal blindness, as defined in [place] Meds Home Medications and Allergies Home Medications Medication Instructions Recorded Confirmed Type albuterol sulfate 90 mcg/actuation 2 puff inhalation Q4-6H PRN 04/25/23 11/24/23 Rx aerosol inhaler shortness of breath or wheezing #3 ea carvedilol 25 mg tablet 25 mg PO BID 90 days #180 tabs 04/25/23 11/24/23 Rx atorvastatin 20 mg tablet 20 mg PO DAILY 90 days #90 tabs 09/29/23 11/24/23 Rx fluticasone fur. 200 mcg-umeclid 1 inh inhalation DAILY 90 days #3 11/06/23 11/24/23 Rx 62.5 mcg-vilant 25 mcg ea inhalat.powder (Trelegy Ellipta) insulin degludec 100 unit/mL (3 37 unit (0.37 mL) SQ DAILY #15 mL 11/08/23 11/24/23 Rx mL) subcutaneous pen (Tresiba FlexTouch U-100 insulin) clopidogrel 75 mg tablet 75 mg PO DAILY 11/24/23 11/24/23 History lisinopril 20 mg tablet 20 mg PO DAILY 11/24/23 11/24/23 History sitagliptin phosphate 100 mg 100 mg PO DAILY 11/24/23 11/24/23 History tablet (Januvia) trazodone 50 mg tablet 50 mg PO HS 11/24/23 11/24/23 History collagenase clostridium histo. 250 1 applic topical DAILY PRN wound 11/27/23 Rx unit/gram topical ointment (Santyl) care 30 days #90 grams clindamycin HCl 300 mg capsule 300 mg PO TID #30 caps 11/28/23 Rx doxycycline hyclate 100 mg capsule 100 mg PO BID #20 caps 11/28/23 Rx oxycodone 5 mg tablet 5 mg PO Q8H PRN pain #7 tabs 11/28/23 Rx New Prescriptions to Start Prescriptions: clindamycin HCl Nugent,[place] doxycycline hyclate Nugent,[place] oxycodone Nugent,Jacky Allergies Allergy/AdvReac Type Severity Reaction Status Date / Time Aminoglycosides Allergy Severe Swelling Verified 11/24/23 07:58 of Lip/Tongue/Throat Discharge Plan Disposition Patient Disposition: er SNF Condition: Fair Discharge Order Discharge Orders: Discharge Order (Routine); Ordered 11/28/23 Ordered By: Jacky Nugent Follow up Plan Follow up with: Anna Morales APRN [Primary Care Provider] - 1 week (After hospital admission for diabetic foot ulcer status postdebridement and antibiotics) Diane Vasquez DPM [Staff Physician] - 2 weeks (Diabetic foot ulcer issues status post debridement and discharged on po antibiotics to [facility]) Prescriptions/Medication Reconciliation: New doxycycline hyclate 100 mg capsule 100 mg PO BID Qty: 20 0RF oxycodone 5 mg tablet 5 mg PO Q8H PRN (Reason: pain) Qty: 7 0RF clindamycin HCl 300 mg capsule 300 mg PO TID Qty: 30 0RF Continued albuterol sulfate 90 mcg/actuation HFA aerosol inhaler 2 puff inhalation Q4-6H PRN (Reason: shortness of breath or wheezing) Qty: 3 1RF carvedilol 25 mg tablet 25 mg PO BID 90 Days Qty: 180 1RF Trelegy Ellipta 200-62.5-25 mcg blister with device 1 inh inhalation DAILY 90 Days Qty: 3 2RF atorvastatin 20 mg tablet 20 mg PO DAILY 90 Days Qty: 90 1RF insulin degludec [Tresiba FlexTouch U-100] 100 unit/mL (3 mL) insulin pen 37 unit SQ DAILY Qty: 15 4RF Santyl 250 unit/gram ointment 1 applic topical DAILY PRN (Reason: wound care) 30 Days Qty: 90 2RF Rx Instructions: Right DFU- 5.0 x3.5 x 0.1cm= 90 grams 1 tube (apply 5.3cm per application) Apply to wound as directed once daily for 30 days or until wound healed. Januvia 100 mg tablet 100 mg PO DAILY trazodone 50 mg tablet 50 mg PO HS lisinopril 20 mg tablet 20 mg PO DAILY clopidogrel 75 mg tablet 75 mg PO DAILY Problem Reconciliation Problems Reviewed?: Yes Patient Discharge Instructions ACTIVITY: Up with assistance DIET: diabetic diet Additional Instructions: -WBaT in post op shoe or short fracture boot to RLE. -Will need DME, walker. -Plan for daily dressing changes: santyl to right foot wound, secure with gauze, aidan wrap -Patient will need f/u outpatient [facility] for wound care/debridement/dressing changes. -Patient will need f/u outpatient with Podiatry in 1 week when discharged. *Stable from Podiatry stand point for d/c to [facility] today. Patient Instructions: DI for Cellulitis -- Adult, Exercises to Help Prevent Falls, DI for Sepsis -- Adult, DI for Bacteremia-Adult Print Language: Moldovan Providers Primary Care Provider: Anna Morales Admjulee Provider: Babak Ibrahim Attending Provider: Babak Ibrahim
--- NOTE | 2023-11-28 13:58 | PC.NURSE ---
report called to ildefonso patino.
== END 2023-11-28 16:19 | DRG 463 ==
LOC: ER 02:32 → 2ND 04:31
PROVIDERS: Family Medicine; Nurse Practitioner Family; Podiatrist; Admitting Provider Internal Medicine Adolescent Medicine; Emergency Provider Emergency Medicine; PCP Nurse Practitioner Family; Visit Provider Internal Medicine Adolescent Medicine
DX: T87.43 Infection of amputation stump, right lower extremity (principal); A41.9 Sepsis, unspecified organism; R65.20 Severe sepsis without septic shock; L03.115 Cellulitis of right lower limb; N17.8 Other acute kidney failure; E11.621 Type 2 diabetes mellitus with foot ulcer; J44.9 Chronic obstructive pulmonary disease, unspecified; I10 Essential (primary) hypertension; E78.5 Hyperlipidemia, unspecified; H54.8 Legal blindness, as defined in USA; F17.210 Nicotine dependence, cigarettes, uncomplicated; I73.9 Peripheral vascular disease, unspecified; E11.65 Type 2 diabetes mellitus with hyperglycemia; E11.51 Type 2 diabetes mellitus with diabetic peripheral angiopathy without gangrene; B95.61 Methicillin susceptible Staphylococcus aureus infection as the cause of diseases classified elsewhere; L97.512 Non-pressure chronic ulcer of other part of right foot with fat layer exposed; W01.198A Fall on same level from slipping, tripping and stumbling with subsequent striking against other object, initial encounter; Z79.899 Other long term (current) drug therapy; Y92.012 Bathroom of single-family (private) house as the place of occurrence of the external cause; Z89.431 Acquired absence of right foot; Z79.4 Long term (current) use of insulin; Z86.73 Personal history of transient ischemic attack (TIA), and cerebral infarction without residual deficits; Z85.828 Personal history of other malignant neoplasm of skin; Z79.84 Long term (current) use of oral hypoglycemic drugs; Z79.02 Long term (current) use of antithrombotics/antiplatelets; Z79.51 Long term (current) use of inhaled steroids; Z88.1 Allergy status to other antibiotic agents
CPT/HCPCS: 36415; 70450; 71275; 72125; 72128; 72131; 73630; 73700; 74177; 80048; 80053; 80202; 80307; 81001; 82009; 82803; 82962; 83036; 83605; 83690; 83735; 84145; 84540; 85007; 85025; 85027; 85651; 86140; 87040; 87070; 87077; 87186; 87205; 90715; 93923; 94640; 97110; 97162; 97165; 97530; 99291; J0131; J1644; J2405; J2543; J3370; J3475; J7120; J7620; Q9967

== ENCOUNTER 2023-12-20 01:01 | Inpatient (IN) | payer MEDICARE, SELFPAY ==
[2023-12-20] VITALS (37 sets, daily range): BP systolic 105–149; BP diastolic 46–89; PULSE 80–124; RESP 12–28; TEMP 35.9–36.9; O2SAT 91–100; BMI 29.8; BMI 27.1; BMI 29.9
--- NOTE | 2023-12-20 | IR_ITS ---
APPROVED REPORT Patient Location: [facility] Operator: CRISTIAN Romeo RT (R) PROCEDURES Left heart catheterization Left ventriculogram Selective coronary angiogram Drug-eluting stent deployment to the proximal mid and distal dominant right coronary Drug-eluting stent deployment to the proximal LAD Drug-eluting stent deployment to the proximal ramus intermedius INDICATION Acute non-ST elevation myocardial infarction, Coronary artery disease, Systolic congestive heart failure, Refusal to consider bypass surgery SCAI INDICATION Clinical history: Patient presented to the [facility] with acute non-ST elevation myocardial infarction. Patient was previously DNR/DNI however rescinded the DNR and DNI in order to proceed with angiography. Patient was on BiPAP upon arrival. Because of the high risk nature of the procedure it was decided to only proceed with percutaneous revascularization knowing surgical revascularization was nonoptional Informed consent was obtained prior to the procedure. TECHNIQUE One percent lidocaine used to anesthetize the right anterior aspect of the wrist. The right radial artery was accessed via the Seldinger technique. A 6 Scottish sheath was placed in the right radial artery. 2.5 mg of Verapamil, 800 mcg of nitroglycerin, 1mg Lidocaine and 5000 U Heparin were given through the arterial sheath. The papa catheter was also used to perform left heart catheterization, left ventriculogram and selective coronary angiogram. At the end the diagnostic angiogram therapeutic heparin is administered giving a therapeutic ACT and the guide catheter was placed in the right coronary followed by Choice PT extra-support wire. Predilatation was made using a 2.5 mm balloon. A 3 mm x 38 mm [place] frontier stent was placed distally at 20 сергей. An additional 3.5 x 38 mm Jose frontier stent was placed in the proximal segment at 20 сергей. An additional 3.5 x 18 mm Jose frontier stent was placed between the 2 stents connecting the stents. This balloon was then dilated to 24 сергей throughout the proximal and mid right coronary artery to post dilate. AL-3 flow was present before and after the procedure. After achieving excellent angiograph results the apparatus was removed and the guide catheter was placed in the left main artery followed by Choice PT extra-support wire placed down the ramus intermedius. Predilatation was made with both a 2 mm and 1.5 mm balloon. A 2.25 x 38 mm Jose frontier stent was deployed at 16 сергей in the proximal to mid ramus intermedius reducing the critical stenosis to 0%. LA-3 flow was present before and after the procedure. An additional wire was placed in the LAD where a 3 mm x 18 mm [place] frontier stent was deployed in the ostial proximal segment at 20 сергей reducing the stenosis to 0%. LA-3 flow was present before and after the procedure. At the end of the procedure the apparatus was removed the sheath was removed and hemostasis was achieved using TR banding patient was transferred to the postop putting in stable condition ANGIOGRAPHIC RESULTS The left main artery Has distal 40% stenosis The left anterior descending artery Has proximal concentric calcified 70% stenosis with additional mid vessel 50% stenoses. A large first diagonal artery has proximal 60% stenosis followed by concentric 80 to 90% stenosis in the midportion both proximal and distal to a small bifurcation. The circumflex artery Gives rise to a large ramus intermedius which has proximal tandem calcified 90% stenoses. The circumflex artery itself is small nondominant and patent The right coronary artery Is dominant and has proximal 80% mid vessel AD and distal 90 and 80% calcified stenoses The SOFIA ventriculogram reveals Dilated ejection fraction globally hypokinetic at 15 to 20% The left ventricular end-diastolic pressure 25 to 30 mmHg IMPRESSION Coronary disease as described above Successful reconstruction of the proximal mid and distal dominant right coronary severe disease reduced to 0% with 3 contiguous drug-eluting stents Successful stenting of a critically diseased ramus intermedius severe disease reduced to 0% with 1 drug-eluting stent Moderate to severe disease in the proximal LAD with successful stenting reducing the lesion to 0% with 1 drug-eluting stent Severe left ventricular dysfunction with elevated LVEDP PLAN 1. Continue Plavix 75 mg daily plus aspirin 81 mg daily 2. Avoidance of tobacco products 3. LifeVest prior to discharge home 4. LDL less than 55 to achieve that high intensity statin 5. Standard therapy for systolic heart failure Electronically signed by : Justice Zuniga MD 12/20/2023 14:18:24
--- NOTE | 2023-12-20 00:55 | ECG_ITS ---
APPROVED REPORT Exam: Resting ECG HR:123 bpm ECG Measurements Heart Rate 123 AXES MA 131 P 75 QRSd 102 QRS 81 QT 343 T 140 QTc [address] DEVIATION AND MODERATE T-WAVE ABNORMALITY, CONSIDER ANTEROLATERAL ISCHEMIA [-0.1+ mV T-WAVE IN V3-V6] ABNORMAL ECG UNCONFIRMED REPORT Electronically signed by : MCKENNA SCHMITT, 12/22/2023 06:46:31
--- NOTE | 2023-12-20 01:05 | XR_ITS ---
PROCEDURE INFORMATION: Exam: XR Chest Exam date and time: 12/20/2023 1:02 AM Age: 73 years old Clinical indication: Shortness of breath; Additional info: SOA TECHNIQUE: Imaging protocol: Radiologic exam of the chest. Views: 1 view. COMPARISON: CT ANGIO CHEST PE PROTOCOL 11/24/2023 3:16 AM FINDINGS: Lungs: Mild bibasilar airspace disease.. No consolidation. Pleural spaces: Unremarkable. No pleural effusion. No pneumothorax. Heart/Mediastinum: Unremarkable. No cardiomegaly. Bones/joints: Unremarkable. IMPRESSION: Basilar airspace disease, atelectasis versus early infiltrate.
[2023-12-20] MEDS: FUROSEMIDE 40MG/4ML VIAL 80 MG IV (01:06)
--- NOTE | 2023-12-20 01:06 | CT_ITS ---
PROCEDURE INFORMATION: Exam: CTA Chest With Contrast Exam date and time: 12/20/2023 1:23 AM Age: 73 years old Clinical indication: Shortness of breath; Additional info: SOA, tachycardia, cp TECHNIQUE: Imaging protocol: Computed tomographic angiography of the chest with contrast. Exam focused on the arteries. 3D rendering (Not supervised by radiologist): MIP and/or 3D reconstructed images were created by the technologist. Radiation optimization: All CT scans at this facility use at least one of these dose optimization techniques: automated exposure control; mA and/or kV adjustment per patient size (includes targeted exams where dose is matched to clinical indication); or iterative reconstruction. Contrast material: ISOVUE; Contrast volume: 75 ml; Contrast route: INTRAVENOUS (IV); COMPARISON: CT ANGIO CHEST PE PROTOCOL 11/24/2023 3:16 AM FINDINGS: Pulmonary arteries: Normal. No pulmonary emboli. Aorta: Unremarkable. No aortic aneurysm. No aortic dissection. Lungs: Basilar atelectasis. Pleural spaces: Moderate right and small left-sided pleural effusions. Heart: Left ventricular dilatation. Calcifications of the aortic valve. Coronary arteries: Coronary atherosclerosis. Lymph nodes: Unremarkable. No enlarged lymph nodes. Bones/joints: Unremarkable. No acute fracture. Soft tissues: Unremarkable. IMPRESSION: 1. No evidence of pulmonary embolus. 2. Moderate right and small left-sided pleural effusions, coronary atherosclerosis, moderate cardiomegaly with left ventricular dilatation, findings suggestive of congestive failure. 3. Basilar atelectasis no definite infiltrates noted.
--- NOTE | 2023-12-20 01:07 | ED_ITS ---
Discharge Plan Disposition Patient Disposition: Admitted Condition: Fair Clinical Impressions Clinical Impression: Acute non-ST elevation myocardial infarction (NSTEMI), Flash pulmonary edema, RAY (acute kidney injury) Respiratory failure with hypoxia Qualifiers: Chronicity: acute Qualified Code(s): J96.01 - Acute respiratory failure with hypoxia Discharge ED Provider: Evens Marquez General Adult HPI General Chief complaint: Shortness of Breath/Dyspnea Stated complaint: chest pain, acute dyspnea,diaphoretic Time Seen by Provider: 12/20/23 01:05 History of Present Illness HPI narrative: 73-year-old male with history of recent admission for sepsis related to infected diabetic foot ulcer, history of hypertension, COPD presents for severe shortness of breath. Patient was in his relatively normal state of health when he started having shortness of breath. He complained of chest pain and was tachypneic. On EMS arrival he was normotensive, satting mid to high 80s on room air. On arrival to the ER patient is tachypneic, uncomfortable appearing, moaning, able/unwilling to engage in conversation. Satting low 90s on nonrebreather. Tachycardic to 120. No reported history of blood clot, no reported cardiac history. Related Data Home Medications ?Medication ?Instructions ?Recorded ?Confirmed clopidogrel 75 mg tablet 75 mg PO DAILY 11/24/23 12/20/23 lisinopril 20 mg tablet 20 mg PO DAILY 11/24/23 12/20/23 sitagliptin phosphate 100 mg 100 mg PO DAILY 11/24/23 12/20/23 tablet (Januvia) trazodone 50 mg tablet 50 mg PO HS 11/24/23 12/20/23 atorvastatin 20 mg tablet 20 mg PO HS 12/20/23 12/20/23 Previous Rx's ?Medication ?Instructions ?Recorded albuterol sulfate 90 mcg/actuation 2 puff inhalation Q4-6H PRN 04/25/23 aerosol inhaler shortness of breath or wheezing #3 ea carvedilol 25 mg tablet 25 mg PO BID 90 days #180 tabs 04/25/23 fluticasone fur. 200 mcg-umeclid 1 inh inhalation DAILY 90 days #3 11/06/23 62.5 mcg-vilant 25 mcg ea inhalat.powder (Trelegy Ellipta) insulin degludec 100 unit/mL (3 37 unit (0.37 mL) SQ DAILY #15 mL 11/08/23 mL) subcutaneous pen (Tresiba FlexTouch U-100 insulin) collagenase clostridium histo. 250 1 applic topical DAILY PRN wound 11/27/23 unit/gram topical ointment (Santyl) care 30 days #90 grams Allergies Allergy/AdvReac Type Severity Reaction Status Date / Time Aminoglycosides Allergy Severe Swelling Verified 12/14/23 10:48 of Lip/Tongue/Throat [facility] Disclaimer: The information contained in this section may have been updated after the patient was seen, as this information can be updated by other users. 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 Skin cancer Surgical History Hx of toe surgery toes removed from right foot H/O repair of right rotator cuff Social History (Updated 12/20/23 @ 05:21 by Gilda Duran RN) Smoking Status: Current every day smoker alcohol intake: never current occupational status: retired Travel in the last 8 weeks: None ROS Obtained: Yes All systems reviewed & no additional complaints except as documented Physical Exam General General appearance: in distress Head Head exam: atraumatic and normocephalic Eye Eye exam: Present normal appearance, PERRL and EOMI ENT ENT exam: Present normal oropharynx and normal external ear exam Neck Neck exam: Present normal inspection and full ROM Chest Chest inspection: Present normal inspection and symmetric chest wall rise; Absent tenderness Respiratory Respiratory exam: Present respiratory distress (Tachypneic,); Absent normal lung sounds bilaterally (Crackles and decreased lung sounds in the bases) Cardiovascular Cardiovascular exam: Present normal rhythm and tachycardia Abdominal Exam Abdominal exam: Present soft; Absent distention, tenderness or guarding Extremities Exam Extremities exam: Present edema and other (Status post partial amputation of the right foot, not appear acutely infected); Absent joint swelling Back Exam Back exam: Present normal inspection; Absent tenderness Neurological Exam Neurological exam: Present other (GCS 11) Skin Skin exam: Present pallor Lymphatic Lymphatic Findings: no adenopathy Medical Decision Making Medical Records Medical records reviewed: Yes I reviewed the patient's medical records. Prabhakar Inquiry Pt receiving controlled substance: No Prabhakar was queried for this patient: No Vital Signs: 12/20/23 01:01 12/20/23 01:30 12/20/23 01:33 Temperature 96.6 F L Temperature Source Axillary Pulse Rate 109 H Pulse Rate [Left Radial] 124 H Respiratory Rate 25 H 21 Blood Pressure 105/67 L Blood Pressure [Right Arm] 131/79 Blood Pressure Mean Blood Pressure Mean [Right Arm] 96 Blood Pressure Source [Right Arm] Automatic Cuff Blood Pressure Position [Right Arm] Sitting 02 Sat by Pulse Oximetry 93 L 100 98 Oxygen Delivery Method Non-Rebreather BiPAP BiPAP Oxygen Flow Rate (LPM) 12/20/23 02:00 12/20/23 02:30 12/20/23 03:00 Temperature Temperature Source Pulse Rate 106 H 100 H 98 H Pulse Rate [Left Radial] Respiratory Rate 20 18 14 Blood Pressure 107/68 L 116/70 133/85 Blood Pressure [Right Arm] Blood Pressure Mean 76 Blood Pressure Mean [Right Arm] Blood Pressure Source [Right Arm] Blood Pressure Position [Right Arm] 02 Sat by Pulse Oximetry 96 99 100 Oxygen Delivery Method BiPAP BiPAP BiPAP Oxygen Flow Rate (LPM) 12/20/23 03:30 12/20/23 04:00 12/20/23 04:30 Temperature Temperature Source Pulse Rate 98 H 92 H 93 H Pulse Rate [Left Radial] Respiratory Rate 14 12 13 Blood Pressure 140/87 132/81 134/89 Blood Pressure [Right Arm] Blood Pressure Mean 105 98 104 Blood Pressure Mean [Right Arm] Blood Pressure Source [Right Arm] Blood Pressure Position [Right Arm] 02 Sat by Pulse Oximetry 100 99 100 Oxygen Delivery Method BiPAP BiPAP BiPAP Oxygen Flow Rate (LPM) 12/20/23 04:42 Temperature 98.0 F Temperature Source Axillary Pulse Rate 93 H Pulse Rate [Left Radial] Respiratory Rate 14 Blood Pressure 134/89 Blood Pressure [Right Arm] Blood Pressure Mean Blood Pressure Mean [Right Arm] Blood Pressure Source [Right Arm] Blood Pressure Position [Right Arm] 02 Sat by Pulse Oximetry Oxygen Delivery Method Oxygen Flow Rate (LPM) Lab Data Lab results reviewed: Yes I reviewed the patient's lab results. Lab Results 12/20/23 00:57: WBC 10.6, RBC 4.60, Hgb 12.7 L, Hct 39.0 L, MCV 84.8, MCH 27.5, MCHC 32.4, RDW 15.5, Plt Count 410, MPV 7.5, Neut % (Auto) 83.6 H, Lymph % (Auto) 11.2, [place] % (Auto) 3.4, Eos % (Auto) 1.4, Baso % (Auto) 0.4, Neut # (Auto) 8.9 H, Lymph # (Auto) 1.2, [place] # (Auto) 0.4, Eos # (Auto) 0.1, Baso # (Auto) 0.1, Sodium 137, Potassium 4.3, Chloride 108 H, Carbon Dioxide 24, Anion Gap 9.3, BUN 15, Creatinine 1.40 H, Estimated Creat Clear 61, Estimated GFR 50 L , Est GFR ( Amer) 60, Glucose 177 H, Calcium 8.6, Magnesium 2.0, Total Bilirubin 0.6, AST 27, ALT 20, Alkaline Phosphatase 99, Troponin I 0.52 H, N T-Pro-B Natriuret Pep 60512 H, Total Protein 7.3, Albumin 3.7, Globulin 3.6 H, A lbumin/Globulin Ratio 1.0 L 12/20/23 01:07: VBG pH 7.25 L, VBG pCO2 45.5, VBG pO2 106.3 H, VBG HCO3 19.6 L, VBG Total CO2 20.9 L, VBG O2 Saturation 97.1 H, VBG Base Excess -7.7 L, VBG Lactic Acid 2.1 H 12/20/23 04:41: WBC 11.6 H, RBC 4.37 L, Hgb 11.9 L, Hct 37.4 L, MCV 85.6, MCH 27.2, MCHC 31.7 L, RDW 15.5, Plt Count 318, MPV 8.0, Neut % (Auto) 86.9 H, Lymph % (Auto) 8.5 L, [place] % (Auto) 4.2, Eos % (Auto) 0.2, Baso % (Auto) 0.3, Neut # (Auto) 10.1 H, Lymph # (Auto) 1.0, [place] # (Auto) 0.5, Eos # (Auto) 0.0, Baso # (Auto) 0.0, Total Counted 100, Neutrophils % (Manual) 86 H, Lymphocytes % (Manual) 13, Monocytes % (Manual) 1 L, Platelet Estimate Normal, RBC Morphology Normal, Sodium 137, Potassium 4.2, Chloride 106, Carbon Dioxide 24, Anion Gap 11.2, BUN 17, Creatinine 1.50 H, Estimated Creat Clear 57, Estimated GFR 46 L, E st GFR ( Amer) 56 L, Glucose 152 H, Calcium 8.4, Magnesium 2.2, Total Bilirubin 0.5, AST 30, ALT 17, Alkaline Phosphatase 92, Troponin I 1.05 H, Total Protein 6.9, Albumin 3.5, Globulin 3.4 H, Albumin/Globulin Ratio 1.0 L 12/20/23 04:41 12/20/23 04:41 Orders (Tests/Meds): ED MEDICATIONS Generic Name Dose Route Start Last Admin Trade Name Freq PRN Reason Stop Dose Admin Acetaminophen 650 mg 12/20/23 03:41 Acetaminophen 325mg Tab PO 01/19/24 03:40 Q4HP PRN Fever or Mild Pain (1-3) Morphine Sulfate 2 mg 12/20/23 03:41 Morphine 2mg/Ml Syringe IV 01/19/24 03:40 Q2HP PRN Severe Pain (7-10) Nicotine 21 mg 12/20/23 03:41 Nicotine 21mg/24hr Patch TD 01/19/24 03:40 DAILYP PRN Nicotine Cravings Nitroglycerin 0.4 mg 12/20/23 05:15 Nitroglycerin 0.4mg Sl Tablet SL 01/19/24 05:14 Q5MINP PRN Chest Pain Ondansetron HCl 4 mg 12/20/23 03:41 Ondansetron 4mg/2ml Vial IV 01/19/24 03:40 Q8HP PRN Nausea Pantoprazole Sodium 40 mg 12/20/23 21:00 Pantoprazole 40mg Vial IV 01/19/24 20:59 HS WILL Sodium Chloride 10 ml 12/20/23 01:29 12/20/23 01:29 Sodium Chloride 0.9% 10ml Syr (Rad Only) IV 01/19/24 01:28 10 ml NEEDED PRN Administration Maintain IV Site Sodium Chloride 10 ml 12/20/23 03:41 Sodium Chloride 0.9% 10ml Vial IV 01/19/24 03:40 NEEDED PRN dilute protonix Discontinued Medications Generic Name Dose Route Start Last Admin Trade Name Freq PRN Reason Stop Dose Admin Furosemide 80 mg 12/20/23 01:30 12/20/23 01:06 Furosemide 40mg/4ml Vial IV 12/20/23 01:31 80 mg ONCE ONE Administration Iopamidol 75 ml 12/20/23 01:29 12/20/23 01:29 Iopamidol-370 (76%);100ml Bottle IV 12/20/23 01:30 75 ml ONCE ONE Administration Sodium Chloride 50 ml 12/20/23 01:29 12/20/23 01:29 0.9 % Sodium Chloride 50 Ml Vial IV 12/20/23 01:30 50 ml ONCE ONE Administration ORDERS Category Date Time Status CT angio chest PE protocol Stat Cat Scan 12/20/23 01:06 Completed Cardiology Consult [Consult to Cardiology] [CONS] Cons 12/20/23 03:48 Active Routine CXR --portable [XR chest portable] Stat Exams 12/20/23 01:05 Completed POCUS Point of Care (ER Only) Stat Exams 12/20/23 01:23 Taken BNP [NT Pro Brain Natriuretic Pep.] Stat Lab 12/20/23 00:57 Completed CBC w/Auto Diff [Complete Blood Count Auto Diff] Stat Lab 12/20/23 00:57 Completed CMP [Comprehensive Metabolic Panel] Stat Lab 12/20/23 00:57 Completed Complete Blood Count Auto Diff AMLAB Lab 12/20/23 04:41 Completed Comprehensive Metabolic Panel AMLAB Lab 12/20/23 04:41 Completed Lactate Venous Stat Lab 12/20/23 01:06 Ordered Magnesium AMLAB Lab 12/20/23 04:41 Completed Magnesium Stat Lab 12/20/23 00:57 Completed Troponin I Q3H Lab 12/20/23 00:57 Completed Troponin I Q3H Lab 12/20/23 04:41 Completed Urinalysis and Microscopic Stat Lab 12/20/23 05:55 Completed VBG [Venous Blood Gas] Stat RT 12/20/23 01:07 Completed CA echo doppler complete Routine Y 12/20/23 03:43 Ordered ECG Data Tracing #1: I reviewed this ECG and interpreted as documented below: Sinus tachycardia with rate of 123, wandering baseline limits interpretation, no ST elevation or depression noted however. T wave inversions noted in the lateral leads. ECG initial impression date: 12/20/23 ECG initial impression time: 00:58 Tracing #2: I reviewed this ECG and interpreted as documented below: Sinus tachycardia with rate of 106, no ST elevation, normal intervals, T wave inversions in the precordial and lateral leads. ECG initial impression date: 12/20/23 ECG initial impression time: 01:40 Tissue Perfus/Sepsis Re-Eval Sepsis Re-Evaluation Performed: Yes Date Performed: 12/20/23 Time Performed: 04:26 HEART Score History (anamnesis): Highly suspicious ECG: Non-specific disturbance Age: >65 years Risk factors: 3 or more risk factors Troponin: > 3x normal limit HEART Score: 9 Medical Decision Narrative: 73-year-old male with history of COPD, hypertension, insulin-dependent diabetes, recent admission for sepsis related to diabetic foot ulcer, presents with relatively sudden onset shortness of breath and chest pain. History was obtained via interactive discussion with EMS, family, patient. On arrival, patient is afebrile, tachycardic to the 130s, normotensive, satting high 80s low 90s on nonrebreather, tachypneic and ill-appearing with GCS 11. Patient received full dose aspirin and nitro x 3 prior to arrival by EMS. Differential includes but is not limited to ACS, PE, flash pulmonary edema, Takotsubo's, tension pneumothorax, pericardial tamponade pneumonia, airway obstruction. Bedside ultrasound was performed and significant for diffuse B-lines in all lung kelly with a small to moderate right-sided pleural effusion. No evidence of pericardial effusion or tamponade, no evidence of pneumothorax. No obvious right heart strain. LV apex appears dilated, but poor windows somewhat limited interpretation. Could be consistent with Takotsubo. EMS EKGs and our initial EKGs were reviewed and showed no evidence of acute ST changes. Does show T wave inversions in the precordial/lateral leads. Given this, presentation appears most consistent with flash pulmonary edema at this time. Patient was given 80 mg of IV Lasix and was placed on BiPAP with improvement in hypoxia and respiratory distress. Patient was sent emergently to CT scanner to assess for PE and other pathology. Though patient flags positive for sepsis, he is clearly volume overloaded and does not need volume resuscitation at this time. No evidence of infectious etiology at this time, we will hold on administering IV antibiotics. On re-evaluation, patient remains on the BiPAP, respiratory rate normalized. Patient denies chest pain currently. Patient had 800 mL out of urine after Lasix. Laboratory workup independently interpreted by me and significant for mildly elevated lactate with acidosis pH 7.25. BNP elevated at 1400, initial troponin elevated at 0.5. Creatinine elevated at 1.4, up from baseline of around 1.9. Repeat EKG remains unchanged. Imaging independently interpreted by me and significant for no evidence of PE, no evidence of focal consolidation, pleural effusions noted. See radiology read for full review of final results. Given patient history, exam and workup, patient's presentation most likely represents respiratory failure secondary to acute decompensated heart failure and NSTEMI. Interactive discussion had with hospitalist on-call for admission. We considered activating the Clutch Rebuilder, but no evidence of STEMI on multiple EKGs, patient currently denies chest pain. Of note, I spoke with the patient's POA. He reports that the patient is DNR/DNI except for procedure. Procedures Risk/Benefits of Procedure(s) Were Explained: Yes Limited Ultrasound Indication:: Limited cardiac ultrasound Indication: Chest pain shortness of breath Views Obtained: PLAX, PSAX, Apical 4-chamber, Subxiphoid Findings: Windows limit interpretation. However, there does appear to be apical ballooning of the LV, no obvious right ventricular strain. No pericardial effusion Impression: Windows limit interpretation. However, there does appear to be apical ballooning of the LV, no obvious right ventricular strain. No pericardial effusion Images were saved to permanent archive The study was technically adequate This study was performed by [facility], and I personally interpreted all images/videos. Limited lung ultrasound A focused ultrasound exam of the pleural spaces was performed to evaluate for pneumothorax, pulmonary edema, pleural effusion and/or consolidation. The ultrasound was performed with the following indications, as noted in the H&P: Shortness of breath Identified structures: Bilateral thoracic cavities were examined. Findings: Lung sliding: -Present bilaterally B-lines: Present in all lung kelly Pleural effusion: - small on the right Consolidation: -None noted Impression: -Diffuse B-lines in all lung kelly, small right pleural effusion Images were saved to permanent archive The study was technically adequate [place] [id number] This study was performed by [facility], and I personally interpreted all images/videos. Critical Care Critical Care Time Critical Care Time: Yes Attestation: On 12/20/23, the high probability of a clinically significant, sudden or life threatening deterioration of the following system(s) cardiac, respiratory required my full and direct attention, intervention and personal management. The time I documented below is in addition to time spent performing reported procedures but includes the following listed in this critical care notation. Total Time Total Critical Care Time: 65
--- NOTE | 2023-12-20 01:12 | PC.NURSE ---
Provider to bedside at time of triage.
[2023-12-20 01:14] LABS: VBG Base Excess -7.7 mmol/L (-2.4-2.3); VBG HCO3 19.6 mmol/L (23-30); VBG Oxygen Saturation 97.1 % (50-70); VBG PCO2 45.5 mmol/L (35-51); VBG PH 7.25 mmol/L (7.31-7.41); VBG PO2 106.3 mmol/L (28-40); VBG Total CO2 20.9 mmol/L (23-27)
[2023-12-20 01:16] LABS: Albumin Level 3.7 g/dl (3.5-5.0); Chloride 108 mmol/L (98-107); Potassium 4.3 mmoL/L (3.5-5.1); Sodium 137 mmol/L (136-145)
[2023-12-20 01:19] LABS: Alanine Aminotransferase 20 U/L (12-78); Alkaline Phosphatase 99 U/L (38-126); Anion Gap 9.3 mEq/L (5-15); Aspartate Amino Transferase 27 U/L (17-59); Bilirubin,Total 0.6 mg/dl (0.2-1.3); Blood Urea Nitrogen 15 mg/dl (9-20); Carbon Dioxide 24 mmol/L (22.0-30.0); Creatinine Clearance Estimated 61 mL/min (50-200); Estimated Glomerular Filt Rate 50 ml/min (>60); GFR (African American) 60 ML/MIN (>60); Globulin 3.6 g/dL (1.3-3.2); Total Protein,Serum 7.3 g/dl (6.3-8.2)
[2023-12-20 01:20] LABS: Calcium 8.6 mg/dl (8.4-10.2); Glucose 177 mg/dl (74-100)
[2023-12-20 01:27] LABS: Basophils # 0.1 K/mm3 (0-0.2); Basophils % 0.4 % (0.1-2.0); Eosinophils # 0.1 K/mm3 (0.0-0.4); Eosinophils % 1.4 % (0.1-12.0); Hemoglobin 12.7 g/dL (14.1-18.0); Lymphocytes # 1.2 K/mm3 (0.7-4.5); Lymphocytes % 11.2 % (10-50); Mean Corpuscular HGB Conc 32.4 g/dL (31.8-35.4); Mean Corpuscular Hemoglobin 27.5 pg (27.0-31.2); Mean Corpuscular Volume 84.8 fl (80-94); Mean Platelet Volume 7.5 fl (7.4-10.4); Monocytes # 0.4 K/mm3 (0.1-1.0); Monocytes % 3.4 % (1.7-9.3); Neutrophils # 8.9 K/mm3 (1.8-7.8); Neutrophils % 83.6 % (37.0-80.0); Platelet Count 410 K/mm3 (142-424); Red Cell Distribution Width 15.5 % (11.5-17.5); White Blood Count 10.6 K/mm3 (4.8-10.8)
[2023-12-20 01:29] LABS: NT Pro Brain Natriuretic Pep. 14400 pg/mL (0-125)
[2023-12-20] MEDS: IOPAMIDOL-370 (76%);100ML BOTTLE 75 ML IV (01:29)
[2023-12-20] MEDS: SODIUM CHLORIDE 0.9% 10ML SYR (RAD ONLY) 10 ML IV (01:29)
[2023-12-20] MEDS: 0.9 % SODIUM CHLORIDE 50 ML VIAL IV (01:29)
[2023-12-20 01:34] LABS: Troponin I 0.52 ng/ml (0.00-0.034)
--- NOTE | 2023-12-20 01:35 | PC.NURSE ---
Claudia called from the lab with a Critical lab value-Troponin 0.52. and RN advised. CR
--- NOTE | 2023-12-20 01:40 | ECG_ITS ---
APPROVED REPORT Exam: Resting ECG HR:106 bpm ECG Measurements Heart Rate 106 AXES OR 157 P 75 QRSd 92 QRS 81 QT 390 T 168 QTc [address] DEVIATION AND MODERATE T-WAVE ABNORMALITY, CONSIDER ANTEROLATERAL ISCHEMIA [-0.1+ mV T-WAVE IN V3-V6] ABNORMAL ECG UNCONFIRMED REPORT Electronically signed by : MCKENNA SCHMITT, 12/22/2023 06:46:41
[2023-12-20 01:47] LABS: Lactate Venous 2.1 mmol/L (0.4-2.0)
--- NOTE | 2023-12-20 03:04 | PC.NURSE ---
Pts daughter, Sari Blair, called asking for information on pt. This person is not listed on pts chart. Informed daughter that i could not give pt information over the phone without pts consent. (Pt is asleep and on Bipap at this time) She states to tell her son, Colton to call her. Colton was in [facility], and I informed him.
--- NOTE | 2023-12-20 03:37 | PC.NURSE ---
called house for bed assignment.
--- NOTE | 2023-12-20 03:43 | CA_ITS ---
APPROVED REPORT EXAM: Comprehensive 2D, Doppler, and color-flow Echocardiogram Engraver Wood: Amira Johns, ASIA, RVS Ht: 6 ft 0 in Wt: 200lbs BSA: 2.13 BP: 133/85 mmHg Indications: NSTEMI, Respiratory failure, CHF, RAY, DM, COPD, CP 2D Dimensions IVSd 1.21 cm LVEF (Visual) 18.40 % PWd 1.22 cm LA Volume 64.80 mL LVDd 5.07 cm LA Volume Index [id number] mL/m2 (M/F) 16-34 LVDs 4.40 cm EF AP4 26.30 % Aortic Root 3.26 cm GL Strain -4.6 % Left Atrium 3.30 cm LVOT 2.12 cm (M/F) 1.5-2.5 M-Mode Dimensions LVDd 5.07 cm (3.5-5.7) Ao Diam 3.15 cm (2.0-3.7) LVDs 4.95 cm (3.5-5.7) IVSd 1.21 cm (0.6-1.1) PWd 1.22 cm (0.6-1.1) EF (Teich) 12.40% EPSs 2.91 cm FS 6.43% EDV (Teich) 131.80 mL TAPSE 1.46 (<1.7) ESV (Teich) 115.50 mL LV Diastology E Decel Time 122 (160-240 msec) E/A Ratio 1.25 MED E' 6.5 (>= 7 cm/sec) MED A' 8.50 cm/s E'/MED E' Ratio 12.55 (<= 14) LAT E' 9.5 (>= 10 cm/sec) LAT A' 7.30 cm/s E/LAT E' Ratio 8.59 (<= 14) Aortic Valve LVOT Max 75.0 (70-110 cm/s) OBIE Index 0.75 cm2/m2 LVOT VTI 14.34 cm AoV Peak Samson. 171.0 (50-130 cm/s) AI PHT 267.00 ms AO Peak GR. 12.60 mmHg AO Mean GR. 6.20 (<5 mmHg) AO VTI 31.8 (18-25 cm) OBIE (VTI) 1.59 (2.5-4.5 cm2) Mitral Valve MV E Max Samson. 82.0 (40-130 cm/s) MV A Velocity 65.0 (40-130 cm/s) E/A Ratio 1.25 MV Decel. Time 122 (160-240 ms) Left Ventricle The left ventricle is normal size. The left ventricular systolic function is severely reduced. There is increased LV wall thickness. The LV septal, anteroseptal, and inferoseptal LV gao are nearly akinetic. The LV apex is akinetic. Grade 2 diastolic dysfunction is present. LVEF is 20%. Right Ventricle The right ventricle is normal size. The right ventricular systolic function is normal. Atria Left atrium is mildly dilated. The right atrium size is normal. The interatrial septum is not well-visualized. Aortic Valve The aortic valve is moderately thickened. Moderate aortic stenosis. OBIE by continuity equation is 1.2 cm???. OBIE by continue with the method is 1.3 cm???. Peak velocity 1.8 m/s. Mean AV gradient 7 mmHg. Max AV gradient 14 mmHg. DI 0.39. Mild aortic regurgitation. Mitral Valve The mitral valve leaflets are mildly thickened. Trace mitral regurgitation. No evidence of mitral valve stenosis. Tricuspid Valve The tricuspid valve leaflets are thin and pliable. Trace tricuspid regurgitation. There is insufficient TR jet to estimate RVSP. Pulmonic Valve The pulmonary valve is normal in structure. Trace pulmonic regurgitation. Great Vessels The aortic root is normal in size. The ascending aorta is not well-visualized. The IVC is not well-visualized. Pericardium There is no pericardial effusion. Other Information Study Quality: Fair Conclusion Severe reduction in LV systolic function (LVEF 20%). The LV septal, anteroseptal, and inferoseptal LV gao are nearly akinetic. The LV apex is akinetic. Mild LA dilation. Mild AI. Moderate (OBIE by continuity equation is 1.2 cm???. OBIE by continue with the method is 1.3 cm???. Peak velocity 1.8 m/s. Mean AV gradient 7 mmHg. Max AV gradient 14 mmHg. DI 0.39). Electronically signed by : Janina Ortiz MD 12/20/2023 11:42:10
--- NOTE | 2023-12-20 03:43 | EXP.HP ---
History of Present Illness *Admission Date: 12/20/23 *Reason for visit:: SOB/CP *History of present illness: This is a 73-year-old male with history of COPD, insulin-dependent diabetes, status post partial amputation of the right foot, recent admission for sepsis related to infected diabetic foot ulcer, hypertension, presents for severe shortness of breath. History obtained from ED documentation due to patient mental status. per ED: Patient was in his relatively normal state of health when he started having shortness of breath. He complained of chest pain and was tachypneic. On EMS arrival he was normotensive, satting mid to high 80s on room air. On arrival to the ER patient is tachypneic, uncomfortable appearing, moaning, able/unwilling to engage in conversation. Satting low 90s on nonrebreather. Tachycardic to 120. No reported history of blood clot, no reported cardiac history. On my assessment patient on continuous BIPAP. 16/8 FiO2 of 40%. hemodinamically stable. HR 90's. Admitted for further management. [facility] Disclaimer: The information contained in this section may have been updated after the patient was seen, as this information can be updated by other users. 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 Skin cancer Surgical History Hx of toe surgery H/O repair of right rotator cuff Social History (Updated 12/20/23 @ 05:21 by Gilda Duran RN) Smoking Status: Current every day smoker alcohol intake: never current occupational status: retired Travel in the last 8 weeks: None Review of Systems Review of Systems Review of systems:: unable to obtain Meds Home Medications and Allergies Home Medications ?Medication ?Instructions ?Recorded ?Confirmed ?Type albuterol sulfate 90 mcg/actuation 2 puff inhalation Q4-6H PRN 04/25/23 12/20/23 Rx aerosol inhaler shortness of breath or wheezing #3 ea carvedilol 25 mg tablet 25 mg PO BID 90 days #180 tabs 04/25/23 12/20/23 Rx fluticasone fur. 200 mcg-umeclid 1 inh inhalation DAILY 90 days #3 11/06/23 12/20/23 Rx 62.5 mcg-vilant 25 mcg ea inhalat.powder (Trelegy Ellipta) insulin degludec 100 unit/mL (3 37 unit (0.37 mL) SQ DAILY #15 mL 11/08/23 12/20/23 Rx mL) subcutaneous pen (Tresiba FlexTouch U-100 insulin) clopidogrel 75 mg tablet 75 mg PO DAILY 11/24/23 12/20/23 History lisinopril 20 mg tablet 20 mg PO DAILY 11/24/23 12/20/23 History sitagliptin phosphate 100 mg 100 mg PO DAILY 11/24/23 12/20/23 History tablet (Januvia) trazodone 50 mg tablet 50 mg PO HS 11/24/23 12/20/23 History collagenase clostridium histo. 250 1 applic topical DAILY PRN wound 11/27/23 12/20/23 Rx unit/gram topical ointment (Santyl) care 30 days #90 grams atorvastatin 20 mg tablet 20 mg PO HS 12/20/23 12/20/23 History New Prescriptions to Start Prescriptions: Allergies Allergy/AdvReac Type Severity Reaction Status Date / Time Aminoglycosides Allergy Severe Swelling Verified 12/14/23 10:48 of Lip/Tongue/Throat Exam Data for Last 24 hours Vital signs and Labs for Last 24 Hours: Temp Pulse Resp BP Pulse Ox O2 Del Method O2 Flow Rate 96.6 F L 98 H 14 133/85 100 BiPAP 10 12/20/23 01:01 12/20/23 03:00 12/20/23 03:00 12/20/23 03:00 12/20/23 03:00 12/20/23 03:00 12/20/23 01:01 FiO2 40 12/20/23 01:42 Laboratory Results - last 24 hr 12/20/23 00:57: WBC 10.6, RBC 4.60, Hgb 12.7 L, Hct 39.0 L, MCV 84.8, MCH 27.5, MCHC 32.4, RDW 15.5, Plt Count 410, MPV 7.5, Neut % (Auto) 83.6 H, Lymph % (Auto) 11.2, [place] % (Auto) 3.4, Eos % (Auto) 1.4, Baso % (Auto) 0.4, Neut # (Auto) 8.9 H, Lymph # (Auto) 1.2, [place] # (Auto) 0.4, Eos # (Auto) 0.1, Baso # (Auto) 0.1, Sodium 137, Potassium 4.3, Chloride 108 H, Carbon Dioxide 24, Anion Gap 9.3, BUN 15, Creatinine 1.40 H, Estimated Creat Clear 61, Estimated GFR 50 L, Est GFR ( Amer) 60, Glucose 177 H, Calcium 8.6, Magnesium 2.0, Total Bilirubin 0.6, AST 27, ALT 20, Alkaline Phosphatase 99, Troponin I 0.52 H, NT-Pro-B Natriuret Pep 55992 H, Total Protein 7.3, Albumin 3.7, Globulin 3.6 H, Albumin/Globulin Ratio 1.0 L 12/20/23 01:07: VBG pH 7.25 L, VBG pCO2 45.5, VBG pO2 106.3 H, VBG HCO3 19.6 L, VBG Total CO2 20.9 L, VBG O2 Saturation 97.1 H, VBG Base Excess -7.7 L, VBG Lactic Acid 2.1 H I & O for Last 24 hours: Intake & Output 12/17/23 12/18/23 12/19/23 12/20/23 23:59 23:59 23:59 23:59 Weight 90.718 kg Constitutional Constitutional: obtunded *Routine HEENT Exam Head: Present normocephalic and atraumatic Eye: Present EOMI and PERRL ENT: Present mucous membranes moist *Routine Neck Exam Neck: Present supple; Absent lymphadenopathy *Routine Respiratory Exam Respiratory: Present CTA bilaterally, respiratory distress, diminished air movement, normal respiratory effort and symmetric chest movement *Routine Cardiovascular Exam Cardiovascular: Present RRR, Normal S1, Normal S2 and tachycardia *Routine Abdominal Exam Abdominal: Present soft and normoactive bowel sounds; Absent tenderness *Routine Rectal Exam Rectal:: deferred *Routine Genitalia Exam Genitalia:: deferred *Routine Extremities Exam Extremities: Absent cyanosis, clubbing or edema Comments: wound to lateral aspect of right foot. s/p transmetatarsal amputation *Routine Skin Exam Skin: Present erythema, warm, wounds and rash *Routine Neurological Exam Neurological: Present altered mental status Routine Psychiatric Exam Psychiatric: Present unable to assess Assessment and Plan *Assessment and plan (1) Respiratory failure with hypoxia: Status: Acute Qualifiers: Chronicity: acute Qualified Code(s): J96.01 - Acute respiratory failure with hypoxia Category: Medical Code(s): J96.91 - Respiratory failure, unspecified with hypoxia (2) Flash pulmonary edema: Status: Acute Category: Medical Code(s): J81.0 - Acute pulmonary edema (3) Acute decompensated heart failure: Status: Acute Category: Medical Code(s): I50.9 - Heart failure, unspecified (4) Acute non-ST elevation myocardial infarction (NSTEMI): Status: Acute Category: Medical Code(s): I21.4 - Non-ST elevation (NSTEMI) myocardial infarction (5) RAY (acute kidney injury): Status: Acute Category: Medical Code(s): N17.9 - Acute kidney failure, unspecified (6) PAD (peripheral artery disease): Status: Acute Category: Medical Code(s): I73.9 - Peripheral vascular disease, unspecified (7) DM type 2 (diabetes mellitus, type 2): Status: Acute Qualifiers: Diabetes mellitus complication status: with other specified complication Diabetes mellitus termination clerk insulin use: with termination clerk use Qualified Code(s): E11.69 - Type 2 diabetes mellitus with other specified complication; Z79.4 - MCFP (current) use of insulin Category: Medical Code(s): E11.9 - Type 2 diabetes mellitus without complications (8) Diabetic ulcer of right foot associated with diabetes mellitus due to underlying condition, with fat layer exposed: Problem Comment: Recent admission 11/24/23 to [facility] for Sepsis, Right TMA DFU to lateral foot with cellulitis. Podiatry follow up visit #1 12/06/23 Status: Acute Qualifiers: Diabetic foot ulcer location: other Qualified Code(s): E08.621 - Diabetes mellitus due to underlying condition with foot ulcer; L97.512 - Non-pressure chronic ulcer of other part of right foot with fat layer exposed Category: Medical Code(s): E08.621 - Diabetes mellitus due to underlying condition with foot ulcer; L97.512 - Non-pressure chronic ulcer of other part of right foot with fat layer exposed Plan 3-year-old male with history of COPD, insulin-dependent diabetes, status post partial amputation of the right foot, recent admission for sepsis related to infected diabetic foot ulcer, hypertension, presents for severe shortness of breath. on arrival patient was placed on BIPAP, 80mg IV lasix given. 800ml urine output. Laboratory workup independently interpreted by me and significant for mildly elevated lactate with acidosis pH 7.25. BNP elevated at 1400, initial troponin elevated at 0.5. Creatinine elevated at 1.4, up from baseline of around 1.9. CT showed bilateral pleural effusion. bedside US suspected pulmonary edema. Findings discussed with ED after admission been requested. Agreed for inpatient management. Plan: -Acute respiratory failure with hypoxia, secondary to acute pulmonary edema Due to acute decompensated heart failure. new diagnosis Non-STEMI. Troponinemia: To rule out acute coronary syndrome RAY like hypoperfusion Admit patient for inpatient medical management. Dispo stepdown On continuous BiPAP. FiO2 40% Pulmonary consult Cardiology consult CT x-ray and EKG reviewed 80 mg of IV Lasix given ER. Fajardo inserted for accurate in and out. Monitor intake and output strict. 800 ml out so far Echocardiogram ordered Monitor for chest pain. hemodynamic cardiac decompensation. Vital signs per unit protocol Repeat labs in the morning Avoid nephrotoxic medications. Monitor creatinine and urinary function Repeat CBC CMP use and daily Trending troponin. Nitroglycerin sublingual for chest pain Continuous cardiac monitoring Monitor off antibiotic. N.p.o. while on continuous BiPAP. Aspiration precaution UA pending -History of peripheral artery disease. Hypertension Generalized onset of sclerosis Patient on Plavix atorvastatin and carvedilol and lisinopril Hold hypertension medications in the setting of hypotension normotension or shock Insulin-dependent type 2 diabetes. Uncontrolled Resume Lantus A1c 12.5 Sliding scale. Monitor Accu-Chek Diabetic ulcer of right foot status post TMA Wound care On Protonix for GI protection DNR/DNI Rounded on patient after nurse practitioner. Personally examined and interviewed patient. Agree with exam findings and care plan as documented. Echo showed severely depressed EF less than 20%. Global hypokinesis. Cardiology recommended left heart cath to evaluate. Patient taken for heart cath today with multivessel disease. Tenting performed to multiple vessels, see Immigration Consultant report for full details. Will aggressively diurese. Receiving Bumex IV. Goal -2 L today. Has weaned supplemental oxygen well, currently on 2 L nasal cannula oxygen. Goal sats greater 90%. Recommend CPAP overnight if in respiratory distress, avoid BiPAP unless patient has respiratory acidosis. Fajardo catheter in place for strict I's and O's. On dual antiplatelet therapy with aspirin 81 mg daily and Plavix 75 mg daily. Repeat labs with CBC, CMP, magnesium ordered for the morning.
--- NOTE | 2023-12-20 04:25 | PC.NURSE ---
Multiple attempts had been previously attempted to place a ross catheter for the patient without success. Approximately 1 inch into urethra significant resistance was met with 16, 12, 10, and 8 tanzanian ross catheters. Patient was placed on male pure wick but unable to urinate independently, a bladder scan was performed and revealed >780 ml of urine. Notified provider who requested another attempt to place ross catheter for patient. On this attempt, this RN and Paige Mejias RN, and Bayron Merritt RN started with a 5 tanzanian tube, which did pass and allowed urine flow. After several minutes this ross was removed and an 8 tanzanian ross was immediately placed at this time by the second nurse. Approximately 5 minutes later this ross was removed and a 10 t[place] ross catheter was immediately placed with minimal resistance. After an additional 5 minutes a 12 tanz[place] coude catheter was placed immediately following the 10 tanzanian catheter removal with some resistance, good urine flow was established with approximately 750 ml output into bedside container. Ross balloon was filled per instruction with 10ml. Added sterile ross bag at this time. Patient tolerated well, minimal trauma noted to penis and meatus during insertions. Sterile technique was maintained during all insertions utilizing multiple RNs. Dr. Marquez informed and requested to verify that bladder has been decompressed via ultrasound. Stat lock placed at this time.
--- NOTE | 2023-12-20 04:28 | PC.NURSE ---
hospitalist at bedside. advised of issues with obtaining ross placement for diuresis and accurate i&o, as well as urinary retention.
--- NOTE | 2023-12-20 04:42 | PC.NURSE ---
Nurse to nurse report to Gilda MCGHEE at this time.
[2023-12-20 04:47] LABS: Basophils % 0.3 % (0.1-2.0); Eosinophils % 0.2 % (0.1-12.0); Hematocrit 37.4 % (42.0-52.0); Hemoglobin 11.9 g/dL (14.1-18.0); Lymphocytes % 8.5 % (10-50); Mean Corpuscular HGB Conc 31.7 g/dL (31.8-35.4); Mean Corpuscular Hemoglobin 27.2 pg (27.0-31.2); Mean Corpuscular Volume 85.6 fl (80-94); Monocytes # 0.5 K/mm3 (0.1-1.0); Monocytes % 4.2 % (1.7-9.3); Neutrophils # 10.1 K/mm3 (1.8-7.8); Neutrophils % 86.9 % (37.0-80.0); Platelet Count 318 K/mm3 (142-424); Red Blood Count 4.37 M/mm3 (4.60-6.20); Red Cell Distribution Width 15.5 % (11.5-17.5); White Blood Count 11.6 K/mm3 (4.8-10.8)
[2023-12-20 04:51] LABS: MANUAL DIFFERENTIAL MANUAL DIFFERENTIAL (MANUAL DIFF)
[2023-12-20 04:52] LABS: Chloride 106 mmol/L (98-107)
--- NOTE | 2023-12-20 04:52 | PC.NURSE ---
patient arrived to floor via stretcher @04:50
[2023-12-20 04:53] LABS: Albumin Level 3.5 g/dl (3.5-5.0); Potassium 4.2 mmoL/L (3.5-5.1); Sodium 137 mmol/L (136-145)
[2023-12-20 04:56] LABS: Alanine Aminotransferase 17 U/L (12-78); Alkaline Phosphatase 92 U/L (38-126); Anion Gap 11.2 mEq/L (5-15); Aspartate Amino Transferase 30 U/L (17-59); Bilirubin,Total 0.5 mg/dl (0.2-1.3); Blood Urea Nitrogen 17 mg/dl (9-20); Calcium 8.4 mg/dl (8.4-10.2); Carbon Dioxide 24 mmol/L (22.0-30.0); Creatinine Clearance Estimated 57 mL/min (50-200); Estimated Glomerular Filt Rate 46 ml/min (>60); GFR (African American) 56 ML/MIN (>60); Globulin 3.4 g/dL (1.3-3.2); Glucose 152 mg/dl (74-100); Magnesium 2.2 mg/dl (1.6-2.3); Total Protein,Serum 6.9 g/dl (6.3-8.2)
[2023-12-20 05:03] LABS: Lymphocytes % 13 % (10-50); Monocytes % 1 % (2-9); Neutrophils % 86 % (42-76); Total Cells Counted 100
[2023-12-20 05:04] LABS: Platelet Estimate Normal; RBC Morphology Normal
--- NOTE | 2023-12-20 05:12 | PC.WOUNDNOTE ---
Bottom of right foot
[2023-12-20 05:14] LABS: Troponin I 1.05 ng/ml (0.00-0.034)
[2023-12-20 05:15] LABS: Reflex Lactic Add Lactic Reflex
[2023-12-20 05:39] LABS: Lactic Acid Follow Up (RFLX 1) 1.2 mmol/L (0.7-2.1)
[2023-12-20 05:48] LABS: POC Glucose,Bedside 160 (70-110)
[2023-12-20 05:57] LABS: Microscopic, Urine URINE MICROSCOPIC (MICROSCOPIC)
[2023-12-20 06:00] LABS: Appearance,Urine CLEAR (Clear); Bilirubin,Urine Negative (Negative); Blood, Urine 1+ (Negative); Color,Urine YELLOW (Yellow); Glucose,Urine (UA) Negative (Negative); Ketones,Urine Negative (Negative); Leukocyte Esterase,Urine Negative (Negative); Nitrate,Urine Negative (Negative); PH,Urine 5.5 (5.0-8.5); Protein,Urine Negative (Negative); Specific Gravity, Urine 1.015 (1.005-1.030); Urobilinogen,Urine 0.2 EU/dl (0.2)
[2023-12-20 06:09] LABS: Bacteria,Urine Trace /lpf; WBC,Urine Occasional #/hpf (0-3)
--- NOTE | 2023-12-20 06:31 | PC.NURSE ---
Pt A/O x4 this AM. Pt states he does not remember much of what happened last night. RT placed pt on 2 L nc, tolerating well with O2 upper 90s. Pt has course crackles throughout lung kelly, slightly worse on right side. Audible wheezing. Pt has not voiced any complaints to staff since arriving to floor. 12 F coude catheter in place draining clear yellow urine. Sample sent to lab. Pt has hx of partial amputation to right foot and currently has an open wound on sole of foot. See wound note. Bed alarm on for pt safety. Call light within reach.
--- NOTE | 2023-12-20 07:19 | HMH.PHAINT1 ---
Pharmacy Intervention Comments: MEDICATION RECONCILIATION COMPLETED ON PATIENT USING EXTERNAL FILL HISTORY FROM PHARMACY AND DISCHARGE SUMMARY FROM PREVIOUS ADMISSION. -OMEGA CURRY, KELLED
--- NOTE | 2023-12-20 08:49 | P.CONCA_ITS ---
History of Present Illness History of Present Illness Consult date: 12/20/23 Requesting physician: Babak Ibrahim Consult reason: chest pain and shortness of breath Chief complaint: soa History of present illness: This is a 73-year-old white male with past medical history of COPD, insulin- dependent diabetes mellitus, current tobacco use-smokes a half a pack per day, status post partial amputation of the right foot with recent admission for sepsis related to infected diabetic foot ulcer who presented to emergency department with complaints of sudden onset, severe shortness of breath. Patient reports he awoke in the middle the night and could not breathe and had a squeezing-like sensation in his chest. Patient reports he called his family who called EMS and brought him to the emergency department. Upon arrival to emergency department patient was tachypneic, normotensive with oxygen saturations in the 80s on room air. EKG showed sinus tachycardia rate of [address] elevation, T wave inversions noted in the lateral leads. A CT chest was obtained which was negative for PE but did show a moderate right-sided pleural effusion and small left-sided pleural effusion. Labs as follow: WBC 11.6, hemoglobin 11.9, sodium 137, potassium 4.2, BUN 17, creatinine 1.5, lactic 1.2, troponin 0.52 trending up to 1.05 and BNP 14,400. Patient was given Lasix 80 mg IV x 1 in the emergency department and has diuresed over 700 L. Patient was admitted for NSTEMI and acute heart failure. This morning patient is resting, reports shortness of air is improving. Denies chest pain. Is maintaining oxygen saturation greater than 95% on 2 L nasal cannula. Echocardiogram has been obtained and is pending. [facility] Disclaimer: The information contained in this section may have been updated after the patient was seen, as this information can be updated by other users. 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 Skin cancer Surgical History Hx of toe surgery toes removed from right foot H/O repair of right rotator cuff Social History (Updated 12/20/23 @ 05:21 by Gilda Duran RN) Smoking Status: Current every day smoker alcohol intake: never current occupational status: retired Travel in the last 8 weeks: None Review of Systems Review of Systems Review of systems:: pertinent systems reviewed and negative unless documented below *Cardiovascular Cardiovascular: Reports chest pain and Reports dyspnea *Respiratory Respiratory: Reports dyspnea Exam Data for Last 24 hours Vital signs and Labs for Last 24 Hours: Temp Pulse Resp BP Pulse Ox O2 Del Method O2 Flow Rate 98.0 F 92 H 26 H 126/77 99 Nasal Cannula 2 12/20/23 04:42 12/20/23 08:00 12/20/23 08:00 12/20/23 08:00 12/20/23 08:00 12/20/23 08:00 12/20/23 08:00 FiO2 40 12/20/23 01:42 Laboratory Results - last 24 hr 12/20/23 00:57: WBC 10.6, RBC 4.60, Hgb 12.7 L, Hct 39.0 L, MCV 84.8, MCH 27.5, MCHC 32.4, RDW 15.5, Plt Count 410, MPV 7.5, Neut % (Auto) 83.6 H, Lymph % (Auto) 11.2, [place] % (Auto) 3.4, Eos % (Auto) 1.4, Baso % (Auto) 0.4, Neut # (Auto) 8.9 H, Lymph # (Auto) 1.2, [place] # (Auto) 0.4, Eos # (Auto) 0.1, Baso # (Auto) 0.1, Sodium 137, Potassium 4.3, Chloride 108 H, Carbon Dioxide 24, Anion Gap 9.3, BUN 15, Creatinine 1.40 H, Estimated Creat Clear 61, Estimated GFR 50 L , Est GFR ( Amer) 60, Glucose 177 H, Calcium 8.6, Magnesium 2.0, Total Bilirubin 0.6, AST 27, ALT 20, Alkaline Phosphatase 99, Troponin I 0.52 H, NT-Pro-B Natriuret Pep 46304 H, Total Protein 7.3, Albumin 3.7, Globulin 3.6 H, Albumin/Globulin Ratio 1.0 L 12/20/23 01:07: VBG pH 7.25 L, VBG pCO2 45.5, VBG pO2 106.3 H, VBG HCO3 19.6 L, VBG Total CO2 20.9 L, VBG O2 Saturation 97.1 H, VBG Base Excess -7.7 L, VBG Lactic Acid 2.1 H 12/20/23 04:41: WBC 11.6 H, RBC 4.37 L, Hgb 11.9 L, Hct 37.4 L, MCV 85.6, MCH 27.2, MCHC 31.7 L, RDW 15.5, Plt Count 318, MPV 8.0, Neut % (Auto) 86.9 H, Lymph % (Auto) 8.5 L, [place] % (Auto) 4.2, Eos % (Auto) 0.2, Baso % (Auto) 0.3, Neut # (Auto) 10.1 H, Lymph # (Auto) 1.0, [place] # (Auto) 0.5, Eos # (Auto) 0.0, Baso # (Auto) 0.0, Total Counted 100, Neutrophils % (Manual) 86 H, Lymphocytes % (Manual) 13, Monocytes % (Manual) 1 L, Platelet Estimate Normal, RBC Morphology Normal, Sodium 137, Potassium 4.2, Chloride 106, Carbon Dioxide 24, Anion Gap 11.2, BUN 17, Creatinine 1.50 H, Estimated Creat Clear 57, Estimated GFR 46 L, Est GFR ( Amer) 56 L, Glucose 152 H, Calcium 8.4, Magnesium 2.2, Total Bilirubin 0.5, AST 30, ALT 17, Alkaline Phosphatase 92, Troponin I 1.05 H, Total Protein 6.9, Albumin 3.5, Globulin 3.4 H, Albumin/Globulin Ratio 1.0 L 12/20/23 05:22: Lactate 1.2 12/20/23 05:30: POC Glucose 160 H 12/20/23 05:55: Urine Color Yellow, Urine Appearance Clear, Urine pH 5.5, Ur Specific [place] 1.015, Urine Protein Negative, Urine Glucose (UA) Negative, Urine Ketones Negative, Urine Blood 1+, Urine Nitrate Negative, Urine Bilirubin Negative, Urine Urobilinogen 0.2, Ur Leukocyte Esterase Negative, Urine RBC 3-5, Urine WBC Occasional, Ur Squamous Epith Cells 5-10, Urine Bacteria Trace, Hyaline Casts 3-5 I & O for Last 24 hours: Intake & Output 12/17/23 12/18/23 12/19/23 12/20/23 23:59 23:59 23:59 23:59 Output Total 780 / 780 Balance -780 / -780 Weight 220 lb 12.8 oz Constitutional Constitutional: no acute distress *Routine Respiratory Exam Respiratory: Present wheezes, crackles, diminished air movement and symmetric chest movement *Routine Cardiovascular Exam Cardiovascular: Present RRR, Normal S1, Normal S2 and tachycardia *Routine Abdominal Exam Abdominal: Present soft and normoactive bowel sounds; Absent tenderness *Routine Extremities Exam Extremities: Present full ROM and normal capillary refill; Absent edema Comments: Recently partial amputated right foot noted, dressing in place. *Routine Skin Exam Skin: Present intact, dry and warm Detailed Neck Exam: Thyroids Thyroid: Absent bruit Meds Home Medications and Allergies Home Medications ?Medication ?Instructions ?Recorded ?Confirmed ?Type albuterol sulfate 90 mcg/actuation 2 puff inhalation Q4-6H PRN 04/25/23 12/20/23 Rx aerosol inhaler shortness of breath or wheezing #3 ea carvedilol 25 mg tablet 25 mg PO BID 90 days #180 tabs 04/25/23 12/20/23 Rx fluticasone fur. 200 mcg-umeclid 1 inh inhalation DAILY 90 days #3 11/06/23 12/20/23 Rx 62.5 mcg-vilant 25 mcg ea inhalat.powder (Trelegy Ellipta) insulin degludec 100 unit/mL (3 37 unit (0.37 mL) SQ DAILY #15 mL 11/08/23 12/20/23 Rx mL) subcutaneous pen (Tresiba FlexTouch U-100 insulin) clopidogrel 75 mg tablet 75 mg PO DAILY 11/24/23 12/20/23 History lisinopril 20 mg tablet 20 mg PO DAILY 11/24/23 12/20/23 History sitagliptin phosphate 100 mg 100 mg PO DAILY 11/24/23 12/20/23 History tablet (Januvia) trazodone 50 mg tablet 50 mg PO HS 11/24/23 12/20/23 History collagenase clostridium histo. 250 1 applic topical DAILY PRN wound 11/27/23 12/20/23 Rx unit/gram topical ointment (Santyl) care 30 days #90 grams atorvastatin 20 mg tablet 20 mg PO HS 12/20/23 12/20/23 History New Prescriptions to Start Prescriptions: Allergies Allergy/AdvReac Type Severity Reaction Status Date / Time Aminoglycosides Allergy Severe Swelling Verified 12/14/23 10:48 of Lip/Tongue/Throat Assessment and Plan *Assessment and plan (1) Acute decompensated heart failure: Status: Acute Category: Medical Code(s): I50.9 - Heart failure, unspecified (2) Respiratory failure with hypoxia: Status: Acute Qualifiers: Chronicity: acute Qualified Code(s): J96.01 - Acute respiratory failure with hypoxia Category: Medical Code(s): J96.91 - Respiratory failure, unspecified with hypoxia (3) RAY (acute kidney injury): Status: Acute Category: Medical Code(s): N17.9 - Acute kidney failure, unspecified (4) Acute non-ST elevation myocardial infarction (NSTEMI): Status: Acute Category: Medical Code(s): I21.4 - Non-ST elevation (NSTEMI) myocardial infarction (5) Hyperlipidemia: Status: Acute Qualifiers: Hyperlipidemia type: unspecified Qualified Code(s): E78.5 - Hyperlipidemia, unspecified Category: Medical Code(s): E78.5 - Hyperlipidemia, unspecified (6) PAD (peripheral artery disease): Status: Acute Category: Medical Code(s): I73.9 - Peripheral vascular disease, unspecified (7) DM type 2 (diabetes mellitus, type 2): Status: Acute Qualifiers: Diabetes mellitus complication status: with other specified complication Diabetes mellitus fci insulin use: with manager long term care use Qualified Code(s): E11.69 - Type 2 diabetes mellitus with other specified complication; Z79.4 - longterm (current) use of insulin Category: Medical Code(s): E11.9 - Type 2 diabetes mellitus without complications (8) Tobacco use: Status: Acute Category: Social Hx Code(s): Z72.0 - Tobacco use Plan NSTEMI Troponin 0.52 trending up to 1.05 EKG sinus tachycardia rate of 106, no ST elevation noted, moderate T wave abnormalities present Load patient with 324 mg p.o. of aspirin x 1 then aspirin 81 mg p.o. daily. Continue Plavix 75 mg p.o. daily. Continue statin. No beta-blockers at this time due to acute decompensated heart failure. Start heparin drip Proceed with left heart catheterization today. Discussed risk versus benefits with patient he is agreeable to proceed Acute hypoxic respiratory failure Acute HFrEF Moderate aortic stenosis History of COPD CTA chest shows a moderate right-sided pleural effusion and a small left- sided pleural effusion. No PE. ProBNP 14,400 Patient was given Lasix 80 mg IV x 1 in the emergency department and has diu resed 780 mL Increase Bumex to 2 mg IV twice daily Echo: Severely reduced EF of 20%, LV septal, anteroseptal and inferoseptal LV gao are nearly akinetic, mild LA dilation, mild AI, moderate Will need lifeVest prior to dc RAY Creatinine 1.5, continue to monitor Peripheral artery disease Reports prior stenting to right lower extremity Recent partial amputation to right foot Diabetes mellitus Defer to primary service Tobacco use Smoking cessation advised CV summary 12/20/2023: NSTEMI plus volume overload. Patient loaded with aspirin and started on heparin drip. Continue Plavix. Plan for left heart catheterization today and to diurese. EF 20%. Cardiac meds Aspirin 81 mg p.o. daily Plavix 75 mg p.o. daily Bumex 2 mg IV twice daily Atorvastatin 40 mg p.o. daily
[2023-12-20] MEDS: BUMETANIDE 1MG/4ML VIAL 1 MG IV ×2 (08:53→11:42)
[2023-12-20] MEDS: CLOPIDOGREL 75MG TAB 75 MG PO (08:53)
--- NOTE | 2023-12-20 09:49 | P.CONS_ITS ---
History of Present Illness History of present illness: Mr. Blair is a 73-year-old male reported history of COPD, diabetes presented to the ER with worsening respiratory distress and pulmonary was called for further evaluation and management. [facility] Disclaimer: The information contained in this section may have been updated after the patient was seen, as this information can be updated by other users. 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 Skin cancer Surgical History Hx of toe surgery H/O repair of right rotator cuff Social History (Updated 12/20/23 @ 05:21 by Gilda Duran RN) Smoking Status: Current every day smoker alcohol intake: never current occupational status: retired Travel in the last 8 weeks: None Review of Systems Constitutional Constitutional: Reports anorexia, Reports body ache(s) and Reports fatigue Eyes Eyes: Denies eye discharge, Denies dry eyes, Denies irritation and Denies itchy eyes ENT Ears, Nose, Mouth, and Throat: Denies epistaxis, Denies facial pain, Denies lip swelling and Denies throat swelling *Cardiovascular Cardiovascular: Reports dyspnea, Reports dyspnea on exertion, Reports leg edema, Reports orthopnea and Reports pedal edema *Respiratory Respiratory: Reports chest congestion, Reports cough, Reports dyspnea, Reports dyspnea on exertion, Reports excessive phlegm production and Reports wheezing *Gastrointestinal Gastrointestinal: Denies abdominal pain, Denies belching and Denies cramping *Musculoskeletal Musculoskeletal: Reports back pain, Reports myalgias and Reports other (No small joint swelling or Pain) Psychiatric Psychiatric: Denies homicidal ideation and Denies suicidal ideation Endocrine Endocrine: Reports fatigue and Denies heat intolerance Hematologic/Lymphatic Hematologic/Lymphatic: Denies easy bleeding and Denies lymphadenopathy Allergic/Immunologic Allergic/Immunologic: Denies itchy eyes, Denies lip swelling, Denies throat swelling and Reports wheezing Pulmonology Exam Inpatient Vital signs and Labs for Last 24 Hours: Temp Pulse Resp BP Pulse Ox O2 Del Method O2 Flow Rate 98.0 F 92 H 26 H 126/77 99 Nasal Cannula 2 12/20/23 04:42 12/20/23 08:00 12/20/23 08:00 12/20/23 08:00 12/20/23 08:00 12/20/23 09:00 12/20/23 09:00 FiO2 40 12/20/23 01:42 Laboratory Results - last 24 hr 12/20/23 00:57: WBC 10.6, RBC 4.60, Hgb 12.7 L, Hct 39.0 L, MCV 84.8, MCH 27.5, MCHC 32.4, RDW 15.5, Plt Count 410, MPV 7.5, Neut % (Auto) 83.6 H, Lymph % (Auto) 11.2, [place] % (Auto) 3.4, Eos % (Auto) 1.4, Baso % (Auto) 0.4, Neut # (Auto) 8.9 H, Lymph # (Auto) 1.2, [place] # (Auto) 0.4, Eos # (Auto) 0.1, Baso # (Auto) 0.1, Sodium 137, Potassium 4.3, Chloride 108 H, Carbon Dioxide 24, Anion Gap 9.3, BUN 15, Creatinine 1.40 H, Estimated Creat Clear 61, Estimated GFR 50 L , Est GFR ( Amer) 60, Glucose 177 H, Calcium 8.6, Magnesium 2.0, Total Bilirubin 0.6, AST 27, ALT 20, Alkaline Phosphatase 99, Troponin I 0.52 H, N T-Pro-B Natriuret Pep 91977 H, Total Protein 7.3, Albumin 3.7, Globulin 3.6 H, A lbumin/Globulin Ratio 1.0 L 12/20/23 01:07: VBG pH 7.25 L, VBG pCO2 45.5, VBG pO2 106.3 H, VBG HCO3 19.6 L, VBG Total CO2 20.9 L, VBG O2 Saturation 97.1 H, VBG Base Excess -7.7 L, VBG Lactic Acid 2.1 H 12/20/23 04:41: WBC 11.6 H, RBC 4.37 L, Hgb 11.9 L, Hct 37.4 L, MCV 85.6, MCH 27.2, MCHC 31.7 L, RDW 15.5, Plt Count 318, MPV 8.0, Neut % (Auto) 86.9 H, Lymph % (Auto) 8.5 L, [place] % (Auto) 4.2, Eos % (Auto) 0.2, Baso % (Auto) 0.3, Neut # (Auto) 10.1 H, Lymph # (Auto) 1.0, [place] # (Auto) 0.5, Eos # (Auto) 0.0, Baso # (Auto) 0.0, Total Counted 100, Neutrophils % (Manual) 86 H, Lymphocytes % (Manual) 13, Monocytes % (Manual) 1 L, Platelet Estimate Normal, RBC Morphology Normal, Sodium 137, Potassium 4.2, Chloride 106, Carbon Dioxide 24, Anion Gap 11.2, BUN 17, Creatinine 1.50 H, Estimated Creat Clear 57, Estimated GFR 46 L, E st GFR ( Amer) 56 L, Glucose 152 H, Calcium 8.4, Magnesium 2.2, Total Bilirubin 0.5, AST 30, ALT 17, Alkaline Phosphatase 92, Troponin I 1.05 H, Total Protein 6.9, Albumin 3.5, Globulin 3.4 H, Albumin/Globulin Ratio 1.0 L 12/20/23 05:22: Lactate 1.2 12/20/23 05:30: POC Glucose 160 H 12/20/23 05:55: Urine Color Yellow, Urine Appearance Clear, Urine pH 5.5, Ur Specific [place] 1.015, Urine Protein Negative, Urine Glucose (UA) Negative, Urine Ketones Negative, Urine Blood 1+, Urine Nitrate Negative, Urine Bilirubin Negative, Urine Urobilinogen 0.2, Ur Leukocyte Esterase Negative, Urine RBC 3-5, Urine WBC Occasional, Ur Squamous Epith Cells 5-10, Urine Bacteria Trace, Hyaline Casts 3-5 I & O for Labs for Last 24 Hours: Intake & Output 12/17/23 12/18/23 12/19/23 12/20/23 23:59 23:59 23:59 23:59 Output Total 780 / 780 Balance -780 / -780 Weight 220 lb 12.8 oz Constitutional: Present moderate distress Head: Present normocephalic and atraumatic ENT: Present normal exam, normal oropharynx and mucous membranes moist Neck: Present normal inspection and full ROM Respiratory: Present respiratory distress, crackles, diminished air movement and able to speak in complete sentences; Absent wheezes Cardiac: Present S1/S2, Tachycardia and radial pulses present GI: Present soft and distention; Absent tenderness or guarding Skin: Present intact; Absent cyanosis or jaundice Neuro: Present alert, awake and oriented x 3 Extremities: Present normal inspection and edema; Absent clubbing or cyanosis Psychiatric: Present normal affect and cooperative Meds Home Medications and Allergies Home Medications ?Medication ?Instructions ?Recorded ?Confirmed ?Type albuterol sulfate 90 mcg/actuation 2 puff inhalation Q4-6H PRN 04/25/23 12/20/23 Rx aerosol inhaler shortness of breath or wheezing #3 ea carvedilol 25 mg tablet 25 mg PO BID 90 days #180 tabs 04/25/23 12/20/23 Rx fluticasone fur. 200 mcg-umeclid 1 inh inhalation DAILY 90 days #3 11/06/23 12/20/23 Rx 62.5 mcg-vilant 25 mcg ea inhalat.powder (Trelegy Ellipta) insulin degludec 100 unit/mL (3 37 unit (0.37 mL) SQ DAILY #15 mL 11/08/23 12/20/23 Rx mL) subcutaneous pen (Tresiba FlexTouch U-100 insulin) clopidogrel 75 mg tablet 75 mg PO DAILY 11/24/23 12/20/23 History lisinopril 20 mg tablet 20 mg PO DAILY 11/24/23 12/20/23 History sitagliptin phosphate 100 mg 100 mg PO DAILY 11/24/23 12/20/23 History tablet (Januvia) trazodone 50 mg tablet 50 mg PO HS 11/24/23 12/20/23 History collagenase clostridium histo. 250 1 applic topical DAILY PRN wound 11/27/23 12/20/23 Rx unit/gram topical ointment (Santyl) care 30 days #90 grams atorvastatin 20 mg tablet 20 mg PO HS 12/20/23 12/20/23 History New Prescriptions to Start Prescriptions: Allergies Allergy/AdvReac Type Severity Reaction Status Date / Time Aminoglycosides Allergy Severe Swelling Verified 12/14/23 10:48 of Lip/Tongue/Throat Results Laboratory Findings 12/20/23 09:38 12/20/23 09:38 Abnormal lab findings: Abnormal Labs 12/20/23 12/20/23 12/20/23 00:57 01:07 04:41 WBC 11.6 H RBC 4.37 L Hgb 12.7 L 11.9 L Hct 39.0 L 37.4 L MCHC 31.7 L Neut % (Auto) 83.6 H 86.9 H Lymph % (Auto) 8.5 L Neut # (Auto) 8.9 H 10.1 H Neutrophils % (Manual) 86 H Monocytes % (Manual) 1 L VBG pH 7.25 L VBG pO2 106.3 H VBG HCO3 19.6 L VBG Total CO2 20.9 L VBG O2 Saturation 97.1 H VBG Base Excess -7.7 L VBG Lactic Acid 2.1 H Chloride 108 H Creatinine 1.40 H 1.50 H Estimated GFR 50 L 46 L Est GFR ( Amer) 56 L Glucose 177 H 152 H POC Glucose Troponin I 0.52 H 1.05 H NT-Pro-B Natriuret Pep 53847 H Globulin 3.6 H 3.4 H Albumin/Globulin Ratio 1.0 L 1.0 L 12/20/23 05:30 WBC RBC Hgb Hct MCHC Neut % (Auto) Lymph % (Auto) Neut # (Auto) Neutrophils % (Manual) Monocytes % (Manual) VBG pH VBG pO2 VBG HCO3 VBG Total CO2 VBG O2 Saturation VBG Base Excess VBG Lactic Acid Chloride Creatinine Estimated GFR Est GFR ( Amer) Glucose POC Glucose 160 H Troponin I NT-Pro-B Natriuret Pep Globulin Albumin/Globulin Ratio Assessment and Plan *Assessment and plan (1) COPD mixed type: Status: Acute Category: Medical Code(s): J44.9 - Chronic obstructive pulmonary disease, unspecified (2) Pleural effusion, bilateral: Status: Acute Category: Medical Code(s): J90 - Pleural effusion, not elsewhere classified (3) Acute respiratory failure with hypoxia: Status: Acute Category: Medical Code(s): J96.01 - Acute respiratory failure with hypoxia Plan Mr. Blair is a 73-year-old male reported history of COPD, diabetes presented to the ER with worsening respiratory distress and pulmonary was called for further evaluation and management. Afebrile. Hemodynamically stable. Neutrophilic from leukocytosis upon admission. VBG upon admission did not show any significant evidence of hypercarbia. Concerning for metabolic acidosis. CTA upon admission moderate right pleural effusion and small left pleural effusion. Nodular opacity in the left major fissure, which can well be fluid accumulation. Not seen on his CT from September 2023. No other dense consolidative changes/evidence of pneumonia noted. On examination patient does appear to be in respiratory distress. Bibasilar crackles and 2+ lower extremity edema. On 2 L saturating 97%. Weaned to room air with saturations maintained at 92% on echo. Continue to be in respiratory distress. Plan: Will hold off on thoracentesis at this point of time pending response to diuretics. Will monitor closely No need for antibiotics at this point of time Discontinue BiPAP therapy at this point of time. If patient were to be hypoxic recommend initiating CPAP therapy as likely 2/2 heart failure exacerbation. Patient does have metabolic acidosis on his admission VBG
[2023-12-20] MEDS: ASPIRIN 81MG CHEWABLE TABLET 324 MG PO (09:55)
[2023-12-20 10:05] LABS: Basophils % 0.5 % (0.1-2.0); Eosinophils % 0.4 % (0.1-12.0); Hematocrit 37.6 % (42.0-52.0); Hemoglobin 11.9 g/dL (14.1-18.0); Lymphocytes # 1.2 K/mm3 (0.7-4.5); Lymphocytes % 15.9 % (10-50); Mean Corpuscular HGB Conc 31.8 g/dL (31.8-35.4); Mean Corpuscular Volume 84.8 fl (80-94); Mean Platelet Volume 7.6 fl (7.4-10.4); Monocytes # 0.4 K/mm3 (0.1-1.0); Monocytes % 5.1 % (1.7-9.3); Neutrophils # 5.7 K/mm3 (1.8-7.8); Neutrophils % 78.1 % (37.0-80.0); Platelet Count 305 K/mm3 (142-424); Red Blood Count 4.43 M/mm3 (4.60-6.20); Red Cell Distribution Width 15.4 % (11.5-17.5); White Blood Count 7.2 K/mm3 (4.8-10.8)
[2023-12-20 10:09] LABS: Anion Gap 15.7 mEq/L (5-15); Blood Urea Nitrogen 20 mg/dl (9-20); Calcium 8.1 mg/dl (8.4-10.2); Carbon Dioxide 17 mmol/L (22.0-30.0); Chloride 108 mmol/L (98-107); Creatinine Clearance Estimated 79 mL/min (50-200); Estimated Glomerular Filt Rate 60 ml/min (>60); GFR (African American) 72 ML/MIN (>60); Glucose 129 mg/dl (74-100); Potassium 4.7 mmoL/L (3.5-5.1); Sodium 136 mmol/L (136-145)
[2023-12-20 10:20] LABS: PTT Heparin (inpatient only) 31.6 Seconds (50-75)
[2023-12-20] MEDS: HEPARIN SODIUM 5,000 UNIT/ML VIAL 4000 UNIT IV (10:40)
[2023-12-20] MEDS: HEPARIN SODIUM,PORCINE/D5W 500 ML 20 UNIT IV (10:40)
[2023-12-20] MEDS: IPRATROPIUM/ALBUTEROL 3 ML NEB IH ×2 (11:36→18:04)
[2023-12-20] MEDS: diphenhydrAMINE 50MG/ML VIAL 50 MG IV (12:12)
[2023-12-20] MEDS: HEPARIN 1,000 UNITS/ML 10ML VIAL (CATH LAB) 10000 UNIT IV (12:16)
[2023-12-20] MEDS: VERAPAMIL 2.5MG/ML 2ML VIAL 2.5 MG IV (12:17)
[2023-12-20] MEDS: HEPARIN 1,000 UNITS/500ML NS (CATH LAB) 3000 UNIT IV (12:18)
[2023-12-20] MEDS: 0.9 % SODIUM CHLORIDE 500 ML 25 ML IV (12:18)
[2023-12-20] MEDS: FENTANYL 100MCG/2ML VIAL 50 MCG IV (12:19)
[2023-12-20] MEDS: MIDAZOLAM HCL 1MG/1ML 5ML VIAL 1 MG IV (12:20)
--- NOTE | 2023-12-20 12:57 | SUR.PHASEII ---
called report to hu patino
[2023-12-20] MEDS: BUMETANIDE 1MG/4ML VIAL 2 MG IV (15:57)
[2023-12-20] MEDS: IOPAMIDOL-370 (76%);100ML BOTTLE 150 ML IV (16:13)
[2023-12-20 16:16] LABS: CATHL Activated Clotting Time > 400 SEC (74-125)
--- NOTE | 2023-12-20 16:44 | PC.NURSE ---
VS stable, patient able to tolerate room air while awake but 2LNC while sleeping as sats drop to 88%. Heart cath site intact, tr band in place, pt tolerating air removal. Alert and oriented times 4 but fatigued from procedure.
[2023-12-20 19:32] LABS: Anion Gap 10.8 mEq/L (5-15); Blood Urea Nitrogen 21 mg/dl (9-20); Calcium 8.1 mg/dl (8.4-10.2); Carbon Dioxide 26 mmol/L (22.0-30.0); Chloride 104 mmol/L (98-107); Creatinine Clearance Estimated 59 mL/min (50-200); Estimated Glomerular Filt Rate 43 ml/min (>60); GFR (African American) 52 ML/MIN (>60); Glucose 90 mg/dl (74-100); Potassium 3.8 mmoL/L (3.5-5.1); Sodium 137 mmol/L (136-145)
[2023-12-20] MEDS: PANTOPRAZOLE 40MG VIAL 40 MG IV (20:20)
[2023-12-20] MEDS: ATORVASTATIN 40MG TABLET 40 MG PO (20:20)
[2023-12-20] MEDS: SODIUM CHLORIDE 0.9% 10ML VIAL 10 ML IV (20:21)
[2023-12-21] VITALS (17 sets, daily range): BP systolic 106–143; BP diastolic 56–79; PULSE 93–100; RESP 18–24; TEMP 36.5–36.9; O2SAT 84–99; BMI 29.2
[2023-12-21] MEDS: IPRATROPIUM/ALBUTEROL 3 ML NEB IH ×5 (00:20→23:46)
[2023-12-21 05:52] LABS: POC Glucose,Bedside 89 (70-110)
[2023-12-21 05:52] LABS: POC Glucose,Bedside 89 (70-110)
[2023-12-21 05:52] LABS: POC Glucose,Bedside 100 (70-110)
--- NOTE | 2023-12-21 05:54 | PC.NURSE ---
Shift summary: Mr. Blair rested well throughout this shift without any acute changes. His cath site dressing remains c/d/i. He is continuing to receive 2L/nc of o2. His heart rate is controlled in the 90s as Afib. He has adequate urinary output via a Fajardo catheter, with clear and yellow urine. Currently, the patient is sleeping.
[2023-12-21 06:57] LABS: Alanine Aminotransferase 18 U/L (12-78); Albumin Level 3.2 g/dl (3.5-5.0); Albumin/Globulin Ratio 0.9 (1.1-1.8); Alkaline Phosphatase 82 U/L (38-126); Anion Gap 8.6 mEq/L (5-15); Aspartate Amino Transferase 48 U/L (17-59); Bilirubin,Total 0.4 mg/dl (0.2-1.3); Blood Urea Nitrogen 21 mg/dl (9-20); Calcium 8.1 mg/dl (8.4-10.2); Carbon Dioxide 26 mmol/L (22.0-30.0); Chloride 106 mmol/L (98-107); Creatinine Clearance Estimated 62 mL/min (50-200); Estimated Glomerular Filt Rate 46 ml/min (>60); GFR (African American) 56 ML/MIN (>60); Globulin 3.4 g/dL (1.3-3.2); Glucose 78 mg/dl (74-100); Magnesium 2.1 mg/dl (1.6-2.3); Potassium 3.6 mmoL/L (3.5-5.1); Sodium 137 mmol/L (136-145); Total Protein,Serum 6.6 g/dl (6.3-8.2)
--- OUTSIDE RECORDS SUMMARY | 2023-12-21 07:03 | XMS_ITS | Clinical Summary ---
Author Organization [facility] Address [address] [place] [address] Phone Care Team Providers Care Fpga Engineer Name Role Phone Catrachito MASON, Marco A Trivedi [ ] Conditions or Problems Problem Name Problem Code Onset Date Status Entry Date Provider Comment Standard Description Annotate Infection of amputation stump, RLE 310363646 (SNOMED CT) 09/22 Active 09/22 Elvia Oreilly Infection of amputation stump Cellulitis of RLE 242528139 (SNOMED CT) 09/22 Active 09/22 Elvia Oreilly Cellulitis of lower limb Gram-neg kris infection B96.89 (ICD-10-CM ) 09/22 Active 09/22 Elvia Oreilly Other specified bacterial agents as the cause of diseases classified elsewhere MSSA infection 180013082 (SNOMED CT) 09/22 Active 09/22 Elvia Oreilly Infection by methicillin sensitive Staphylococcus aureus COPD 50903442 (SNOMED CT) 09/22 Active 09/22 Elvia Oreilly Chronic obstructive pulmonary disease DM II with diabetic peripheral neuropathy 81989845 (SNOMED CT) 09/22 Active 09/22 Elvia Oreilly Type 2 diabetes mellitus Gangrene with DM II PVD 75259654 (SNOMED CT) 06/06 Resolved 06/06 Elvia Oreilly Type 2 diabetes mellitus Necrosis of amputation stump, right lower extremity/TMA site 260508670 (SNOMED CT) 06/06 Resolved 06/06 Elvia Oreilly Necrosis of amputation stump Cellulitis, foot, right 118691571 (SNOMED CT) 06/06 Resolved 06/06 Elvia Oreilly Cellulitis of foot Acquired absence of right great toe Z89.411 (ICD-10-CM ) 06/06 Active 06/06 Elvia Oreilly Acquired absence of right great toe Acquired absence of right lesser toe(s) Z89.421 (ICD-10-CM ) 06/06 Active 06/06 Elvia Oreilly Acquired absence of other right toe(s) Cellulitis, foot, right 205763651 (SNOMED CT) 06/06 Removed 06/06 Elvia Oreilly Cellulitis of foot Necrosis of amputation stump, right lower extremity/TMA site 250893955 (SNOMED CT) 06/06 Removed 06/06 Elvia Oreilly Necrosis of amputation stump Gangrene with DM II PVD 65978330 (SNOMED CT) 06/06 Removed 06/06 Elvia Oreilly Type 2 diabetes mellitus Nicotine dependence, cigarettes 689835748 (SNOMED CT) 06/06 Active 06/06 Elvia Oreilly Tobacco user DM II with diabetic PVD 452770208 (SNOMED CT) 06/06 Active 06/06 Elvia Oreilly Peripheral vascular disease Benign Essential Hypertension 6073232 (SNOMED CT) 06/06 Active 06/06 Elvia Oreilly Benign essential hypertension Medications Medication Instructions Start Date Stop Date Generic Name [facility] Provider CEFTRIAXONE SODIUM SOLR 2G [facility] Q [facility] CEFTRIAXONE SODIUM SOLR [id number] Maryanne Isaac RN FLAGYL 500 MG ORAL TABLET Take one (1) tablet by mouth three times a day METRONIDAZOLE 47029610831 Marco A Winston MD CEFDINIR 300 MG CAPS 1 by mouth every 12 hours CEFDINIR 56231907002 Marco A Winston MD OXYCODONE HCL 5 MG CAPS 1 tab po every 4 to 6 hours prn for pain OXYCODONE HCL 73478123158 Evelyne Florance FAMOTIDINE TABS 1 tab po q12hrs FAMOTIDINE TABS 07582040214 Evelyne Florance ENOXAPARIN SODIUM 40 MG/0.4ML SUBCUTANEOUS SOLUTION 40 mgs subcutaneous every day ENOXAPARIN SODIUM 71123691638 Evelyne Florance COLACE CAPS 1 cap 2 times daily DOCUSATE SODIUM CAPS 10875958239 Evelyne Florance IPRATROPIUM-ALBU TEROL 0.5-2.5 (3) MG/3ML SOLN Take one tablet by mouth every 6 hours as needed IPRATROPIUM-ALBU TEROL 13877705836 Evelyne Florance COLACE 100 MG CAPS DOCUSATE SODIUM 18394705502 Evelyne Florance CEFTRIAXONE SODIUM SOLR 2G IV Q 24 [facility] CEFTRIAXONE SODIUM SOLR 07705699509 Madeleine Hassan PLAVIX 75 MG TABS CLOPIDOGREL BISULFATE 76057553030 [facility] [place] [facility] NICOTINE 21 MG/24HR PT24 NICOTINE 61318768876 [facility] [place] LISINOPRIL 20 MG TABS LISINOPRIL 88168195693 [facility] [place] HUMALOG 100 UNIT/ML SUBCUTANEOUS SOLUTION INSULIN LISPRO 54947787889 [facility] [place] COREG 25 MG TABS CARVEDILOL 83961883905 [facility] [place] ATORVASTATIN CALCIUM 40 MG TABS ATORVASTATIN CALCIUM 81377116553 [facility] [place] Medications Administered No information available. Allergies, Adverse [...] Documenta tion of current medications (procedure) DIET ADDICTION SPECIALIST Yes - Overweight Dietary manageme nt education, [...] IV antibiotics 2020 CPT-Cooral Continue oral antibiotics 20 09/10/24 CPT-wpc Weekly PICC Line Care 10/13 [...]
[2023-12-21 07:04] LABS: Basophils % 0.4 % (0.1-2.0); Eosinophils # 0.1 K/mm3 (0.0-0.4); Hematocrit 35.2 % (42.0-52.0); Hemoglobin 11.3 g/dL (14.1-18.0); Lymphocytes # 1.2 K/mm3 (0.7-4.5); Lymphocytes % 16.1 % (10-50); Mean Corpuscular Hemoglobin 26.6 pg (27.0-31.2); Mean Corpuscular Volume 83.2 fl (80-94); Mean Platelet Volume 7.9 fl (7.4-10.4); Monocytes # 0.4 K/mm3 (0.1-1.0); Monocytes % 5.6 % (1.7-9.3); Neutrophils # 5.9 K/mm3 (1.8-7.8); Neutrophils % 76.8 % (37.0-80.0); Platelet Count 282 K/mm3 (142-424); Red Blood Count 4.23 M/mm3 (4.60-6.20); Red Cell Distribution Width 15.6 % (11.5-17.5); White Blood Count 7.7 K/mm3 (4.8-10.8)
[2023-12-21] MEDS: CLOPIDOGREL 75MG TAB 75 MG PO (08:02)
[2023-12-21] MEDS: ASPIRIN EC 81MG TABLET 81 MG PO (08:03)
[2023-12-21] MEDS: BUMETANIDE 1MG/4ML VIAL 2 MG IV ×2 (08:04→16:17)
--- NOTE | 2023-12-21 09:05 | P.PN_ITS ---
Subjective Subjective Date: 12/21/23 Time: 08:30 Principal diagnosis: Nstemi, acute HFrEF Interval history: Patient is status post stenting yesterday. Denies chest pain, reports shortness of air has greatly improved. Vitals remain stable. Patient is diuresing well, has diuresed over 2 L since midnight. Morning labs reviewed. Exam Data for Last 24 hours Vital signs and Labs for Last 24 Hours: Temp Pulse Resp BP Pulse Ox O2 Del Method O2 Flow Rate 98.0 F 93 H 22 131/70 95 Nasal Cannula 2 12/21/23 07:57 12/21/23 08:00 12/21/23 08:00 12/21/23 08:00 12/21/23 08:00 12/21/23 08:00 12/21/23 08:00 FiO2 40 12/20/23 01:42 Laboratory Results - last 24 hr 12/20/23 09:38: WBC 7.2 D, RBC 4.43 L, Hgb 11.9 L, Hct 37.6 L, MCV 84.8, MCH 27.0, MCHC 31.8, RDW 15.4, Plt Count 305, MPV 7.6, Neut % (Auto) 78.1, Lymph % (Auto) 15.9, [place] % (Auto) 5.1, Eos % (Auto) 0.4, Baso % (Auto) 0.5, Neut # (Auto) 5.7, Lymph # (Auto) 1.2, [place] # (Auto) 0.4, Eos # (Auto) 0.0, Baso # (Auto) 0.0, APTT 31.6 L, Sodium 136, Potassium 4.7, Chloride 108 H, Carbon Dioxide 17 L, Anion Gap 15.7 H, BUN 20, Creatinine 1.20, Estimated Creat Clear 79, Estimated GFR 60, Est GFR ( Amer) 72 D, Glucose 129 H, Calcium 8.1 L 12/20/23 12:30: Activated Clotting Time > 400 H* 12/20/23 16:32: POC Glucose 89 12/20/23 19:05: Sodium 137, Potassium 3.8, Chloride 104, Carbon Dioxide 26, Anion Gap 10.8, BUN 21 H, Creatinine 1.60 H D, Estimated Creat Clear 59, Estimat ed GFR 43 L, Est GFR ( Amer) 52 L D, Glucose 90 D, Calcium 8.1 L, Magnesium 2.0 12/20/23 20:16: POC Glucose 100 12/21/23 05:21: WBC 7.7, RBC 4.23 L, Hgb 11.3 L, Hct 35.2 L, MCV 83.2, MCH 26.6 L, MCHC 32.0, RDW 15.6, Plt Count 282, MPV 7.9, Neut % (Auto) 76.8, Lymph % (Auto) 16.1, [place] % (Auto) 5.6, Eos % (Auto) 1.0, Baso % (Auto) 0.4, Neut # (Auto) 5.9, Lymph # (Auto) 1.2, [place] # (Auto) 0.4, Eos # (Auto) 0.1, Baso # (Auto) 0.0, Sodium 137, Potassium 3.6, Chloride 106, Carbon Dioxide 26, Anion Gap 8.6, BUN 21 H, Creatinine 1.50 H, Estimated Creat Clear 62, Estimated GFR 46 L, Est GFR ( Amer) 56 L, Glucose 78, Calcium 8.1 L, Magnesium 2.1, Total Bilirubin 0.4, AST 48 D, ALT 18, Alkaline Phosphatase 82, Total Protein 6.6, Albumin 3.2 L, Globulin 3.4 H, Albumin/Globulin Ratio 0.9 L 12/21/23 05:42: POC Glucose 89 I & O for Last 24 hours: Intake & Output 12/18/23 12/19/23 12/20/23 12/21/23 23:59 23:59 23:59 23:59 Intake Total 240 / 440 200 / 200 Output Total 1605 / 3105 1500 / 1500 Balance -1365 / -2665 -1300 / -1300 Weight 220 lb 12.8 oz 215 lb 12.8 oz Constitutional Constitutional: no acute distress *Routine Respiratory Exam Respiratory: Present CTA bilaterally and symmetric chest movement *Routine Cardiovascular Exam Cardiovascular: Present RRR, Normal S1 and Normal S2 *Routine Abdominal Exam Abdominal: Present soft and normoactive bowel sounds; Absent tenderness *Routine Extremities Exam Extremities: Present full ROM and normal capillary refill; Absent edema *Routine Skin Exam Skin: Present intact, dry and warm Detailed Neck Exam: Thyroids Thyroid: Absent bruit Progress Note: A&P Assessment and plan (1) Respiratory failure with hypoxia: Status: Acute (2) Flash pulmonary edema: Status: Acute (3) Acute decompensated heart failure: Status: Acute (4) Acute non-ST elevation myocardial infarction (NSTEMI): Status: Acute (5) RAY (acute kidney injury): Status: Acute (6) PAD (peripheral artery disease): Status: Acute (7) DM type 2 (diabetes mellitus, type 2): Status: Acute (8) Diabetic ulcer of right foot associated with diabetes mellitus due to underlying condition, with fat layer exposed: Problem details: Recent admission 11/24/23 to [facility] for Sepsis, Right TMA DFU to lateral foot with cellulitis. Podiatry follow up visit #1 12/06/23 Status: Acute Assessment and Plan Assessment and Plan for All Diagnoses:: CAD NSTEMI [facility] 12/20/2023: Successful reconstruction of the proximal mid and distal dominant RCA with 3 contiguous ARLETH, stenting of the critically diseased ramus intermedius with 1 ARLETH, moderate to severe disease in the proximal LAD with successful stenting with 1 ARLETH, severe left ventricular dysfunction with elevated LVEDP Continue aspirin 81 mg p.o. daily, Plavix 75 mg p.o. daily, atorvastatin 80 mg p.o. daily. Will hold on beta-karen at this time due to severely reduced ejection fraction and acute heart failure. Acute hypoxic respiratory failure Acute mixed ischemic and nonischemic HFrEF Moderate aortic stenosis History of COPD CTA chest shows a moderate right-sided pleural effusion and a small left- sided pleural effusion. No PE. Elevated BNP Echo: Severely reduced EF of 20%, LV septal, anteroseptal and inferoseptal LV gao are nearly akinetic, mild LA dilation, mild AI, moderate Continue Bumex 2 mg IV twice daily. Start Jardiance 10 mg p.o. daily and Entresto 24/26 mg p.o. twice daily. No beta-karen at this time will consider adding tomorrow. 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 Continues to diurese well. Will add Entresto and Jardiance today. Order for LifeVest placed. Cardiac meds Aspirin 81 mg p.o. daily Plavix 75 mg p.o. daily Bumex 2 mg IV twice daily Atorvastatin 40 mg p.o. daily Entresto 24/26 mg p.o. twice daily Jardiance 10 mg p.o. daily
[2023-12-21] MEDS: SACUBITRIL/VALSARTAN 24-26MG TABLET 1 EACH PO ×2 (09:37→20:27)
[2023-12-21] MEDS: EMPAGLIFLOZIN 10MG TABLET 10 MG PO (09:37)
--- NOTE | 2023-12-21 09:42 | SW/DCPLANNER ---
Addendum entered by Suzie Shen 12/22/23 13:52: Corey nolan/ [facility] stated that home health services will start the first of next week. Addendum entered by Suzie Shen 12/22/23 12:14: Patient information/order has been faxed to [facility] today. Patient will discharge home this afternoon. Original Note: I spoke w/ this patient regarding plans once medically stable for discharge. PT/OT evaluated patient and recommended home health services. Patient is agreeable to home health and stated that he has used [facility] in the past. Patient prefers to use [facility] at time of discharge. I will set up home health services once medically stable for discharge. Discharge date is unknown at this time. I will continue to follow up.
--- NOTE | 2023-12-21 09:53 | EXP.PULM.PN ---
Subjective *Date: 12/22/23 *Time: 12:34 Interval history: No acute respiratory events overnight. Patient admits continued improvement in his respiratory distress. Pulmonology Exam Inpatient Vital signs and Labs for Last 24 Hours: Temp Pulse Resp BP Pulse Ox O2 Del Method O2 Flow Rate 98.0 F 93 H 22 131/70 95 Nasal Cannula 2 12/21/23 07:57 12/21/23 08:00 12/21/23 08:00 12/21/23 08:00 12/21/23 08:00 12/21/23 09:19 12/21/23 09:19 FiO2 40 12/20/23 01:42 Laboratory Results - last 24 hr 12/20/23 09:38: WBC 7.2 D, RBC 4.43 L, Hgb 11.9 L, Hct 37.6 L, MCV 84.8, MCH 27.0, MCHC 31.8, RDW 15.4, Plt Count 305, MPV 7.6, Neut % (Auto) 78.1, Lymph % (Auto) 15.9, [place] % (Auto) 5.1, Eos % (Auto) 0.4, Baso % (Auto) 0.5, Neut # (Auto) 5.7, Lymph # (Auto) 1.2, [place] # (Auto) 0.4, Eos # (Auto) 0.0, Baso # (Auto) 0.0, APTT 31.6 L, Sodium 136, Potassium 4.7, Chloride 108 H, Carbon Dioxide 17 L, Anion Gap 15.7 H, BUN 20, Creatinine 1.20, Estimated Creat Clear 79, Estimated GFR 60, Est GFR ( Amer) 72 D, Glucose 129 H, Calcium 8.1 L 12/20/23 12:30: Activated Clotting Time > 400 H* 12/20/23 16:32: POC Glucose 89 12/20/23 19:05: Sodium 137, Potassium 3.8, Chloride 104, Carbon Dioxide 26, Anion Gap 10.8, BUN 21 H, Creatinine 1.60 H D, Estimated Creat Clear 59, Estimated GFR 43 L, Est GFR ( Amer) 52 L D, Glucose 90 D, Calcium 8.1 L, Magnesium 2.0 12/20/23 20:16: POC Glucose 100 12/21/23 05:21: WBC 7.7, RBC 4.23 L, Hgb 11.3 L, Hct 35.2 L, MCV 83.2, MCH 26.6 L, MCHC 32.0, RDW 15.6, Plt Count 282, MPV 7.9, Neut % (Auto) 76.8, Lymph % (Auto) 16.1, [place] % (Auto) 5.6, Eos % (Auto) 1.0, Baso % (Auto) 0.4, Neut # (Auto) 5.9, Lymph # (Auto) 1.2, [place] # (Auto) 0.4, Eos # (Auto) 0.1, Baso # (Auto) 0.0, Sodium 137, Potassium 3.6, Chloride 106, Carbon Dioxide 26, Anion Gap 8.6, BUN 21 H, Creatinine 1.50 H, Estimated Creat Clear 62, Estimated GFR 46 L, Est GFR ( Amer) 56 L, Glucose 78, Calcium 8.1 L, Magnesium 2.1, Total Bilirubin 0.4, AST 48 D, ALT 18, Alkaline Phosphatase 82, Total Protein 6.6, Albumin 3.2 L, Globulin 3.4 H, Albumin/Globulin Ratio 0.9 L 12/21/23 05:42: POC Glucose 89 Temp Pulse Resp BP Pulse Ox O2 Del Method O2 Flow Rate 98.0 F 92 H 26 H 126/77 99 Nasal Cannula 2 12/20/23 04:42 12/20/23 08:00 12/20/23 08:00 12/20/23 08:00 12/20/23 08:00 12/20/23 09:00 12/20/23 09:00 FiO2 40 12/20/23 01:42 Laboratory Results - last 24 hr 12/20/23 00:57: WBC 10.6, RBC 4.60, Hgb 12.7 L, Hct 39.0 L, MCV 84.8, MCH 27.5, MCHC 32.4, RDW 15.5, Plt Count 410, MPV 7.5, Neut % (Auto) 83.6 H, Lymph % (Auto) 11.2, [place] % (Auto) 3.4, Eos % (Auto) 1.4, Baso % (Auto) 0.4, Neut # (Auto) 8.9 H, Lymph # (Auto) 1.2, [place] # (Auto) 0.4, Eos # (Auto) 0.1, Baso # (Auto) 0.1, Sodium 137, Potassium 4.3, Chloride 108 H, Carbon Dioxide 24, Anion Gap 9.3, BUN 15, Creatinine 1.40 H, Estimated Creat Clear 61, Estimated GFR 50 L, Est GFR ( Amer) 60, Glucose 177 H, Calcium 8.6, Magnesium 2.0, Total Bilirubin 0.6, AST 27, ALT 20, Alkaline Phosphatase 99, Troponin I 0.52 H, NT-Pro-B Natriuret Pep 86844 H, Total Protein 7.3, Albumin 3.7, Globulin 3.6 H, Albumin/Globulin Ratio 1.0 L 12/20/23 01:07: VBG pH 7.25 L, VBG pCO2 45.5, VBG pO2 106.3 H, VBG HCO3 19.6 L, VBG Total CO2 20.9 L, VBG O2 Saturation 97.1 H, VBG Base Excess -7.7 L, VBG Lactic Acid 2.1 H 12/20/23 04:41: WBC 11.6 H, RBC 4.37 L, Hgb 11.9 L, Hct 37.4 L, MCV 85.6, MCH 27.2, MCHC 31.7 L, RDW 15.5, Plt Count 318, MPV 8.0, Neut % (Auto) 86.9 H, Lymph % (Auto) 8.5 L, [place] % (Auto) 4.2, Eos % (Auto) 0.2, Baso % (Auto) 0.3, Neut # (Auto) 10.1 H, Lymph # (Auto) 1.0, [place] # (Auto) 0.5, Eos # (Auto) 0.0, Baso # (Auto) 0.0, Total Counted 100, Neutrophils % (Manual) 86 H, Lymphocytes % (Manual) 13, Monocytes % (Manual) 1 L, Platelet Estimate Normal, RBC Morphology Normal, Sodium 137, Potassium 4.2, Chloride 106, Carbon Dioxide 24, Anion Gap 11.2, BUN 17, Creatinine 1.50 H, Estimated Creat Clear 57, Estimated GFR 46 L, Est GFR ( Amer) 56 L, Glucose 152 H, Calcium 8.4, Magnesium 2.2, Total Bilirubin 0.5, AST 30, ALT 17, Alkaline Phosphatase 92, Troponin I 1.05 H, Total Protein 6.9, Albumin 3.5, Globulin 3.4 H, Albumin/Globulin Ratio 1.0 L 12/20/23 05:22: Lactate 1.2 12/20/23 05:30: POC Glucose 160 H 12/20/23 05:55: Urine Color Yellow, Urine Appearance Clear, Urine pH 5.5, Ur Specific Benedict 1.015, Urine Protein Negative, Urine Glucose (UA) Negative, Urine Ketones Negative, Urine Blood 1+, Urine Nitrate Negative, Urine Bilirubin Negative, Urine Urobilinogen 0.2, Ur Leukocyte Esterase Negative, Urine RBC 3-5, Urine WBC Occasional, Ur Squamous Epith Cells 5-10, Urine Bacteria Trace, Hyaline Casts 3-5 I & O for Labs for Last 24 Hours: Intake & Output 12/18/23 12/19/23 12/20/23 12/21/23 23:59 23:59 23:59 23:59 Intake Total 240 / 440 200 / 200 Output Total 1605 / 3105 2350 / 2350 Balance -1365 / -2665 -2150 / -2150 Weight 220 lb 12.8 oz 215 lb 12.8 oz Intake & Output 12/17/23 12/18/23 12/19/23 12/20/23 23:59 23:59 23:59 23:59 Output Total 780 / 780 Balance -780 / -780 Weight 220 lb 12.8 oz Constitutional: Present moderate distress Head: Present normocephalic and atraumatic ENT: Present normal exam, normal oropharynx and mucous membranes moist Neck: Present normal inspection and full ROM Respiratory: Present diminished air movement and able to speak in complete sentences; Absent respiratory distress, wheezes or crackles Cardiac: Present S1/S2, Tachycardia and radial pulses present GI: Present soft and distention; Absent tenderness or guarding Skin: Present intact; Absent cyanosis or jaundice Neuro: Present alert, awake and oriented x 3 Extremities: Present normal inspection; Absent edema, clubbing or cyanosis Psychiatric: Present normal affect and cooperative Assessment and Plan *Assessment and plan (1) COPD mixed type: Status: Acute Category: Medical Code(s): J44.9 - Chronic obstructive pulmonary disease, unspecified (2) Pleural effusion, bilateral: Status: Acute Category: Medical Code(s): J90 - Pleural effusion, not elsewhere classified (3) Acute respiratory failure with hypoxia: Status: Acute Category: Medical Code(s): J96.01 - Acute respiratory failure with hypoxia Plan Mr. Blair is a 73-year-old male reported history of COPD, diabetes presented to the ER with worsening respiratory distress and pulmonary was called for further evaluation and management. Afebrile. Hemodynamically stable. Neutrophilic from leukocytosis upon admission. VBG upon admission did not show any significant evidence of hypercarbia. Concerning for metabolic acidosis. CTA upon admission moderate right pleural effusion and small left pleural effusion. Nodular opacity in the left major fissure, which can well be fluid accumulation. Not seen on his CT from September 2023. No other dense consolidative changes/evidence of pneumonia noted. On initial examination patient does appear to be in respiratory distress. Bibasilar crackles and 2+ lower extremity edema. On 2 L saturating 97%. Weaned to room air with saturations maintained at 92% on echo. Continue to be in respiratory distress. Echocardiogram reduced EF at 20%. RV size and function within normal limits. Septal motion abnormalities noted. Status post left heart cath stenting. Interval update: No acute respiratory vents overnight. Weaned to room air. Tolerating well. No need for thoracentesis. Plan: -COntinue Duo Nebs Q6 scheduled. Can be discharged home on Anoro inhaler from pulmonary standpoint. -No need for antibiotics at this point of time Follow in pulmonary clinic in 2 to 3 weeks post discharge.
--- NOTE | 2023-12-21 10:48 | HMH.PTEV ---
Physical Therapy Evaluation Rehab PT IP Evaluation Start: 12/20/23 17:31 Freq: ONCE Status: Active Protocol: Document 12/21/23 09:32 CARYN (Rec: 12/21/23 10:47 CARYN [id number]) Subjective/History History History Patient Francois Blair is a 73-year-old male with history of COPD, insulin- dependent diabetes, status post partial amputation of the right foot, recent admission for sepsis related to infected diabetic foot ulcer, hypertension. Patient was admitted on (12/20/23) for SOB and complaint's of chest pain and was tachypneic. Patient does not live alone and normally is able to complete ADL's on his own, his niece said he does this dishes and washes clothes on his own too. Patient has a boot that he wears to protect the heel due to a transmetatarsal amputation on the R foot. Patient doesn't not have any stairs within his home, and normally uses a walker to ambulate. He currently has no complaints of pain at this time and is ready to go home. Subjective Subjective Patient states he was not feeling well and did not get much sleep last night, he was willing to participate in the PT session and ambulate to the bedside chair. Patient was connected back to the correct lines and call renae was placed with in his reach. Patient normally has supplemental O2 through [place] that he wears at night (2L), this was removed by patient during session. New diagnosis of cancer in past 12 No months? Rehab PT IP Eval Objective Appearance Patient Behavior Appropriate,Cooperative Patient Orientation Person,Place,Name,Age,Birthday ,Day of Month,Situation Difficulty following instructions none Speech Pattern Clear,Appropriate,Coherent Ambulation Patient Able to Ambulate Yes Ambulation Observation IP General Gait Pattern Observation Decrease Weight Bear (R), Decrease Stride Lngth (R) Ambulation Distance (feet) 25 Ambulation Assistive Device Rolling Walker Ambulation Ability Supervision/Stand by Balance Ability to Arise Able, uses arms to help Sitting Balance Steady, safe Standing Balance Unsteady Dynamic Sitting Balance Ability Good Dynamic Standing Balance Ability Good Transfers Bed Transfer Ability Minimal x 1 (25% assist) Sit to Stand Bed Transfer Ability Minimal x 1 (25% assist) Rehab PT IP prob,goals,plan Problems Date of Evaluation: 12/21/23 PT IP Problems Transfers,Balance,Safety Rehab Potential Rehab Potential Good Plan PT Intervention Plan Transfers,Balance,Safety PT Plan Frequency Daily Duration LOS Discharge Goals Bed Transfer Ability Independent Sit to Stand Chair Transfer Ability Independent Ambulation Assistive Device Rolling Walker Ambulation Distance (feet) 50 Discharge Plan PT Discharge Plan Patient is appropriate at this time for skilled PT to address the concern of safety during transfers and ambulation. He will significantly benefit through LE strengthening and gait training to improve his QOL. It is recommended that when the patient is medically stable he obtain home health to further address these concerns. Eval Complexity Eval Charge Codes 49528 - High Complexity PHYSICIAN CERTIFICATION: I certify the specified therapy services for Francois Blair are required, authorized, and reviewed every 30 days.
--- NOTE | 2023-12-21 11:03 | HMH.OTEV ---
OT Inpatient Evaluation Rehab OT IP Evaluation Start: 12/20/23 17:31 Freq: ONCE Status: Active Protocol: Document 12/21/23 10:58 [facility] (Rec: 12/21/23 11:03 [facility] [id number]) Rehab OT IP Assessment Subjective History Patient Francois Blair is a 73-year-old male with history of COPD, insulin- dependent diabetes, status post partial amputation of the right foot, recent admission for sepsis related to infected diabetic foot ulcer, hypertension. Patient was admitted on (12/20/23) for SOB and complaint's of chest pain and was tachypneic. Patient does not live alone and normally is able to complete ADL's on his own, his niece said he does this dishes and washes clothes on his own too. Patient has a boot that he wears to protect the heel due to a transmetatarsal amputation on the R foot. Patient doesn't not have any stairs within his home, and normally uses a walker to ambulate. He currently has no complaints of pain at this time and is ready to go home. Subjective Patient states he was not feeling well and did not get much sleep last night, he was willing to participate in the OT evaluation and transfer to the bedside chair. Patient was connected back to the correct lines and call renae was placed with in his reach. Patient normally has supplemental O2 through [place] that he wears at night (2L), this was removed by patient during session. Objective Patient Orientation Person,Place,Birthday Right Upper Extremity Gross ROM WFL Left Upper Extremity Gross ROM WFL Bed Mobility bed mobility-scooting,bed mobility - supine/sit Assist Level Minimal x 1 (25% assist) Transfer Training Sit/Stand Transfer Assist Level Minimal x 1 (25% assist) Chair Transfer Ability Minimal x 1 (25% assist) Chair Transfer Technique Sit to/from Ambulatory Chair Transfer Assistive Devices Rolling Walker Rehab OT IP prob,goals,plan Problems Date of Evaluation: 12/21/23 OT IP Problems Bed Mobility,Transfers,Balance ,Self care,Safety Rehab Potential Rehab Potential Good Equipment Needs Assistive Devices Rolling / Wheeled Walker Plan OT intervention Plan Bed Mobility,Transfers,Balance ,Self care,Safety,Therapeutic Exercise OT Plan Frequency Daily Duration LOS Discharge Goals Bed Mobility Ability Standby Assistance Sit to Stand Chair Transfer Ability Contact Guard/Hand Hold Chair Transfer Ability Contact Guard/Hand Hold Chair Transfer Technique Sit to/from Ambulatory Chair Transfer Assistive Devices Rolling Walker Lower Body Dressing Ability Moderate Assistance Upper Body Dressing Ability Independent Bathing Ability Moderate Assistance Performing Toilet Hygiene Ability Standby Assistance Overall Commode/Toilet Transfer Ability Contact Guard Commode/Toilet Transfer Technique Sit to/from Ambulatory Commode/Toilet Transfer Assistive Grab Bars Devices Oral Care Assist Standby Assistance Decrease in Endurance No Discharge Plan OT Discharge Plan Patient is appropriate at this time for skilled OT to address the concern of safety during transfers and ADL independence. Pt can return home with family once he is medically stable per physician . Therapist recommends HH OT evaluation upon returning home for continued skilled therapy services. Pt agreeable to this plan. Eval Complexity Eval Charge Codes 62425 - Moderate Complexity PHYSICIAN CERTIFICATION: I certify the specified therapy services for Francois Blair are required, authorized, and reviewed every 30 days.
--- NOTE | 2023-12-21 15:18 | EXP.ACUTE.PN ---
Subjective *Date: 12/21/23 *Time: 17:14 Interval history: Patient bedside chair on exam this morning, eating breakfast. Feeling somewhat better. Diuresing well. Denies any giovani chest pain. On room air while upright, necessitating supplemental oxygen when laying flat. -4.7 L in the past 24 hours. No fever, nausea, vomiting, diarrhea. Medical Exam Vital signs and Labs for Last 24 Hours: Vital Signs Temp Pulse Pulse Pulse Resp BP BP 12/21/23 13:15 12/21/23 11:54 97.7 F 95 H 20 125/72 12/21/23 11:33 98 H 12/21/23 11:33 93 H 12/21/23 11:33 12/21/23 11:26 12/21/23 10:00 99 H 18 143/77 H 12/21/23 09:19 12/21/23 08:00 100 H 12/21/23 08:00 93 H 22 131/70 12/21/23 07:57 98.0 F 12/21/23 07:50 95 H 12/21/23 07:40 12/21/23 06:28 94 H 12/21/23 06:28 93 H 12/21/23 06:28 12/21/23 06:00 94 H 20 106/56 L 12/21/23 04:00 98 F 97 H 24 118/58 L 12/21/23 04:00 97 H 12/21/23 02:00 98 H 18 133/73 12/21/23 00:20 97 H 12/21/23 00:20 100 H 12/21/23 00:00 98 H 12/21/23 00:00 98.4 F 99 H 20 136/79 12/20/23 22:00 98 H 19 128/73 12/20/23 20:00 96 H 12/20/23 20:00 99 H 16 116/53 L 12/20/23 19:30 98.4 F 97 H 15 119/46 L 12/20/23 18:37 12/20/23 18:30 95 H 26 H 129/76 12/20/23 18:04 94 H 12/20/23 18:04 94 H 12/20/23 18:04 12/20/23 17:30 95 H 26 H 128/72 12/20/23 17:00 12/20/23 16:30 93 H 24 125/73 12/20/23 16:00 90 12/20/23 16:00 12/20/23 16:00 92 H 28 H 120/60 12/20/23 15:30 93 H 26 H 127/77 Pulse Ox O2 Del Method O2 Flow Rate 12/21/23 13:15 Nasal Cannula 2 12/21/23 11:54 98 Nasal Cannula 2 12/21/23 11:33 12/21/23 11:33 12/21/23 11:33 95 Nasal Cannula 2 12/21/23 11:26 Room Air 12/21/23 10:00 95 Room Air 12/21/23 09:19 Nasal Cannula 2 12/21/23 08:00 12/21/23 08:00 95 Nasal Cannula 2 12/21/23 07:57 12/21/23 07:50 97 Nasal Cannula 2 12/21/23 07:40 84 L Room Air 12/21/23 06:28 12/21/23 06:28 12/21/23 06:28 96 Nasal Cannula 2 12/21/23 06:00 97 Nasal Cannula 2 12/21/23 04:00 95 Nasal Cannula 2 12/21/23 04:00 12/21/23 02:00 95 Nasal Cannula 2 12/21/23 00:20 12/21/23 00:20 12/21/23 00:00 12/21/23 00:00 91 L Nasal Cannula 1 12/20/23 22:00 93 L Nasal Cannula 1 12/20/23 20:00 12/20/23 20:00 95 Nasal Cannula 1 12/20/23 19:30 92 L Nasal Cannula 1 12/20/23 18:37 Nasal Cannula 1 12/20/23 18:30 94 L Nasal Cannula 1 12/20/23 18:04 12/20/23 18:04 12/20/23 18:04 95 Nasal Cannula 2 12/20/23 17:30 93 L Nasal Cannula 1 12/20/23 17:00 Nasal Cannula 2 12/20/23 16:30 96 Nasal Cannula 2 12/20/23 16:00 12/20/23 16:00 Nasal Cannula 2 12/20/23 16:00 96 Nasal Cannula 2 12/20/23 15:30 96 Nasal Cannula 2 Intake and Output 12/20/23 12/21/2324 23:59 07:59 15:59 Intake Total 240 / 440 200 / 200 Output Total 1500 / 3550 2049 / 3549 Balance 240 / -2665 -1300 / -3350 -2049 / 3350 Intake: Intake, Oral Amount 240 / 440 200 / 200 Output: Output, Urine Amount 0 / 850 850 / 850 Output, Urine Amount (Catheter) 1500 / 2700 1200 / 2700 [place] 1500 / 1500 Fajardo 1200 / 1200 Other: Number of Unmeasured Voids 0 0 0 Weight 97.885 kg Patient Weight 12/21/23 23:59 Weight 97.885 kg Laboratory Results - last 24 hr 12/20/23 12:30: Activated Clotting Time > 400 H* 12/20/23 16:32: POC Glucose 89 12/20/23 19:05: Sodium 137, Potassium 3.8, Chloride 104, Carbon Dioxide 26, Anion Gap 10.8, BUN 21 H, Creatinine 1.60 H D, Estimated Creat Clear 59, Estimated GFR 43 L, Est GFR ( Amer) 52 L D, Glucose 90 D, Calcium 8.1 L, Magnesium 2.0 12/20/23 20:16: POC Glucose 100 12/21/23 05:21: WBC 7.7, RBC 4.23 L, Hgb 11.3 L, Hct 35.2 L, MCV 83.2, MCH 26.6 L, MCHC 32.0, RDW 15.6, Plt Count 282, MPV 7.9, Neut % (Auto) 76.8, Lymph % (Auto) 16.1, [place] % (Auto) 5.6, Eos % (Auto) 1.0, Baso % (Auto) 0.4, Neut # (Auto) 5.9, Lymph # (Auto) 1.2, [place] # (Auto) 0.4, Eos # (Auto) 0.1, Baso # (Auto) 0.0, Sodium 137, Potassium 3.6, Chloride 106, Carbon Dioxide 26, Anion Gap 8.6, BUN 21 H, Creatinine 1.50 H, Estimated Creat Clear 62, Estimated GFR 46 L, Est GFR ( Amer) 56 L, Glucose 78, Calcium 8.1 L, Magnesium 2.1, Total Bilirubin 0.4, AST 48 D, ALT 18, Alkaline Phosphatase 82, Total Protein 6.6, Albumin 3.2 L, Globulin 3.4 H, Albumin/Globulin Ratio 0.9 L 12/21/23 05:42: POC Glucose 89 I & O for Labs for Last 24 Hours: Intake & Output 12/18/23 12/19/23 12/20/23 12/21/23 23:59 23:59 23:59 23:59 Intake Total 240 / 440 200 / 200 Output Total 1605 / 3105 3550 / 3550 Balance -1365 / -2665 -3350 / -3350 Weight 100.153 kg 97.885 kg Constitutional: Present no acute distress, obese, chronically ill appearing, disheveled and cooperative Head: Present atraumatic and normocephalic ENT: Present normal exam Neck: Present normal inspection Respiratory: Present crackles (bilateral bases) and normal respiratory effort; Absent rhonchi or wheezes Cardiac: Present Reg Rate and Rhythm GI: Present soft and normal bowel sounds; Absent distention or tenderness Extremities: Present normal inspection and full ROM Comment:: Right lower extremity in postop bandage. Skin: Present intact; Absent erythema Neuro: Present Grossly Intact, alert, awake, oriented x 3 and moves all extremities; Absent Sensory Function Intact Comment:: Decree sensation in feet Assessment and Plan *Assessment and plan (1) Acute non-ST elevation myocardial infarction (NSTEMI): Status: Acute Category: Medical Code(s): I21.4 - Non-ST elevation (NSTEMI) myocardial infarction (2) Respiratory failure with hypoxia: Status: Acute Qualifiers: Chronicity: acute Qualified Code(s): J96.01 - Acute respiratory failure with hypoxia Category: Medical Code(s): J96.91 - Respiratory failure, unspecified with hypoxia (3) Flash pulmonary edema: Status: Acute Category: Medical Code(s): J81.0 - Acute pulmonary edema (4) Acute decompensated heart failure: Status: Acute Category: Medical Code(s): I50.9 - Heart failure, unspecified (5) RAY (acute kidney injury): Status: Acute Category: Medical Code(s): N17.9 - Acute kidney failure, unspecified (6) PAD (peripheral artery disease): Status: Acute Category: Medical Code(s): I73.9 - Peripheral vascular disease, unspecified (7) DM type 2 (diabetes mellitus, type 2): Status: Acute Qualifiers: Diabetes mellitus complication status: with other specified complication Diabetes mellitus mcc insulin use: with mcc use Qualified Code(s): E11.69 - Type 2 diabetes mellitus with other specified complication; Z79.4 - equipment [employer] (current) use of insulin Category: Medical Code(s): E11.9 - Type 2 diabetes mellitus without complications (8) Diabetic ulcer of right foot associated with diabetes mellitus due to underlying condition, with fat layer exposed: Problem Comment: Recent admission 11/24/23 to [facility] for Sepsis, Right TMA DFU to lateral foot with cellulitis. Podiatry follow up visit #1 12/06/23 Status: Acute Qualifiers: Diabetic foot ulcer location: other Qualified Code(s): E08.621 - Diabetes mellitus due to underlying condition with foot ulcer; L97.512 - Non-pressure chronic ulcer of other part of right foot with fat layer exposed Category: Medical Code(s): E08.621 - Diabetes mellitus due to underlying condition with foot ulcer; L97.512 - Non-pressure chronic ulcer of other part of right foot with fat layer exposed (9) COPD mixed type: Status: Acute Category: Medical Code(s): J44.9 - Chronic obstructive pulmonary disease, unspecified (10) Tobacco use: Status: Acute Category: Social Hx Code(s): Z72.0 - Tobacco use (11) Pleural effusion, bilateral: Status: Acute Category: Medical Code(s): J90 - Pleural effusion, not elsewhere classified (12) CAD (coronary artery disease): Status: Acute Category: Medical Code(s): I25.10 - Atherosclerotic heart disease of [place] coronary artery without angina pectoris Plan 3-year-old male with history of COPD, insulin-dependent diabetes, status post partial amputation of the right foot, recent admission for sepsis related to infected diabetic foot ulcer, hypertension, presents for severe shortness of breath. on arrival patient was placed on BIPAP, 80mg IV lasix given. 800ml urine output. Laboratory workup independently interpreted by me and significant for mildly elevated lactate with acidosis pH 7.25. BNP elevated at 1400, initial troponin elevated at 0.5. Creatinine elevated at 1.4, up from baseline of around 1.9. CT showed bilateral pleural effusion. bedside US suspected pulmonary edema. Findings discussed with ED after admission been requested. Agreed for inpatient management. Taken for heart cath. Showing some improvement with diuresis. Continues to require monitoring for at least 48 hours due to severity of heart failure and multivessel disease. Problems addressed as follows: Acute respiratory failure with hypoxia, secondary to acute pulmonary edema Due to acute decompensated heart failure with reduced ejection fraction Non-STEMI CAD RAY like hypoperfusion COPD, pleural effusion, acute respiratory failure. Discussed case with pulmonology, recommendations for continuation of supplemental oxygen as needed for goal sats greater than 90%. Currently on 2 L. No indication for thoracentesis. will hold on antibiotics at this time. Discontinue BiPAP. If patient hypoxic, recommend CPAP therapy due to heart failure unless patient has respiratory acidosis, would reevaluate at that time. Cardiology consulted, discussed case today. Status post left heart cath yesterday with multiple stents to three-vessel disease. Tolerated procedure well. Continue aggressive diuresis. Bumex 2 mg IV twice daily -Will initiate goal-directed therapy: Initiate Jardiance 10 mg daily, Entresto 24/26 mg twice daily. Holding beta-karen in the setting of acute heart failure. -To monitor platelet therapy with aspirin 81 mg daily and Plavix 75 mg daily. -Discontinue Fajardo catheter -Labs this morning with potassium 3.6, magnesium 2.1. Kidney function with BUN 21, creatinine 1.5. Continue to monitor every 12 hours with aggressive diuresis. Will replace electrolytes as needed -Continue on telemetry. Echo obtained showing EF less than 20%. Will need LifeVest prior to discharge. -BMP ordered for this afternoon, CBC, CMP, magnesium ordered for the morning. Insulin-dependent type 2 diabetes. Uncontrolled A1c 12.4 on 11/22. Continue sliding scale insulin with fingersticks ACHS. Continue insulin glargine 15 units nightly Diabetic ulcer of right foot status post TMA. Wound care daily. Appears stable. No signs of infection On Protonix for GI protection DNR/DNI Cardiac diet
--- NOTE | 2023-12-21 16:25 | PC.NURSE ---
Pt is a/o x4, pt is lying in bed conversing with family at bedside. pt has appeared to rest well most of the shift. pt has been offered assistance to get up to the chair for both lunch and supper. pt has declined stating that he just feels tired and wants to rest. nad noted. pt is currently voiding clear yellow urine via ross. per dr Ibrahim ross is to be dc at 1800. explained to pt that if he is unable to void by 10-12 hrs post removal, pt bladder will be scanned and depending on the amount of urine in bladder a ross will be reinserted. pt states understanding. pt lung sounds are clear throughout, bowel sounds are active in all quads. pt denies any pain or shortness of air.
[2023-12-21 16:31] LABS: Anion Gap 9.5 mEq/L (5-15); Blood Urea Nitrogen 21 mg/dl (9-20); Calcium 8.3 mg/dl (8.4-10.2); Carbon Dioxide 26 mmol/L (22.0-30.0); Chloride 104 mmol/L (98-107); Creatinine Clearance Estimated 66 mL/min (50-200); Estimated Glomerular Filt Rate 50 ml/min (>60); GFR (African American) 60 ML/MIN (>60); Glucose 108 mg/dl (74-100); Potassium 3.5 mmoL/L (3.5-5.1); Sodium 136 mmol/L (136-145)
--- NOTE | 2023-12-21 17:40 | PC.NURSE ---
old dressing on left foot removed. wound wiped with betadine. betadine soaked gauze applied to wound. then dry gauze applied. foot wrapped in kerlix and secured with coban. pt tolerated well. dressing to be completed daily .
[2023-12-21 20:15] LABS: POC Glucose,Bedside 102 (70-110)
[2023-12-21] MEDS: POTASSIUM CHLORIDE 20MEQ TAB 40 MEQ PO (20:27)
[2023-12-21] MEDS: PANTOPRAZOLE 40MG VIAL 40 MG IV (20:27)
[2023-12-21] MEDS: ATORVASTATIN 40MG TABLET 40 MG PO (20:27)
[2023-12-22] VITALS: BP 117/70; PULSE 100; PULSE 98; RESP 18; TEMP 36.7; O2SAT 94
[2023-12-22 04:00] VITALS: BP 110/52; PULSE 100; PULSE 98; RESP 18; TEMP 36.6; O2SAT 97; BMI 28.6
[2023-12-22 06:03] LABS: Basophils % 0.5 % (0.1-2.0); Eosinophils # 0.1 K/mm3 (0.0-0.4); Eosinophils % 1.7 % (0.1-12.0); Hemoglobin 11.4 g/dL (14.1-18.0); Lymphocytes # 1.4 K/mm3 (0.7-4.5); Lymphocytes % 17.8 % (10-50); Mean Corpuscular HGB Conc 32.6 g/dL (31.8-35.4); Mean Corpuscular Volume 82.9 fl (80-94); Mean Platelet Volume 7.3 fl (7.4-10.4); Monocytes # 0.5 K/mm3 (0.1-1.0); Monocytes % 6.2 % (1.7-9.3); Neutrophils # 5.9 K/mm3 (1.8-7.8); Neutrophils % 73.9 % (37.0-80.0); Platelet Count 292 K/mm3 (142-424); Red Blood Count 4.22 M/mm3 (4.60-6.20); Red Cell Distribution Width 15.8 % (11.5-17.5); White Blood Count 7.9 K/mm3 (4.8-10.8)
[2023-12-22 06:22] LABS: Alanine Aminotransferase 16 U/L (12-78); Albumin Level 3.2 g/dl (3.5-5.0); Albumin/Globulin Ratio 0.9 (1.1-1.8); Alkaline Phosphatase 80 U/L (38-126); Anion Gap 9.6 mEq/L (5-15); Aspartate Amino Transferase 38 U/L (17-59); Bilirubin,Total 0.7 mg/dl (0.2-1.3); Blood Urea Nitrogen 19 mg/dl (9-20); Calcium 8.4 mg/dl (8.4-10.2); Carbon Dioxide 25 mmol/L (22.0-30.0); Chloride 104 mmol/L (98-107); Creatinine Clearance Estimated 70 mL/min (50-200); Estimated Glomerular Filt Rate 54 ml/min (>60); GFR (African American) 66 ML/MIN (>60); Globulin 3.5 g/dL (1.3-3.2); Glucose 85 mg/dl (74-100); Potassium 3.6 mmoL/L (3.5-5.1); Sodium 135 mmol/L (136-145); Total Protein,Serum 6.7 g/dl (6.3-8.2)
[2023-12-22 06:23] LABS: POC Glucose,Bedside 88 (70-110)
--- NOTE | 2023-12-22 06:29 | PC.NURSE ---
Pt is A&OX4 and has been asleep the majority of the shift. He has remained on 2L O2 NC. Right radial cath site clean dry and intact. Lung sounds clear throughout. Bowel sounds active in all quadrants. He denies any pain and has no complaints at this time. Call light within reach.
[2023-12-22] MEDS: IPRATROPIUM/ALBUTEROL 3 ML NEB IH ×2 (06:58→11:24)
[2023-12-22 07:56] VITALS: BP 106/58; PULSE 94; RESP 22; TEMP 36.7; O2SAT 97
[2023-12-22 08:00] VITALS: PULSE 95
[2023-12-22] MEDS: CLOPIDOGREL 75MG TAB 75 MG PO (08:02)
[2023-12-22] MEDS: ASPIRIN EC 81MG TABLET 81 MG PO (08:02)
[2023-12-22] MEDS: EMPAGLIFLOZIN 10MG TABLET 10 MG PO (08:02)
[2023-12-22] MEDS: SACUBITRIL/VALSARTAN 24-26MG TABLET 1 EACH PO (08:02)
[2023-12-22] MEDS: POTASSIUM CHLORIDE 20MEQ TAB 40 MEQ PO (08:02)
[2023-12-22] MEDS: BUMETANIDE 1MG/4ML VIAL 2 MG IV (08:03)
--- NOTE | 2023-12-22 08:54 | P.PN_ITS ---
Subjective Subjective Date: 12/22/23 Time: 08:30 Principal diagnosis: Nstemi, acute HFrEF Interval history: Patient doing well this morning, denies chest pain or shortness of breath. Continues to diurese well. Morning labs reviewed. Exam Data for Last 24 hours Vital signs and Labs for Last 24 Hours: Temp Pulse Resp BP Pulse Ox O2 Del Method O2 Flow Rate 98.1 F 94 H 22 106/58 L 97 Nasal Cannula 2 12/22/23 07:56 12/22/23 07:56 12/22/23 07:56 12/22/23 07:56 12/22/23 07:56 12/22/23 08:00 12/22/23 08:00 FiO2 40 12/20/23 01:42 Laboratory Results - last 24 hr 12/21/23 16:14: Sodium 136, Potassium 3.5, Chloride 104, Carbon Dioxide 26, An ion Gap 9.5, BUN 21 H, Creatinine 1.40 H, Estimated Creat Clear 66, Estimated GFR 50 L, Est GFR ( Amer) 60, Glucose 108 H D, Calcium 8.3 L 12/21/23 20:04: POC Glucose 102 12/22/23 05:17: WBC 7.9, RBC 4.22 L, Hgb 11.4 L, Hct 35.0 L, MCV 82.9, MCH 27.0, MCHC 32.6, RDW 15.8, Plt Count 292, MPV 7.3 L, Neut % (Auto) 73.9, Lymph % (Auto) 17.8, [place] % (Auto) 6.2, Eos % (Auto) 1.7, Baso % (Auto) 0.5, Neut # (Auto) 5.9, Lymph # (Auto) 1.4, [place] # (Auto) 0.5, Eos # (Auto) 0.1, Baso # (Auto) 0.0, Sodium 135 L, Potassium 3.6, Chloride 104, Carbon Dioxide 25, Anion Gap 9.6, BUN 19, Creatinine 1.30 H, Estimated Creat Clear 70, Estimated GFR 54 L , Est GFR ( Amer) 66, Glucose 85 D, Calcium 8.4, Magnesium 2.0, Total Bilirubin 0.7, AST 38, ALT 16, Alkaline Phosphatase 80, Total Protein 6.7, Albumin 3.2 L, Globulin 3.5 H, Albumin/Globulin Ratio 0.9 L 12/22/23 06:16: POC Glucose 88 I & O for Last 24 hours: Intake & Output 12/19/23 12/20/23 12/21/23 12/22/23 23:59 23:59 23:59 23:59 Intake Total 240 / 440 200 / 350 420 / 420 Output Total 1605 / 3105 4600 / 5075 700 / 700 Balance -1365 / -2665 -4400 / -4725 -280 / -280 Weight 220 lb 12.8 oz 215 lb 12.8 oz 211 lb 6.4 oz Constitutional Constitutional: no acute distress *Routine Respiratory Exam Respiratory: Present CTA bilaterally and symmetric chest movement *Routine Cardiovascular Exam Cardiovascular: Present RRR, Normal S1 and Normal S2 *Routine Abdominal Exam Abdominal: Present soft and normoactive bowel sounds; Absent tenderness *Routine Extremities Exam Extremities: Present full ROM and normal capillary refill; Absent edema *Routine Skin Exam Skin: Present intact, dry and warm Detailed Neck Exam: Thyroids Thyroid: Absent bruit Progress Note: A&P Assessment and plan (1) Acute non-ST elevation myocardial infarction (NSTEMI): Status: Acute (2) Respiratory failure with hypoxia: Status: Acute (3) Flash pulmonary edema: Status: Acute (4) Acute decompensated heart failure: Status: Acute (5) RAY (acute kidney injury): Status: Acute (6) PAD (peripheral artery disease): Status: Acute (7) DM type 2 (diabetes mellitus, type 2): Status: Acute (8) Diabetic ulcer of right foot associated with diabetes mellitus due to underlying condition, with fat layer exposed: Problem details: Recent admission 11/24/23 to [facility] for Sepsis, Right TMA DFU to lateral foot with cellulitis. Podiatry follow up visit #1 12/06/23 Status: Acute (9) COPD mixed type: Status: Acute (10) Tobacco use: Status: Acute (11) Pleural effusion, bilateral: Status: Acute (12) CAD (coronary artery disease): Status: Acute Assessment and Plan Assessment and Plan for All Diagnoses:: CAD NSTEMI [facility] 12/20/2023: Successful reconstruction of the proximal mid and distal dominant RCA with 3 contiguous ARLETH, stenting of the critically diseased ramus intermedius with 1 ARLETH, moderate to severe disease in the proximal LAD with successful stenting with 1 ARLETH, severe left ventricular dysfunction with elevated LVEDP Continue aspirin 81 mg p.o. daily, Plavix 75 mg p.o. daily, atorvastatin 80 m g p.o. daily. Will hold on beta-karen at this time due to severely reduced ejection fraction and acute heart failure. Acute hypoxic respiratory failure Acute mixed ischemic and nonischemic HFrEF Moderate aortic stenosis History of COPD CTA chest on admission showed a moderate right-sided pleural effusion and a small left-sided pleural effusion. No PE. Elevated BNP on admission Echo: Severely reduced EF of 20%, LV septal, anteroseptal and inferoseptal LV gao are nearly akinetic, mild LA dilation, mild AI, moderate Has diuresed over 5 L Continue Entresto 24/26 mg p.o. daily and Jardiance 10 mg p.o. daily. Add Aldactone 12.5 mg p.o. daily. No beta-karen due to acute systolic heart failure. DC home on Lasix 40 mg p.o. daily LifeVest prior to dc-order placed RAY-improving Creatinine 1.3, continue to monitor Peripheral artery disease Reports prior stenting to right lower extremity Recent partial amputation to right foot On aspirin, statin, Plavix Diabetes mellitus Defer to primary service Tobacco use Smoking cessation advised CV summary 12/22/2023: Patient is CV stable for discharge home. Please continue below listed medications and have patient follow-up in cardiology clinic on Monday for reevaluation. Patient will be discharged home in LifeVest. Cardiac meds Aspirin 81 mg p.o. daily Plavix 75 mg p.o. daily Lasix 40 mg p.o. daily Atorvastatin 40 mg p.o. daily Entresto 24/26 mg p.o. twice daily Jardiance 10 mg p.o. daily Aldactone 12.5 mg p.o. daily No beta-karen at discharge due to recovering acute systolic heart failure
--- NOTE | 2023-12-22 09:05 | EXP.DC.SUM ---
General Admission date:: 12/20/23 Discharge date: 12/22/23 HPI HPI HPI: This is a 73-year-old male with history of COPD, insulin-dependent diabetes, status post partial amputation of the right foot, recent admission for sepsis related to infected diabetic foot ulcer, hypertension, presents for severe shortness of breath. History obtained from ED documentation due to patient mental status. per ED: Patient was in his relatively normal state of health when he started having shortness of breath. He complained of chest pain and was tachypneic. On EMS arrival he was normotensive, satting mid to high 80s on room air. On arrival to the ER patient is tachypneic, uncomfortable appearing, moaning, able/unwilling to engage in conversation. Satting low 90s on nonrebreather. Tachycardic to 120. No reported history of blood clot, no reported cardiac history. On my assessment patient on continuous BIPAP. 16/8 FiO2 of 40%. hemodinamically stable. HR 90's. Admitted for further management. Hospital Course Hospital Course Hospital Course: 73-year-old male with history of COPD, insulin-dependent diabetes, status post partial amputation of the right foot, recent admission for sepsis related to infected diabetic foot ulcer, hypertension, presents for severe shortness of breath. on arrival patient was placed on BIPAP, 80mg IV lasix given. 800ml urine output. Laboratory workup independently interpreted by me and significant for mildly elevated lactate with acidosis pH 7.25. BNP elevated at 1400, initial troponin elevated at 0.5. Creatinine elevated at 1.4, up from baseline of around 1.9. CT showed bilateral pleural effusion. bedside US suspected pulmonary edema. Findings discussed with ED after admission been requested. Agreed for inpatient management. Patient showed some improvement with diuresis. Cardiology was consulted. Given concern for severe heart failure and elevating troponin, taken for heart cath. Received stents in 3 different vessels. Had severe multivessel disease. Has improved with diuresis and heart cath. Weaned to room air. Stable to discharge home with LifeVest. Monitored for 48 hours with no events. Problems addressed as follows: Acute respiratory failure with hypoxia, secondary to acute pulmonary edema Due to acute decompensated heart failure with reduced ejection fraction Non-STEMI CAD RAY like hypoperfusion Patient admitted with respiratory failure and placed on BiPAP. Found to have NSTEMI. Aggressively diuresed. Cardiology evaluated and recommended heart cath due to severely reduced ejection fraction and akinesis of his left ventricle. Left heart cath performed 12/20/23 Successful reconstruction of the proximal mid and distal dominant RCA with 3 contiguous ARLETH, stenting of the critically diseased ramus intermedius with 1 ARLETH, moderate to severe disease in the proximal LAD with successful stenting with 1 ARLETH, severe left ventricular dysfunction with elevated LVEDP. Recommend continuing aspirin 81 mg p.o. daily, Plavix 75 mg p.o. daily, atorvastatin 80 mg p.o. daily. Will hold on beta-karen at this time due to severely reduced ejection fraction and acute heart failure. Patient overall doing well, had good response to diuresis. -5 L for his hospitalization. Initiated on goal-directed therapy for heart failure with Entresto 24/26 mg twice daily, Jardiance 10 mg daily, Aldactone 12.5 mg daily. Will also continue Lasix 40 mg daily to assist with fluid management. Echo obtained showing Severely reduced EF of 20%, LV septal, anteroseptal and inferoseptal LV gao are nearly akinetic, mild LA dilation, mild AI, moderate . Given severity of reduced ejection fraction below 35%, LifeVest placed prior to discharge home. RAY-improving: Improving. Creatinine 1.3, BUN 19 on day of discharge. Needs repeat labs at follow-up Peripheral artery disease Reports prior stenting to right lower extremity. Recent partial amputation to right foot. On aspirin, statin, Plavix Diabetes mellitus: A1c 12.4 on 11/22. Resume home diabetes regimen at chart. Sliding scale will and insulin glargine during houser. Will continue Januvia 100 mg daily at discharge, Tresiba 30 mg daily, Jardiance 10 mg daily. Needs repeat A1c in 8 weeks Tobacco use: Smoking cessation advised Diabetic ulcer of right foot status post TMA. Wound care daily. Appears stable. No signs of infection. Follow with podiatry as scheduled. Stable to discharge home. Will follow-up with cardiology in clinic on Monday. Total time spent on discharge 32 minutes in counseling, documentation, chart review, and direct care with patient. Exam Data for Last 24 hours Vital signs and Labs for Last 24 Hours: Temp Pulse Resp BP Pulse Ox O2 Del Method O2 Flow Rate 98.1 F 94 H 22 106/58 L 97 Nasal Cannula 2 12/22/23 07:56 12/22/23 07:56 12/22/23 07:56 12/22/23 07:56 12/22/23 07:56 12/22/23 08:00 12/22/23 08:00 FiO2 40 12/20/23 01:42 Laboratory Results - last 24 hr 12/21/23 16:14: Sodium 136, Potassium 3.5, Chloride 104, Carbon Dioxide 26, Anion Gap 9.5, BUN 21 H, Creatinine 1.40 H, Estimated Creat Clear 66, Estimated GFR 50 L, Est GFR ( Amer) 60, Glucose 108 H D, Calcium 8.3 L 12/21/23 20:04: POC Glucose 102 12/22/23 05:17: WBC 7.9, RBC 4.22 L, Hgb 11.4 L, Hct 35.0 L, MCV 82.9, MCH 27.0, MCHC 32.6, RDW 15.8, Plt Count 292, MPV 7.3 L, Neut % (Auto) 73.9, Lymph % (Auto) 17.8, [place] % (Auto) 6.2, Eos % (Auto) 1.7, Baso % (Auto) 0.5, Neut # (Auto) 5.9, Lymph # (Auto) 1.4, [place] # (Auto) 0.5, Eos # (Auto) 0.1, Baso # (Auto) 0.0, Sodium 135 L, Potassium 3.6, Chloride 104, Carbon Dioxide 25, Anion Gap 9.6, BUN 19, Creatinine 1.30 H, Estimated Creat Clear 70, Estimated GFR 54 L, Est GFR ( Amer) 66, Glucose 85 D, Calcium 8.4, Magnesium 2.0, Total Bilirubin 0.7, AST 38, ALT 16, Alkaline Phosphatase 80, Total Protein 6.7, Albumin 3.2 L, Globulin 3.5 H, Albumin/Globulin Ratio 0.9 L 12/22/23 06:16: POC Glucose 88 I & O for Last 24 hours: Intake & Output 12/19/23 12/20/23 12/21/23 12/22/23 23:59 23:59 23:59 23:59 Intake Total 240 / 440 200 / 350 420 / 420 Output Total 1605 / 3105 4600 / 5075 700 / 700 Balance -1365 / -2665 -4400 / -4725 -280 / -280 Weight 100.153 kg 97.885 kg 95.889 kg Constitutional Constitutional: no acute distress, average body habitus, chronically ill appearing and cooperative *Routine HEENT Exam Head: Present normocephalic Eye: Present EOMI ENT: Present mucous membranes moist Comments: Legally blind *Routine Neck Exam Neck: Present supple and full ROM *Routine Respiratory Exam Respiratory: Present normal respiratory effort; Absent rhonchi, wheezes or crackles *Routine Cardiovascular Exam Cardiovascular: Present RRR, Normal S1 and Normal S2 *Routine Abdominal Exam Abdominal: Present soft and normoactive bowel sounds *Routine Rectal Exam Patient deferred: visual exam *Routine Exam Patient deferred: penile exam *Routine Extremities Exam Extremities: Absent cyanosis, clubbing or edema *Routine Skin Exam Skin: Present intact and warm *Routine Neurological Exam Neurological: Present alert, oriented X3 and moving all extremities; Absent altered mental status Results Data Completed and Pending Labs on day of discharge: Labs from last 24 hours 12/22/23 12/22/23 12/21/23 06:16 05:17 20:04 WBC 7.9 RBC 4.22 L Hgb 11.4 L Hct 35.0 L MCV 82.9 MCH 27.0 MCHC 32.6 RDW 15.8 Plt Count 292 MPV 7.3 L Neut % (Auto) 73.9 Lymph % (Auto) 17.8 [place] % (Auto) 6.2 Eos % (Auto) 1.7 Baso % (Auto) 0.5 Neut # (Auto) 5.9 Lymph # (Auto) 1.4 [place] # (Auto) 0.5 Eos # (Auto) 0.1 Baso # (Auto) 0.0 Sodium 135 L Potassium 3.6 Chloride 104 Carbon Dioxide 25 Anion Gap 9.6 BUN 19 Creatinine 1.30 H Estimated Creat Clear 70 Estimated GFR 54 L Est GFR ( Amer) 66 Glucose 85 D POC Glucose 88 102 Calcium 8.4 Magnesium 2.0 Total Bilirubin 0.7 AST 38 ALT 16 Alkaline Phosphatase 80 Total Protein 6.7 Albumin 3.2 L Globulin 3.5 H Albumin/Globulin Ratio 0.9 L 12/21/23 16:14 WBC RBC Hgb Hct MCV MCH MCHC RDW Plt Count MPV Neut % (Auto) Lymph % (Auto) [place] % (Auto) Eos % (Auto) Baso % (Auto) Neut # (Auto) Lymph # (Auto) [place] # (Auto) Eos # (Auto) Baso # (Auto) Sodium 136 Potassium 3.5 Chloride 104 Carbon Dioxide 26 Anion Gap 9.5 BUN 21 H Creatinine 1.40 H Estimated Creat Clear 66 Estimated GFR 50 L Est GFR ( Amer) 60 Glucose 108 H D POC Glucose Calcium 8.3 L Magnesium Total Bilirubin AST ALT Alkaline Phosphatase Total Protein Albumin Globulin Albumin/Globulin Ratio DS: Diagnosis Discharge Diagnosis (1) Acute non-ST elevation myocardial infarction (NSTEMI): Status: Acute Code(s): I21.4 - Non-ST elevation (NSTEMI) myocardial infarction (2) Respiratory failure with hypoxia: Status: Acute Code(s): J96.91 - Respiratory failure, unspecified with hypoxia Qualifiers: Chronicity: acute Qualified Code(s): J96.01 - Acute respiratory failure with hypoxia (3) Flash pulmonary edema: Status: Acute Code(s): J81.0 - Acute pulmonary edema (4) Acute decompensated heart failure: Status: Acute Code(s): I50.9 - Heart failure, unspecified (5) RAY (acute kidney injury): Status: Acute Code(s): N17.9 - Acute kidney failure, unspecified (6) PAD (peripheral artery disease): Status: Acute Code(s): I73.9 - Peripheral vascular disease, unspecified (7) DM type 2 (diabetes mellitus, type 2): Status: Acute Code(s): E11.9 - Type 2 diabetes mellitus without complications Qualifiers: Diabetes mellitus complication status: with other specified complication Diabetes mellitus director public insulin use: with prison use Qualified Code(s): E11.69 - Type 2 diabetes mellitus with other specified complication; Z79.4 - order entry representative (current) use of insulin (8) Diabetic ulcer of right foot associated with diabetes mellitus due to underlying condition, with fat layer exposed: Status: Acute Code(s): E08.621 - Diabetes mellitus due to underlying condition with foot ulcer; L97.512 - Non-pressure chronic ulcer of other part of right foot with fat layer exposed Qualifiers: Diabetic foot ulcer location: other Qualified Code(s): E08.621 - Diabetes mellitus due to underlying condition with foot ulcer; L97.512 - Non-pressure chronic ulcer of other part of right foot with fat layer exposed Problem details: Recent admission 11/24/23 to [facility] for Sepsis, Right TMA DFU to lateral foot with cellulitis. Podiatry follow up visit #1 12/06/23 (9) COPD mixed type: Status: Acute Code(s): J44.9 - Chronic obstructive pulmonary disease, unspecified (10) Tobacco use: Status: Acute Code(s): Z72.0 - Tobacco use (11) Pleural effusion, bilateral: Status: Acute Code(s): J90 - Pleural effusion, not elsewhere classified (12) CAD (coronary artery disease): Status: Acute Code(s): I25.10 - Atherosclerotic heart disease of [place] coronary artery without angina pectoris Meds Home Medications and Allergies Home Medications ?Medication ?Instructions ?Recorded ?Confirmed ?Type albuterol sulfate 90 mcg/actuation 2 puff inhalation Q4-6H PRN 04/25/23 12/20/23 Rx aerosol inhaler shortness of breath or wheezing #3 ea fluticasone fur. 200 mcg-umeclid 1 inh inhalation DAILY 90 days #3 11/06/23 12/20/23 Rx 62.5 mcg-vilant 25 mcg ea inhalat.powder (Trelegy Ellipta) sitagliptin phosphate 100 mg 100 mg PO DAILY 11/24/23 12/20/23 History tablet (Januvia) trazodone 50 mg tablet 50 mg PO HS 11/24/23 12/20/23 History collagenase clostridium histo. 250 1 applic topical DAILY PRN wound 11/27/23 12/20/23 Rx unit/gram topical ointment (Santyl) care 30 days #90 grams aspirin 81 mg tablet,delayed 81 mg PO DAILY 30 days #30 tabs 12/22/23 Rx release atorvastatin 40 mg tablet 40 mg PO HS 30 days #30 tabs 12/22/23 Rx clopidogrel 75 mg tablet 75 mg PO DAILY 30 days #30 tabs 12/22/23 Rx empagliflozin 10 mg tablet 10 mg PO DAILY 30 days #30 tabs 12/22/23 Rx (Jardiance) insulin degludec 100 unit/mL (3 30 unit (0.3 mL) SQ DAILY #15 mL 12/22/23 12/20/23 Rx mL) subcutaneous pen (Tresiba FlexTouch U-100 insulin) nicotine 21 mg/24 hr daily 21 mg transdermal DAILYP PRN 12/22/23 Rx transdermal patch Nicotine Cravings #28 ea sacubitril 24 mg-valsartan 26 mg 1 tab PO BID 30 days #60 tabs 12/22/23 Rx tablet (Entresto) spironolactone 25 mg tablet 12.5 mg (1/2 x 25 mg) PO DAILY 30 12/22/23 Rx days #15 tabs New Prescriptions to Start Prescriptions: tk Ibrahim,Babak atorvastatin Patrice,Babak clopidogrel Patrice,Babak empagliflozin [Jardiance] Patrice,Babak nicotine Patrice,Babak sacubitril-valsartan [Entresto] Patrice,Babak spironolactone Babak Ibrahim Allergies Allergy/AdvReac Type Severity Reaction Status Date / Time Aminoglycosides Allergy Severe Swelling Verified 12/14/23 10:48 of Lip/Tongue/Throat Discharge Plan Disposition Patient Disposition: Home Health Service Condition: Fair Discharge Order Discharge Orders: Discharge Order (Routine); Ordered 12/22/23 Ordered By: Babak Ibrahim Follow up Plan Follow up with: Anna Morales APRN [Primary Care Provider] - 12/29/23 10:15 am Justice Zuniga MD [Staff Physician] - 12/28/23 2:45 pm Fredrick Blanco MD [Physician] - 01/04/24 1:00 pm Diane Vasquez DPM [Staff Physician] - 12/25/23 10:15 am (has follow-up already, please add to discharge paperwork) Prescriptions/Medication Reconciliation: New aspirin 81 mg Tablet,Delayed Release (Dr/Ec) 81 mg PO DAILY 30 Days Qty: 30 0RF atorvastatin 40 mg Tablet 40 mg PO HS 30 Days Qty: 30 0RF Jardiance 10 mg Tablet 10 mg PO DAILY 30 Days Qty: 30 0RF nicotine 21 mg/24 hr Patch 24 Hour 21 mg transdermal DAILYP PRN (Reason: Nicotine Cravings) Qty: 28 0RF spironolactone 25 mg Tablet 12.5 mg PO DAILY 30 Days Qty: 15 0RF Entresto 24-26 mg Tablet 1 tab PO BID 30 Days Qty: 60 0RF Continued albuterol sulfate 90 mcg/actuation HFA aerosol inhaler 2 puff inhalation Q4-6H PRN (Reason: shortness of breath or wheezing) Qty: 3 1RF Trelegy Ellipta 200-62.5-25 mcg blister with device 1 inh inhalation DAILY 90 Days Qty: 3 2RF Santyl 250 unit/gram ointment 1 applic topical DAILY PRN (Reason: wound care) 30 Days Qty: 90 2RF Rx Instructions: Right DFU- 5.0 x3.5 x 0.1cm= 90 grams 1 tube (apply 5.3cm per application) Apply to wound as directed once daily for 30 days or until wound healed. Januvia 100 mg tablet 100 mg PO DAILY trazodone 50 mg tablet 50 mg PO HS clopidogrel 75 mg tablet 75 mg PO DAILY 30 Days Qty: 30 0RF Changed insulin degludec [Tresiba FlexTouch U-100] 100 unit/mL (3 mL) insulin pen 30 unit SQ DAILY Qty: 15 4RF Discontinued carvedilol 25 mg tablet 25 mg PO BID 90 Days Qty: 180 1RF lisinopril 20 mg tablet 20 mg PO DAILY atorvastatin 20 mg tablet 20 mg PO HS Problem Reconciliation Problems Reviewed?: Yes Patient Discharge Instructions ACTIVITY: Continue current activity DIET: continue same diet and low fat, low cholesterol Patient Instructions: DI for Heart Attack, Cardiac Catheterization, Coronary Stenting, DI for Heart Failure, Surgical Site Infection, Moderate Sedation, DI for Post-Surgical Bleeding, Catheter-Associated Urinary Tract Infection Print Language: Hebrew Providers Primary Care Provider: Anna Morales Admit Provider: Babak Ibrahim Attending Provider: Babak Ibrahim
[2023-12-22] MEDS: SPIRONOLACTONE 25MG TABLET 12.5 MG PO (09:31)
[2023-12-22 11:21] LABS: POC Glucose,Bedside 120 (70-110)
[2023-12-22 11:25] VITALS: PULSE 79; PULSE 89
[2023-12-22 12:00] VITALS: PULSE 100
[2023-12-22 15:00] LABS: POC Glucose,Bedside 122 (70-110)
[2023-12-22 15:00] LABS: POC Glucose,Bedside 119 (70-110)
== END 2023-12-22 14:56 | disposition home health service (06) | DRG 321 ==
LOC: ER 03:35 → 2ND 07:28
PROVIDERS: Internal Medicine; Nurse Practitioner; Nurse Practitioner Family; Admitting Provider Internal Medicine Adolescent Medicine; Emergency Provider Emergency Medicine; PCP Nurse Practitioner Family; Visit Provider Internal Medicine Adolescent Medicine
PROC: 027237Z Dilation of Coronary Artery, Three Arteries with Four or More Drug-eluting Intraluminal Devices, Percutaneous Approach (ICD-10-PCS; principal; 2023-12-20 11:30)
DX: I21.4 Non-ST elevation (NSTEMI) myocardial infarction (principal); J81.0 Acute pulmonary edema; J96.01 Acute respiratory failure with hypoxia; J90 Pleural effusion, not elsewhere classified; N17.9 Acute kidney failure, unspecified; I25.10 Atherosclerotic heart disease of native coronary artery without angina pectoris; J44.9 Chronic obstructive pulmonary disease, unspecified; I50.9 Heart failure, unspecified; I73.9 Peripheral vascular disease, unspecified; Z79.4 Long term (current) use of insulin; L97.512 Non-pressure chronic ulcer of other part of right foot with fat layer exposed; E78.5 Hyperlipidemia, unspecified; I10 Essential (primary) hypertension; Z85.828 Personal history of other malignant neoplasm of skin; F17.200 Nicotine dependence, unspecified, uncomplicated; E11.51 Type 2 diabetes mellitus with diabetic peripheral angiopathy without gangrene; E11.621 Type 2 diabetes mellitus with foot ulcer; Z71.6 Tobacco abuse counseling; E11.65 Type 2 diabetes mellitus with hyperglycemia; Z89.421 Acquired absence of other right toe(s)
CPT/HCPCS: 93458; C9606; 36415; 51702; 71045; 71275; 80048; 80053; 81001; 82803; 82962; 83605; 83735; 83880; 84484; 85007; 85025; 85027; 85347; 85730; 92928; 92929; 92941; 93005; 93306; 94640; 94761; 97110; 97163; 97166; 97530; 99152; 99153; 99291; C1725; C1769; C1874; C9600; C9601; J1200; J1644; J1940; J2250; J3010; J7620; Q9967

== ENCOUNTER 2023-12-25 11:08 | Observation (INO) | payer MEDICARE, SELFPAY ==
[2023-12-25] VITALS (16 sets, daily range): BP systolic 118–140; BP diastolic 63–76; PULSE 70–91; RESP 13–24; TEMP 36.6–36.8; O2SAT 94–99; BMI 31.1; BMI 28.8
--- NOTE | 2023-12-25 11:14 | ECG_ITS ---
APPROVED REPORT Exam: Resting ECG HR:83 bpm ECG Measurements Heart Rate 83 AXES MS 152 P 72 QRSd 94 QRS 72 QT 423 T 170 QTc 462 Conclusion SINUS RHYTHM WITH SINUS ARRHYTHMIA ST DEVIATION AND MODERATE T-WAVE ABNORMALITY, CONSIDER ANTEROLATERAL ISCHEMIA [-0.1+ mV T-WAVE IN V3-V6] ABNORMAL ECG Unchanged from prior ECG Electronically signed by : KIRIT NAYAK, 12/25/2023 17:02:03
--- NOTE | 2023-12-25 11:31 | PC.NURSE ---
DR NAYAK AT BEDSIDE
--- NOTE | 2023-12-25 11:34 | XR_ITS ---
FINAL REPORT CLINICAL HISTORY: chest pain, SOA COMPARISON: 12/20/2023 FINDINGS: A single portable view of the chest was obtained. The heart size is within normal limits. There is mild pulmonary vascular congestion, partially improved since the prior exam. The patient is in a life vest. There is improved aeration of the lung bases, likely improving pulmonary edema. The mediastinum is within normal limits. The bony thorax is intact. IMPRESSION: Mild pulmonary vascular congestion, partially improved, with improved aeration of the lung bases, likely improving pulmonary edema. Reviewed, Interpreted and Dictated by Marin Pelaez III, MD Transcribed by Radha Saba Authenticated and [facility]
--- NOTE | 2023-12-25 11:40 | PC.NURSE ---
Covid swab sent to lab
[2023-12-25 11:41] LABS: Coronavirus 19, PCR Not Detected (NotDetected); Influenza A, PCR Not Detected (NotDetected); Influenza B, PCR Not Detected (NotDetected)
--- NOTE | 2023-12-25 11:42 | ED_ITS ---
Discharge Plan Disposition Patient Disposition: Admitted Condition: Fair Clinical Impressions Clinical Impression: Elevated troponin, Encephalopathy Discharge ED Provider: Jessica Whipple HPI General Chief Complaint: Shortness of Breath/Dyspnea Stated Complaint: SOA, chills, dizzy, Low nga Time Seen by Provider: 12/25/23 11:13 Mode of Arrival: Wheelchair Source of Information: Patient and Relative Limitations: No Limitations Description of Symptoms (Recalled from ER Triage Doc. by RN): pt was sent over from podiatry. pt c/o SOA, cough, SANTOS and weakness. pts family member reports he had a heart cath by Dr. Zuniga on 12/19. pt had 5 stents, his L main artery was 100% blocked but he declines open heart surgery. pt presents with a life vest. pt denies pain. History of Present Illness HPI narrative: This patient is a 73-year-old male with a history of CAD with recent KS status post stenting, type 2 diabetes, peripheral arterial disease, chronic right foot wound for which he follows with podiatry, COPD, bilateral pleural effusions presented to the emergency department for evaluation with concern for shortness of breath. Patient's granddaughter is at bedside and helps provide history, as patient is in respiratory distress and does not contribute much to history. She states he has been feeling bad for some time now, probably months. Symptom seem to have worsened over the last 24 to 48 hours. She advises that he had multiple blockages in his heart but did not want undergo surgery, so he underwent stenting. Medical record review, he had stents to the RCA, ramus intermedius, LAD. He was found to have severe left ventricular dysfunction with elevated left ventricular end-diastolic pressure. He was placed on LifeVest, which he is wearing at this time. He followed in podiatry clinic today for his foot wound, which was debrided and granddaughter says that he was told that things are going well with his foot. He was noted to be tachypneic and was complaining of significant shortness of breath, so it was advised that he present. No fevers, cough, chest pain, abdominal pain, vomiting, or other concerns. He does complain of headache at this time. Related Data Home Medications ?Medication ?Instructions ?Recorded ?Confirmed sitagliptin phosphate 100 mg 100 mg PO DAILY 11/24/23 12/25/23 tablet (Januvia) trazodone 50 mg tablet 50 mg PO HS 11/24/23 12/25/23 Previous Rx's ?Medication ?Instructions ?Recorded albuterol sulfate 90 mcg/actuation 2 puff inhalation Q4-6H PRN 04/25/23 aerosol inhaler shortness of breath or wheezing #3 ea fluticasone fur. 200 mcg-umeclid 1 inh inhalation DAILY 90 days #3 11/06/23 62.5 mcg-vilant 25 mcg ea inhalat.powder (Trelegy Ellipta) collagenase clostridium histo. 250 1 applic topical DAILY PRN wound 11/27/23 unit/gram topical ointment (Santyl) care 30 days #90 grams aspirin 81 mg tablet,delayed 81 mg PO DAILY 30 days #30 tabs 12/22/23 release atorvastatin 40 mg tablet 40 mg PO HS 30 days #30 tabs 12/22/23 clopidogrel 75 mg tablet 75 mg PO DAILY 30 days #30 tabs 12/22/23 empagliflozin 10 mg tablet 10 mg PO DAILY 30 days #30 tabs 12/22/23 (Jardiance) insulin degludec 100 unit/mL (3 30 unit (0.3 mL) SQ DAILY #15 mL 12/22/23 mL) subcutaneous pen (Tresiba FlexTouch U-100 insulin) nicotine 21 mg/24 hr daily 21 mg transdermal DAILYP PRN 12/22/23 transdermal patch Nicotine Cravings #28 ea sacubitril 24 mg-valsartan 26 mg 1 tab PO BID 30 days #60 tabs 12/22/23 tablet (Entresto) spironolactone 25 mg tablet 12.5 mg (1/2 x 25 mg) PO DAILY 30 12/22/23 days #15 tabs Allergies Allergy/AdvReac Type Severity Reaction Status Date / Time Aminoglycosides Allergy Severe Swelling Verified 12/25/23 11:28 of Lip/Tongue/Throat [facility] Disclaimer: The information contained in this section may have been updated after the patient was seen, as this information can be updated by other users. 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 Skin cancer Surgical History History of heart artery stent Hx of toe surgery H/O repair of right rotator cuff Social History Smoking Status: Light tobacco smoker alcohol intake: never current occupational status: retired Travel in the last 8 weeks: None ROS Obtained: Yes All systems reviewed & no additional complaints except as documented Physical Exam General General appearance: alert and in distress Comment: Chronically ill-appearing in respiratory distress Head Head exam: atraumatic and normocephalic Eye Eye exam: Present normal appearance, PERRL and EOMI ENT ENT exam: Present normal exam, normal oropharynx, mucous membranes moist and normal external ear exam Neck Neck exam: Present normal inspection, full ROM and trachea midline; Absent tenderness Chest Chest inspection: Present normal inspection and symmetric chest wall rise; Absent tenderness Respiratory Respiratory exam: Present respiratory distress, accessory muscle use, prolonged expiratory phase and other (Tachypneic with prolonged expiratory phase. Diminished breath sounds in bilateral lung bases.); Absent wheezes or stridor Cardiovascular Cardiovascular exam: Present regular rate and normal rhythm Abdominal Exam Abdominal exam: Present soft; Absent distention, tenderness or guarding Extremities Exam Extremities exam: Present full ROM, normal capillary refill and other (New dressing in place on right lower extremity. I reviewed podiatry note and pictures from wound care today.); Absent tenderness or edema Back Exam Back exam: Present normal inspection and full ROM; Absent tenderness Neurological Exam Neurological exam: Present alert, oriented X3, CN II-XII intact and normal gait; Absent motor sensory deficit Psychiatric Psychiatric exam: Present normal affect and normal mood Skin Skin exam: Present warm and dry HEART Score HEART Score HEART Score assessment performed?: Yes History (anamnesis): Highly suspicious ECG: Non-specific disturbance Age: >65 years Risk factors: Atherosclerosis history Troponin: > 3x normal limit HEART Score: 9 Critical Care Critical Care Time Critical Care Time: No Medical Decision Making Medical Records Medical records reviewed: Yes I reviewed the patient's medical records. Prabhakar Inquiry Pt receiving controlled substance: No Vital Signs Vital Signs: 12/25/23 11:18 12/25/23 11:30 12/25/23 12:00 Temperature 98 F Temperature Source Oral Pulse Rate 84 75 Pulse Rate [Left] 76 Respiratory Rate 21 Blood Pressure 137/65 128/68 Blood Pressure [Right Arm] 122/68 Blood Pressure Mean 77 88 Blood Pressure Mean [Right Arm] 86 Blood Pressure Source [Right Arm] Automatic Cuff Blood Pressure Position [Right Arm] Sitting 02 Sat by Pulse Oximetry 98 97 99 Oxygen Delivery Method Room Air Room Air Room Air 12/25/23 12:30 12/25/23 13:00 12/25/23 13:30 Temperature Temperature Source Pulse Rate 77 79 77 Pulse Rate [Left] Respiratory Rate 14 22 Blood Pressure 128/66 131/76 131/63 Blood Pressure [Right Arm] Blood Pressure Mean 92 94 Blood Pressure Mean [Right Arm] Blood Pressure Source [Right Arm] Blood Pressure Position [Right Arm] 02 Sat by Pulse Oximetry 94 L 97 95 Oxygen Delivery Method Room Air Room Air 12/25/23 14:00 12/25/23 14:30 12/25/23 15:00 Temperature Temperature Source Pulse Rate 75 73 79 Pulse Rate [Left] Respiratory Rate 13 18 Blood Pressure 137/71 140/72 135/74 Blood Pressure [Right Arm] Blood Pressure Mean 100 101 Blood Pressure Mean [Right Arm] Blood Pressure Source [Right Arm] Blood Pressure Position [Right Arm] 02 Sat by Pulse Oximetry 95 94 L 97 Oxygen Delivery Method Room Air Room Air Room Air 12/25/23 15:30 Temperature Temperature Source Pulse Rate Pulse Rate [Left] Respiratory Rate Blood Pressure 136/70 Blood Pressure [Right Arm] Blood Pressure Mean 100 Blood Pressure Mean [Right Arm] Blood Pressure Source [Right Arm] Blood Pressure Position [Right Arm] 02 Sat by Pulse Oximetry Oxygen Delivery Method Lab Data Labs: Lab Results 12/25/23 11:17: WBC 9.9, RBC 4.55 L, Hgb 12.2 L, Hct 38.5 L, MCV 84.5, MCH 26.9 L, MCHC 31.8, RDW 15.8, Plt Count 346, MPV 7.8, Neut % (Auto) 77.7, Lymph % (Auto) 16.0, [place] % (Auto) 4.4, Eos % (Auto) 1.5, Baso % (Auto) 0.5, Neut # (Auto) 7.7, Lymph # (Auto) 1.6, [place] # (Auto) 0.4, Eos # (Auto) 0.1, Baso # (Auto) 0.1, PT 10.8, INR 0.96, APTT 31.9 H, D-Dimer 0.80 H, Sodium 137, Potassium 4.1, Chloride 103, Carbon Dioxide 26, Anion Gap 12.1, BUN 19, C reatinine 1.50 H, Estimated Creat Clear 66, Estimated GFR 46 L, Est GFR ( Amer) 56 L, Glucose 149 H, Calcium 8.7, Magnesium 2.3, Total Bilirubin 0.8, AST 26, ALT 17, Alkaline Phosphatase 87, Troponin I 1.21 H, Total Protein 8.1, Albumin 4.2, Globulin 3.9 H, Albumin/Globulin Ratio 1.1 12/25/23 11:34: VBG pH 7.45 H, VBG pCO2 35.7, VBG pO2 53.5 H, VBG HCO3 24.3, VBG Total CO2 25.4, VBG O2 Saturation 87.4 H, VBG Base Excess 0.3, VBG Lactic Acid 1.5 12/25/23 11:35: SARS-CoV-2 (PCR) Not detected, Influenza A Untype (PCR) Not detected, Influenza Type B (PCR) Not detected 12/25/23 14:46: Troponin I 1.08 H 12/25/23 11:17 12/25/23 11:17 Response Orders (Tests/Meds): ED MEDICATIONS Generic Name Dose Route Start Last Admin Trade Name Shant PRN Reason Stop Dose Admin Aspirin 81 mg 12/26/23 09:00 Aspirin Ec 81mg Tablet PO 01/25/24 08:59 DAILY [facility] Atorvastatin Calcium 40 mg 12/25/23 21:00 Atorvastatin 40mg Tablet PO 01/24/24 20:59 HS [facility] Bumetanide 2 mg 12/25/23 16:30 Bumetanide 1 Mg Tablet PO 01/24/24 16:29 BIDL [facility] Clopidogrel Bisulfate 75 mg 12/26/23 09:00 Clopidogrel 75mg Tab PO 01/25/24 08:59 DAILY [facility] Empagliflozin 10 mg 12/26/23 09:00 Empagliflozin 10mg Tablet PO 01/25/24 08:59 DAILY [facility] Fluticasone/Umeclidinium/Vilanterol 1 puff 12/26/23 09:00 Fluticasone/Umeclidin/Vilanter 200/62.5/25mcg Inhaler IH 01/25/24 08:59 DAILY [facility] Nicotine 21 mg 12/25/23 15:55 Nicotine 21mg/24hr Patch TD 01/24/24 15:54 DAILYP PRN Nicotine Cravings Non-Formulary Medication 30 unit 12/26/23 09:00 Insulin Degludec [Tresiba Flextouch U-100] SQ 01/25/24 08:59 DAILY WILL Sacubitril/Valsartan 1 each 12/25/23 21:00 Sacubitril/Valsartan 24-26mg Tablet PO 01/24/24 20:59 BID WILL Sodium Chloride 10 ml 12/25/23 13:29 12/25/23 13:30 Sodium Chloride 0.9% 10ml Syr (Rad Only) IV 01/24/24 13:28 10 ml NEEDED PRN Administration Maintain IV Site Sodium Chloride 10 ml 12/25/23 15:02 12/25/23 15:03 Sodium Chloride 0.9% 10ml Syr (Rad Only) IV 01/24/24 15:01 10 ml NEEDED PRN Administration Maintain IV Site Discontinued Medications Generic Name Dose Route Start Last Admin Trade Name Freq PRN Reason Stop Dose Admin Acetaminophen 1,000 mg 12/25/23 11:37 12/25/23 11:57 Acetaminophen 1,000mg/100ml Vial IV 12/25/23 11:38 1,000 mg ONCE ONE Administration Albuterol/Ipratropium 3 ml 12/25/23 11:36 12/25/23 11:56 Ipratropium/Albuterol 3 Ml Neb IH 12/25/23 11:37 3 ml ONCE ONE Administration Iopamidol 70 ml 12/25/23 13:29 12/25/23 13:30 Iopamidol-370 (76%);100ml Bottle IV 12/25/23 13:30 70 ml ONCE ONE Administration Iopamidol 100 ml 12/25/23 15:02 12/25/23 15:03 Iopamidol-370 (76%);100ml Bottle IV 12/25/23 15:03 100 ml ONCE ONE Administration Morphine Sulfate 2 mg 12/25/23 11:37 12/25/23 11:56 Morphine 2mg/Ml Syringe IV 12/25/23 11:38 2 mg ONCE ONE Administration Ondansetron HCl 4 mg 12/25/23 11:37 12/25/23 11:56 Ondansetron 4mg/2ml Vial IV 12/25/23 11:38 4 mg ONCE ONE Administration Sodium Chloride 50 ml 12/25/23 13:29 12/25/23 13:30 0.9 % Sodium Chloride 50 Ml Vial IV 12/25/23 13:30 50 ml ONCE ONE Administration Sodium Chloride 50 ml 12/25/23 15:02 12/25/23 15:03 0.9 % Sodium Chloride 50 Ml Vial IV 12/25/23 15:03 50 ml ONCE ONE Administration ORDERS Category Date Time Status CT angio head Stat Cat Scan 12/25/23 14:[address] angio neck Stat Cat Scan 12/25/23 14:[address] head/brain wo con Stat Cat Scan 12/25/23 14:43 Completed CTA Chest [CT angio chest PE protocol] Stat Cat Scan 12/25/23 13:00 Completed Cardiology Consult [Consult to Cardiology] [CONS] Cons 12/25/23 12:22 Active Routine CA echo limited Stat Exams 12/25/23 15:54 Ordered CXR --portable [XR chest portable] Stat Exams 12/25/23 11:34 Completed Activated Partial Thrombo Time Stat Lab 12/25/23 11:17 Completed CBC w/Auto Diff [Complete Blood Count Auto Diff] Stat Lab 12/25/23 11:17 Completed CMP [Comprehensive Metabolic Panel] Stat Lab 12/25/23 11:17 Completed Complete Blood Count Auto Diff AMLAB Lab 12/26/23 06:00 Ordered Comprehensive Metabolic Panel AMLAB Lab 12/26/23 06:00 Ordered D-Dimer Stat Lab 12/25/23 11:17 Completed MAG [Magnesium] Stat Lab 12/25/23 11:17 Completed Magnesium AMLAB Lab 12/26/23 06:00 Ordered Prothrombin Time INR Stat Lab 12/25/23 11:17 Completed Rapid PCR Covid and Flu A/B Stat Lab 12/25/23 11:35 Completed Trop I [Troponin I] Stat Lab 12/25/23 11:17 Completed Troponin I Q3H Lab 12/25/23 14:46 Completed Troponin I Q3H Lab 12/25/23 17:45 Ordered UA [Urinalysis and Microscopic] Stat Lab 12/25/23 15:34 Ordered VBG [Venous Blood Gas] Stat RT 12/25/23 11:34 Completed ECG Data Tracing #1: Attestation: I reviewed this ECG and interpreted as documented below: ECG Narrative: Normal sinus rhythm with a ventricular rate of [address] deviations that are unchanged from prior EKG. no acute STEMI. ECG initial impression date: 12/25/23 ECG initial impression time: 11:15 Tracing #2: Attestation: I reviewed this ECG and interpreted as documented below: ECG Narrative: Normal sinus rhythm with ST/T wave changes that are not change from prior EKG. Ventricular rate 74 bpm. ECG initial impression date: 12/25/23 ECG initial impression time: 12:58 Tracing #3: Attestation: I reviewed this ECG and interpreted as documented below: ECG Narrative: Normal sinus rhythm with sinus arrhythmia with a ventricular rate of [address]/T wave changes which again are not significantly changed from prior EKG. ECG initial impression date: 12/25/23 ECG initial impression time: 14:48 MDM Narrative Medical Decision Narrative: In summary, this patient is a 73-year-old presenting to the Emergency Department for evaluation of shortness of breath and headache. Differential diagnoses considered include but are not limited to acute respiratory failure, CO2 narcosis, PE, ACS, dysrhythmia, CHF exacerbation, worsening pleural effusions, pneumonia, COPD exacerbation. Ruling out the most morbid conditions drove assessment. It should be noted patient's history includes CAD status post recent stenting, hypertension, hyperlipidemia, diabetes which may or may not be at goal therapy. This complicates all aspects of care by increasing patient's risk for morbidity. I reviewed patient's past medical records and noted previous catheterization and cardiology notes noting his severely reduced EF and LifeVest in place. On exam, the patient is ill-appearing with mild respiratory distress. He exhibits signs of air hunger with tachypnea, retractions, and prolonged expiratory phase. Vitals are reassuring on cardiac telemetry. He has a manage breath sounds bilaterally. Workup included CBC, CMP, PT, PTT, troponin, BNP, VBG with lactate, chest x-ray, EKG. EKG obtained does not demonstrate any significant changes from prior EKG. I did give him a DuoNeb as well as 2 mg of IV morphine, IV Tylenol, and Zofran for symptomatic improvement. I independently interpreted x-ray prior to the radiologist read and noted no obvious new acute focal consolidation. Please see their read for final interpretation. labs were obtained that demonstrated elevated troponin without other acutely concerning abnormalities. D-dimer was elevated so CT PE was ordered. This did not demonstrate any large PE. On multiple subsequent reassessments, the patient continues to have worsening in his mental status and has made comments about being ready to go home and has been talking to his according to family. They advise that he does not want to wear the LifeVest anymore and they want to take it off. I advised to them that I would recommend as having cardiology come to see him for recommendations on this. Cardiology came to bedside and recommended stroke workup given his altered mental status. Stroke workup negative. I continue to have discussions with family regarding goals of care, and they stated they were not following a trigger on hospice yet but they note that the patient would not want to undergo intensive poking and prodding. They stated they wanted to wait and see what happens. Ultimately, I do not feel he is safe for discharge home, so I had an interactive discussion with the hospitalist who admitted the patient.
--- NOTE | 2023-12-25 11:42 | PC.NURSE ---
XR AT BEDSIDE
[2023-12-25 11:45] LABS: Basophils # 0.1 K/mm3 (0-0.2); Basophils % 0.5 % (0.1-2.0); Eosinophils # 0.1 K/mm3 (0.0-0.4); Eosinophils % 1.5 % (0.1-12.0); Hematocrit 38.5 % (42.0-52.0); Hemoglobin 12.2 g/dL (14.1-18.0); Lymphocytes # 1.6 K/mm3 (0.7-4.5); Mean Corpuscular HGB Conc 31.8 g/dL (31.8-35.4); Mean Corpuscular Hemoglobin 26.9 pg (27.0-31.2); Mean Corpuscular Volume 84.5 fl (80-94); Mean Platelet Volume 7.8 fl (7.4-10.4); Monocytes # 0.4 K/mm3 (0.1-1.0); Monocytes % 4.4 % (1.7-9.3); Neutrophils # 7.7 K/mm3 (1.8-7.8); Neutrophils % 77.7 % (37.0-80.0); Platelet Count 346 K/mm3 (142-424); Red Blood Count 4.55 M/mm3 (4.60-6.20); Red Cell Distribution Width 15.8 % (11.5-17.5); White Blood Count 9.9 K/mm3 (4.8-10.8)
[2023-12-25 11:50] LABS: Activated Partial Thrombo Time 31.9 seconds (22.8-30.6); INR 0.96 (0.9-1.1); Prothrombin Time 10.8 seconds (10.1-12.5)
--- NOTE | 2023-12-25 11:55 | PC.NURSE ---
pts [facility] states he has been talking to his . no new complaints. call batool in reach.
[2023-12-25] MEDS: ONDANSETRON 4MG/2ML VIAL 4 MG IV (11:56)
[2023-12-25] MEDS: MORPHINE 2MG/ML SYRINGE 2 MG IV (11:56)
[2023-12-25] MEDS: IPRATROPIUM/ALBUTEROL 3 ML NEB IH (11:56)
[2023-12-25] MEDS: ACETAMINOPHEN 1,000MG/100ML VIAL 1000 MG IV (11:57)
[2023-12-25 11:59] LABS: Albumin Level 4.2 g/dl (3.5-5.0); Chloride 103 mmol/L (98-107)
[2023-12-25 12:00] LABS: Potassium 4.1 mmoL/L (3.5-5.1); Sodium 137 mmol/L (136-145)
[2023-12-25 12:02] LABS: Alanine Aminotransferase 17 U/L (12-78); Albumin/Globulin Ratio 1.1 (1.1-1.8); Alkaline Phosphatase 87 U/L (38-126); Anion Gap 12.1 mEq/L (5-15); Aspartate Amino Transferase 26 U/L (17-59); Bilirubin,Total 0.8 mg/dl (0.2-1.3); Blood Urea Nitrogen 19 mg/dl (9-20); Carbon Dioxide 26 mmol/L (22.0-30.0); Creatinine Clearance Estimated 66 mL/min (50-200); Estimated Glomerular Filt Rate 46 ml/min (>60); GFR (African American) 56 ML/MIN (>60); Globulin 3.9 g/dL (1.3-3.2); Total Protein,Serum 8.1 g/dl (6.3-8.2)
[2023-12-25 12:02] LABS: Lactate Venous 1.5 mmol/L (0.4-2.0); VBG Base Excess 0.3 mmol/L (-2.4-2.3); VBG HCO3 24.3 mmol/L (23-30); VBG Oxygen Saturation 87.4 % (50-70); VBG PCO2 35.7 mmol/L (35-51); VBG PH 7.45 mmol/L (7.31-7.41); VBG PO2 53.5 mmol/L (28-40); VBG Total CO2 25.4 mmol/L (23-27)
[2023-12-25 12:03] LABS: Calcium 8.7 mg/dl (8.4-10.2); Glucose 149 mg/dl (74-100); Magnesium 2.3 mg/dl (1.6-2.3)
--- NOTE | 2023-12-25 12:20 | PC.NURSE ---
CRITICAL TROP 1.21 RECEIVED FROM RUSSELL IN LAB. DR NAYAK NOTIFIED. NO NEW ORDERS
[2023-12-25 12:21] LABS: Troponin I 1.21 ng/ml (0.00-0.034)
--- NOTE | 2023-12-25 12:46 | PC.NURSE ---
Called Cardiology office for cards consult; spoke with MARIAH Montalvo
--- NOTE | 2023-12-25 12:54 | ECG_ITS ---
APPROVED REPORT Exam: Resting ECG HR:74 bpm ECG Measurements Heart Rate 74 AXES MD 162 P 70 QRSd 95 QRS 72 QT 451 T 165 QTc [address] DEVIATION AND MODERATE T-WAVE ABNORMALITY, CONSIDER ANTEROLATERAL ISCHEMIA [-0.1+ mV T-WAVE IN V3-V6] ABNORMAL ECG UNCONFIRMED REPORT Unchanged from prior ECG Electronically signed by : KIRIT NAYAK, 12/25/2023 17:01:48
--- NOTE | 2023-12-25 12:57 | PC.NURSE ---
Repeat EKG performed and given to ANGELA MASON
--- NOTE | 2023-12-25 13:00 | CT_ITS ---
FINAL REPORT TECHNIQUE: Thin section axial CT images of the chest were obtained with contrast. Three-D reformatted images were also obtained.This study was performed with techniques to keep radiation doses as low as reasonably achievable (ALARA). Individualized dose reduction techniques using automated exposure control or adjustment of mA and/or kV according to the patient''s size were employed. CLINICAL HISTORY: CP, SOA COMPARISON: 12/20/2023 FINDINGS: There is no evidence of pulmonary embolism. There is no evidence of thoracic aortic aneurysm or dissection. Coronary artery stents are present. Cardiomegaly is once again noted. There is no evidence of mediastinal or hilar mass or adenopathy. There is no evidence of pulmonary mass or suspicious nodule. There are moderate right and small left pleural effusions. Mild atelectasis is present. Limited images of the upper abdomen are unremarkable. IMPRESSION: No evidence of pulmonary embolism. Moderate right and small left pleural effusions with mild atelectasis. Reviewed, Interpreted and Dictated by Marin Pelaez III, MD Transcribed by Radha Saba Authenticated and [facility]
[2023-12-25] MEDS: SODIUM CHLORIDE 0.9% 10ML SYR (RAD ONLY) 10 ML IV ×2 (13:30→15:03)
[2023-12-25] MEDS: 0.9 % SODIUM CHLORIDE 50 ML VIAL IV ×2 (13:30→15:03)
[2023-12-25] MEDS: IOPAMIDOL-370 (76%);100ML BOTTLE 70 ML IV (13:30)
--- NOTE | 2023-12-25 13:38 | PC.NURSE ---
dr hdz at bedside
--- NOTE | 2023-12-25 13:46 | PC.NURSE ---
Dr. Whipple at BS for update on POC
--- NOTE | 2023-12-25 14:16 | PC.NURSE ---
called cardiology again for consult. spoke with tacos who stated they werent in the office and she would relay the message when she found them.
--- NOTE | 2023-12-25 14:35 | PC.NURSE ---
cardiology at bedside
--- NOTE | 2023-12-25 14:40 | PC.NURSE ---
I stayed bedside with Frantz PRICE, from cardiology. pts son, Earl the POA, states the pt never wanted the life vest. The POA made the decision to remove the life vest.
--- NOTE | 2023-12-25 14:43 | CT_ITS ---
FINAL REPORT TECHNIQUE: Thin section axial CT with IV contrast supplemented with multiplanar reconstruction under CT angiogram protocol. 3-D reconstructions were performed. This study was performed with techniques to keep radiation doses as low as reasonably achievable (ALARA). Individualized dose reduction techniques using automated exposure control or adjustment of mA and/or kV according to the patient''s size were employed. CLINICAL HISTORY: new mental status change stroke pro FINDINGS: There are moderate calcifications in the distal ICAs. Otherwise, the distal vertebral, basilar and distal internal carotid arteries have an unremarkable appearance. No aneurysm is seen. Major intracranial vessels are patent without significant stenosis. IMPRESSION: No significant stenosis or major branch occlusion in the head. Reviewed, Interpreted and Dictated by Marin Pelaez III, MD Transcribed by Em Dove Authenticated and [facility]
--- NOTE | 2023-12-25 14:43 | CT_ITS ---
FINAL REPORT TECHNIQUE: Thin section axial CT with IV contrast supplemented with multiplanar reconstruction under CT angiogram protocol. This study was performed with techniques to keep radiation doses as low as reasonably achievable (ALARA). Individualized dose reduction techniques using automated exposure control or adjustment of mA and/or kV according to the patient''s size were employed. NASCET criteria was utilized during interpretation. CLINICAL HISTORY: new mental status change stroke protocol FINDINGS: Vertebral arteries are patent and codominant. There is calcified plaque at the carotid bifurcations. Severe stenosis is seen at the level of the right carotid bulb measuring greater than 70%. There is mild stenosis on the left. IMPRESSION: Severe stenosis at the level of the right carotid bulb, greater than 70%. This can be further evaluated with catheter directed angiogram. Reviewed, Interpreted and Dictated by Marin Pelaez III, MD Transcribed by Em Dove Authenticated and [facility]
--- NOTE | 2023-12-25 14:43 | CT_ITS ---
FINAL REPORT CLINICAL HISTORY: new mental status change, stroke protocol FINDINGS: Axial images of the head were obtained without contrast. Coronal reformatted images were also obtained. This study was performed with techniques to keep radiation doses as low as reasonably achievable (ALARA). Individualized dose reduction techniques using automated exposure control or adjustment of mA and/or kV according to the patient''s size were employed. There is generalized age-appropriate atrophy. Periventricular low-attenuation areas are seen consistent with mild chronic ischemic changes. There is no evidence of intracranial hemorrhage or mass. There is no evidence of acute infarct. There is no evidence of shift of the midline structures. No skull abnormality is seen on the bone window images. IMPRESSION: Atrophy and mild periventricular chronic ischemic changes. No acute intracranial abnormality identified. Reviewed, Interpreted and Dictated by Marin Pelaez III, MD Transcribed by Em Dove Authenticated and [facility]
--- NOTE | 2023-12-25 14:46 | ECG_ITS ---
APPROVED REPORT Exam: Resting ECG HR:71 bpm ECG Measurements Heart Rate 71 AXES HI 158 P 78 QRSd 98 QRS 76 QT 463 T 161 QTc 485 Conclusion SINUS RHYTHM WITH SINUS ARRHYTHMIA ST DEVIATION AND MODERATE T-WAVE ABNORMALITY, CONSIDER ANTEROLATERAL ISCHEMIA [-0.1+ mV T-WAVE IN V3-V6] ABNORMAL ECG Unchanged from prior ECG Electronically signed by : KIRIT NAYAK, 12/25/2023 17:01:00
--- NOTE | 2023-12-25 14:49 | PC.NURSE ---
pt taken to CT
[2023-12-25] MEDS: IOPAMIDOL-370 (76%);100ML BOTTLE 100 ML IV (15:03)
--- NOTE | 2023-12-25 15:42 | PC.NURSE ---
pts family giving mouth swabs to moisten pts mouth, no other needs at this time
--- NOTE | 2023-12-25 15:48 | PC.NURSE ---
CRITICAL TROP 1.08, RECEIVED FROM LAB. PT NAME AND R/V. DR NAYAK NOTIFIED
[2023-12-25 15:49] LABS: Troponin I 1.08 ng/ml (0.00-0.034)
--- NOTE | 2023-12-25 15:51 | PC.NURSE ---
DR NAYAK SPEAKING WITH DR CLEMENTE
--- NOTE | 2023-12-25 15:54 | CA_ITS ---
APPROVED REPORT EXAM: Limited 2D Echocardiogram with contrast Ceramic Coater: RT Lukas(R) Ht: 6 ft 0 in Wt: 230lbs BSA: 2.26 BP: 127/73 mmHg Indications: Limited echo to reassess EF, EF 12/20/23 was 20%, recent cardiac stenting, COPD, CP, DM, SOB, lifevest in place Echo Enhancing Agent Indication: Endocardial border delineation Agent(s) / Amount(s) Used: Definity 2 cc 2D Dimensions EF AP4 34.70 % GL Strain -10.2 % M-Mode Dimensions RVDd 2.15 cm (0.9-2.6) LVDd 6.16 cm (3.5-5.7) LVDs 5.48 cm (3.5-5.7) IVSd 0.86 cm (0.6-1.1) PWd 0.50 cm (0.6-1.1) EF (Teich) 23.50% FS 11.00% EDV (Teich) 191.10 mL ESV (Teich) 146.20 mL Other Information Study Quality: Technically Difficult Conclusion This is a limited TTE to evaluate for LVEF. Limited windows were obtained. Technically difficult study. Ultrasound enhancing agent was administered. The left ventricle is normal in size. There is increase in LV wall thickness. There is severe reduction in global LV systolic function. The septal, anteroseptal, and inferoseptal LV gao are akinetic. LVEF is 20%. Administration of ultrasound enhancing agent demonstrates no evidence of LV thrombus. No evidence of pericardial effusion. Compared to prior study from 12/20/2023, there are overall no significant changes to the LVEF. Electronically signed by : Janina Ortiz MD 12/25/2023 23:48:09
--- NOTE | 2023-12-25 15:54 | PC.NURSE ---
Dr. Whipple at BS for update on POC
--- NOTE | 2023-12-25 15:55 | PC.NURSE ---
[facility] NOTIFIED OF ADMISSION
--- NOTE | 2023-12-25 16:27 | PC.NURSE ---
Patients family reports that patient complains of chest pain, ER MD notified, no new orders at this time
--- NOTE | 2023-12-25 16:35 | PC.NURSE ---
Report called to Joslyn MCGHEE for pts admission. pts room is currently being turned over, someone will be down to get the pt as soon as the pt is ready.
--- NOTE | 2023-12-25 17:03 | PC.NURSE ---
arrived by stretcher from ED
--- NOTE | 2023-12-25 17:13 | EXP.CARD.CON ---
History of Present Illness History of Present Illness Consult date: 12/25/23 Requesting physician: Jessica Whipple Chief complaint: weakness History of present illness: 73 yo WM new to our service last week. Prior to that visit pt was a smoker with PAD and partial RLE amputation with legal blindndess and DNR status. His Nephew, Earl Saez is POA. Last week pt presented with NSTEMI and new ACLSHF. He declined CABG and received stenting of 5 vessels and had EF of 15-20% He was sent home on max tolerated GDMT and LifeVest. Today went to Podiatry visit where he was hypotensive in 90s with mild associated weakness and referred to ED. In ED pt developed acute decline in mental status and was unable to speak or follow commands. STAT CTA chest and head were ordered and largely unremarkable. His vitals are stable on room air and BP is 140s. His AMS etiology is unclear at this time. Consider normotensive cardiogenic shock but no other parameters to suggest this. EKG shows no acute changes and Troponins are still trending down from last week. CXR shows improving aeration from last week and lungs are clear on exam. Pt will be admitted to Hospitalist for further stabilization and management. [facility] Disclaimer: The information contained in this section may have been updated after the patient was seen, as this information can be updated by other users. 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 Skin cancer Surgical History History of heart artery stent Hx of toe surgery H/O repair of right rotator cuff Social History Smoking Status: Light tobacco smoker alcohol intake: never current occupational status: retired Travel in the last 8 weeks: None Review of Systems Review of Systems Review of systems:: unable to obtain Exam Data for Last 24 hours Vital signs and Labs for Last 24 Hours: Temp Pulse Resp BP Pulse Ox O2 Del Method 97.9 F 80 24 131/73 97 Room Air 12/25/23 17:00 12/25/23 17:00 12/25/23 17:00 12/25/23 17:00 12/25/23 15:00 12/25/23 17:00 Laboratory Results - last 24 hr 12/25/23 11:17: WBC 9.9, RBC 4.55 L, Hgb 12.2 L, Hct 38.5 L, MCV 84.5, MCH 26.9 L, MCHC 31.8, RDW 15.8, Plt Count 346, MPV 7.8, Neut % (Auto) 77.7, Lymph % (Auto) 16.0, [place] % (Auto) 4.4, Eos % (Auto) 1.5, Baso % (Auto) 0.5, Neut # (Auto) 7.7, Lymph # (Auto) 1.6, [place] # (Auto) 0.4, Eos # (Auto) 0.1, Baso # (Auto) 0.1, PT 10.8, INR 0.96, APTT 31.9 H, D-Dimer 0.80 H, Sodium 137, Potassium 4.1, Chloride 103, Carbon Dioxide 26, Anion Gap 12.1, BUN 19, Creatinine 1.50 H, Estimated Creat Clear 66, Estimated GFR 46 L, Est GFR ( Amer) 56 L, Glucose 149 H, Calcium 8.7, Magnesium 2.3, Total Bilirubin 0.8, AST 26, ALT 17, Alkaline Phosphatase 87, Troponin I 1.21 H, Total Protein 8.1, Albumin 4.2, Globulin 3.9 H, Albumin/Globulin Ratio 1.1 12/25/23 11:34: VBG pH 7.45 H, VBG pCO2 35.7, VBG pO2 53.5 H, VBG HCO3 24.3, VBG Total CO2 25.4, VBG O2 Saturation 87.4 H, VBG Base Excess 0.3, VBG Lactic Acid 1.5 12/25/23 11:35: SARS-CoV-2 (PCR) Not detected, Influenza A Untype (PCR) Not detected, Influenza Type B (PCR) Not detected 12/25/23 14:46: Troponin I 1.08 H I & O for Last 24 hours: Intake & Output 12/22/23 12/23/23 12/24/23 12/25/23 23:59 23:59 23:59 23:59 Weight 230 lb Constitutional Constitutional: obtunded *Routine HEENT Exam Eye: Present PERRL *Routine Respiratory Exam Respiratory: Present CTA bilaterally; Absent accessory muscle use, wheezes or crackles *Routine Cardiovascular Exam Cardiovascular: Present RRR, Normal S1 and Normal S2; Absent murmur, gallop or rubs *Routine Abdominal Exam Abdominal: Present soft; Absent tenderness *Routine Extremities Exam Extremities: Present pulses intact; Absent cyanosis or edema Comments: partial RLE amputation *Routine Skin Exam Skin: Present intact; Absent erythema or wounds *Routine Neurological Exam Neurological: Absent alert or oriented X3 Routine Psychiatric Exam Psychiatric: Present cooperative Meds Home Medications and Allergies Home Medications ?Medication ?Instructions ?Recorded ?Confirmed ?Type albuterol sulfate 90 mcg/actuation 2 puff inhalation Q4-6H PRN 04/25/23 12/25/23 Rx aerosol inhaler shortness of breath or wheezing #3 ea fluticasone fur. 200 mcg-umeclid 1 inh inhalation DAILY 90 days #3 11/06/23 12/25/23 Rx 62.5 mcg-vilant 25 mcg ea inhalat.powder (Trelegy Ellipta) sitagliptin phosphate 100 mg 100 mg PO DAILY 11/24/23 12/25/23 History tablet (Januvia) trazodone 50 mg tablet 50 mg PO HS 11/24/23 12/25/23 History collagenase clostridium histo. 250 1 applic topical DAILY PRN wound 11/27/23 12/25/23 Rx unit/gram topical ointment (Santyl) care 30 days #90 grams aspirin 81 mg tablet,delayed 81 mg PO DAILY 30 days #30 tabs 12/22/23 12/25/23 Rx release atorvastatin 40 mg tablet 40 mg PO HS 30 days #30 tabs 12/22/23 12/25/23 Rx clopidogrel 75 mg tablet 75 mg PO DAILY 30 days #30 tabs 12/22/23 12/25/23 Rx empagliflozin 10 mg tablet 10 mg PO DAILY 30 days #30 tabs 12/22/23 12/25/23 Rx (Jardiance) insulin degludec 100 unit/mL (3 30 unit (0.3 mL) SQ DAILY #15 mL 12/22/23 12/25/23 Rx mL) subcutaneous pen (Tresiba FlexTouch U-100 insulin) nicotine 21 mg/24 hr daily 21 mg transdermal DAILYP PRN 12/22/23 12/25/23 Rx transdermal patch Nicotine Cravings #28 ea sacubitril 24 mg-valsartan 26 mg 1 tab PO BID 30 days #60 tabs 12/22/23 12/25/23 Rx tablet (Entresto) spironolactone 25 mg tablet 12.5 mg (1/2 x 25 mg) PO DAILY 30 12/22/23 12/25/23 Rx days #15 tabs New Prescriptions to Start Prescriptions: Allergies Allergy/AdvReac Type Severity Reaction Status Date / Time Aminoglycosides Allergy Severe Swelling Verified 12/25/23 11:28 of Lip/Tongue/Throat Assessment and Plan *Assessment and plan (1) Encephalopathy: Status: Acute Category: Medical Code(s): G93.40 - Encephalopathy, unspecified (2) CAD (coronary artery disease): Status: Acute Category: Medical Code(s): I25.10 - Atherosclerotic heart disease of [place] coronary artery without angina pectoris (3) Pleural effusion, bilateral: Status: Acute Category: Medical Code(s): J90 - Pleural effusion, not elsewhere classified (4) HFrEF (heart failure with reduced ejection fraction): Status: Acute Category: Medical Code(s): I50.20 - Unspecified systolic (congestive) heart failure Plan Acute Encephelopathy - unclear etiology at this time - CTA Head - no active bleed or ischemia - vitals stable - UA/cultures pending - check TSH, liver panel, BMP daily - add Bumex 2mg once Hypotension - resolved - BP is 140s on home meds and no fluids administered MV-CAD s/p NSTEMI and extensive PCI last week - EKG shows no ST elevation - Troponins are trending down - resume home DAPT, Statin. No BB due to CHF ACLSHF - new dx of EF 15-20% last week following NSTEMI - pt has LifeVest but is DNR - discussed this with POA. He and pt want it off for now - moderate right pleural effusion here. CXR shows improved aeration and pt O2 normal on room air - cont home meds - add Bumex 2mg IV x1 now PAD s/p RLE amputations - follows with Podiatry here - cont DAPT, statin Tob - advise cessation DM-II - glucose control per primary service - GLP and SGLT2 later if tolerated DNR STATUS
[2023-12-25 17:48] LABS: NT Pro Brain Natriuretic Pep. 5710 pg/mL (0-125)
[2023-12-25] MEDS: DEFINITY US ECHO CONTRAST 2ML INJ 2 MG IV (18:06)
[2023-12-25] MEDS: BUMETANIDE 1MG/4ML VIAL 2 MG IV (18:07)
[2023-12-25 18:23] LABS: Troponin I 0.93 ng/ml (0.00-0.034)
[2023-12-25 20:00] LABS: Microscopic, Urine URINE MICROSCOPIC (MICROSCOPIC)
[2023-12-25 20:05] LABS: Appearance,Urine CLEAR (Clear); Bilirubin,Urine Negative (Negative); Blood, Urine 2+ (Negative); Color,Urine YELLOW (Yellow); Glucose,Urine (UA) 2+ (Negative); Ketones,Urine Negative (Negative); Leukocyte Esterase,Urine 1+ (Negative); Nitrate,Urine Negative (Negative); Protein,Urine Negative (Negative); Urobilinogen,Urine 0.2 EU/dl (0.2)
[2023-12-25 20:34] LABS: Bacteria,Urine 1+ /lpf; WBC,Urine 20-50 #/hpf (0-3); Yeast,Urine 4+ /lpf
[2023-12-25] MEDS: SACUBITRIL/VALSARTAN 24-26MG TABLET 1 EACH PO (21:25)
[2023-12-25] MEDS: ATORVASTATIN 40MG TABLET 40 MG PO (21:26)
--- NOTE | 2023-12-25 21:51 | P.PN_ITS ---
Subjective *Date: 12/25/23 *Time: 22:15 Interval history: UA lab results showing +1 leukocytes culture has been ordered and the lab Exam Data for Last 24 hours Vital signs and Labs for Last 24 Hours: Temp Pulse Resp BP Pulse Ox O2 Del Method 97.8 F 70 20 127/73 97 Room Air 12/25/23 20:00 12/25/23 18:00 12/25/23 18:00 12/25/23 18:00 12/25/23 20:00 12/25/23 20:00 Laboratory Results - last 24 hr 12/25/23 11:17: WBC 9.9, RBC 4.55 L, Hgb 12.2 L, Hct 38.5 L, MCV 84.5, MCH 26.9 L, MCHC 31.8, RDW 15.8, Plt Count 346, MPV 7.8, Neut % (Auto) 77.7, Lymph % (Auto) 16.0, [place] % (Auto) 4.4, Eos % (Auto) 1.5, Baso % (Auto) 0.5, Neut # (Auto) 7.7, Lymph # (Auto) 1.6, [place] # (Auto) 0.4, Eos # (Auto) 0.1, Baso # (Auto) 0.1, PT 10.8, INR 0.96, APTT 31.9 H, D-Dimer 0.80 H, Sodium 137, Potassium 4.1, Chloride 103, Carbon Dioxide 26, Anion Gap 12.1, BUN 19, Creatinine 1.50 H, Estimated Creat Clear 66, Estimated GFR 46 L, Est GFR ( Amer) 56 L, Glucose 149 H, Calcium 8.7, Magnesium 2.3, Total Bilirubin 0.8, AST 26, ALT 17, Alkaline Phosphatase 87, Troponin I 1.21 H, Total Protein 8.1, Albumin 4.2, Globulin 3.9 H, Albumin/Globulin Ratio 1.1 12/25/23 11:34: VBG pH 7.45 H, VBG pCO2 35.7, VBG pO2 53.5 H, VBG HCO3 24.3, VBG Total CO2 25.4, VBG O2 Saturation 87.4 H, VBG Base Excess 0.3, VBG Lactic Acid 1.5 12/25/23 11:35: SARS-CoV-2 (PCR) Not detected, Influenza A Untype (PCR) Not detected, Influenza Type B (PCR) Not detected 12/25/23 14:46: Troponin I 1.08 H, NT-Pro-B Natriuret Pep 5710 H 12/25/23 17:45: Troponin I 0.93 H 12/25/23 19:54: Urine Color Yellow, Urine Appearance Clear, Urine pH 6.0, Ur Specific [place] 1.010, Urine Protein Negative, Urine Glucose (UA) 2+, Urine Ketones Negative, Urine Blood 2+, Urine Nitrate Negative, Urine Bilirubin Negative, Urine Urobilinogen 0.2, Ur Leukocyte Esterase 1+ A, Urine RBC 5-10, Urine WBC 20-50, Urine Bacteria 1+, Urine Yeast 4+ I & O for Last 24 hours: Intake & Output 12/22/23 12/23/23 12/24/23 12/25/23 23:59 23:59 23:59 23:59 Output Total 1100 / 1100 Balance -1100 / -1100 Weight 96.434 kg *Routine Abdominal Exam Abdominal: Present soft Comments: Noted that the patient has no indication or even symptoms of a UTI at this time. Assessment and Plan *Assessment and plan (1) Urinary tract infection: Status: Acute Category: Medical Code(s): N39.0 - Urinary tract infection, site not specified Plan 1. Lab results +1 leukocytes in urine, noted that lab has ordered culture. Will add 2 doses of Rocephin 1 g H1 now and 1 in 24 hours.
--- NOTE | 2023-12-25 22:01 | P.HP_ITS ---
History of Present Illness *Admission Date: 12/25/23 *Reason for visit:: Confusion, dyspnea *History of present illness: Mr. Blair is a 73-year-old male who presented to the ER after going to podiatry clinic today for routine follow-up. Presented to the ER because of concern for respiratory distress and confusion. He has a history of tobacco use disorder, PAD, partial right lower extremity amputation, legally blind, STEMI last week status post stenting (5 stents), and heart failure with reduced ejection fraction (15 to 20%). Discharged last week on goal-directed therapy. Was doing better and independently mobile. Discharged home with home health. Had to be hypotensive in podiatry clinic today. On arrival to the ER, was satting appropriately on room air with improvement in his blood pressure. Patient frankly altered, given change in mentation, workup including CTs of his head were obtained. No acute process identified. Cardiology evaluated to assist with management in the ER. Unclear reasoning for his change. Labs and vitals are remarkably normal in light of his clinical appearance. Given his change in mentation, medicine consulted for admission. Cardiology recommended additional dose of diuretic. CTA of chest obtained showing no pulmonary emboli. Pleural effusions decreasing in size. Alert to person and place but the time of arrival to the floor. POA (RLE flaccid) present at bedside on evaluation. [facility] Disclaimer: The information contained in this section may have been updated after the patient was seen, as this information can be updated by other users. 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 Skin cancer Surgical History History of heart artery stent Hx of toe surgery H/O repair of right rotator cuff Social History Smoking Status: Light tobacco smoker alcohol intake: never current occupational status: retired Travel in the last 8 weeks: None Review of Systems Review of Systems Review of systems (narrative): 14 point review of systems performed, pertinent positives and negatives as per HPI Meds Home Medications and Allergies Home Medications ?Medication ?Instructions ?Recorded ?Confirmed ?Type albuterol sulfate 90 mcg/actuation 2 puff inhalation Q4-6H PRN 04/25/23 12/25/23 Rx aerosol inhaler shortness of breath or wheezing #3 ea fluticasone fur. 200 mcg-umeclid 1 inh inhalation DAILY 90 days #3 11/06/23 12/25/23 Rx 62.5 mcg-vilant 25 mcg ea inhalat.powder (Trelegy Ellipta) sitagliptin phosphate 100 mg 100 mg PO DAILY 11/24/23 12/25/23 History tablet (Januvia) trazodone 50 mg tablet 50 mg PO HS 11/24/23 12/25/23 History collagenase clostridium histo. 250 1 applic topical DAILY PRN wound 11/27/23 12/25/23 Rx unit/gram topical ointment (Santyl) care 30 days #90 grams aspirin 81 mg tablet,delayed 81 mg PO DAILY 30 days #30 tabs 12/22/23 12/25/23 Rx release atorvastatin 40 mg tablet 40 mg PO HS 30 days #30 tabs 12/22/23 12/25/23 Rx clopidogrel 75 mg tablet 75 mg PO DAILY 30 days #30 tabs 12/22/23 12/25/23 Rx empagliflozin 10 mg tablet 10 mg PO DAILY 30 days #30 tabs 12/22/23 12/25/23 Rx (Jardiance) insulin degludec 100 unit/mL (3 30 unit (0.3 mL) SQ DAILY #15 mL 12/22/23 12/25/23 Rx mL) subcutaneous pen (Tresiba FlexTouch U-100 insulin) nicotine 21 mg/24 hr daily 21 mg transdermal DAILYP PRN 12/22/23 12/25/23 Rx transdermal patch Nicotine Cravings #28 ea sacubitril 24 mg-valsartan 26 mg 1 tab PO BID 30 days #60 tabs 12/22/23 12/25/23 Rx tablet (Entresto) spironolactone 25 mg tablet 12.5 mg (1/2 x 25 mg) PO DAILY 30 12/22/23 12/25/23 Rx days #15 tabs New Prescriptions to Start Prescriptions: Allergies Allergy/AdvReac Type Severity Reaction Status Date / Time Aminoglycosides Allergy Severe Swelling Verified 12/25/23 11:28 of Lip/Tongue/Throat Exam Data for Last 24 hours Vital signs and Labs for Last 24 Hours: Temp Pulse Resp BP Pulse Ox O2 Del Method 97.8 F 80 20 127/73 97 Room Air 12/25/23 20:00 12/25/23 20:05 12/25/23 18:00 12/25/23 18:00 12/25/23 20:00 12/25/23 20:00 Laboratory Results - last 24 hr 12/25/23 11:17: WBC 9.9, RBC 4.55 L, Hgb 12.2 L, Hct 38.5 L, MCV 84.5, MCH 26.9 L, MCHC 31.8, RDW 15.8, Plt Count 346, MPV 7.8, Neut % (Auto) 77.7, Lymph % (Auto) 16.0, [place] % (Auto) 4.4, Eos % (Auto) 1.5, Baso % (Auto) 0.5, Neut # (Auto) 7.7, Lymph # (Auto) 1.6, [place] # (Auto) 0.4, Eos # (Auto) 0.1, Baso # (Auto) 0.1, PT 10.8, INR 0.96, APTT 31.9 H, D-Dimer 0.80 H, Sodium 137, Potassium 4.1, Chloride 103, Carbon Dioxide 26, Anion Gap 12.1, BUN 19, Creatinine 1.50 H, Estimated Creat Clear 66, Estimated GFR 46 L, Est GFR ( Amer) 56 L, Glucose 149 H, Calcium 8.7, Magnesium 2.3, Total Bilirubin 0.8, AST 26, ALT 17, Alkaline Phosphatase 87, Troponin I 1.21 H, Total Protein 8.1, Albumin 4.2, Globulin 3.9 H, Albumin/Globulin Ratio 1.1 12/25/23 11:34: VBG pH 7.45 H, VBG pCO2 35.7, VBG pO2 53.5 H, VBG HCO3 24.3, VBG Total CO2 25.4, VBG O2 Saturation 87.4 H, VBG Base Excess 0.3, VBG Lactic Acid 1.5 12/25/23 11:35: SARS-CoV-2 (PCR) Not detected, Influenza A Untype (PCR) Not detected, Influenza Type B (PCR) Not detected 12/25/23 14:46: Troponin I 1.08 H, NT-Pro-B Natriuret Pep 5710 H 12/25/23 17:45: Troponin I 0.93 H 12/25/23 19:54: Urine Color Yellow, Urine Appearance Clear, Urine pH 6.0, Ur Specific [place] 1.010, Urine Protein Negative, Urine Glucose (UA) 2+, Urine Ketones Negative, Urine Blood 2+, Urine Nitrate Negative, Urine Bilirubin Negative, Urine Urobilinogen 0.2, Ur Leukocyte Esterase 1+ A, Urine RBC 5-10, Urine WBC 20-50, Urine Bacteria 1+, Urine Yeast 4+ I & O for Last 24 hours: Intake & Output 12/22/23 12/23/23 12/24/23 12/25/23 23:59 23:59 23:59 23:59 Output Total 1100 / 1100 Balance -1100 / -1100 Weight 96.434 kg Constitutional Constitutional: mild distress, average body habitus, chronically ill appearing and agitated *Routine HEENT Exam Head: Present normocephalic and atraumatic Eye: Present EOMI and PERRL ENT: Present mucous membranes moist *Routine Neck Exam Neck: Present supple; Absent lymphadenopathy *Routine Respiratory Exam Respiratory: Present crackles (bases) and normal respiratory effort; Absent rhonchi or wheezes *Routine Cardiovascular Exam Cardiovascular: Present RRR, Normal S1 and Normal S2 *Routine Abdominal Exam Abdominal: Present soft and normoactive bowel sounds; Absent tenderness *Routine Rectal Exam Rectal:: deferred *Routine Genitalia Exam Genitalia:: deferred *Routine Extremities Exam Extremities: Absent cyanosis, clubbing or edema Comments: s/p transmetatarsal amputation *Routine Skin Exam Skin: Present warm and wounds; Absent erythema or rash *Routine Neurological Exam Neurological: Present alert, altered mental status and moving all extremities Routine Psychiatric Exam Psychiatric: Present unable to assess Assessment and Plan *Assessment and plan (1) Acute decompensated heart failure: Status: Acute Category: Medical Code(s): I50.9 - Heart failure, unspecified (2) Respiratory failure with hypoxia: Status: Acute Qualifiers: Chronicity: acute Qualified Code(s): J96.01 - Acute respiratory failure with hypoxia Category: Medical Code(s): J96.91 - Respiratory failure, unspecified with hypoxia (3) PAD (peripheral artery disease): Status: Acute Category: Medical Code(s): I73.9 - Peripheral vascular disease, unspecified (4) DM type 2 (diabetes mellitus, type 2): Status: Acute Qualifiers: Diabetes mellitus intermediate card tender insulin use: with senior living use Diabetes mellitus complication status: with other specified complication Qualified Code(s): E11.69 - Type 2 diabetes mellitus with other specified complication; Z79.4 - assisted (current) use of insulin Category: Medical Code(s): E11.9 - Type 2 diabetes mellitus without complications (5) Diabetic ulcer of right foot associated with diabetes mellitus due to underlying condition, with fat layer exposed: Problem Comment: Recent admission 11/24/23 to [facility] for Sepsis, Right TMA DFU to lateral foot with cellulitis. Podiatry follow up visit #1 12/06/23 Status: Acute Qualifiers: Diabetic foot ulcer location: other Qualified Code(s): E08.621 - Diabetes mellitus due to underlying condition with foot ulcer; L97.512 - Non- pressure chronic ulcer of other part of right foot with fat layer exposed Category: Medical Code(s): E08.621 - Diabetes mellitus due to underlying condition with foot ulcer; L97.512 - Non-pressure chronic ulcer of other part of right foot with fat layer exposed (6) COPD mixed type: Status: Acute Category: Medical Code(s): J44.9 - Chronic obstructive pulmonary disease, unspecified (7) Tobacco use: Status: Acute Category: Social Hx Code(s): Z72.0 - Tobacco use (8) Pleural effusion, bilateral: Status: Acute Category: Medical Code(s): J90 - Pleural effusion, not elsewhere classified (9) CAD (coronary artery disease): Status: Acute Category: Medical Code(s): I25.10 - Atherosclerotic heart disease of [place] coronary artery without angina pectoris Plan 73-year-old male with history of COPD, insulin-dependent diabetes, status post partial amputation of the right foot, admitted last week for acute on chronic heart failure with reduced ejection fraction. Found to have STEMI. Taken to [facility] with multivessel disease and placement of 5 stents. Presented to the ER and distress with heavy breathing and altered mental status. Vitals surprisingly normal. Workup with relatively unremarkable labs. Normal white count, kidney function at baseline with creatinine 1.5. BNP elevated at 5700. Troponins stable. Discussed case with ER, request admission for further management given acute change. I agreed to admit. Initiating diuretics with Bumex IV once. Monitor output. Necessitating inpatient admission. Problems addressed as follows: Acute respiratory failure with hypoxia, secondary to acute pulmonary edema Acute on chronic heart failure with reduced ejection fraction CAD -Admitted on telemetry. Unclear etiology of his confusion and symptoms, suspect secondary to heart failure and persistent volume overload. Will administer Bumex x 1. Monitor for improvement with diuresis -Per my review of chest imaging, has persistent effusions. Showing some improvement in size however. -Echocardiogram pending to evaluate for acute decompensated heart failure in light of 15 to 20% EF identified last week. -Continue goal-directed therapy: Jardiance 10 mg daily, Entresto 24/26 mg twice daily. Holding beta-karen in the setting of acute heart failure. -aspirin 81 mg daily and Plavix 75 mg daily. -Place Fajardo catheter for strict ins and outs; urinalysis pending -Potassium 4.1, magnesium 2.3, calcium 8.7. Repeat CBC, CMP, magnesium ordered for the morning. -Cardiology consulted and assisting with care. Altered mental status: Extensive imaging of head with no acute process. Unclear if its medication side effect, he may have accidentally taken his trazodone given his vision impairment; showing improvement in mentation by the time of arriving to the floor. Neurochecks as needed Insulin-dependent type 2 diabetes. Uncontrolled A1c 12.4 on 11/22. Continue sliding scale insulin with fingersticks ACHS. Diabetic ulcer of right foot status post TMA. Wound care daily. Appears stable. No signs of infection On Protonix for GI protection DNR/DNI Cardiac diet
[2023-12-25] MEDS: CEFTRIAXONE SODIUM 1 GM in 0.9 % SODIUM CHLORIDE 50 ML IV (22:44)
[2023-12-26] VITALS (13 sets, daily range): BP systolic 97–129; BP diastolic 47–68; PULSE 70–99; RESP 12–17; TEMP 36.4–36.9; O2SAT 95–100; BMI 28.0
--- NOTE | 2023-12-26 00:07 | PC.NURSE ---
Pt O2 continually dropping to upper 60s. On assessment, pt is asleep having 10-15 second apneic episodes. Pt awakens easily. 2 L nc applied while pt asleep.
[2023-12-26] MEDS: humaLOG 100 UNITS/ML 10ML VIAL (SSI) SQ ×2 (05:17→20:57)
[2023-12-26 05:22] LABS: POC Glucose,Bedside 120 (70-110)
[2023-12-26 05:22] LABS: POC Glucose,Bedside 167 (70-110)
--- NOTE | 2023-12-26 05:53 | PC.NURSE ---
Pt a/o x4. Pt has not voiced any complaints to staff t/o shift. Pt remians on 2 L nc while asleep, O2 sat upper 90s. NSR on tele. Fajardo in place draining clear yellow urine. Total of 1550ml emptied during shift. DSG to right foot changed. Wound with scant amount of serosang drainage. Call light within reach.
[2023-12-26] MEDS: FLUTICASONE/UMECLIDIN/VILANTER 200/62.5/25MCG INHALER 1 PUFF IH (06:26)
[2023-12-26 06:54] LABS: Basophils % 0.4 % (0.1-2.0); Eosinophils # 0.1 K/mm3 (0.0-0.4); Eosinophils % 1.5 % (0.1-12.0); Hematocrit 34.4 % (42.0-52.0); Lymphocytes # 1.1 K/mm3 (0.7-4.5); Lymphocytes % 14.2 % (10-50); Mean Corpuscular Hemoglobin 26.4 pg (27.0-31.2); Mean Corpuscular Volume 82.6 fl (80-94); Mean Platelet Volume 7.5 fl (7.4-10.4); Monocytes # 0.4 K/mm3 (0.1-1.0); Monocytes % 5.3 % (1.7-9.3); Neutrophils % 78.6 % (37.0-80.0); Platelet Count 288 K/mm3 (142-424); Red Blood Count 4.16 M/mm3 (4.60-6.20); Red Cell Distribution Width 15.6 % (11.5-17.5); White Blood Count 7.6 K/mm3 (4.8-10.8)
[2023-12-26 06:57] LABS: Albumin Level 3.5 g/dl (3.5-5.0); Chloride 103 mmol/L (98-107); Potassium 3.8 mmoL/L (3.5-5.1); Sodium 134 mmol/L (136-145)
[2023-12-26 06:59] LABS: Blood Urea Nitrogen 17 mg/dl (9-20); Creatinine Clearance Estimated 59 mL/min (50-200); Estimated Glomerular Filt Rate 46 ml/min (>60); GFR (African American) 56 ML/MIN (>60)
[2023-12-26 07:00] LABS: Alanine Aminotransferase 13 U/L (12-78); Alkaline Phosphatase 73 U/L (38-126); Anion Gap 7.8 mEq/L (5-15); Aspartate Amino Transferase 20 U/L (17-59); Bilirubin,Total 0.5 mg/dl (0.2-1.3); Calcium 8.2 mg/dl (8.4-10.2); Carbon Dioxide 27 mmol/L (22.0-30.0); Globulin 3.4 g/dL (1.3-3.2); Glucose 139 mg/dl (74-100); Magnesium 2.2 mg/dl (1.6-2.3); Total Protein,Serum 6.9 g/dl (6.3-8.2)
--- NOTE | 2023-12-26 07:26 | HMH.PHAINT1 ---
Pharmacy Intervention Comments: MEDICATION RECONCILIATION COMPLETED ON PATIENT USING EXTERNAL FILL HISTORY FROM PHARMACY AND DISCHARGE SUMMARY FROM PREVIOUS ADMISSION. -OMEGA CURRY, KELLED
[2023-12-26] MEDS: EMPAGLIFLOZIN 10MG TABLET 10 MG PO (08:14)
[2023-12-26] MEDS: ASPIRIN EC 81MG TABLET 81 MG PO (08:14)
[2023-12-26] MEDS: BUMETANIDE 1 MG TABLET 2 MG PO ×2 (08:14→15:30)
[2023-12-26] MEDS: SACUBITRIL/VALSARTAN 24-26MG TABLET 1 EACH PO (08:14)
[2023-12-26] MEDS: CLOPIDOGREL 75MG TAB 75 MG PO (08:17)
[2023-12-26 10:13] LABS: Thyroid Stimulating Hormone 4.27 uIU/mL (0.465-4.68)
--- NOTE | 2023-12-26 10:45 | P.PN_ITS ---
Subjective Subjective Date: 12/26/23 Time: 10:46 Interval history: Marked improvement overnight. Patient had some urinary outlet obstruction and was cathed which revealed UTI. He has already returned to baseline mentation. He is sitting up bedside today without family present and is alert and oriented x 4 and states he does not remember much of what happened yesterday. He has no neurologic complaints. Exam Data for Last 24 hours Vital signs and Labs for Last 24 Hours: Temp Pulse Resp BP Pulse Ox O2 Del Method O2 Flow Rate 97.9 F 76 14 97/55 L 98 Nasal Cannula 2 12/26/23 04:00 12/26/23 08:00 12/26/23 08:00 12/26/23 08:00 12/26/23 08:00 12/26/23 08:33 12/26/23 08:33 Laboratory Results - last 24 hr 12/25/23 11:17: WBC 9.9, RBC 4.55 L, Hgb 12.2 L, Hct 38.5 L, MCV 84.5, MCH 26.9 L, MCHC 31.8, RDW 15.8, Plt Count 346, MPV 7.8, Neut % (Auto) 77.7, Lymph % (Auto) 16.0, [place] % (Auto) 4.4, Eos % (Auto) 1.5, Baso % (Auto) 0.5, Neut # (Auto) 7.7, Lymph # (Auto) 1.6, [place] # (Auto) 0.4, Eos # (Auto) 0.1, Baso # (Auto) 0.1, PT 10.8, INR 0.96, APTT 31.9 H, D-Dimer 0.80 H, Sodium 137, Potassium 4.1, Chloride 103, Carbon Dioxide 26, Anion Gap 12.1, BUN 19, Creatinine 1.50 H, Estimated Creat Clear 66, Estimated GFR 46 L, Est GFR ( Amer) 56 L, Glucose 149 H, Calcium 8.7, Magnesium 2.3, Total Bilirubin 0.8, AST 26, ALT 17, Alkaline Phosphatase 87, Troponin I 1.21 H, Total Protein 8.1, Albumin 4.2, Globulin 3.9 H, Albumin/Globulin Ratio 1.1 12/25/23 11:34: VBG pH 7.45 H, VBG pCO2 35.7, VBG pO2 53.5 H, VBG HCO3 24.3, VBG Total CO2 25.4, VBG O2 Saturation 87.4 H, VBG Base Excess 0.3, VBG Lactic Acid 1.5 12/25/23 11:35: SARS-CoV-2 (PCR) Not detected, Influenza A Untype (PCR) Not detected, Influenza Type B (PCR) Not detected 12/25/23 14:46: Troponin I 1.08 H, NT-Pro-B Natriuret Pep 5710 H 12/25/23 17:45: Troponin I 0.93 H 12/25/23 19:54: Urine Color Yellow, Urine Appearance Clear, Urine pH 6.0, Ur Specific [place] 1.010, Urine Protein Negative, Urine Glucose (UA) 2+, Urine Ketones Negative, Urine Blood 2+, Urine Nitrate Negative, Urine Bilirubin Negative, Urine Urobilinogen 0.2, Ur Leukocyte Esterase 1+ A, Urine RBC 5-10, Urine WBC 20-50, Urine Bacteria 1+, Urine Yeast 4+ 12/25/23 21:24: POC Glucose 120 H 12/26/23 05:13: POC Glucose 167 H 12/26/23 05:42: WBC 7.6, RBC 4.16 L, Hgb 11.0 L, Hct 34.4 L, MCV 82.6, MCH 26.4 L, MCHC 32.0, RDW 15.6, Plt Count 288, MPV 7.5, Neut % (Auto) 78.6, Lymph % (Auto) 14.2, [place] % (Auto) 5.3, Eos % (Auto) 1.5, Baso % (Auto) 0.4, Neut # (Auto) 6.0, Lymph # (Auto) 1.1, [place] # (Auto) 0.4, Eos # (Auto) 0.1, Baso # (Auto) 0.0, Sodium 134 L, Potassium 3.8, Chloride 103, Carbon Dioxide 27, Anion Gap 7.8, BUN 17, Creatinine 1.50 H, Estimated Creat Clear 59, Estimated GFR 46 L , Est GFR ( Amer) 56 L, Glucose 139 H, Calcium 8.2 L, Magnesium 2.2, Total Bilirubin 0.5, AST 20, ALT 13, Alkaline Phosphatase 73, Total Protein 6.9, Albumin 3.5 D, Globulin 3.4 H, Albumin/Globulin Ratio 1.0 L, TSH 4.27 I & O for Last 24 hours: Intake & Output 12/23/23 12/24/23 12/25/23 12/26/23 23:59 23:59 23:59 23:59 Intake Total 279 / 279 Output Total 1550 / 1550 700 / 700 Balance -1550 / -1511 -421 / -421 Weight 212 lb 9.6 oz 207 lb 3.2 oz Constitutional Constitutional: no acute distress and cooperative *Routine HEENT Exam Eye: Present PERRL *Routine Respiratory Exam Respiratory: Present CTA bilaterally; Absent accessory muscle use, wheezes or crackles *Routine Cardiovascular Exam Cardiovascular: Present RRR, Normal S1 and Normal S2; Absent murmur, gallop or rubs *Routine Abdominal Exam Abdominal: Present soft; Absent tenderness *Routine Extremities Exam Extremities: Present pulses intact; Absent cyanosis or edema Comments: Partial right foot amputation *Routine Skin Exam Skin: Present intact; Absent erythema or wounds *Routine Neurological Exam Neurological: Present alert and oriented X3 Routine Psychiatric Exam Psychiatric: Present cooperative Progress Note: A&P Assessment and plan (1) Urinary tract infection: Status: Acute (2) Acute metabolic encephalopathy: Status: Acute Assessment and Plan Assessment and Plan for All Diagnoses:: Acute Metabolic Encephelopathy -Appears to have been due to urinary outlet obstruction and UTI -Patient has returned to baseline mentation Hypotension - resolved - BP is 140s on home meds and no fluids administered MV-CAD s/p NSTEMI and extensive PCI last week - EKG shows no ST elevation - Troponins are trending down - resume home DAPT, Statin. No BB due to CHF ACLSHF - new dx of EF 15-20% last week following NSTEMI - pt has LifeVest but is DNR - discussed this with POA. He and pt want it off for now - moderate right pleural effusion here. CXR shows improved aeration and pt O2 normal on room air - cont home meds -Patient is not wearing LifeVest. We discussed this at length and he states he would no longer like to wear it. He is a DNR acknowledges if he were to have sudden cardiac from an arrhythmia that that would likely be a quick and he would be okay with that. He would not be interested in pursuing ICD at a later date. I will contact the local rep to advise him of his preference. PAD s/p RLE amputations - follows with Podiatry here - cont DAPT, statin Tob - advise cessation DM-II - glucose control per primary service - GLP and SGLT2 later if tolerated DNR STATUS CV stable, we will sign off. Please advise if we can be of further assistance during his admission.
--- NOTE | 2023-12-26 11:15 | PC.NURSE ---
I spoke with podiatry in reference to patients mamie graff and marianne. They state that patients granddaughter (Berenice) took them home from the office.
[2023-12-26 11:20] LABS: POC Glucose,Bedside 134 (70-110)
--- NOTE | 2023-12-26 11:44 | HMH.PTEV ---
Physical Therapy Evaluation Rehab PT IP Evaluation Start: 12/26/23 11:17 Freq: ONCE Status: Active Protocol: Document 12/26/23 11:25 CARYN (Rec: 12/26/23 11:43 CARYN [id number]) Subjective/History History History Patient Francois Blair is a 73 yom who was admitted on () for confusion and dyspnea, his PMH is consistent with but not limited to the following tobacco use disorder , COPD, DM, PAD, partial right lower extremity amputation, legally blind, STEMI last week status post stenting (5 stents), and heart failure with reduced ejection fraction (15 to 20%). Patient states that he lives at home with his , and he normally uses a walker and his boot to ambulate with in his home. Subjective Subjective Patient stated he was feeling much better compared to yesterday, mentioned that he was ready to get up but did not currently have the boot that he normally wears. New diagnosis of cancer in past 12 No months? Rehab PT IP Eval Objective Appearance Patient Behavior Appropriate,Cooperative Patient Orientation Person,Place,Name,Age,Birthday Difficulty following instructions none Speech Pattern Clear,Appropriate Balance Ability to Arise Able, w/o using arms Sitting Balance Leans or slides in chair Standing Balance Steady, wide stance Dynamic Sitting Balance Ability Good Dynamic Standing Balance Ability Good Transfers Bed Transfer Ability Minimal x 1 (25% assist) Sit to Stand Bed Transfer Ability Minimal x 1 (25% assist) Rehab PT IP prob,goals,plan Problems Date of Evaluation: 12/26/23 PT IP Problems Transfers,Gait,Balance Rehab Potential Rehab Potential Good Plan PT Plan Frequency Daily Duration LOS Discharge Goals Bed Transfer Ability Supervision/Stand by Sit to Stand Chair Transfer Ability Supervision/Stand by Ambulation Assistive Device Rolling Walker Ambulation Distance (feet) 15 Discharge Plan PT Discharge Plan Patient is an appropriate candidate at this time for skilled PT to address the concern on safety during ambulation and transfers. It is recommended that once medically stable he obtain home health. Eval Complexity Eval Charge Codes 63794 - High Complexity PHYSICIAN CERTIFICATION: I certify the specified therapy services for Francois Blair are required, authorized, and reviewed every 30 days.
--- NOTE | 2023-12-26 12:33 | P.PN_ITS ---
Subjective *Date: 12/26/23 *Time: 21:39 Interval history: Patient alert and oriented this morning. Feeling much better. Improved from presentation yesterday. Denies any chest pain or shortness of breath. Tolerating catheter. Having good urine output. -2 L since admission. No nausea or vomiting. Medical Exam Vital signs and Labs for Last 24 Hours: Vital Signs Temp Pulse Pulse Pulse Resp BP BP 12/26/23 12:00 71 14 115/64 12/26/23 11:00 81 14 118/51 L 12/26/23 11:00 12/26/23 10:00 71 12 98/47 L 12/26/23 08:33 12/26/23 08:00 12/26/23 08:00 76 14 97/55 L 12/26/23 07:00 81 12 125/68 12/26/23 06:32 12/26/23 06:00 81 12 108/61 L 12/26/23 05:00 12/26/23 04:00 97.9 F 12/26/23 04:00 80 12/26/23 04:00 12/26/23 04:00 85 12 107/57 L 12/26/23 02:55 12/26/23 02:00 84 17 116/64 12/26/23 01:00 12/26/23 00:00 97.8 F 12/26/23 00:00 90 12/26/23 00:00 84 12 129/66 12/25/23 22:57 12/25/23 22:00 91 H 15 118/71 12/25/23 20:05 80 12/25/23 20:00 12/25/23 20:00 97.8 F 12/25/23 19:20 12/25/23 18:00 70 20 127/73 12/25/23 17:03 98.2 F 82 24 127/73 12/25/23 17:00 12/25/23 17:00 97.9 F 80 24 131/73 12/25/23 15:30 136/70 12/25/23 15:00 79 18 135/74 12/25/23 14:30 73 13 140/72 12/25/23 14:00 75 137/71 12/25/23 13:30 77 131/63 12/25/23 13:00 79 22 131/76 Pulse Ox O2 Del Method O2 Flow Rate 12/26/23 12:00 97 Room Air 12/26/23 11:00 97 Room Air 12/26/23 11:00 Room Air 12/26/23 10:00 97 Room Air 12/26/23 08:33 Nasal Cannula 2 12/26/23 08:00 Nasal Cannula 2 12/26/23 08:00 98 Nasal Cannula 2 12/26/23 07:00 100 Nasal Cannula 2 12/26/23 06:32 Nasal Cannula 2 12/26/23 06:00 98 Nasal Cannula 2 12/26/23 05:00 Nasal Cannula 2 12/26/23 04:00 12/26/23 04:00 12/26/23 04:00 98 Nasal Cannula 2 12/26/23 04:00 98 Nasal Cannula 2 12/26/23 02:55 Nasal Cannula 2 12/26/23 02:00 99 Nasal Cannula 2 12/26/23 01:00 Nasal Cannula 2 12/26/23 00:00 12/26/23 00:00 12/26/23 00:00 98 Nasal Cannula 2 12/25/23 22:57 Room Air 12/25/23 22:00 94 L Room Air 12/25/23 20:05 12/25/23 20:00 97 Room Air 12/25/23 20:00 12/25/23 19:20 Room Air 12/25/23 18:00 98 Room Air 12/25/23 17:03 97 12/25/23 17:00 Room Air 12/25/23 17:00 Room Air 12/25/23 15:30 12/25/23 15:00 97 Room Air 12/25/23 14:30 94 L Room Air 12/25/23 14:00 95 Room Air 12/25/23 13:30 95 Room Air 12/25/23 13:00 97 Room Air Intake and Output 12/25/23 12/26/23 12/26/23 23:59 07:59 15:59 Intake Total 39 / 279 240 / 279 Output Total 1550 / 1550 700 / 700 Balance -1550 / -1511 -661 / -421 240 / -421 Intake: Intake, Oral Amount 240 / 240 Intake, Total IV Amount 39 / 39 Ceftriaxone Sodium 1 gm In 0.9 39 / 39 % Sodium Chloride 50 ml @ 100 mls/hr IV Q24H WILL Rx#: [id number] Output: Output, Urine Amount 1550 / 1550 700 / 700 Other: Number of Unmeasured Voids 0 0 Weight 96.434 kg 93.984 kg Patient Weight 12/26/23 23:59 Weight 93.984 kg Laboratory Results - last 24 hr 12/25/23 11:17: D-Dimer 0.80 H 12/25/23 14:46: Troponin I 1.08 H, NT-Pro-B Natriuret Pep 5710 H 12/25/23 17:45: Troponin I 0.93 H 12/25/23 19:54: Urine Color Yellow, Urine Appearance Clear, Urine pH 6.0, Ur Specific [place] 1.010, Urine Protein Negative, Urine Glucose (UA) 2+, Urine Ketones Negative, Urine Blood 2+, Urine Nitrate Negative, Urine Bilirubin Negative, Urine Urobilinogen 0.2, Ur Leukocyte Esterase 1+ A, Urine RBC 5-10, Urine WBC 20-50, Urine Bacteria 1+, Urine Yeast 4+ 12/25/23 21:24: POC Glucose 120 H 12/26/23 05:13: POC Glucose 167 H 12/26/23 05:42: WBC 7.6, RBC 4.16 L, Hgb 11.0 L, Hct 34.4 L, MCV 82.6, MCH 26.4 L, MCHC 32.0, RDW 15.6, Plt Count 288, MPV 7.5, Neut % (Auto) 78.6, Lymph % (Auto) 14.2, [place] % (Auto) 5.3, Eos % (Auto) 1.5, Baso % (Auto) 0.4, Neut # (Auto) 6.0, Lymph # (Auto) 1.1, [place] # (Auto) 0.4, Eos # (Auto) 0.1, Baso # (Auto) 0.0, Sodium 134 L, Potassium 3.8, Chloride 103, Carbon Dioxide 27, Anion Gap 7.8, BUN 17, Creatinine 1.50 H, Estimated Creat Clear 59, Estimated GFR 46 L , Est GFR ( Amer) 56 L, Glucose 139 H, Calcium 8.2 L, Magnesium 2.2, T otal Bilirubin 0.5, AST 20, ALT 13, Alkaline Phosphatase 73, Total Protein 6.9, Albumin 3.5 D, Globulin 3.4 H, Albumin/Globulin Ratio 1.0 L, TSH 4.27 12/26/23 11:13: POC Glucose 134 H I & O for Labs for Last 24 Hours: Intake & Output 12/23/23 12/24/23 12/25/23 12/26/23 23:59 23:59 23:59 23:59 Intake Total 279 / 279 Output Total 1550 / 1550 700 / 700 Balance -1550 / -1511 -421 / -421 Weight 96.434 kg 93.984 kg Constitutional: Present no acute distress, obese, chronically ill appearing, disheveled and cooperative Head: Present atraumatic and normocephalic ENT: Present normal exam Neck: Present normal inspection Respiratory: Present crackles (bilateral bases) and normal respiratory effort; Absent rhonchi or wheezes Cardiac: Present Reg Rate and Rhythm GI: Present soft and normal bowel sounds; Absent distention or tenderness Extremities: Present normal inspection and full ROM Comment:: Right lower extremity in postop bandage. Skin: Present intact; Absent erythema Neuro: Present Grossly Intact, alert, awake, oriented x 3 and moves all extremities; Absent Sensory Function Intact Comment:: Decreased sensation in feet Assessment and Plan *Assessment and plan (1) Acute decompensated heart failure: Status: Acute Category: Medical Code(s): I50.9 - Heart failure, unspecified (2) HFrEF (heart failure with reduced ejection fraction): Status: Acute Category: Medical Code(s): I50.20 - Unspecified systolic (congestive) heart failure (3) Respiratory failure with hypoxia: Status: Acute Qualifiers: Chronicity: acute Qualified Code(s): J96.01 - Acute respiratory failure with hypoxia Category: Medical Code(s): J96.91 - Respiratory failure, unspecified with hypoxia (4) PAD (peripheral artery disease): Status: Acute Category: Medical Code(s): I73.9 - Peripheral vascular disease, unspecified (5) DM type 2 (diabetes mellitus, type 2): Status: Acute Qualifiers: Diabetes mellitus prison insulin use: with prison use Diabetes mellitus complication status: with other specified complication Qualified Code(s): E11.69 - Type 2 diabetes mellitus with other specified complication; Z79.4 - equipment [employer] (current) use of insulin Category: Medical Code(s): E11.9 - Type 2 diabetes mellitus without complications (6) Diabetic ulcer of right foot associated with diabetes mellitus due to underlying condition, with fat layer exposed: Problem Comment: Recent admission 11/24/[address] [facility] for Sepsis, Right TMA DFU to lateral foot with cellulitis. Podiatry follow up visit #1 12/06/23 Status: Acute Qualifiers: Diabetic foot ulcer location: other Qualified Code(s): E08.621 - Diabetes mellitus due to underlying condition with foot ulcer; L97.512 - Non- pressure chronic ulcer of other part of right foot with fat layer exposed Category: Medical Code(s): E08.621 - Diabetes mellitus due to underlying condition with foot ulcer; L97.512 - Non-pressure chronic ulcer of other part of right foot with fat layer exposed (7) COPD mixed type: Status: Acute Category: Medical Code(s): J44.9 - Chronic obstructive pulmonary disease, unspecified (8) Tobacco use: Status: Acute Category: Social Hx Code(s): Z72.0 - Tobacco use (9) Pleural effusion, bilateral: Status: Acute Category: Medical Code(s): J90 - Pleural effusion, not elsewhere classified (10) CAD (coronary artery disease): Status: Acute Category: Medical Code(s): I25.10 - Atherosclerotic heart disease of [place] coronary artery without angina pectoris (11) Urinary tract infection: Status: Acute Category: Medical Code(s): N39.0 - Urinary tract infection, site not specified Plan 73-year-old male with history of COPD, insulin-dependent diabetes, status post partial amputation of the right foot, admitted last week for acute on chronic heart failure with reduced ejection fraction. Found to have STEMI. Taken to [facility] with multivessel disease and placement of 5 stents. Presented to the ER and distress with heavy breathing and altered mental status. Vitals surprisingly normal. Workup with relatively unremarkable labs. Normal white count, kidney function at baseline with creatinine 1.5. BNP elevated at 5700. Troponins stable. Discussed case with ER, request admission for further management given acute change. I agreed to admit. Found of UTI overnight. Responding to diuresis. Overall doing better. Started on antibiotics. Continues to require inpatient admission awaiting urine culture and sensitivity. Continue diuresis. Cardiology assisting with care. Problems addressed as follows: Acute respiratory failure with hypoxia, secondary to acute pulmonary edema Acute on chronic heart failure with reduced ejection fraction CAD -Confusion improving with initiation of treatment for UTI -Discussed case with cardiology this morning, continue diuresis. -2 L since admission -Echo preliminarily shows stable EF. 15 to 20% EF -Patient no longer wants to wear his LifeVest. Discussed risks and benefits. States he has no interest in defibrillator if he needs 1 in the next 90 days. Therefore shared decision making, will discontinue LifeVest. -Continue goal-directed therapy: Jardiance 10 mg daily, Entresto 24/26 mg twice daily. Holding beta-karen in the setting of acute heart failure. -Continue Bumex 2 mg twice daily IV -aspirin 81 mg daily and Plavix 75 mg daily. -Potassium 3.8, kidney function with BUN 17, creatinine 1.5. Repeat CBC, CMP, magnesium ordered for the morning. UTI: Urinalysis grossly abnormal. Initiated on ceftriaxone 1 g daily. Culture pending. Altered mental status: Showing improvement today. Suspect secondary to UTI hand acute CHF Insulin-dependent type 2 diabetes. Uncontrolled A1c 12.4 on 11/22. Continue sliding scale insulin with fingersticks ACHS. Diabetic ulcer of right foot status post TMA. Wound care daily. Appears stable. No signs of infection On Protonix for GI protection DNR/DNI Cardiac diet
--- NOTE | 2023-12-26 13:49 | HMH.OTEV ---
OT Inpatient Evaluation Rehab OT IP Evaluation Start: 12/26/23 11:18 Freq: ONCE Status: Active Protocol: Document 12/26/23 13:42 [facility] (Rec: 12/26/23 13:49 [facility] [id number]) Rehab OT IP Assessment Subjective History Pt oriented x 3 on arrival. Pt agreeable to engage in therapy evaluation. Patient Francois Blair is a 73 yom who was admitted on () for confusion and dyspnea, his PMH is consistent with but not limited to the following tobacco use disorder , COPD, DM, PAD, partial right lower extremity amputation, legally blind, STEMI last week status post stenting (5 stents), and heart failure with reduced ejection fraction (15 to 20%). Patient states that he lives at home with his , and he normally uses a walker and his boot to ambulate with in his home. Subjective Prior to being in the hospital , pt lived at home with a friend. Pt claims he was independent with all ADLs prior to being in the hospital . Pt's friend does assist with all IADLs. Pt uses a rolling walker during transfers or a cane as long as he has on his orthotic boot. Objective Patient Orientation Person,Place,Birthday Right Upper Extremity Gross ROM WFL Left Upper Extremity Gross ROM WFL Bed Mobility bed mobility-scooting,bed mobility - supine/sit Assist Level Supervision/Stand by Transfer Training Sit/Stand Transfer Assist Level Contact Guard/Hand Hold Rehab OT IP prob,goals,plan Problems Date of Evaluation: 12/26/23 OT IP Problems Bed Mobility,Transfers,Balance ,Self care,Safety Rehab Potential Rehab Potential Good Equipment Needs Assistive Devices Rolling / Wheeled Walker Plan OT intervention Plan Bed Mobility,Transfers,Balance ,Self care,Safety,Therapeutic Exercise OT Plan Frequency Daily Duration LOS Discharge Goals Bed Mobility Ability Standby Assistance Sit to Stand Chair Transfer Ability Contact Guard/Hand Hold Chair Transfer Ability Contact Guard/Hand Hold Chair Transfer Technique Sit to/from Ambulatory Chair Transfer Assistive Devices Straight Cane Lower Body Dressing Ability Contact Guard Upper Body Dressing Ability Standby Assistance Bathing Ability Minimal Assistance Overall Commode/Toilet Transfer Ability Standby Assistance,Contact Guard Commode/Toilet Transfer Technique Sit to/from Ambulatory Discharge Plan OT Discharge Plan Pt will continue to be seen for OT services while at [facility]. Pt can return home with friend and her assistance once she is medically stable per physician. Pt would benefit from HH OT evaluation upon returning home. Continued skilled therapy is important in order for patient to improve strength, safety, endurance, functional transfers and ADL independence to reach PLOF. Eval Complexity Eval Charge Codes 94127 - Moderate Complexity PHYSICIAN CERTIFICATION: I certify the specified therapy services for Francois Blair are required, authorized, and reviewed every 30 days.
[2023-12-26 17:08] LABS: POC Glucose,Bedside 113 (70-110)
--- NOTE | 2023-12-26 17:22 | PC.NURSE ---
Pt is alert and oriented x4. He is currently on RA with O2 sats measuring 97%. O2 occasionally drops to the 80's when he sleeps. He's been NSR w/inverted t wave on tele. Glucose was 134 & 113 at checks. 1300mls of urine out of ross. He has denied any complaints. Bed is locked and in the lowest position, call light is within reach.
[2023-12-26 20:07] LABS: POC Glucose,Bedside 158 (70-110)
[2023-12-26] MEDS: TAMSULOSIN 0.4MG CAPSULE 0.4 MG PO (20:57)
[2023-12-26] MEDS: ENTRESTO 1 EACH PO (20:57)
[2023-12-26] MEDS: PT OWN MED *ATORVASTATIN 40 MG TAB 1 EACH PO (20:57)
[2023-12-26] MEDS: CEFTRIAXONE SODIUM 1 GM in 0.9 % SODIUM CHLORIDE 50 ML IV (20:58)
--- NOTE | 2023-12-26 23:41 | PC.NURSE ---
wanted to sleep instead
[2023-12-27] VITALS (7 sets, daily range): BP systolic 100–131; BP diastolic 40–68; PULSE 80–91; RESP 16–24; TEMP 36.5–36.8; O2SAT 95–98; BMI 27.9; BMI 27.8
[2023-12-27] MEDS: FLUTICASONE/UMECLIDIN/VILANTER 200/62.5/25MCG INHALER 1 PUFF IH (06:24)
[2023-12-27 06:25] LABS: Albumin Level 3.8 g/dl (3.5-5.0); Chloride 102 mmol/L (98-107); Potassium 3.6 mmoL/L (3.5-5.1); Sodium 137 mmol/L (136-145)
[2023-12-27 06:28] LABS: Alanine Aminotransferase 13 U/L (12-78); Albumin/Globulin Ratio 1.1 (1.1-1.8); Alkaline Phosphatase 77 U/L (38-126); Anion Gap 11.6 mEq/L (5-15); Aspartate Amino Transferase 21 U/L (17-59); Bilirubin,Total 0.7 mg/dl (0.2-1.3); Blood Urea Nitrogen 18 mg/dl (9-20); Calcium 8.5 mg/dl (8.4-10.2); Carbon Dioxide 27 mmol/L (22.0-30.0); Creatinine Clearance Estimated 59 mL/min (50-200); Estimated Glomerular Filt Rate 46 ml/min (>60); GFR (African American) 56 ML/MIN (>60); Globulin 3.6 g/dL (1.3-3.2); Glucose 105 mg/dl (74-100); Magnesium 2.2 mg/dl (1.6-2.3); Total Protein,Serum 7.4 g/dl (6.3-8.2)
[2023-12-27 06:55] LABS: Basophils % 0.7 % (0.1-2.0); Eosinophils # 0.1 K/mm3 (0.0-0.4); Eosinophils % 1.8 % (0.1-12.0); Hematocrit 35.7 % (42.0-52.0); Hemoglobin 11.5 g/dL (14.1-18.0); Lymphocytes # 1.2 K/mm3 (0.7-4.5); Lymphocytes % 17.9 % (10-50); Mean Corpuscular HGB Conc 32.1 g/dL (31.8-35.4); Mean Corpuscular Hemoglobin 26.5 pg (27.0-31.2); Mean Corpuscular Volume 82.5 fl (80-94); Monocytes # 0.4 K/mm3 (0.1-1.0); Monocytes % 6.4 % (1.7-9.3); Neutrophils # 4.8 K/mm3 (1.8-7.8); Neutrophils % 73.1 % (37.0-80.0); Platelet Count 305 K/mm3 (142-424); Red Blood Count 4.33 M/mm3 (4.60-6.20); Red Cell Distribution Width 15.7 % (11.5-17.5); White Blood Count 6.5 K/mm3 (4.8-10.8)
[2023-12-27 07:00] LABS: POC Glucose,Bedside 108 (70-110)
[2023-12-27] MEDS: ASPIRIN EC 81MG TABLET 81 MG PO (08:40)
[2023-12-27] MEDS: BUMETANIDE 1 MG TABLET 2 MG PO ×2 (08:40→15:44)
[2023-12-27] MEDS: ENTRESTO 1 EACH PO ×2 (08:40→20:43)
[2023-12-27] MEDS: PT OWN MED *CLOPIDOGREL 75 MG TAB 1 EACH PO (08:41)
--- NOTE | 2023-12-27 12:49 | EXP.ACUTE.PN ---
Subjective *Date: 12/27/23 *Time: 12:56 Interval history: No complaints overnight. No chest pain or shortness of breath. Alert and oriented to baseline today. Vitals within normal range. Diuresing well. Will discontinue Fajardo. No nausea or vomiting. Medical Exam Vital signs and Labs for Last 24 Hours: Vital Signs Temp Pulse Pulse Resp BP Pulse Ox O2 Del Method 12/27/23 12:00 97.9 F 12/27/23 12:00 80 12/27/23 12:00 91 H 24 120/68 98 Room Air 12/27/23 10:57 Room Air 12/27/23 08:00 90 12/27/23 08:00 Room Air 12/27/23 08:00 84 20 113/59 L 95 Room Air 12/27/23 07:35 Room Air 12/27/23 06:51 Room Air 12/27/23 05:00 Room Air 12/27/23 04:00 80 12/27/23 04:00 97.7 F 12/27/23 03:00 Room Air 12/27/23 01:00 Room Air 12/27/23 00:00 80 12/26/23 23:35 98.5 F 12/26/23 23:00 Room Air 12/26/23 21:00 Room Air 12/26/23 20:00 Room Air 12/26/23 20:00 70 12/26/23 19:59 97.6 F 12/26/23 18:32 Room Air 12/26/23 17:00 Room Air 12/26/23 16:00 99 H 16 116/58 L 95 Room Air 12/26/23 16:00 80 12/26/23 14:34 Room Air 12/26/23 13:00 Room Air Intake and Output 12/26/23 12/27/23 12/27/23 23:59 07:59 15:59 Intake Total 290 / 650 360 / 650 Output Total 1700 / 2000 300 / 2000 Balance -1410 / -1350 60 / -1350 Intake: Intake, Oral Amount 240 / 600 360 / 600 Intake, Total IV Amount 50 / 50 Ceftriaxone Sodium 1 gm In 0.9 50 / 50 % Sodium Chloride 50 ml @ 100 mls/hr IV Q24H [facility] Rx#:[id number] Output: Output, Urine Amount 1700 / 1700 Output, Urine Amount (Catheter) 300 / 300 Fajardo 300 / 300 Other: Number of Unmeasured Voids 0 Weight 93.712 kg Patient Weight 12/27/23 23:59 Weight 93.712 kg Laboratory Results - last 24 hr 12/26/23 17:01: POC Glucose 113 H 12/26/23 20:00: POC Glucose 158 H 12/27/23 05:38: WBC 6.5, RBC 4.33 L, Hgb 11.5 L, Hct 35.7 L, MCV 82.5, MCH 26.5 L, MCHC 32.1, RDW 15.7, Plt Count 305, MPV 8.0, Neut % (Auto) 73.1, Lymph % (Auto) 17.9, [place] % (Auto) 6.4, Eos % (Auto) 1.8, Baso % (Auto) 0.7, Neut # (Auto) 4.8, Lymph # (Auto) 1.2, [place] # (Auto) 0.4, Eos # (Auto) 0.1, Baso # (Auto) 0.0, Sodium 137, Potassium 3.6, Chloride 102, Carbon Dioxide 27, Anion Gap 11.6, BUN 18, Creatinine 1.50 H, Estimated Creat Clear 59, Estimated GFR 46 L, Est GFR ( Amer) 56 L, Glucose 105 H D, Calcium 8.5, Magnesium 2.2, Total Bilirubin 0.7, AST 21, ALT 13, Alkaline Phosphatase 77, Total Protein 7.4, Albumin 3.8, Globulin 3.6 H, Albumin/Globulin Ratio 1.1 12/27/23 06:54: POC Glucose 108 I & O for Labs for Last 24 Hours: Intake & Output 12/24/23 12/25/23 12/26/23 12/27/23 23:59 23:59 23:59 23:59 Intake Total 639 / 929 650 / 650 Output Total 1550 / 1550 1999 Balance -1550 / -1511 -1361 / -1071 -1350 / -1350 Weight 96.434 kg 93.984 kg 93.712 kg Microbiology Reports for the Last 24 Hours: Microbiology 12/25/23 19:54 Urine,Clean Catch Urine Culture - Preliminary Constitutional: Present no acute distress, obese, chronically ill appearing, disheveled and cooperative Head: Present atraumatic and normocephalic ENT: Present normal exam Neck: Present normal inspection Respiratory: Present crackles (bilateral bases) and normal respiratory effort; Absent rhonchi or wheezes Cardiac: Present Reg Rate and Rhythm GI: Present soft and normal bowel sounds; Absent distention or tenderness Extremities: Present normal inspection and full ROM Comment:: Right lower extremity in postop bandage. Skin: Present intact; Absent erythema Neuro: Present Grossly Intact, alert, awake, oriented x 3 and moves all extremities; Absent Sensory Function Intact Comment:: Decreased sensation in feet Assessment and Plan *Assessment and plan (1) Acute decompensated heart failure: Status: Acute Category: Medical Code(s): I50.9 - Heart failure, unspecified (2) HFrEF (heart failure with reduced ejection fraction): Status: Acute Category: Medical Code(s): I50.20 - Unspecified systolic (congestive) heart failure (3) Urinary tract infection: Status: Acute Category: Medical Code(s): N39.0 - Urinary tract infection, site not specified (4) Acute metabolic encephalopathy: Status: Resolved Category: Medical Code(s): G93.41 - Metabolic encephalopathy (5) Respiratory failure with hypoxia: Status: Acute Qualifiers: Chronicity: acute Qualified Code(s): J96.01 - Acute respiratory failure with hypoxia Category: Medical Code(s): J96.91 - Respiratory failure, unspecified with hypoxia (6) PAD (peripheral artery disease): Status: Acute Category: Medical Code(s): I73.9 - Peripheral vascular disease, unspecified (7) DM type 2 (diabetes mellitus, type 2): Status: Acute Qualifiers: Diabetes mellitus complication status: with other specified complication 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 Podiatry follow up visit #1 12/06/23 Status: Acute Qualifiers: Diabetic foot ulcer location: other Qualified Code(s): E08.621 - Diabetes mellitus due to underlying condition with foot ulcer; L97.512 - Non-pressure chronic ulcer of other part of right foot with fat layer exposed Category: Medical Code(s): E08.621 - Diabetes mellitus due to underlying condition with foot ulcer; L97.512 - Non-pressure chronic ulcer of other part of right foot with fat layer exposed (9) COPD mixed type: Status: Acute Category: Medical Code(s): J44.9 - Chronic obstructive pulmonary disease, unspecified (10) Tobacco use: Status: Acute Category: Social Hx Code(s): Z72.0 - Tobacco use (11) Pleural effusion, bilateral: Status: Acute Category: Medical Code(s): J90 - Pleural effusion, not elsewhere classified (12) CAD (coronary artery disease): Status: Acute Category: Medical Code(s): I25.10 - Atherosclerotic heart disease of [place] coronary artery without angina pectoris Plan 73-year-old male with history of COPD, insulin-dependent diabetes, status post partial amputation of the right foot, admitted last week for acute on chronic heart failure with reduced ejection fraction. Found to have STEMI. Taken to Customs Compliance Director with multivessel disease and placement of 5 stents. Presented to the ER and distress with heavy breathing and altered mental status. Vitals surprisingly normal. Workup with relatively unremarkable labs. Normal white count, kidney function at baseline with creatinine 1.5. BNP elevated at 5700. Troponins stable. Discussed case with ER, request admission for further management given acute change. I agreed to admit. Tolerating treatment for UTI. Mentation improving. Awaiting speciation and sensitivity to de-escalate antibiotics. Continues to require inpatient management. Diuresing well. Problems addressed as follows: Acute respiratory failure with hypoxia, secondary to acute pulmonary edema Acute on chronic heart failure with reduced ejection fraction CAD -Discussed case with cardiology this morning, continue diuresis. Negative fluid balance since admission -Echo preliminarily shows stable EF. 15 to 20% EF -Patient no longer wants to wear his LifeVest. Discussed risks and benefits. States he has no interest in defibrillator if he needs 1 in the next 90 days. Therefore shared decision making, will discontinue LifeVest. -Continue goal-directed therapy: Jardiance 10 mg daily, Entresto 24/26 mg twice daily. Holding beta-karen in the setting of acute heart failure. -Continue Bumex 2 mg twice daily IV -aspirin 81 mg daily and Plavix 75 mg daily. -Potassium 3.6, magnesium 2.2. Kidney function at patient's baseline with BUN 18, creatinine 1.5. Repeat CBC, CMP, magnesium ordered for the morning. UTI: Urinalysis grossly abnormal. Initiated on ceftriaxone 1 g daily, will complete at-least 5 days total, today is day 3/5. Culture pending. Altered mental status: Back to baseline mentation. Suspect secondary to UTI hand acute CHF Insulin-dependent type 2 diabetes. Uncontrolled A1c 12.4 on 11/22. Continue sliding scale insulin with fingersticks ACHS. Morning glucose 105. Diabetic ulcer of right foot status post TMA. Wound care daily. Appears stable. No signs of infection On Protonix for GI protection DNR/DNI Cardiac diet
--- NOTE | 2023-12-27 17:04 | PC.NURSE ---
Addendum entered by Catie Valdovinos RN 12/27/23 17:13: PT HAS VOIDED SINCE CATHETER WAS DC'D. Original Note: PT IS RESTING IN BED. ALERT AND ORIENTED X4. EATING AND DRINKING FAIR. PT TOLERATED SITTING UP IN THE CHAIR FOR LUNCH THIS SHIFT. SLEEPING OFF AND ON T/O THE SHIFT. AMBULATED TO THE BATHROOM WITH WALKER. PT HAD A LARGE BOWEL MOVEMENT. LUNG SOUNDS DIMINISHED. ABDOMEN SOFT/NON TENDER WITH ACTIVE BOWEL SOUNDS. WOUND NOTED TO RIGHT FOOT WITH PURULENT DRAINAGE. CLEANED WITH BETADINE AND REDRESSED WITH TELFA, KERLIX AND LESLIE WRAP. WILL CONTINUE TO MONITOR.
[2023-12-27 20:15] LABS: POC Glucose,Bedside 196 (70-110)
[2023-12-27] MEDS: humaLOG 100 UNITS/ML 10ML VIAL (SSI) SQ (20:43)
[2023-12-27] MEDS: PT OWN MED *ATORVASTATIN 40 MG TAB 1 EACH PO (20:43)
[2023-12-27] MEDS: CEFTRIAXONE 1 GM 1 GM in 0.9 % SODIUM CHLORIDE 50 ML IV (20:43)
[2023-12-27] MEDS: TAMSULOSIN 0.4MG CAPSULE 0.4 MG PO (20:43)
[2023-12-27] MEDS: TRAZODONE 50MG TABLET 50 MG PO (22:07)
[2023-12-28] VITALS: BP 95/45; PULSE 90; PULSE 92; RESP 16; TEMP 37.1; O2SAT 94
[2023-12-28 04:00] VITALS: BP 100/61; PULSE 80; PULSE 84; RESP 16; TEMP 37; O2SAT 95; BMI 28.0
[2023-12-28] MEDS: FLUTICASONE/UMECLIDIN/VILANTER 200/62.5/25MCG INHALER 1 PUFF IH (05:46)
[2023-12-28 06:00] LABS: POC Glucose,Bedside 142 (70-110)
[2023-12-28 06:11] LABS: Basophils % 0.5 % (0.1-2.0); Eosinophils # 0.2 K/mm3 (0.0-0.4); Eosinophils % 2.2 % (0.1-12.0); Hematocrit 35.3 % (42.0-52.0); Hemoglobin 11.7 g/dL (14.1-18.0); Lymphocytes # 1.4 K/mm3 (0.7-4.5); Lymphocytes % 19.9 % (10-50); Mean Corpuscular HGB Conc 33.2 g/dL (31.8-35.4); Mean Corpuscular Hemoglobin 27.1 pg (27.0-31.2); Mean Corpuscular Volume 81.6 fl (80-94); Mean Platelet Volume 7.4 fl (7.4-10.4); Monocytes # 0.4 K/mm3 (0.1-1.0); Monocytes % 5.2 % (1.7-9.3); Neutrophils # 5.1 K/mm3 (1.8-7.8); Neutrophils % 72.1 % (37.0-80.0); Platelet Count 310 K/mm3 (142-424); Red Blood Count 4.33 M/mm3 (4.60-6.20); Red Cell Distribution Width 15.7 % (11.5-17.5); White Blood Count 7.1 K/mm3 (4.8-10.8)
[2023-12-28 06:18] LABS: Albumin Level 3.9 g/dl (3.5-5.0); Chloride 101 mmol/L (98-107); Potassium 3.6 mmoL/L (3.5-5.1); Sodium 137 mmol/L (136-145)
[2023-12-28 06:21] LABS: Alanine Aminotransferase 17 U/L (12-78); Albumin/Globulin Ratio 1.1 (1.1-1.8); Alkaline Phosphatase 82 U/L (38-126); Anion Gap 9.6 mEq/L (5-15); Aspartate Amino Transferase 24 U/L (17-59); Bilirubin,Total 0.6 mg/dl (0.2-1.3); Blood Urea Nitrogen 22 mg/dl (9-20); Calcium 8.4 mg/dl (8.4-10.2); Carbon Dioxide 30 mmol/L (22.0-30.0); Creatinine Clearance Estimated 55 mL/min (50-200); Estimated Glomerular Filt Rate 43 ml/min (>60); GFR (African American) 52 ML/MIN (>60); Globulin 3.7 g/dL (1.3-3.2); Glucose 128 mg/dl (74-100); Total Protein,Serum 7.6 g/dl (6.3-8.2)
[2023-12-28 06:26] LABS: Magnesium 2.1 mg/dl (1.6-2.3)
[2023-12-28 08:00] VITALS: BP 95/50; PULSE 84; PULSE 90; RESP 17; TEMP 36.6; O2SAT 93
[2023-12-28] MEDS: ENTRESTO 1 EACH PO ×2 (08:22→20:20)
[2023-12-28] MEDS: BUMETANIDE 1 MG TABLET 2 MG PO ×2 (08:22→15:55)
[2023-12-28] MEDS: PT OWN MED *CLOPIDOGREL 75 MG TAB 1 EACH PO (08:22)
[2023-12-28] MEDS: ASPIRIN EC 81MG TABLET 81 MG PO (08:22)
[2023-12-28 11:41] LABS: POC Glucose,Bedside 156 (70-110)
[2023-12-28 12:00] VITALS: BP 99/47; PULSE 85; RESP 17; TEMP 36.8; O2SAT 96
[2023-12-28 16:00] VITALS: BP 116/55; PULSE 80; PULSE 81; RESP 20; TEMP 36.6; O2SAT 98
--- NOTE | 2023-12-28 16:31 | PC.NURSE ---
PT IS RESTING IN BED. HAS BEEN SLEEPING OFF AND ON T/O THE SHIFT. PT STATES HE DOESN'T HAVE MUCH OF AN APPETITE TODAY. TOLERATED SITTING UP IN THE CHAIR FOR A FEW HOURS THIS SHIFT. PT AMBULATES WITH WALKER. LUNG SOUNDS DIMINISHED. ABDOMEN SOFT/NON TENDER WITH ACTIVE BOWEL SOUNDS DRESSING TO WOUND ON RIGHT FOOT CHANGED THIS SHIFT. SCATTERED ABRASIONS NOTED TO BILATERAL FINGERS. SWELLING NOTED TO BLE. WILL CONTINUE TO MONITOR.
[2023-12-28 16:40] LABS: POC Glucose,Bedside 140 (70-110)
[2023-12-28 17:09] LABS: POC Glucose,Bedside 131 (70-110)
[2023-12-28 17:09] LABS: POC Glucose,Bedside 180 (70-110)
--- NOTE | 2023-12-28 18:42 | P.PN_ITS ---
Subjective *Date: 12/28/23 *Time: 18:42 Interval history: seen at bedside, lying comfortably, denied CP, SOB, N/V Exam Data for Last 24 hours Vital signs and Labs for Last 24 Hours: Temp Pulse Resp BP Pulse Ox O2 Del Method O2 Flow Rate 97.9 F 81 20 116/55 L 98 Room Air 2 12/28/23 16:00 12/28/23 16:00 12/28/23 16:00 12/28/23 16:00 12/28/23 16:00 12/28/23 18:34 12/26/23 08:33 Laboratory Results - last 24 hr 12/25/23 19:54: Urine Color Yellow, Urine Appearance Clear, Urine pH 6.0, Ur Specific Dawn 1.010, Urine Protein Negative, Urine Glucose (UA) 2+, Urine Ketones Negative, Urine Blood 2+, Urine Nitrate Negative, Urine Bilirubin Negative, Urine Urobilinogen 0.2, Ur Leukocyte Esterase 1+ A, Urine RBC 5-10, Urine WBC 20-50, Urine Bacteria 1+, Urine Yeast 4+ 12/27/23 10:54: POC Glucose 131 H 12/27/23 15:47: POC Glucose 180 H 12/27/23 20:07: POC Glucose 196 H 12/28/23 05:32: WBC 7.1, RBC 4.33 L, Hgb 11.7 L, Hct 35.3 L, MCV 81.6, MCH 27.1, MCHC 33.2, RDW 15.7, Plt Count 310, MPV 7.4, Neut % (Auto) 72.1, Lymph % (Auto) 19.9, [place] % (Auto) 5.2, Eos % (Auto) 2.2, Baso % (Auto) 0.5, Neut # (Auto) 5.1, Lymph # (Auto) 1.4, [place] # (Auto) 0.4, Eos # (Auto) 0.2, Baso # (Auto) 0.0, Sodium 137, Potassium 3.6, Chloride 101, Carbon Dioxide 30, Anion Gap 9.6, BUN 22 H, Creatinine 1.60 H, Estimated Creat Clear 55, Estimated GFR 43 L, Est GFR ( Amer) 52 L, Glucose 128 H D, Calcium 8.4, Magnesium 2.1, Total Bilirubin 0.6, AST 24, ALT 17 D, Alkaline Phosphatase 82, Total Protein 7.6, Albumin 3.9, Globulin 3.7 H, Albumin/Globulin Ratio 1.1 12/28/23 05:52: POC Glucose 142 H 12/28/23 11:33: POC Glucose 156 H 12/28/23 15:59: POC Glucose 140 H I & O for Last 24 hours: Intake & Output 12/25/23 12/26/23 12/27/23 12/28/23 23:59 23:59 23:59 23:59 Intake Total 639 / 929 1100 / 1390 950 / 950 Output Total 1550 / 1550 2000 / 2000 2300 / 2900 1200 / 1200 Balance -1550 / -1511 -1361 / -1071 -1200 / -1510 -250 / -250 Weight 96.434 kg 93.984 kg 93.17 kg 93.984 kg Microbiology Reports for the Last 24 Hours: Microbiology 12/25/23 19:54 Urine,Clean Catch Urine Culture - Preliminary Gram Positive Cocci Constitutional Constitutional: no acute distress *Routine HEENT Exam Head: Present normocephalic Eye: Present EOMI and PERRL ENT: Present mucous membranes moist *Routine Neck Exam Neck: Present supple; Absent lymphadenopathy *Routine Respiratory Exam Respiratory: Present CTA bilaterally *Routine Cardiovascular Exam Cardiovascular: Present RRR *Routine Abdominal Exam Abdominal: Present soft and normoactive bowel sounds; Absent tenderness *Routine Extremities Exam Extremities: Absent cyanosis, clubbing or edema *Routine Skin Exam Skin: Present warm; Absent rash *Routine Neurological Exam Neurological: Present alert and oriented X3 Assessment and Plan *Assessment and plan (1) Acute decompensated heart failure: Status: Acute Category: Medical Code(s): I50.9 - Heart failure, unspecified (2) HFrEF (heart failure with reduced ejection fraction): Status: Acute Category: Medical Code(s): I50.20 - Unspecified systolic (congestive) heart failure (3) Urinary tract infection: Status: Acute Category: Medical Code(s): N39.0 - Urinary tract infection, site not specified (4) Acute metabolic encephalopathy: Status: Resolved Category: Medical Code(s): G93.41 - Metabolic encephalopathy (5) Respiratory failure with hypoxia: Status: Acute Qualifiers: Chronicity: acute Qualified Code(s): J96.01 - Acute respiratory failure with hypoxia Category: Medical Code(s): J96.91 - Respiratory failure, unspecified with hypoxia (6) PAD (peripheral artery disease): Status: Acute Category: Medical Code(s): I73.9 - Peripheral vascular disease, unspecified (7) DM type 2 (diabetes mellitus, type 2): Status: Acute Qualifiers: Diabetes mellitus terminal gauger insulin use: with longterm use Diabetes mellitus complication status: with other specified complication Qualified Code(s): E11.69 - Type 2 diabetes mellitus with other specified complication; Z79.4 - correction (current) use of insulin Category: Medical Code(s): E11.9 - Type 2 diabetes mellitus without complications (8) Diabetic ulcer of right foot associated with diabetes mellitus due to underlying condition, with fat layer exposed: Problem Comment: Recent admission 11/24/23 to [facility] for Sepsis, Right TMA DFU to lateral foot with cellulitis. Podiatry follow up visit #1 12/06/23 Status: Acute Qualifiers: Diabetic foot ulcer location: other Qualified Code(s): E08.621 - Diabetes mellitus due to underlying condition with foot ulcer; L97.512 - Non- pressure chronic ulcer of other part of right foot with fat layer exposed Category: Medical Code(s): E08.621 - Diabetes mellitus due to underlying condition with foot ulcer; L97.512 - Non-pressure chronic ulcer of other part of right foot with fat layer exposed (9) COPD mixed type: Status: Acute Category: Medical Code(s): J44.9 - Chronic obstructive pulmonary disease, unspecified (10) Tobacco use: Status: Acute Category: Social Hx Code(s): Z72.0 - Tobacco use (11) Pleural effusion, bilateral: Status: Acute Category: Medical Code(s): J90 - Pleural effusion, not elsewhere classified (12) CAD (coronary artery disease): Status: Acute Category: Medical Code(s): I25.10 - Atherosclerotic heart disease of [place] coronary artery without angina pectoris Plan 73-year-old male with history of COPD, insulin-dependent diabetes, status post partial amputation of the right foot, admitted last week for acute on chronic heart failure with reduced ejection fraction. Found to have STEMI. Taken to [employer] Specialist with multivessel disease and placement of 5 stents. Acute respiratory failure with hypoxia, secondary to acute pulmonary edema - improved Acute on chronic heart failure with reduced ejection fraction - improved CAD -Echo preliminarily shows stable EF. 15 to 20% EF -Patient no longer wants to wear his LifeVest. Discussed risks and benefits. patient refused lifevest -on GDMT per cardiology- Jardiance 10 mg daily, Entresto 24/26 mg twice daily. Holding beta-karen in the setting of acute heart failure. -Continue Bumex 2 mg twice daily IV -aspirin 81 mg daily and Plavix 75 mg daily. UTI: Urinalysis grossly abnormal. Initiated on ceftriaxone 1 g daily, will complete at-least 5 days total, today is day 3/5. Culture pending, likely to result tomorrow Altered mental status: improved Insulin-dependent type 2 diabetes. Uncontrolled A1c 12.4 on 11/22. Continue sliding scale insulin Diabetic ulcer of right foot status post TMA. Wound care daily. On Protonix for GI protection DNR/DNI Cardiac diet likely DC tomorrow pending urine cultures
[2023-12-28 20:00] VITALS: BP 111/60; PULSE 67; PULSE 83; RESP 16; TEMP 36.8; O2SAT 98
[2023-12-28] MEDS: CEFTRIAXONE 1 GM 1 GM in 0.9 % SODIUM CHLORIDE 50 ML IV (20:19)
[2023-12-28] MEDS: TRAZODONE 50MG TABLET 50 MG PO (20:20)
[2023-12-28] MEDS: TAMSULOSIN 0.4MG CAPSULE 0.4 MG PO (20:20)
[2023-12-28] MEDS: PT OWN MED *ATORVASTATIN 40 MG TAB 1 EACH PO (20:20)
[2023-12-28 21:53] LABS: POC Glucose,Bedside 140 (70-110)
[2023-12-29] VITALS: BP 107/70; PULSE 81; PULSE 82; RESP 16; TEMP 36.9; O2SAT 97
[2023-12-29 04:00] VITALS: BP 107/39; PULSE 85; RESP 16; TEMP 36.8; O2SAT 96; BMI 28.0
--- NOTE | 2023-12-29 05:51 | PC.NURSE ---
Mr Blair was handed off to me at 01:00 this shift by Michaelle Campo RN; report about patient was given/received. Mr Blair was admitted for encephalopathy, CAUTI, urinary retention, and heart failure. DNR status was confirmed with patient and form was signed. Patient is alert and oriented x4. Patient has a history of an OH, 5 stents placed during heart cath procedure, right toe amputations, and chronic heart failure with a reduced ejection fraction. Patient has rested comfortably for the majority of the night since taking over his care at 01:00. Patient's dressing on right heel is observed to be dry and intact; dressing was changed during the previous shift (to be changed daily). Patient refused to wear life vest this shift; vest remains at bedside. Patient's lung sounds are diminished upon auscultation; patient tolerates room air well. Patient's bowel sounds are active in all quadrants. Patient's FSBS at 21:00 was 140, and at 06:00, it was 123; the patient did not receive insulin coverage due to these readings. I myself emptied 100mL of urine from his urinal this shift. Patient does not have any complaints at this time. Patient is currently resting in bed on his right side. Home meds in drawer/OMNI. Call light within reach.
[2023-12-29 06:14] LABS: POC Glucose,Bedside 123 (70-110)
[2023-12-29 06:15] LABS: Chloride 100 mmol/L (98-107)
[2023-12-29 06:16] LABS: Sodium 136 mmol/L (136-145)
[2023-12-29 06:18] LABS: Blood Urea Nitrogen 25 mg/dl (9-20); Creatinine Clearance Estimated 59 mL/min (50-200); Estimated Glomerular Filt Rate 46 ml/min (>60); GFR (African American) 56 ML/MIN (>60)
[2023-12-29 06:19] LABS: Alanine Aminotransferase 15 U/L (12-78); Albumin/Globulin Ratio 1.1 (1.1-1.8); Alkaline Phosphatase 86 U/L (38-126); Aspartate Amino Transferase 25 U/L (17-59); Bilirubin,Total 0.7 mg/dl (0.2-1.3); Calcium 8.6 mg/dl (8.4-10.2); Carbon Dioxide 31 mmol/L (22.0-30.0); Globulin 3.8 g/dL (1.3-3.2); Glucose 124 mg/dl (74-100); Total Protein,Serum 7.8 g/dl (6.3-8.2)
[2023-12-29] MEDS: FLUTICASONE/UMECLIDIN/VILANTER 200/62.5/25MCG INHALER 1 PUFF IH (06:33)
[2023-12-29 08:00] VITALS: BP 90/51; PULSE 80; PULSE 85; RESP 17; TEMP 36.6; O2SAT 93
[2023-12-29 08:29] LABS: Basophils % 0.5 % (0.1-2.0); Eosinophils # 0.2 K/mm3 (0.0-0.4); Eosinophils % 2.5 % (0.1-12.0); Hematocrit 38.8 % (42.0-52.0); Hemoglobin 11.9 g/dL (14.1-18.0); Lymphocytes # 1.2 K/mm3 (0.7-4.5); Lymphocytes % 16.6 % (10-50); Mean Corpuscular HGB Conc 30.7 g/dL (31.8-35.4); Mean Corpuscular Hemoglobin 26.1 pg (27.0-31.2); Mean Corpuscular Volume 85.1 fl (80-94); Mean Platelet Volume 6.6 fl (7.4-10.4); Monocytes # 0.4 K/mm3 (0.1-1.0); Monocytes % 6.1 % (1.7-9.3); Neutrophils # 5.3 K/mm3 (1.8-7.8); Neutrophils % 74.3 % (37.0-80.0); Platelet Count 295 K/mm3 (142-424); Red Blood Count 4.56 M/mm3 (4.60-6.20); White Blood Count 7.2 K/mm3 (4.8-10.8)
[2023-12-29] MEDS: BUMETANIDE 1 MG TABLET 2 MG PO (09:22)
[2023-12-29] MEDS: ENTRESTO 1 EACH PO (09:23)
[2023-12-29] MEDS: PT OWN MED *CLOPIDOGREL 75 MG TAB 1 EACH PO (09:23)
[2023-12-29] MEDS: ASPIRIN EC 81MG TABLET 81 MG PO (09:23)
[2023-12-29] MEDS: humaLOG 100 UNITS/ML 10ML VIAL (SSI) SQ (11:51)
[2023-12-29 11:59] LABS: POC Glucose,Bedside 161 (70-110)
[2023-12-29 12:00] VITALS: BP 104/55; PULSE 80; PULSE 81; RESP 22; TEMP 36.4; O2SAT 97
[2023-12-29] MEDS: LINEZOLID 600 MG/300 ML IV.SOLN 300 MG IV (12:23)
--- NOTE | 2023-12-29 12:27 | SW/DCPLANNER ---
Patient information/order to resume home health services has been faxed to [facility]. Patient will discharge home this afternoon.
[2023-12-29 16:00] VITALS: PULSE 80
--- NOTE | 2023-12-29 16:21 | PC.NURSE ---
offered to help patient put on life vest for ride home. pt refused. this rn educated pt on risks of not wearing life vest and asked if there was a reason he did not want to wear it but pt refused to answer. pt voiced understanding regarding risks of not wearing life vest.
--- NOTE | 2024-01-02 13:39 | CARE MANAGER ---
Contacted patient related to hospital discharge. He states he feels about the same and is tired. He has new medication and is aware of follow up appointments. SW will follow up with home health as he has not heard from them yet. Denies questions or concerns. TAZ Wynn
--- NOTE | 2024-01-10 15:25 | EXP.DC.SUM ---
General Admission date:: 12/25/23 Discharge date: 12/29/23 HPI HPI HPI: Mr. Blair is a 73-year-old male who presented to the ER after going to podiatry clinic today for routine follow-up. Presented to the ER because of concern for respiratory distress and confusion. He has a history of tobacco use disorder, PAD, partial right lower extremity amputation, legally blind, STEMI last week status post stenting (5 stents), and heart failure with reduced ejection fraction (15 to 20%). Discharged last week on goal-directed therapy. Was doing better and independently mobile. Discharged home with home health. Had to be hypotensive in podiatry clinic today. On arrival to the ER, was satting appropriately on room air with improvement in his blood pressure. Patient frankly altered, given change in mentation, workup including CTs of his head were obtained. No acute process identified. Cardiology evaluated to assist with management in the ER. Unclear reasoning for his change. Labs and vitals are remarkably normal in light of his clinical appearance. Given his change in mentation, medicine consulted for admission. Cardiology recommended additional dose of diuretic. CTA of chest obtained showing no pulmonary emboli. Pleural effusions decreasing in size. Alert to person and place but the time of arrival to the floor. POA (RLE flaccid) present at bedside on evaluation. Hospital Course Hospital Course Hospital Course: 73-year-old male with history of COPD, insulin-dependent diabetes, status post partial amputation of the right foot, admitted last week for acute on chronic heart failure with reduced ejection fraction. Found to have STEMI. Taken to [facility] with multivessel disease and placement of 5 stents. Patient was admitted for low O2 levels, which improved during the hospitalization, patient was evaluated by cardiology and pulmonary, patient was noted to have low EF 15-20%,, patient was started on Jardiance 10 mg daily, Entresto 24/26 mg twice daily, ASA and plavix. Patient is cleared for discharge per pulmonary and cardiology, patient is stable for dischcarge and follow up with PCP and pulmonary in office. On the date of discharge, the patient reported feeling stable. The patient was found not to be in any acute distress, and no new abnormalities on physical examination. Further, the patient expressed appropriate understanding of, and agreement with, the discharge recommendations, medications, and plan. Time spent 37 mins Exam Data for Last 24 hours Vital signs and Labs for Last 24 Hours: Temp Pulse Resp BP Pulse Ox O2 Del Method O2 Flow Rate 97.6 F 80 22 104/55 L 97 Room Air 2 12/29/23 12:00 12/29/23 16:00 12/29/23 12:00 12/29/23 12:00 12/29/23 12:00 12/29/23 13:00 12/26/23 08:33 Constitutional Constitutional: no acute distress *Routine HEENT Exam Head: Present normocephalic Eye: Present EOMI and PERRL ENT: Present mucous membranes moist *Routine Neck Exam Neck: Present supple; Absent lymphadenopathy *Routine Respiratory Exam Respiratory: Present CTA bilaterally *Routine Cardiovascular Exam Cardiovascular: Present RRR *Routine Abdominal Exam Abdominal: Present soft and normoactive bowel sounds; Absent tenderness *Routine Extremities Exam Extremities: Absent cyanosis, clubbing or edema *Routine Skin Exam Skin: Present warm; Absent rash *Routine Neurological Exam Neurological: Present alert and oriented X3 DS: Diagnosis Discharge Diagnosis (1) Acute decompensated heart failure: Status: Acute Code(s): I50.9 - Heart failure, unspecified (2) HFrEF (heart failure with reduced ejection fraction): Status: Acute Code(s): I50.20 - Unspecified systolic (congestive) heart failure (3) Urinary tract infection: Status: Acute Code(s): N39.0 - Urinary tract infection, site not specified (4) Acute metabolic encephalopathy: Status: Resolved Code(s): G93.41 - Metabolic encephalopathy (5) Respiratory failure with hypoxia: Status: Acute Code(s): J96.91 - Respiratory failure, unspecified with hypoxia Qualifiers: Chronicity: acute Qualified Code(s): J96.01 - Acute respiratory failure with hypoxia (6) PAD (peripheral artery disease): Status: Acute Code(s): I73.9 - Peripheral vascular disease, unspecified (7) DM type 2 (diabetes mellitus, type 2): Status: Acute Code(s): E11.9 - Type 2 diabetes mellitus without complications Qualifiers: Diabetes mellitus complication status: with other specified complication Diabetes mellitus jail insulin use: with jail use Qualified Code(s): E11.69 - Type 2 diabetes mellitus with other specified complication; Z79.4 - halfway (current) use of insulin (8) Diabetic ulcer of right foot associated with diabetes mellitus due to underlying condition, with fat layer exposed: Status: Acute Code(s): E08.621 - Diabetes mellitus due to underlying condition with foot ulcer; L97.512 - Non-pressure chronic ulcer of other part of right foot with fat layer exposed Qualifiers: Diabetic foot ulcer location: other Qualified Code(s): E08.621 - Diabetes mellitus due to underlying condition with foot ulcer; L97.512 - Non-pressure chronic ulcer of other part of right foot with fat layer exposed Problem details: Recent admission 11/24/23 to [facility] for Sepsis, Right TMA DFU to lateral foot with cellulitis. Podiatry follow up visit #1 12/06/23 (9) COPD mixed type: Status: Acute Code(s): J44.9 - Chronic obstructive pulmonary disease, unspecified (10) Tobacco use: Status: Acute Code(s): Z72.0 - Tobacco use (11) Pleural effusion, bilateral: Status: Acute Code(s): J90 - Pleural effusion, not elsewhere classified (12) CAD (coronary artery disease): Status: Acute Code(s): I25.10 - Atherosclerotic heart disease of [place] coronary artery without angina pectoris Qualifiers: Associated angina: without angina Coronary Disease-Associated Artery/Lesion type: [place] artery [place] vs. transplanted heart: [place] heart Qualified Code(s): I25.10 - Atherosclerotic heart disease of [place] coronary artery without angina pectoris Meds Home Medications and Allergies Home Medications ?Medication ?Instructions ?Recorded ?Confirmed ?Type albuterol sulfate 90 mcg/actuation 2 puff inhalation Q4-6H PRN 04/25/23 01/09/24 Rx aerosol inhaler shortness of breath or wheezing #3 ea fluticasone fur. 200 mcg-umeclid 1 inh inhalation DAILY 90 days #3 11/06/23 01/09/24 Rx 62.5 mcg-vilant 25 mcg ea inhalat.powder (Trelegy Ellipta) trazodone 50 mg tablet 50 mg PO HS 11/24/23 01/09/24 History aspirin 81 mg tablet,delayed 81 mg PO DAILY 30 days #30 tabs 12/22/23 01/09/24 Rx release atorvastatin 40 mg tablet 40 mg PO HS 30 days #30 tabs 12/22/23 01/09/24 Rx clopidogrel 75 mg tablet 75 mg PO DAILY 30 days #30 tabs 12/22/23 01/09/24 Rx bumetanide 1 mg tablet 2 mg (2 x 1 mg) PO BIDL 30 days 12/29/23 01/09/24 Rx #120 tabs tamsulosin 0.4 mg capsule 0.4 mg PO HS 30 days #30 caps 12/29/23 01/09/24 Rx sacubitril 24 mg-valsartan 26 mg 1 tab PO BID 01/04/24 01/09/24 History tablet (Entresto) empagliflozin 10 mg tablet 10 mg PO DAILY 30 days #30 tabs 01/05/24 01/09/24 Rx insulin degludec 100 unit/mL (3 32 unit (0.32 mL) SQ DAILY 90 days 01/05/24 01/09/24 Rx mL) subcutaneous pen (Tresiba #28.8 mL FlexTouch U-100 insulin) omeprazole 20 mg capsule,delayed 20 mg PO DAILY #30 caps 01/05/24 01/09/24 Rx release spironolactone 25 mg tablet 12.5 mg (1/2 x 25 mg) PO DAILY 30 01/05/24 01/09/24 Rx days #15 tabs New Prescriptions to Start Prescriptions: buaniSharon Cullenulosin Sharon Laird Allergies Allergy/AdvReac Type Severity Reaction Status Date / Time Aminoglycosides Allergy Severe Swelling Verified 01/09/24 10:42 of Lip/Tongue/Throat Discharge Plan Disposition Patient Disposition: Home Health Service Condition: Fair Discharge Order Discharge Orders: Discharge Order (Routine); Ordered 12/29/23 Ordered By: Sharon Laird Follow up Plan Follow up with: Santa Zamudio APRN [Nurse Practitioner] - 01/04/24 1:15 pm Anna Morales APRN [Primary Care Provider] - 01/05/24 1:00 pm Prescriptions/Medication Reconciliation: New tamsulosin 0.4 mg Capsule 0.4 mg PO HS 30 Days Qty: 30 0RF bumetanide 1 mg Tablet 2 mg PO BIDL 30 Days Qty: 120 0RF Continued albuterol sulfate 90 mcg/actuation HFA aerosol inhaler 2 puff inhalation Q4-6H PRN (Reason: shortness of breath or wheezing) Qty: 3 1RF Trelegy Ellipta 200-62.5-25 mcg blister with device 1 inh inhalation DAILY 90 Days Qty: 3 2RF trazodone 50 mg tablet 50 mg PO HS aspirin 81 mg Tablet,Delayed Release (Dr/Ec) 81 mg PO DAILY 30 Days Qty: 30 0RF atorvastatin 40 mg Tablet 40 mg PO HS 30 Days Qty: 30 0RF clopidogrel 75 mg tablet 75 mg PO DAILY 30 Days Qty: 30 0RF Discontinued spironolactone 25 mg Tablet 12.5 mg PO DAILY 30 Days Qty: 15 0RF No Action Entresto 24-26 mg tablet 1 tab PO BID empagliflozin 10 mg tablet 10 mg PO DAILY 30 Days Qty: 30 0RF spironolactone 25 mg tablet 12.5 mg PO DAILY 30 Days Qty: 15 0RF omeprazole 20 mg capsule,delayed release(DR/EC) 20 mg PO DAILY Qty: 30 2RF insulin degludec [Tresiba FlexTouch U-100] 100 unit/mL (3 mL) insulin pen 32 unit SQ DAILY 90 Days Qty: 28.8 4RF Problem Reconciliation Problems Reviewed?: Yes Patient Discharge Instructions ACTIVITY: Ambulate as tolerated DIET: continue same diet Patient Instructions: DI for Heart Failure, DI for Urinary Retention in Men, DI for Encephalopathy, Catheter-Associated Urinary Tract Infection Print Language: Malay Providers Primary Care Provider: Anna oMrales Admit Provider: Babak Ibrahim Attending Provider: Babak Ibrahim
== END 2023-12-29 16:49 | disposition home health service (06) ==
LOC: ER 15:53 → 2ND 16:32
PROVIDERS: Internal Medicine; Physician Assistant; Admitting Provider Internal Medicine Adolescent Medicine; Emergency Provider Emergency Medicine; PCP Nurse Practitioner Family; Visit Provider Internal Medicine Adolescent Medicine
DX: I50.23 Acute on chronic systolic (congestive) heart failure (principal); J96.01 Acute respiratory failure with hypoxia; E08.621 Diabetes mellitus due to underlying condition with foot ulcer; L97.512 Non-pressure chronic ulcer of other part of right foot with fat layer exposed; J44.9 Chronic obstructive pulmonary disease, unspecified; J90 Pleural effusion, not elsewhere classified; I25.10 Atherosclerotic heart disease of native coronary artery without angina pectoris; G93.41 Metabolic encephalopathy; N39.0 Urinary tract infection, site not specified; R41.82 Altered mental status, unspecified; I21.3 ST elevation (STEMI) myocardial infarction of unspecified site; Z95.5 Presence of coronary angioplasty implant and graft; F17.210 Nicotine dependence, cigarettes, uncomplicated; Z79.4 Long term (current) use of insulin; H54.8 Legal blindness, as defined in USA; Z89.431 Acquired absence of right foot; I73.9 Peripheral vascular disease, unspecified; Z95.811 Presence of heart assist device; R79.89 Other specified abnormal findings of blood chemistry; E11.69 Type 2 diabetes mellitus with other specified complication
CPT/HCPCS: 36415; 70450; 70496; 70498; 71045; 71275; 80050; 80053; 81001; 82803; 82962; 83735; 83880; 84443; 84484; 85025; 85378; 85610; 85730; 87086; 87088; 87186; 87636; 93005; 93308; 94640; 97163; 97166; 97530; 99285; G0378; J0131; J0696; J2020; J2270; J2405; J7620; Q9957; Q9967

== ENCOUNTER 2024-01-05 11:24 | Outpatient (CLI) | payer MEDICARE, SELFPAY ==
[2024-01-05 16:27] LABS: Microscopic, Urine URINE MICROSCOPIC (MICROSCOPIC)
[2024-01-05 18:21] LABS: Bilirubin,Urine Negative (Negative); Blood, Urine 3+ (Negative); Glucose,Urine (UA) 2+ (Negative); Ketones,Urine Negative (Negative); Leukocyte Esterase,Urine 2+ (Negative); Nitrate,Urine Negative (Negative); Protein,Urine 2+ (Negative); Specific Gravity, Urine 1.015 (1.005-1.030); Urobilinogen,Urine 0.2 EU/dl (0.2)
[2024-01-05 18:40] LABS: Appearance,Urine Cloudy (Clear); Color,Urine Dark Yellow (Yellow)
[2024-01-05 19:16] LABS: Bacteria,Urine Trace /lpf; WBC,Urine TNTC #/hpf (0-3); Yeast,Urine 2+ /lpf
== END 2024-01-05 23:59 | disposition home or self-care (01) ==
LOC: LAB.DROPOF 01-08 11:24
PROVIDERS: PCP Nurse Practitioner Family; Visit Provider Nurse Practitioner Family
DX: N39.0 Urinary tract infection, site not specified (principal); R06.09 Other forms of dyspnea
CPT/HCPCS: 81001; 87086

== ENCOUNTER 2024-01-09 14:26 | Outpatient (CLI) | payer MEDICARE, SELFPAY | END 2024-01-09 23:59 | disposition home or self-care (01) | LOC: LAB.DROPOF 14:26 | PROVIDERS: PCP Nurse Practitioner Family; Visit Provider Nurse Practitioner Family | DX: R82.90 Unspecified abnormal findings in urine (principal) | CPT/HCPCS: 87086 ==

== ENCOUNTER 2024-01-15 15:00 | Outpatient (CLI) | payer MEDICARE, SELFPAY | END 2024-01-15 23:59 | disposition home or self-care (01) | LOC: LAB.DROPOF 01-16 11:01 | PROVIDERS: PCP Nurse Practitioner Family; Visit Provider Nurse Practitioner | DX: E08.621 Diabetes mellitus due to underlying condition with foot ulcer (principal); L03.115 Cellulitis of right lower limb; A49.8 Other bacterial infections of unspecified site; L97.521 Non-pressure chronic ulcer of other part of left foot limited to breakdown of skin; L97.512 Non-pressure chronic ulcer of other part of right foot with fat layer exposed; L97.321 Non-pressure chronic ulcer of left ankle limited to breakdown of skin; Z51.89 Encounter for other specified aftercare | CPT/HCPCS: 87070; 87077; 87186; 87205 ==

== ENCOUNTER 2024-01-23 16:59 | Outpatient (CLI) | payer MEDICARE, SELFPAY | END 2024-01-23 23:59 | disposition home or self-care (01) | LOC: LAB.DROPOF 17:00 | PROVIDERS: PCP Nurse Practitioner Family; Visit Provider Nurse Practitioner Family | DX: R35.0 Frequency of micturition (principal) | CPT/HCPCS: 87086 ==

== ENCOUNTER 2024-01-30 16:49 | Outpatient (CLI) | payer MEDICARE, SELFPAY | END 2024-01-30 23:59 | disposition home or self-care (01) | LOC: LAB.DROPOF 16:50 | PROVIDERS: PCP Nurse Practitioner; Visit Provider Nurse Practitioner | DX: L97.521 Non-pressure chronic ulcer of other part of left foot limited to breakdown of skin (principal); Z51.89 Encounter for other specified aftercare | CPT/HCPCS: 87070; 87077; 87186; 87205 ==

== ENCOUNTER 2024-02-05 15:42 | Outpatient (CLI) | payer MEDICARE, SELFPAY ==
--- NOTE | 2024-02-05 15:48 | XR_ITS ---
FINAL REPORT TECHNIQUE: Chest PA & Lateral CLINICAL HISTORY: PE COMPARISON: None FINDINGS: 2 views of the chest were performed. The heart size is normal. The mediastinum is within normal limits. There is no acute cardiopulmonary process. There are no pleural effusions. There is no pneumothorax. There is mild to moderate hypertrophic change of the right shoulder. IMPRESSION: No acute cardiopulmonary process. Reviewed, Interpreted and Dictated by Blayne Delgadillo MD Transcribed by Radha Saba Authenticated and [facility]
== END 2024-02-05 23:59 | disposition home or self-care (01) ==
LOC: RAD 15:44
PROVIDERS: PCP Nurse Practitioner Family; Visit Provider Nurse Practitioner Family
DX: J90 Pleural effusion, not elsewhere classified (principal)
CPT/HCPCS: 71046

== ENCOUNTER 2024-02-15 16:00 | Outpatient (CLI) | payer MEDICARE, SELFPAY ==
[2024-02-15 16:52] LABS: Microscopic, Urine URINE MICROSCOPIC (MICROSCOPIC)
[2024-02-15 17:07] LABS: Appearance,Urine CLEAR (Clear); Bilirubin,Urine Negative (Negative); Blood, Urine 2+ (Negative); Color,Urine YELLOW (Yellow); Glucose,Urine (UA) 3+ (Negative); Ketones,Urine Negative (Negative); Leukocyte Esterase,Urine 2+ (Negative); Nitrate,Urine Negative (Negative); Protein,Urine Negative (Negative); Specific Gravity, Urine <= 1.005 (1.005-1.030); Urobilinogen,Urine 0.2 EU/dl (0.2)
[2024-02-15 17:18] LABS: Bacteria,Urine 1+ /lpf; RBC,Urine 20-50 #/hpf (0-3); WBC,Urine TNTC #/hpf (0-3)
== END 2024-02-15 23:59 | disposition home or self-care (01) ==
LOC: LAB.DROPOF 04-01 13:35
PROVIDERS: PCP Nurse Practitioner Family; Visit Provider Nurse Practitioner Family
DX: R30.0 Dysuria (principal)
CPT/HCPCS: 81001; 87086; 87088; 87186

== ENCOUNTER 2024-02-19 10:19 | Outpatient (CLI) | payer MEDICARE, SELFPAY ==
--- NOTE | 2024-02-19 10:19 | CT_ITS ---
FINAL REPORT TECHNIQUE: Axial images were obtained through the chest without contrast. This study was performed with techniques to keep radiation doses as low as reasonably achievable (ALARA). Individualized dose reduction techniques using automated exposure control or adjustment of mA and/or kV according to the patient's size were employed. CLINICAL HISTORY: SOA COMPARISON: 12/25/2023 FINDINGS: The lungs are clear. The heart size is normal. There is no pericardial or pleural effusion. There are several small calcified mediastinal lymph nodes. There are densely calcified coronary arteries. Limited images of the upper abdomen reveal calcified granulomas of the spleen. No suspicious infiltrate or nodule identified. There is biapical pleural and parenchymal scarring. IMPRESSION: Biapical pleural and parenchymal scarring. Reviewed, Interpreted and Dictated by Blayne eDlgadillo MD Transcribed by Herlinda Scherer Authenticated and [facility]
== END 2024-02-19 23:59 | disposition home or self-care (01) ==
LOC: RAD 10:19
PROVIDERS: PCP Nurse Practitioner Family; Visit Provider Nurse Practitioner Family
DX: R06.09 Other forms of dyspnea (principal); J43.9 Emphysema, unspecified; I50.20 Unspecified systolic (congestive) heart failure; R06.02 Shortness of breath
CPT/HCPCS: 71250

== ENCOUNTER 2024-02-26 15:00 | Outpatient (CLI) | payer MEDICARE, SELFPAY | END 2024-02-26 23:59 | disposition home or self-care (01) | LOC: LAB.DROPOF 02-27 09:13 | PROVIDERS: PCP Podiatrist; Visit Provider Podiatrist | DX: L97.521 Non-pressure chronic ulcer of other part of left foot limited to breakdown of skin (principal); E08.621 Diabetes mellitus due to underlying condition with foot ulcer; Z51.89 Encounter for other specified aftercare; L97.321 Non-pressure chronic ulcer of left ankle limited to breakdown of skin; H54.8 Legal blindness, as defined in USA; Z98.890 Other specified postprocedural states; I73.9 Peripheral vascular disease, unspecified; Z79.4 Long term (current) use of insulin; L03.116 Cellulitis of left lower limb | CPT/HCPCS: 87070; 87077; 87186; 87205 ==

== ENCOUNTER 2024-03-06 14:42 | Outpatient (CLI) | payer MEDICARE, SELFPAY ==
--- NOTE | 2024-03-06 14:51 | US_ITS ---
FINAL REPORT CLINICAL HISTORY: WOUNDS LEFT FOOT,PRIOR AMPUTATION OF ALL TOES RIGHT FOOT,DM,SMOKER,HTN,HLD,CLAUDICATION,CAD FINDINGS: BILATERAL ANKLE BRACHIAL INDICES Pressure indices are as follows are: RIGHT LOWER EXTREMITY Ankle brachial pressure index: 0.94 COMMENTS: Normal LEFT LOWER EXTREMITY Ankle brachial pressure index: 0.73 COMMENTS: Moderately depressed consistent with significant underlying occlusive arterial disease. IMPRESSION: Significant underlying occlusive arterial disease in the left lower extremity. No significant peripheral arterial disease in the right lower extremity. Reviewed, Interpreted and Dictated by Blayne Delgadillo MD Transcribed by Linda Giron Authenticated and [facility]
== END 2024-03-06 23:59 | disposition home or self-care (01) ==
LOC: RT 14:43
PROVIDERS: PCP Nurse Practitioner Family; Visit Provider Nurse Practitioner
DX: R09.89 Other specified symptoms and signs involving the circulatory and respiratory systems (principal)
CPT/HCPCS: 93923